=== PATIENT | male | born 1960 | race Caucasian/White ===

== ENCOUNTER 2019-12-25 06:56 | Outpatient (CLI) | payer MEDICARE, SELFPAY ==
[2019-12-25 07:28] LABS: Hemoglobin A1C 7.2 % (<5.7)
[2019-12-25 09:24] LABS: CRP < 0.2 mg/dL (0.0-0.9); Cholesterol 218 mg/dL (0-200); Free T3 4.16 pg/mL (2.18-3.98); HDL Direct 26 mg/dL (40-60); LDL Cholesterol Calculated 135 mg/dL (<130); Magnesium 1.5 mg/dL (1.8-2.4); Thyroid Stimulating Hormone 3.59 uIU/mL (0.36-3.74); Triglycerides 286 mg/dL (0-150); Vitamin B12 679 pg/mL (193-986)
[2019-12-28 16:02] LABS: Testosterone Free 51.6 pg/mL (35.0-155.0); Testosterone Total 302 ng/dL (250-1100)
[2019-12-29 08:55] LABS: Vitamin D 25 Hydroxy 19 ng/mL (30-100)
== END 2019-12-25 06:57 | disposition home or self-care (01) ==
LOC: CHSLAB 07:06
PROVIDERS: PCP Internal Medicine
DX: M25.50 Pain in unspecified joint (principal); E03.9 Hypothyroidism, unspecified; E11.9 Type 2 diabetes mellitus without complications; E78.5 Hyperlipidemia, unspecified; E55.9 Vitamin D deficiency, unspecified
CPT/HCPCS: 36415; 80061; 82306; 82607; 83036; 83735; 84402; 84403; 84443; 84481; 86038; 86140

== ENCOUNTER 2020-12-02 09:48 | Outpatient (CLI) | payer MEDICARE, SELFPAY ==
[2020-12-02 10:04] LABS: Basophils Absolute Auto 0.03 K/mm3 (0.00-0.10); Basophils Percent Auto 0.4 % (0.0-1.0); Eosinophils Absolute Auto 0.07 K/mm3 (0.02-0.50); Eosinophils Percent Auto 0.9 % (1.0-6.0); Hematocrit 48.6 % (40.0-54.0); Hemoglobin 16.9 g/dL (14.0-18.0); Immature Granulocyte Absolute 0.06 K/mm3 (0.00-0.00); Immature Granulocyte Percent A 0.8 % (0.0-0.0); Lymphocytes Absolute Auto 2.15 K/mm3 (1.10-4.50); Lymphocytes Percent Auto 28.1 % (18.0-42.0); Mean Corpuscular HGB Conc 34.8 g/dL (32.0-36.0); Mean Corpuscular Hemoglobin 31.9 pg (27.0-31.0); Mean Corpuscular Volume 91.9 fL (78.0-102.0); Mean Platelet Volume 9.3 fl (8.7-11.0); Monocytes Percent Auto 7.9 % (2.0-11.0); Neutrophils Absolute Auto 4.7 K/mm3 (1.7-7.2); Neutrophils Percent Auto 61.9 % (50.0-70.0); Platelet Count Result 239 K/mm3 (150-420); Red Blood Count 5.29 M/mm3 (4.70-6.10); Red Cell Distribution Width 11.3 % (11.6-14.4); White Blood Count 7.6 K/mm3 (4.8-10.8)
[2020-12-02 10:18] LABS: Hemoglobin A1C 7.5 % (<5.7)
[2020-12-02 11:38] LABS: Free T3 2.97 pg/mL (2.18-3.98); Prostate Specific Antigen 0.7 ng/mL (< OR = 4.0)
[2020-12-07 11:56] LABS: Testosterone Free 51.3 pg/mL (35.0-155.0); Testosterone Total 410 ng/dL (250-1100)
== END 2020-12-02 09:49 | disposition home or self-care (01) ==
DX: E34.50 Androgen insensitivity syndrome, unspecified (principal); R53.83 Other fatigue; R35.8 Other polyuria; N13.9 Obstructive and reflux uropathy, unspecified; E11.9 Type 2 diabetes mellitus without complications
CPT/HCPCS: 36415; 83036; 84153; 84402; 84403; 84481; 85025

== ENCOUNTER 2021-11-03 07:24 | Outpatient (CLI) | payer MEDICARE, SELFPAY ==
[2021-11-03 07:49] LABS: Hematocrit 58.1 % (40.0-54.0); Hemoglobin 19.6 g/dL (14.0-18.0); Mean Corpuscular HGB Conc 33.7 g/dL (32.0-36.0); Mean Corpuscular Volume 94.8 fL (78.0-102.0); Mean Platelet Volume 9.5 fl (8.7-11.0); Platelet Count Result 254 K/mm3 (150-420); Red Blood Count 6.13 M/mm3 (4.70-6.10); Red Cell Distribution Width 11.9 % (11.6-14.4); White Blood Count 8.2 K/mm3 (4.8-10.8)
[2021-11-03 08:51] LABS: Creatinine Urine 160.63 mg/dL (40-278); MALB Creatinine Ratio 14.6 mg/g (0-30); Microalbumin Urine Random 23.6 mg/L
[2021-11-03 08:53] LABS: Hemoglobin A1C 8.2 % (<5.7)
[2021-11-03 09:43] LABS: Alanine Aminotransferase 35 U/L (16-63); Albumin Level 4.3 g/dL (3.4-5.0); Alkaline Phosphatase 69 U/L (46-116); Anion Gap 8 mmol/L (8-16); Aspartate Amino Transferase 10 U/L (15-37); Bilirubin,Total 1.2 mg/dL (0.00-1.00); Blood Urea Nitrogen 14 mg/dL (7-18); Calcium 8.6 mg/dL (8.5-10.1); Carbon Dioxide 30 mmol/L (21-32); Chloride 101 mmol/L (98-108); Cholesterol 216 mg/dL (0-200); Estimated Glomerular Filt Rate > 60; Glucose 148 mg/dL (70-99); HDL Direct 25 mg/dL (40-60); LDL Cholesterol Calculated 138 mg/dL (<130); Osmolality Calculated 291 mOsm/kg (285-295); Potassium 4.4 mmol/L (3.5-5.1); Prostate Specific Antigen 0.9 ng/mL (< OR = 4.0); Sodium 139 mmol/L (136-145); Total Protein 7.3 g/dL (6.4-8.2); Triglycerides 267 mg/dL (0-150); Vitamin B12 880 pg/mL (193-986)
[2021-11-06 13:40] LABS: Testosterone Free 237.5 pg/mL (35.0-155.0); Testosterone Total 1237 ng/dL (250-1100)
== END 2021-11-03 07:25 | disposition home or self-care (01) ==
PROVIDERS: PCP Internal Medicine
DX: R53.83 Other fatigue (principal); Z12.5 Encounter for screening for malignant neoplasm of prostate; E78.00 Pure hypercholesterolemia, unspecified; E11.9 Type 2 diabetes mellitus without complications
CPT/HCPCS: 36415; 80053; 80061; 82043; 82607; 83036; 84153; 84402; 84403; 85027; G0103

== ENCOUNTER 2022-08-25 08:34 | Outpatient (CLI) | payer MEDICARE, SELFPAY ==
[2022-08-25 09:36] LABS: Hemoglobin A1C 7.4 % (<5.7)
[2022-08-25 10:31] LABS: Alanine Aminotransferase 35 U/L (16-63); Albumin Level 3.8 g/dL (3.4-5.0); Alkaline Phosphatase 63 U/L (46-116); Anion Gap 7 mmol/L (8-16); Aspartate Amino Transferase 16 U/L (15-37); Bilirubin,Total 0.8 mg/dL (0.00-1.00); Blood Urea Nitrogen 16 mg/dL (7-18); Calcium 8.9 mg/dL (8.5-10.1); Carbon Dioxide 34 mmol/L (21-32); Chloride 105 mmol/L (98-108); Cholesterol 180 mg/dL (0-200); Estimated Glomerular Filt Rate > 60; Glucose 165 mg/dL (70-99); HDL Direct 27 mg/dL (40-60); LDL Cholesterol Calculated 120 mg/dL (<130); Osmolality Calculated 307 mOsm/kg (285-295); Potassium 4.6 mmol/L (3.5-5.1); Sodium 146 mmol/L (136-145); Total Protein 6.6 g/dL (6.4-8.2); Triglycerides 165 mg/dL (0-150); Vitamin B12 859 pg/mL (193-986)
== END 2022-08-25 08:35 | disposition home or self-care (01) ==
LOC: CHSLAB 08:39
PROVIDERS: PCP Internal Medicine; Visit Provider Internal Medicine
DX: E78.00 Pure hypercholesterolemia, unspecified (principal); E11.9 Type 2 diabetes mellitus without complications
CPT/HCPCS: 36415; 80053; 80061; 82607; 83036

== ENCOUNTER 2022-11-12 10:25 | Outpatient (CLI) | payer MEDICARE, SELFPAY ==
[2022-11-12 10:44] LABS: Basophils Absolute Auto 0.04 K/mm3 (0.00-0.10); Basophils Percent Auto 0.4 % (0.0-1.0); Eosinophils Absolute Auto 0.05 K/mm3 (0.02-0.50); Eosinophils Percent Auto 0.6 % (1.0-6.0); Hemoglobin 18.5 g/dL (14.0-18.0); Immature Granulocyte Absolute 0.07 K/mm3 (0.00-0.00); Immature Granulocyte Percent A 0.8 % (0.0-0.0); Lymphocytes Percent Auto 15.6 % (18.0-42.0); Mean Corpuscular HGB Conc 34.3 g/dL (32.0-36.0); Mean Corpuscular Hemoglobin 32.8 pg (27.0-31.0); Mean Corpuscular Volume 95.7 fL (78.0-102.0); Mean Platelet Volume 9.6 fl (8.7-11.0); Monocytes Absolute Auto 0.73 K/mm3 (0.10-0.90); Monocytes Percent Auto 8.1 % (2.0-11.0); Neutrophils Absolute Auto 6.7 K/mm3 (1.7-7.2); Neutrophils Percent Auto 74.5 % (50.0-70.0); Platelet Count Result 237 K/mm3 (150-420); Red Blood Count 5.64 M/mm3 (4.70-6.10); Red Cell Distribution Width 12.5 % (11.6-14.4)
[2022-11-12 11:26] LABS: Prostate Specific Antigen 1.5 ng/mL (< OR = 4.0)
[2022-11-20 09:33] LABS: Testosterone Free 277.1 pg/mL (35.0-155.0); Testosterone Total 1372 ng/dL (250-1100)
== END 2022-11-12 10:26 | disposition home or self-care (01) ==
LOC: CHSLAB 10:30
DX: Z51.81 Encounter for therapeutic drug level monitoring (principal); R53.83 Other fatigue; Z12.5 Encounter for screening for malignant neoplasm of prostate
CPT/HCPCS: 36415; 84153; 84402; 84403; 85025; G0103

== ENCOUNTER 2024-09-11 11:22 | Outpatient (CLI) | payer MEDICARE, SELFPAY ==
[2024-09-11 12:35] LABS: Alanine Aminotransferase 35 U/L (16-63); Alkaline Phosphatase 68 U/L (46-116); Anion Gap 11 mmol/L (4-12); Aspartate Amino Transferase 13 U/L (15-37); Bilirubin,Total 1.4 mg/dL (0.00-1.00); Blood Urea Nitrogen 15 mg/dL (7-18); Calcium 9.5 mg/dL (8.5-10.1); Carbon Dioxide 25 mmol/L (21-32); Chloride 101 mmol/L (98-108); Cholesterol 123 mg/dL (0-200); Estimated Glomerular Filt Rate > 60; Glucose 192 mg/dL (70-99); HDL Direct 33 mg/dL (40-60); LDL Cholesterol Calculated 78 mg/dL (<130); Osmolality Calculated 289 mOsm/kg (285-295); Potassium 4.5 mmol/L (3.5-5.1); Prostate Specific Antigen 0.9 ng/mL (< OR = 4.0); Sodium 137 mmol/L (136-145); Total Protein 6.6 g/dL (6.4-8.2); Triglycerides 61 mg/dL (0-150)
== END 2024-09-11 11:23 | disposition home or self-care (01) ==
LOC: CHSLAB 11:29
PROVIDERS: PCP Internal Medicine
DX: E11.9 Type 2 diabetes mellitus without complications (principal); E78.00 Pure hypercholesterolemia, unspecified; K21.9 Gastro-esophageal reflux disease without esophagitis; I10 Essential (primary) hypertension; Z12.5 Encounter for screening for malignant neoplasm of prostate
CPT/HCPCS: 36415; 80053; 80061; 84153; 84402; 84403; G0103

== ENCOUNTER 2024-10-16 13:26 | Emergency (ER) | payer MEDICARE, SELFPAY ==
[2024-10-16] VITALS (12 sets, daily range): BP systolic 147–167; BP diastolic 75–91; PULSE 100–116; RESP 12–24; TEMP 36.7–36.8; O2SAT 94–98
--- NOTE | ~2024-10-16 | XR_ITS ---
Portable chest x-ray Comparison: None Clinical History: Chest pain Findings: Lungs are clear, without focal consolidation or pleural effusion. Cardiomediastinal silho uette is normal. Bones and soft tissues are unremarkable. Impression: Clear lungs. Reviewed, dictated and finalized at location M. HAZARD INSPECTOR Impression: Clear lungs.
[2024-10-16] MEDS: MAG HYDROX/ALUMINUM HYD/SIMETH 30 ML, PHENobarb/HYOSCY/ATROPINE/SCOP 32.4 MG, LIDOCAINE... PO (13:43)
[2024-10-16 13:46] LABS: Basophils Absolute Auto 0.05 K/mm3 (0.00-0.10); Basophils Percent Auto 0.6 % (0.0-1.0); Eosinophils Absolute Auto 0.09 K/mm3 (0.02-0.50); Hematocrit 52.6 % (40.0-54.0); Hemoglobin 18.2 g/dL (14.0-18.0); Immature Granulocyte Absolute 0.05 K/mm3 (0.00-0.00); Immature Granulocyte Percent A 0.6 % (0.0-0.0); Lymphocytes Absolute Auto 1.84 K/mm3 (1.10-4.50); Lymphocytes Percent Auto 21.2 % (18.0-42.0); Mean Corpuscular HGB Conc 34.6 g/dL (32-36); Mean Corpuscular Hemoglobin 31.6 pg (27.0-31.0); Mean Corpuscular Volume 91.3 fL (78.0-102.0); Mean Platelet Volume 9.1 fl (8.7-11.0); Monocytes Absolute Auto 0.67 K/mm3 (0.10-0.90); Monocytes Percent Auto 7.7 % (2.0-11.0); Neutrophils Absolute Auto 5.98 K/mm3 (1.70-7.20); Neutrophils Percent Auto 68.9 % (50.0-70.0); Platelet Count Result 233 K/mm3 (150-420); Red Blood Count 5.76 M/mm3 (4.70-6.10); Red Cell Distribution Width 12.2 % (11.6-14.4); White Blood Count 8.7 K/mm3 (4.8-10.8)
[2024-10-16 14:08] LABS: Alanine Aminotransferase 35 U/L (16-63); Alkaline Phosphatase 75 U/L (46-116); Anion Gap 8 mmol/L (4-12); Aspartate Amino Transferase 12 U/L (15-37); Bilirubin,Total 1.3 mg/dL (0.00-1.00); Blood Urea Nitrogen 18 mg/dL (7-18); Calcium 9.1 mg/dL (8.5-10.1); Carbon Dioxide 31 mmol/L (21-32); Chloride 101 mmol/L (98-108); Estimated CRCL calculation 62 ml/min; Estimated Glomerular Filt Rate > 60; Glucose 136 mg/dL (70-99); NT Pro B Type Natriuretic Pept 24 pg/mL (0-125); Osmolality Calculated 293 mOsm/kg (285-295); Potassium 3.9 mmol/L (3.5-5.1); Sodium 140 mmol/L (136-145); Total Protein 6.9 g/dL (6.4-8.2); Troponin I 4.6 ng/L (0.00-60.4)
[2024-10-16 14:11] LABS: Partial Thromboplastin Time 28.2 Sec (23.9-30.70); Prothrombin Time 11.5 Seconds (9.50-12.1)
--- NOTE | 2024-10-16 14:29 | ED_ITS ---
HPI - Abdominal Pain General Chief Complaint: Abdominal Pain Stated Complaint: heartburn Time Seen by Provider: 10/16/24 13:31 History of Present Illness HPI narrative: pt presents with intermittent abdominal pain and heartburn for the last few days. Pt denies CP or SOB. Pt says has had some pain around his umbilicus since umbilical hernia repair a couple of weeks ago. last few days has had some intermittent burning in his epigastric area and into chest. Pt informed PCP and wanted him evaluated for cardiac. Related Data Home Medications ?Medication ?Instructions ?Recorded ?Confirmed ?Last Taken ?Type insulin glargine 100 unit/mL (3 26 unit subcut QPM 10/16/24 10/16/24 Unknown History mL) subcutaneous pen (Lantus Solostar U-100 Insulin) insulin lispro 100 unit/mL 1 sliding scale dose subcut 10/16/24 10/16/24 Unknown History subcutaneous pen (Humalog KwikPen USEASDIRECTD (U-100) Insulin) losartan 100 1 tablet PO ONCE 10/16/24 10/16/24 Unknown History mg-hydrochlorothiazide 25 mg tablet (Hyzaar) metformin 1,000 mg tablet 1,000 mg PO BID 10/16/24 10/16/24 Unknown History omeprazole 40 mg capsule,delayed 40 mg PO DAILY 10/16/24 10/16/24 Unknown History release simvastatin 20 mg tablet 20 mg PO HS 10/16/24 10/16/24 Unknown History tramadol 50 mg tablet 100 mg PO Q6H 10/16/24 10/16/24 Unknown History Allergies Allergy/AdvReac Type Severity Reaction Status Date / Time codeine Allergy Hives Verified 10/16/24 13:29 hydrocodone Allergy Hives Verified 10/16/24 13:29 Review of Systems 2 Review of Systems: All systems reviewed & are unremarkable except as noted in HPI and below Exam 2 Const: General: healthy appearing and no acute distress Nutritional Appearance: well nourished Orientation/consciousness: patient oriented x3 Limitations: no limitations Chest: Chest palpation & inspection: normal inspection of the chest Resp: Effort & Inspection: normal respiratory effort Auscultation: clear to auscultation bilaterally Cardio: Rate: regular rate Rhythm: regular rhythm GI: GI Palp: Yes Soft to palpation and No Tenderness to palpation present (GI) Auscultation: normal bowel sounds Skin: General skin exam: normal color Rashes: no rashes Neuro: General: patient oriented x3, moves all extremities and no focal motor deficits Cranial nerves: Yes Nystagmus not present Speech: normal speech Extrem: General: normal to inspection and no clubbing, cyanosis or edema Psych: Mental Status: mental status grossly normal Affect: normal affect Attitude: cooperative Course Vital Signs Vital signs: Vital Signs Temperature 98.3 F 10/16/24 13:26 Pulse Rate 108 H 10/16/24 13:26 Respiratory Rate 15 10/16/24 13:26 Blood Pressure 167/91 H 10/16/24 13:26 Pulse Oximetry 98 10/16/24 13:26 Temperature 98.3 F 10/16/24 13:26 Pulse Rate 108 H 10/16/24 13:26 Respiratory Rate 15 10/16/24 13:26 Blood Pressure 167/91 H 10/16/24 13:26 Pulse Oximetry 98 10/16/24 13:26 MDM - Abdominal Pain MDM Narrative Medical decision making narrative: Pt presents with gerd symptoms and here for cardiac rule out. will get ekg and labs including trop and cxr. Lab Data 10/16/24 13:40 10/16/24 13:40 Labs: Lab Results 10/16/24 Range/Units 13:40 WBC 8.7 (4.8-10.8) K/mm3 RBC 5.76 (4.70-6.10) M/mm3 Hgb 18.2 H (14.0-18.0) g/dL Hct 52.6 (40.0-54.0) % MCV 91.3 (78.0-102.0) fL MCH 31.6 H (27.0-31.0) pg MCHC 34.6 (32-36) g/dL RDW 12.2 (11.6-14.4) % Plt Count 233 (150-420) K/mm3 MPV 9.1 (8.7-11.0) fl Immature Gran % (Auto) 0.6 H (0.0-0.0) % Neut % (Auto) 68.9 (50.0-70.0) % Lymph % (Auto) 21.2 (18.0-42.0) % [place] % (Auto) 7.7 (2.0-11.0) % Eos % (Auto) 1.0 (1.0-6.0) % Baso % (Auto) 0.6 (0.0-1.0) % Lymph # (Auto) 1.84 (1.10-4.50) K/mm3 [place] # (Auto) 0.67 (0.10-0.90) K/mm3 Eos # (Auto) 0.09 (0.02-0.50) K/mm3 Baso # (Auto) 0.05 (0.00-0.10) K/mm3 Abs Immat Gran (auto) 0.05 H (0.00-0.00) K/mm3 Absolute Neuts (auto) 5.98 (1.70-7.20) K/mm3 Absolute Nucleated RBC 0.00 (0.00-0.00) K/mm3 Nucleated RBC % 0.0 (0-0.0) % PT 11.5 (9.50-12.1) Seconds INR 1.0 APTT 28.2 (23.9-30.70) Sec Sodium 140 (136-145) mmol/L Potassium 3.9 (3.5-5.1) mmol/L Chloride 101 (98-108) mmol/L Carbon Dioxide 31 (21-32) mmol/L Anion Gap 8 (4-12) mmol/L BUN 18 (7-18) mg/dL Creatinine 1.18 (0.70-1.30) mg/dL Estim Creat Clear Calc 62 ml/min Estimated GFR > 60 (59 - ) Glucose 136 H (70-99) mg/dL Calculated Osmolality 293 (285-295) mOsm/kg Calcium 9.1 (8.5-10.1) mg/dL Total Bilirubin 1.3 H (0.00-1.00) mg/dL AST 12 L (15-37) U/L ALT 35 (16-63) U/L Alkaline Phosphatase 75 (46-116) U/L Troponin I 4.6 (0.00-60.4) ng/L NT-Pro-B Natriuret Pep 24 (0-125) pg/mL Total Protein 6.9 (6.4-8.2) g/dL Albumin 4.0 (3.4-5.0) g/dL Imaging Data Radiologist's impression: ITS Impressions Chest X-Ray 10/16/24 13:42 Impression: Clear lungs. ECG Data EKG #1: Interpretation: st rate 101 nonspecific t wave changes Discharge Plan Discharge Patient Language: Australian Prescriptions: No Action metformin 1,000 mg tablet 1,000 mg PO BID tramadol 50 mg tablet 100 mg PO Q6H losartan-hydrochlorothiazide [Hyzaar] 100-25 mg tablet 1 tablet PO ONCE simvastatin 20 mg tablet 20 mg PO HS omeprazole 40 mg capsule,delayed release(DR/EC) 40 mg PO DAILY insulin glargine [Lantus Solostar U-100 Insulin] 100 unit/mL (3 mL) insulin pen 26 unit subcut QPM insulin lispro [Humalog KwikPen Insulin] 100 unit/mL insulin pen 1 sliding scale dose subcut USEASDIRECTD Follow-up/Referrals: Nicolle,Saul Mueller MD [Primary Care Provider] - Quality HEART score for chest pain patients History: slightly suspicious ECG: non specific repolarization disturbance/LBTB/PM Age: > 45 and < 65 years Risk factors: 1 or 2 risk factors Troponin: < or = to 1x normal limit Heart score: 3
--- NOTE | 2024-10-16 14:34 | ECG_ITS ---
Test Date: 2024-10-16 14:42:02 Measurements Intervals [place] Rate: 101 P: 60 ME: 163 QRS: 70 QRSD: 92 T: 52 QT: 316 QTc: 410 Interpretive Statements SINUS TACHYCARDIA NONSPECIFIC T-WAVE ABNORMALITY ABNORMAL RHYTHM ECG No previous ECG available for comparison Electronically Signed On 10-16-2024 21:47:43 HOT WIRE GLASS TUBE CUTTER by Genna Saenz M.D.
== END 2024-10-16 14:59 | disposition home or self-care (01) ==
PROVIDERS: Emergency Provider Emergency Medicine; PCP Internal Medicine
DX: K21.9 Gastro-esophageal reflux disease without esophagitis (principal); Z79.4 Long term (current) use of insulin
CPT/HCPCS: 36415; 71045; 80053; 83880; 84484; 85025; 85610; 85730; 93005; 99284; A9270

== ENCOUNTER 2024-11-08 09:18 | Outpatient (CLI) | payer MEDICARE, SELFPAY ==
--- OUTSIDE RECORDS SUMMARY | 2024-11-08 09:56 | XMS_ITS | Encounter Summary ---
Author Organization [facility] Address [address] [place] [address] Phone Care Team Providers Care Ship'S Captain Name Role Phone Saul Valverde MD Primary Care Provider [phone] Ramon Paredes MD Unavailable Reason for Visit * Reason Comments Medication Refill Encounter Details Date Type Department Care Team (Late st Contact Info) Description 06/30/2021 Refill [facility] - Family Medicine [facility] [address]2 [place] [address] Saul Valverde MD [address] [address] Medication Refill Social History Tobacco Use Types Packs/Day Years Used Date Smoking Tobacco: Every Day Cigarettes 0.5 44.2 Started: 08/12/1980 Smokeless Tobacco: Never Comments:GOING TO TRY VAPOR Alcohol Use Standard Drinks/Week Comments No 0 (1 standard drink = 0.6 oz pur e alcohol) PHQ-2 Answer Date Recorded Total Score - Questions 1-9 0 02/01 Sexually Active Control Partners Comments Yes Female Sex and Gender Information Value Date Recorded Sex Assigned at Not on file Legal Sex Male 9:05 PM CDT Gender Identity Not on file Sexual Orientation Not on file documented as of this encounter Miscellaneous Notes * Telephone Encounter - Saul Valverde MD - 06/30/2021 4:02 PM CDT Prescription pending signature * Telephone Encounter - Inge Good RN - 06/30/2021 3:52 PM CDT Per [place] PDMP last fill date 04/30/21. Medication failed the protocol, provider to review and approve the medication order if appropriate. Requested Prescriptions Pending Prescriptions Disp Refills ALPRAZolam (XANAX) 0.5 MG Tablet [Pharmacy Med Name: ALPRAZOLAM 0.5 MG TABLET] 60 Tablet 0 Sig: TAKE 1 TABLET BY MOUTH TWICE DAILY. There is no refill protocol information for this order documented in this encounter Plan of Treatment Upcoming Encounters Date Type Department Care Team (Late st Contact Info) Description 03/15/2025 11:00 AM CDT Office Visit [facility] - Family [facility] #2 [place] [address] Saul Valverde MD #[address] [address] documented as of this encounter Visit Diagnoses Diagnosis Anxiety- Primary Anxiety state, unspecified documented in this encounter Additional Health Concerns Assessment Noted Time PHQ-9 Depression Total Score: 0 02/13/20 21 12:00 PM CDT documented as of this encounter Care Teams Ship'S Captain Relationship Specialty Start Date End Date Saul Valverde MD #[address] [address] PCP - General Family Medicine 11/17/17 Ramon Paredes MD #[address] [address] Consulting Physician Colon and Rectal Surgery 10/11/23 documented as of this encounter
--- OUTSIDE RECORDS SUMMARY | 2024-11-08 09:57 | XMS_ITS | Encounter Summary ---
Author Organization [facility] Address [address] [place] [address] Phone Care Team Providers Care Lumber Straightened Name Role Phone Saul Valverde MD Primary Care Provider [phone] Ramon Paredes MD Unavailable Reason for Visit * Reason Comments Medication Refill Encounter Details Date Type Department Care Team (Late st Contact Info) Description 08/21/2020 Refill [facility] - Family Medicine [facility] [address] [place] [address] Emmett Mo MD [address] [place] [address] Medication Refill Social History Tobacco Use Types Packs/Day Years Used Date Smoking Tobacco: Every Day Cigarettes 0.5 44.2 Started: 08/12/1980 Smokeless Tobacco: Never Comments:GOING TO TRY VAPOR Alcohol Use Standard Drinks/Week Comments No 0 (1 standard drink = 0.6 oz pur e alcohol) PHQ-2 Answer Date Recorded Total Score - Questions 1-9 0 11/04 Sexually Active Control Partners Comments Yes Female Sex and Gender Information Value Date Recorded Sex Assigned at Not on file Legal Sex Male 9:05 PM CDT Gender Identity Not on file Sexual Orientation Not on file documented as of this encounter Miscellaneous Notes * Telephone Encounter - Saul Valverde MD - 08/21/2020 11:21 AM CST Prescription pending signature PRODUCER * Telephone Encounter - Neida Santana RN - 08/21/2020 11:05 AM CST Last OV 05/20/20 - no follow up - last RX 05/20/20 Medication failed the protocol, provider to review and approve the medication order if appropriate. Requested Prescriptions Pending Prescriptions Disp Refills ALPRAZolam (XANAX) 0.5 MG Tablet [Pharmacy Med Name: ALPRAZOLAM 0.5 MG TABLET] 60 Tab 4 Sig: TAKE 1 TABLET BY MOUTH TWICE DAILY. Not Delegated - Psychiatry: Anxiolytics/Hypnotics Failed - 08/21/2020 9:30 AM Failed - This refill cannot be delegated Passed - Valid encounter within last 6 months Past Office Visits Recent Outpatient Visits 3 months ago Type 2 diabetes mellitus without complication, unspecified whether long-term insulin use (HCC) [facility] - Saul Wong MD 9 months ago Chronic midline low back pain without sciatica [facility] Saul Munoz MD 1 year ago Chronic midline low back pain without sciatica [facility] Saul Munoz MD 1 year ago Pure hypercholesterolemia [facility] Saul Munoz MD 2 years ago Type 2 diabetes mellitus without complication, without long-term current use of insulin(HCC) [facility] Saul Munoz MD Upcoming Appointments LAB RN - Recent and Past Visits Recent Visits Date Type Provider Dept 05/20/20 Telemedicine [facility] 11/20/19 [facility] Visit [facility] Showing recent visits within past 460 days with a meds authorizing provider and meeting all other requirements Future Appointments No visits were found meeting these conditions. Showing future appointments within next 90 days with a meds authorizing provider and meeting all other requirements PRODUCER documented in this encounter Plan of Treatment Upcoming Encounters Date Type Department Care Team (Late st Contact Info) Description 03/15/2025 11:00 AM CDT Office Visit [facility] [address] [place] [address] Saul Valverde MD #2 [facility] [address] [place] [address] documented as of this encounter Visit Diagnoses Not on filedocumented in this encounter Additional Health Concerns Assessment Noted Time PHQ-9 Depression Total Score: 0 11/20/19 20 12:18 PM OIL PRODUCER documented as of this encounter Care Teams Lumber Straightened Relationship Specialty Start Date End Date Saul Valverde MD [address] [address] PCP - General Family Medicine 11/17/17 Ramon Paredes MD [address]2 [facility] [address] [place] [address] Consulting Physician Colon and Rectal Surgery 10/11/23 documented as of this encounter
--- OUTSIDE RECORDS SUMMARY | 2024-11-08 09:57 | XMS_ITS | Clinical Summary ---
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 Gender Identity Not on file Sexual Orientation Not on file Last Filed Vital Signs Vital Sign Reading Time Taken Comments Blood Pressure 143/91 06/30/2016 10:57 AM CDT Pulse 82 06/30/2016 10:57 AM CDT Temperature - - Respiratory Rate - - Oxygen Saturation - - Inhaled Oxygen Concentration - - Weight 108.9 kg (240 lb) 06/30/2016 10:57 AM CDT Height 185.4 cm (6' 1 ) 06/30/2016 10:57 AM CDT Body Mass Index 31.66 06/30/2016 10:57 AM CDT Plan of Treatment Health Maintenance Due Date Last Done Comments Colorectal Cancer Screening Colonoscopy (10 Years) 1960 Annual Physical 02/25/1963 Hepatitis C 02/25/1978 DTaP, Tdap and Td Vaccines ( 1 - Tdap) 02/25/1979 Zoster Vaccines (1 of 2) 02/25/2010 COVID-19 Vaccine ( - 2023-2 5 season) 2024 Influenza Adult (#1) 2024 RSV Immunization or 60+ Years (1 - 1-dose 75+ series) 02/25/2035 Meningococcal B Vaccine Aged Out No l onger eligible based on patient's age to complete this topic Meningococcal Vaccine Aged Out No mary elizabeth eligible based on patient's age to complete this topic Pneumococcal Vaccine: Pediat rics (0 to 5 Years) and At-Risk Patients (6 to 64 Years) Aged Out No longer eligible b ased on patient's age to complete this topic RSV Immunizations Under 20 Months Aged Out No longer eligible based on patient's age to complete this topic
--- OUTSIDE RECORDS SUMMARY | 2024-11-08 09:57 | XMS_ITS | Encounter Summary ---
Author Organization [facility] Address [address] [place] [address] Phone Care Team Providers Care Mixed Crop And Livestock Farmer Name Role Phone Saul Valverde MD Primary Care Provider [phone] Ramon Paredes MD Unavailable Reason for Visit * Reason Comments Medication Refill Encounter Details Date Type Department Care Team (Late st Contact Info) Description 03/24/2021 Refill [facility] - Family Medicine [facility] #2 [place] [address] Emmett Mo MD #[address] [place] [address] Medication Refill Social History Tobacco Use Types [...] Telephone Encounter - Saul Valverde MD - 03/25/2021 3:31 PM CDT Prescription pending signature * Telephone Encounter - Yany Fernandes RN - 03/25/2021 3:14 PM CDT Medication failed the protocol, provider to review and approve the medication order if appropriate.See PDMP (Loazepam received 01/22) and see last UDS Requested Prescriptions Pending Prescriptions Disp Refills ALPRAZolam (XANAX) 0.5 MG Tablet [Pharmacy Med Name: ALPRAZOLAM 0.5 MG TABLET] 60 Tablet 0 Sig: TAKE 1 TABLET BY MOUTH TWICE DAILY. There is no refill protocol information for this order documented in this encounter Plan of Treatment Upcoming Encounters Date Type Department Care Team (Late st Contact Info) Description 03/15/2025 11:00 AM CDT [facility] #2 [place] [address] Saul Valverde MD #[address] [address] documented as of this encounter Visit Diagnoses Not on filedocumented in this encounter Additional Health Concerns Assessment Noted Time PHQ-9 Depression Total Score: 0 02/13/20 21 12:00 PM CDT documented as of this encounter Care Teams Mixed Crop And Livestock Farmer Relationship Specialty Start Date End Date Saul Valverde MD #[address] [address] PCP - General Family Medicine 11/17/17 Ramon Paredes MD #[address] [address] Consulting Physician Colon and Rectal Surgery 10/11/23 documented as of this encounter
--- OUTSIDE RECORDS SUMMARY | 2024-11-08 09:57 | XMS_ITS | Encounter Summary ---
Author Organization [facility] Address [address] [place] [address] Phone Care Team Providers Care Ict Support And Test Engineers Name Role Phone aSul Valverde MD Primary Care Provider [phone] Ramon Paredes MD Unavailable Reason for Visit * Reason Comments Medication Refill Encounter Details Date Type Department Care Team (Late st Contact Info) Description 01/13/2024 Refill [facility] - Family Medicine [facility] #2 [place] [address] Saul Valverde MD #[address] [address] Medication Refill Social History Tobacco Use Types Packs/Day Years Used Date Smoking Tobacco: Every Day Cigarettes 0.5 50.1 Started: 1974 Smokeless Tobacco: Never Alcohol Use Standard Drinks/Week Comments No 0 (1 standard drink = 0.6 oz pur e alcohol) PHQ-2 Answer Date Recorded Total Score - Questions 1-9 0 04/2022 Education Answer Date Recorded What is the highest level of school you have completed or the highest degree you have received? 12th grade 03/01/2023 Sexually Active Control Partners Comments Yes Female Sex and Gender Information Value Date Recorded Sex Assigned at Not on file Legal Sex Male 9:05 PM CDT Gender Identity Not on file Sexual Orientation Not on file documented as of this encounter Miscellaneous Notes * Telephone Encounter - Neida Santana RN - 01/14/2024 12:24 PM CDT Medication(s) [facility] and [facility] Medication Refill Standing Order for Pediatricand Adult Patients. Requested Prescriptions Pending Prescriptions Disp Refills omeprazole (PriLOSEC) 40 MG CAPSULE DELAYED RELEASE [Pharmacy Med Name: Omeprazole 40 MG Oral Capsule Delayed Release] 100 Capsule 1 Sig: TAKE 1 CAPSULE BY MOUTH DAILY Proton Pump Inhibitors Protocol Passed - 01/13/2024 10:02 PM Passed - Visit with relevant provider in past 12 months or upcoming 90 days Recent Visits Date Type Provider Dept 09/06/23 Office Visit Saul Valverde MD [facility] 03/02/23 Office Visit [facility] Showing recent visits within past 365 days and meeting all other requirements Future Appointments Date Type Provider Dept 03/07/24 Appointment Saul Valverde MD [facility] Showing future appointments within next 90 days and meeting all other requirements documented in this encounter Plan of Treatment Upcoming Encounters Date Type Department Care Team (Late st Contact Info) Description 03/15/2025 11:00 AM CDT [facility] Visit [facility] [address] [place] [address] Saul Valverde MD #[address] [address] documented as of this encounter Visit Diagnoses Not on filedocumented in this encounter Additional Health Concerns Assessment Noted Time PHQ-9 Depression Total Score: 0 02/13/20 21 12:00 PM CDT documented as of this encounter Care Teams Ict Support And Test Engineers Relationship Specialty Start Date End Date Saul Valverde MD #[address] [address] PCP - General Family Medicine 11/17/17 Ramon Paredes MD #2 [facility] [address] [place] [address] Consulting Physician Colon and Rectal Surgery 10/11/23 documented as of this encounter
--- OUTSIDE RECORDS SUMMARY | 2024-11-08 09:57 | XMS_ITS | Encounter Summary ---
Author Organization [facility] Address [address] [place] [address] Phone Care Team Providers Care Database Software Technician Name Role Phone Saul Valverde MD Primary Care Provider [phone] Ramon Paredes MD Unavailable Reason for Visit * Reason Comments Medication Refill Encounter Details Date Type Department Care Team (Late st Contact Info) Description [facility] [address] [place] [address] Saul Valverde MD #[address] [address] Medication Refill Social History Tobacco Use Types [...] Encounter - Saul Valverde MD - 08/21/2020 9:59 AM CST Prescription pending signature BILITATION TECHNICIAN * Telephone Encounter - Emi Mcarthur RN - 08/21/2020 9:58 AM CST Medication failed the protocol, provider to review and approve the medication order if appropriate. Last office visit 05/20/20, no appointment scheduled, last refill 05/20/20 Requested Prescriptions Pending Prescriptions Disp Refills traMADol (ULTRAM) 50 MG Tablet [Pharmacy Med Name: TRAMADOL HCL 50 MG TABLET] 540 Tab 4 Sig: TAKE 2 TABLETS BY MOUTH 3 TIMES DAILY Not Delegated - Analgesics: Opioid Agonists Failed - 08/21/2020 9:30 AM Failed - This refill cannot be delegated Passed - Valid encounter within last 6 months Past Office Visits Recent Outpatient Visits 3 months ago Type 2 diabetes mellitus without complication, unspecified whether bed bug exterminator insulin use (HCC) [facility] Saul Munoz MD 9 months ago Chronic midline low back pain without sciatica [facility] Saul Munoz MD 1 year ago Chronic midline low back pain without sciatica [facility] Saul Munoz MD 1 year ago Pure hypercholesterolemia [facility] Saul Munoz MD 2 years ago Type 2 diabetes mellitus without complication, without long-term current use of insulin(HCC) [facility] Saul Munoz MD Upcoming Appointments SKIP MINER BLASTING - Recent and Past Visits Recent Visits Date Type Provider Dept 05/20/20 Telemedicine Saul Valverde MD [facility] 11/20/19 Office [facility] Showing recent visits within past 460 days with a meds authorizing provider and meeting all other requirements Future Appointments No visits were found meeting these conditions. Showing future appointments within next 90 days with a meds authorizing provider and meeting all other requirements BILITATION TECHNICIAN documented in this encounter Plan of Treatment Upcoming Encounters Date Type Department Care Team (Late st Contact Info) Description 03/15/2025 11:00 AM CDT Office Visit [facility] #2 [place] [address] Saul Valverde MD #[address] [facility] [address] [place] [address] documented as of this encounter Visit Diagnoses Diagnosis Pain Generalized pain documented in this encounter Additional Health Concerns Assessment Noted Time PHQ-9 Depression Total Score: 0 11/20/19 20 12:18 PM REHABILITATION TECHNICIAN documented as of this encounter Care Teams Database Software Technician Relationship Specialty Start Date End Date Saul Valverde MD #[address] [facility] [address] [place] [address] PCP - General Family Medicine 11/17/17 Ramon Paredes MD #[address] [address] Consulting Physician Colon and Rectal Surgery 10/11/23 documented as of this encounter
--- OUTSIDE RECORDS SUMMARY | 2024-11-08 09:57 | XMS_ITS | Encounter Summary ---
Author Organization [facility] Address [address] [place] [address] Phone Care Team Providers Care Medical Clerk Name Role Phone Saul Valverde MD Primary Care Provider [phone] Ramon Paredes MD Unavailable Reason for Visit * Reason Comments Medication Refill Encounter Details Date Type Department Care Team (Late st Contact Info) Description 05/05/2023 Refill [facility] - Family Medicine [facility] #2 [place] [address] Saul Valverde MD #[address] [address] Medication Refill Social History Tobacco Use Types [...] Telephone Encounter - Neida Santana RN - 05/06/2023 10:18 AM CDT PDMP 03/02/23 Medication failed the protocol, provider to review and approve the medication order if appropriate. Requested Prescriptions Pending Prescriptions Disp Refills ALPRAZolam (XANAX) 0.5 MG Tablet [Pharmacy Med Name: ALPRAZOLAM 0.5 MG TABLET] 60 Tablet 0 Sig: TAKE 1 TABLET BY MOUTH 2 TIMES DAILY. Not Delegated - Benzodiazepines Protocol Failed - 05/05/2023 10:32 AM Failed - This refill cannot be delegated Passed - Visit with relevant provider in past 12 months or upcoming 90 days Recent Visits Date Type Provider Dept 03/02/23 Office Visit Saul Valverde MD [facility] 08/31/22 Office Visit Saul Valverde MD [facility] Showing recent visits within past 365 days and meeting all other requirements Future Appointments No visits were found meeting these conditions. Showing future appointments within next 90 days and meeting all other requirements documented in this encounter Plan of Treatment Upcoming Encounters Date Type Department Care Team (Late st Contact Info) Description 03/15/2025 11:00 AM CDT Office Visit [facility] #2 [place] [address] Saul Valverde MD #[address] [address] documented as of this encounter Visit Diagnoses Diagnosis Anxiety Anxiety state, unspecified documented in this encounter Additional Health Concerns Assessment Noted Time PHQ-9 Depression Total Score: 0 02/13/20 21 12:00 PM CDT documented as of this encounter Care Teams Medical Clerk Relationship Specialty Start Date End Date Saul Valverde MD #[address] [address] PCP - General Family Medicine 11/17/17 Rmaon Paredes MD #[address] [address] Consulting Physician Colon and Rectal Surgery 10/11/23 documented as of this encounter
--- OUTSIDE RECORDS SUMMARY | 2024-11-08 09:57 | XMS_ITS | Encounter Summary ---
Author Organization [facility] Address [address] [place] [address] Phone Care Team Providers Care Signal Tower Operator Name Role Phone Saul Valverde MD Primary Care Provider Ramon Paredes MD Unavailable Reason for Visit * Reason Comments Medication Refill Encounter Details Date Type Department Care Team (Late st Contact Info) Description 12/13/2022 Refill [facility] - Family Medicine [facility] #2 [place] [address] Saul Valverde MD #[address] [address] Medication Refill Social History Tobacco Use Types Packs/Day Years Used Date Smoking Tobacco: Every Day Cigarettes 0.5 44.2 Started: 08/12/1980 Smokeless Tobacco: Never Comments:GOING TO [employer] Alcohol Use Standard Drinks/Week Comments No 0 (1 standard drink = 0.6 oz pur e alcohol) PHQ-2 Answer Date Recorded Total Score - Questions 1-9 0 /0 04/2022 Education Answer Date Recorded What is the highest level of school you have completed or the highest degree you have received? Some college, no degree 08/30/2022 Sexually Active Control Partners Comments Yes Female Sex and Gender Information Value Date Recorded Sex Assigned at Not on file Legal Sex Male 9:05 PM CDT Gender Identity Not on file Sexual Orientation Not on file documented as of this encounter Miscellaneous Notes * Telephone Encounter - Neida Santana RN - 12/14/2022 3:18 PM CDT Medication failed the protocol, provider to review and approve the medication order if appropriate. Requested Prescriptions Pending Prescriptions Disp Refills metFORMIN (GLUCOPHAGE) 1000 MG Tablet [Pharmacy Med Name: metFORMIN HCl 1000 MG Oral Tablet] 200 Tablet 2 Sig: TAKE 1 TABLET BY MOUTH TWICE DAILY Biguanides Protocol Failed - 12/13/2022 9:41 PM Failed - GFR on record in past 6 months No results found for: GFRNA Passed - Visit with relevant provider in past 6 months or upcoming 90 days Recent Visits Date Type Provider Dept 08/31/22 Office Visit Saul Valverde MD [facility] Showing recent visits within past 182 days and meeting all other requirements Future Appointments Date Type Provider Dept 03/02/23 Appointment Saul Valvrede MD [facility] Showing future appointments within next 90 days and meeting all other requirements Passed - HgA1C on record in past 6 months HGB-A1C Date Value Ref Range Status 03/10/2022 7.8 (A) 4 - 6 Final HGB-A1C Date Value Ref Range Status 08/25/2022 7.4 % Final documented in this encounter Plan of Treatment Upcoming Encounters Date Type Department Care Team (Late st Contact Info) Description 03/15/2025 11:00 AM CDT Office Visit [facility] - Family Medicine [facility] #2 [place] [address] Saul Valverde MD #[address] [address] documented as of this encounter Visit Diagnoses Not on filedocumented in this encounter Additional Health Concerns Assessment Noted Time PHQ-9 Depression Total Score: 0 02/13/20 21 12:00 PM CDT documented as of this encounter Care Teams Signal Tower Operator Relationship Specialty Start Date End Date Saul Valverde MD #[address] [address] PCP - General Family Medicine 11/17/17 Ramon Paredes MD #2 [place] [address] Consulting Physician Colon and Rectal Surgery 10/11/23 documented as of this encounter
--- OUTSIDE RECORDS SUMMARY | 2024-11-08 09:57 | XMS_ITS | Clinical Summary ---
Author Organization [facility] Address [address] [facility] [address] [place] [address] Phone Care Team Providers Care Claims Assistant Name Role Phone Saul Valverde MD Primary Care Provider [phone] Ramon Paredes MD Unavailable Allergies Active Allergy Reactions Criticality Noted Date Comments Codeine Rash 08/12/2015 Empagliflozin Nausea Low 11/02/2023 Tirzepatide Other (see Comments) Low 01/11/2024 Sore nipples Medications Aspirin 81 MG Tablet Take 81 mg by mouth daily. Active TRUEplus Insulin Syringe 31G X 5/16 1 ML Misc 023 Active sildenafil (REVATIO) 20 MG TabletIndicat ions:Type 2 diabetes mellitus without complication, without long-term current use of insulin (HCC) Take 1 Tablet by mouth daily as needed for Other. 50 Tablet 2 023 Active metFORMIN (GLUCOPHAGE) 1000 MG Tablet Take 1 Tablet by mouth 2 times daily. 200 Tablet 2 023 Active insulin glargine (Lantus) 100 UNIT/ML Solution 22 Units by Subcutaneous route every evening. Active simvastatin (ZOCOR) 20 MG Tablet 024 Active Insulin Lispro, 1 Unit Dial, 100 UNIT/ML Solution Pen-injector 7 Units by Subcutaneous route 3 times daily (before meals). 024 Active testosterone cypionate (DEPO-TESTOST ERONE) 200 MG/ML Solution INJECT 1ML INTRAMUSCULARLY EVERY WEEK. PLEASE DISCARD 28 DAYS AFTER FIRST PUNCTURE. CAUTION HAZARDOUS DRUG-DISPOSE OF PROPERLY- OBSERVE SPECIAL HANDLING AND ADMINISTRATION REQUIREMENTS. 024 Active naproxen (NAPROSYN) 500 MG Tablet TAKE 1 TABLET BY MOUTH NEEDED FOR MODERATE OR MORE SEVERE PAIN. 60 Tablet 6 024 Active traMADol (ULTRAM) 50 MG TabletIndicat ions:Pain Take 1-2 Tablets by mouth every 6 hours as needed for Mild or more severe pain. 540 Tablet 024 Active ALPRAZolam (XANAX) 0.5 MG TabletIndicat ions:Anxiety Take 1 Tablet by mouth 2 times daily. 60 Tablet 024 Active albuterol 108 (90 Base) MCG/ACT Aerosol Solution take 2 Puffs by inhalation every 4 hours as needed for Wheezing. 6.7 g 3 024 Active losartan potassium-hyd rochlorothiaz courtney (HYZAAR) 100-25 MG Tablet Take 1 Tablet by mouth daily. 90 Tablet 3 024 Active acetaminophen (TYLENOL) 325 MG Tablet Take 1 Tablet by mouth every 6 hours as needed for Fever (for temperature greater than 100.4 F.). Do not exceed 4000 mg of acetaminophen in 24 hour from all sources. 024 Active omeprazole (PriLOSEC) 40 MG CAPSULE DELAYED RELEASE TAKE 1 CAPSULE BY MOUTH DAILY 100 Capsule 2 025 Active omeprazole (PriLOSEC) 40 MG CAPSULE DELAYED RELEASE TAKE 1 CAPSULE BY MOUTH DAILY 100 Capsule 1 024 2024 Discontinued ibuprofen (MOTRIN) 800 MG Tablet Take 1 Tablet by mouth every 8 hours for 10 days. 30 Tablet 024 2024 Active Problems Problem Noted Date Diagnosed Date Umbilical hernia without obstruction and without gangrene 10/02/2024 Screening for colon cancer 11/18/2018 Pure hypercholesterolemia 11/17/2017 Vasculogenic erectile dysfunction 11/17/2017 Chronic midline low back pain without sciatica 0 11/17/2017 Gastroesophageal reflux disease without esophagi tis 11/17/2017 Type 2 diabetes mellitus without complication Encounters Date Type Department Care Team Description 11/02/2024 Refill [facility]2 [place] [address] Saul Valverde MD Medication Refill 10/24/2024 1:15 PM SENIOR REGULATORY AFFAIRS SPECIALIST Office Visit [facility] General Surgery [facility] #[address] [address] Ramon Paredes MD S/P hernia surgery (Primary Dx) Discharge Disposition: Discharged to home or Selfcare 10/23/2024 Travel 10/16/2024 [facility] [address] [place] [phone] Saul Valverde MD Chest Pain 10/02/2024 1:10 PM SENIOR REGULATORY AFFAIRS SPECIALIST Anesthesia Event [facility] Periop [address] [place] [address] Job Velez, CONE EXAMINER, SCREEN PRINTING INSPECTOR 10/02/2024 12:40 PM SENIOR REGULATORY AFFAIRS SPECIALIST - 10/02/2024 2:10 PM SENIOR REGULATORY AFFAIRS SPECIALIST Surgery [facility] [address] [place] [address] Ramon Paredes MD UMBILICAL HERNIA REPAIR WITH MESH 10/02/2024 10:01 AM SENIOR REGULATORY AFFAIRS SPECIALIST - 10/02/2024 3:35 PM SENIOR REGULATORY AFFAIRS SPECIALIST Hospital Encounter [facility] Preop/Pacu II [address] [place] [address] Ramon Paredes MD Umbilical hernia without obstruction and without gangrene Discharge Disposition: Discharged to home or Selfcare 10/02/2024 Travel 09/20/2024 Telephone [facility] [place] [place] #2 [place] [address] Saul Valverde MD 09/18/2024 Travel 09/13/2024 10:30 AM SENIOR REGULATORY AFFAIRS SPECIALIST Office Visit [facility] [place] [place] #2 [place] [address] Saul Valverde MD Type 2 diabetes mellitus without complication, without long-term current use of insulin (HCC) (Primary Dx); Pain; Anxiety; Pure hypercholesterolemi a; Encounter for long-term (current) use of medications Discharge Disposition: Discharged to home or Selfcare 09/13/2024 Travel 09/11/2024 Travel 09/11/2024 [facility] [place] [address] Saul Valverde MD Medication Refill 09/06/2024 11:00 AM SENIOR REGULATORY AFFAIRS SPECIALIST Office Visit [facility] General Surgery [facility] #[address] [address] Ramon Paredes MD Umbilical hernia with obstruction, without gangrene (Primary Dx) Discharge Disposition: Discharged to home or Selfcare 09/05/2024 Travel 09/02/2024 [facility] [place] [address] Saul Valverde MD Medication Refill 08/26/2024 [facility] [place] [address] Saul Valverde MD Medication Refill from Last 3 Months Immunizations Immunization Administration Dates Next Due Covid-19, Mrna, Lnp-s, PF, 1 00 mcg/0.5 mL Dose (Moderna) 01/03/2021,12/06/2020 Influenza Vaccine greater than 3 yrs 07/04/2014 Influenza Vaccine, MDCK,quad rivalent, pres free 08/02/2018 Influenza Vaccine, Quadrivalent, PF 12/0 01/2023,09/09/2021,08/20/2020,2015 Influenza, Injectable, Mdck, Preservative Free 06/19/2015 Influenza, Injectable, Mdck,quadrivalent,with Preservative 07/10/2019 Influenza, Recombinant, Quadrivalent,injectable, Pf 08/14/2022 Influenza, Seasonal, Injecta ble, Undefined 07/04/2014,07/28/2013 Influenza,Split Virus,Trivalent,Injectable,PF 09/13/2024 Pneumococcal Vaccine - 13 Valent 06/19/2015 Pneumococcal Vaccine Adult - 23 Valent 09/03/2009 Zoster Vaccine Recombinant 06/21/2020,05/29/2020 Family History Medical History Relation Name Comments Cancer Brother Hodgkins No Known Problems Father Diabetes Maternal Grandfather No Known Problems Maternal Grandmother Congestive Heart Failure Mother Diabetes Mother No Known Problems Paternal Grandfather No Known Problems Paternal Grandmother No Known Problems Son 1 No Known Problems Son 2 Relation Name Status Comments Brother Father Maternal Grandfather Maternal Grandmother Mother Paternal Grandfather Paternal Grandmother Son 1 Alive Son 2 Alive Social History Tobacco Use Types Packs/Day Years Used Date Smoking Tobacco: Every Day Cigarettes 0.5 50.1 Started: 1974 Smokeless Tobacco: Never Alcohol Use Standard Drinks/Week Comments No 0 (1 standard drink = 0.6 oz pur e alcohol) PHQ-2 Answer Date Recorded Total Score - Questions 1-9 0 01/2024 Education Answer Date Recorded What is the [...] Sign Reading Time Taken Comments Blood Pressure 162/84 10/24/2024 1:06 PM SENIOR REGULATORY AFFAIRS SPECIALIST Pulse 103 10/24/2024 1:06 PM SENIOR REGULATORY AFFAIRS SPECIALIST Temperature 37 ??C (98.6 ??F) 10/24/2024 1:06 PM SENIOR REGULATORY AFFAIRS SPECIALIST Respiratory Rate 18 10/02/2024 3:02 PM SENIOR REGULATORY AFFAIRS SPECIALIST Oxygen Saturation 98% 10/24/2024 1:06 PM SENIOR REGULATORY AFFAIRS SPECIALIST Inhaled Oxygen Concentration - - Weight 67.6 kg (149 lb) 10/24/2024 1:06 PM SENIOR REGULATORY AFFAIRS SPECIALIST Height 182.9 cm (6') 10/24/2024 1:06 PM SENIOR REGULATORY AFFAIRS SPECIALIST Body Mass Index 20.21 10/24/2024 1:06 PM SENIOR REGULATORY AFFAIRS SPECIALIST Plan of Treatment Upcoming Encounters Date Type Department Care Team (Late st Contact Info) Description 03/15/2025 11:00 AM CDT Office Visit [facility] - Family Medicine [facility] [address] [place] [address] Saul Valverde MD [address] [facility] [address] [address] Health Maintenance Due Date Last Done Comments Diabetes: Foot Exam 1960 Hepatitis C Virus (HCV) Screening 1960 TdaP Immunization 1960 Colonoscopy 02/25/2005 Colorectal Cancer Screening 02/25/2005 Cologuard 02/25/2010 Immunochemical Fecal Occult Blood 02/25/2010 Lung Cancer Screening 02/25/2010 Respiratory Syncytial Virus (RSV) Immunization (Adult) (1 - Risk 60-74 years 1-dose series) 2020 Pneumococcal Immunization (50+ years) (3 of 3 - PCV20 or PCV21) 06/19/2020 06/19/2015, 09/03/2009 Zoster Immunization (2 of 2) 08/16/2020 06/21/2020, 05/29/2020 SARS-COV-2 Immunization (4 - season) 2024 10/24/2021, 01/03/2021, 12/06/2020 Diabetes: Eye Exam 11/25/2024 11/25/2023 Diabetes: Hemoglobin A1c 04/19/2025 025, 06/20/2024, 03/01/2024, Additional history exists Diabetes: Nephropathy Screening 09/11/2025 09/11/2024, 08/25/2022, 11/03/2021, Additional history exists Pneumococcal Immunization Combined Discontinued 06/19/2015, 09/03/2009 PSA Discussion Completed 09/11/2024, 11/03/2021 Influenza Immunization Completed , 09/06/2023, 08/14/2022, Additional history exists Hepatitis B Immunization Aged Out No longer eligible based on patient's age to complete this topic Meningococcal Immunization (ACWY) Aged Out No longer eligible based on patient's age to complete this topic Rotavirus Immunization Aged Out No lo nger eligible based on patient's age to complete this topic Medical Devices Implanted Type Area Superintendent House Device Identifier Shelf Expiration Date Model / Serial / Lot Impl Msh Harini Ventralex St Strap Cir Sm 1.7x1.7in - [id number] Implanted:Qty : 1 on 10/02/2024 by Ramon Paredes MD at [facility] IMPLANT N/A: Abdomen [employer] 02/28/2025 [id number] / [id number] / [id number] Procedures Procedure Name Priority Date/Time Associated Diagnosis Comments XR - CHEST 10/16/2024 12:00 AM SENIOR REGULATORY AFFAIRS SPECIALIST POCT GLUCOSE Routine 10/02/2024 2:09 PM SENIOR REGULATORY AFFAIRS SPECIALIST LMA Routine 10/02/2024 1:19 PM SENIOR REGULATORY AFFAIRS SPECIALIST UMBILICAL HERNIA REPAIR WITH / WITHOUT MESH 10/02/2024 12:49 PM SENIOR REGULATORY AFFAIRS SPECIALIST UMBILICAL HERNIA Special Needs 6'0: 201LBS IDDM, HTN, ANXIETY, GERD POCT GLUCOSE Routine 10/02/2024 10:28 AM SENIOR REGULATORY AFFAIRS SPECIALIST URINE DRUG SCREEN Routine 09/13/2024 Encounter for long-term (current) use of medications PSA SCREEN 09/11/2024 12:00 AM SENIOR REGULATORY AFFAIRS SPECIALIST LIPID PANEL 09/11/2024 12:00 AM SENIOR REGULATORY AFFAIRS SPECIALIST CMP (COMPREHENSIVE METABOLIC PANEL) 09/11/2024 12:00 AM SENIOR REGULATORY AFFAIRS SPECIALIST HM DILATED EYE EXAM 11/25/2023 12:00 AM SENIOR REGULATORY AFFAIRS SPECIALIST HEMOGLOBIN, A1C 08/25/2022 12:00 AM SENIOR REGULATORY AFFAIRS SPECIALIST from Last 3 Months or Most Recently Relevant to Health Maintenance Results * XR - CHEST (10/16/2024 12:00 AM SENIOR REGULATORY AFFAIRS SPECIALIST) 10/16/2024 us Provider Scan IMG DIAGNOSTIC ORDERABLES Final Result SCAN * POCT Glucose (10/02/2024 2:09 PM SENIOR REGULATORY AFFAIRS SPECIALIST) Only the most recent of2 resultswithin the time period is included. GLUCOSE,BEDSIDE POCT 98 70 - 99 mg/dL 10/02/2024 2:15 PM SENIOR REGULATORY AFFAIRS SPECIALIST [facility] Blood 10/02/2024 2:09 PM SENIOR REGULATORY AFFAIRS SPECIALIST 10/02/2024 2:15 PM SENIOR REGULATORY AFFAIRS SPECIALIST us None Provider POINT OF CARE TESTING Final Resu lt [facility] [address] [place] [address] * LMA (10/02/2024 1:19 PM SENIOR REGULATORY AFFAIRS SPECIALIST) Narrative Job Velez APRN, CRNA - 10/02/2024 1:19 PM SENIOR REGULATORY AFFAIRS SPECIALIST Job Velez APRN, CRNA ? 10/02/2024 ??1:19 PM LMA Staffing Performed: resident/SCREEN PRINTING INSPECTOR Resident/SCREEN PRINTING INSPECTOR: Job Velez APRN, CRNA Performed by: Job Velez APRN, CRNA Authorized by: Job Velez APRN, CRNA ?? Airway Details Overall Difficulty: ??Easy Preoxygenated: ??Yes Ease of Mask Ventilation: ??Easy LMA Type: ??Disposable LMA Size: ??4 Adequate seal established: ??Yes LMA placement confirmed by: ??bilateral breath sounds, ??CO2 detection Atraumatic LMA Placement Job Velez APRN, CRNA ANESTHESIA ORDERAB LES Final Result * URINE DRUG SCREEN (09/13/2024) Urine 09/13/2024 Result [facility] Saul Valverde MD URINE ORDERABLES Final Result * PSA SCREEN (09/11/2024 12:00 AM SENIOR REGULATORY AFFAIRS SPECIALIST) PSA SCREEN, TOTAL 0.9 SCAN 09/11/2024 Provider Scan CHEMISTRY ORDERABLES Final Resul t SCAN * LIPID PANEL (09/11/2024 12:00 AM SENIOR REGULATORY AFFAIRS SPECIALIST) CHOLESTEROL 123 SCAN HDL CHOLESTEROL 33 SCAN LDL 78 SCAN 09/11/2024 Provider Scan CHEMISTRY ORDERABLES Final Resul t SCAN * CMP (COMPREHENSIVE METABOLIC PANEL) (09/11/2024 12:00 AM SENIOR REGULATORY AFFAIRS SPECIALIST) 09/11/2024 us Provider Scan CHEMISTRY ORDERABLES Final Resul t SCAN * HM DILATED EYE EXAM (11/25/2023 12:00 AM SENIOR REGULATORY AFFAIRS SPECIALIST) 11/25/2023 us Saul Valverde MD PROCEDURE/MINOR SURGICAL ORDE RABLES Final Result SCAN * HEMOGLOBIN, A1C (08/25/2022 12:00 AM SENIOR REGULATORY AFFAIRS SPECIALIST) HGB-A1C 7.4 % SCAN 08/25/2022 us Not On File Provider CHEMISTRY ORDERABLES Final Result SCAN from Last 3 Months or Most Recently Relevant to Health Maintenance Insurance MEDICARE COMMERCIAL GENERIC Member Subscriber Plan / Payer (Ef fective 2019-Present) Name:Jesika Teixeira Relation to Subscriber:Self Name:Jesika Teixeira Payer ID:[id number] Group ID:[id number] Type:Not on file Address: [facility] [address] [place] [address] Care Teams Claims Assistant Relationship Specialty Start Date End Date Saul Valverde MD #2 [facility] [address] [place] [address] PCP - General Family Medicine 11/17/17 Ramon Paredes MD #2 [facility] [address] [place] [address] Consulting Physician Colon and Rectal Surgery 10/11/23
--- OUTSIDE RECORDS SUMMARY | 2024-11-08 09:57 | XMS_ITS | Encounter Summary ---
Author Organization [facility] Address [address] [place] [address] Phone Care Team Providers Care Chargemaster Analyst Name Role Phone Saul Valverde MD Primary Care Provider [phone] Ramon Paredes MD Unavailable Reason for Visit * Reason Comments Medication Refill Encounter Details Date Type Department Care Team (Late st Contact Info) Description 11/29/2023 Refill [facility] - Family Medicine [facility] #2 [place] [address] Saul Valverde MD #[address] [address] Medication Refill Social History Tobacco Use Types [...] Telephone Encounter - Neida Santana RN - 11/30/2023 8:24 AM CST Images from the original note were not included. Losartan Potassium Dispensed Days Supply Quantity Provider Pharmacy LOSARTAN POTASSIUM 100 MG TABS 11/29/2023 90 90 Tablet Saul Valverde MD [facility] mike Leavitt... LOSARTAN POTASSIUM 100 MG TABS 08/16/2023 90 90 Tablet Saul Valverde MD [facility]... EMENT COORDINATOR documented in this encounter Plan of Treatment Upcoming Encounters Date Type Department Care Team (Late st Contact Info) Description 03/15/2025 11:00 AM CDT Office Visit [facility] [place] #2 [place] [address] Saul Valverde MD #[address] [address] documented as of this encounter Visit Diagnoses Not on filedocumented in this encounter Additional Health Concerns Assessment Noted Time PHQ-9 Depression Total Score: 0 02/13/20 21 12:00 PM CDT documented as of this encounter Care Teams Chargemaster Analyst Relationship Specialty Start Date End Date Saul Valverde MD #[address] [address] PCP - General Family Medicine 11/17/17 Ramon Paredes MD #[address] [address] Consulting Physician Colon and Rectal Surgery 10/11/23 documented as of this encounter
--- OUTSIDE RECORDS SUMMARY | 2024-11-08 09:57 | XMS_ITS | Encounter Summary ---
Author Organization [facility] Healthcare Address [address] [place] [address] Care Team Providers Care Bridge Inspector Name Role Phone Saul Valverde MD Primary Care Provider [phone] Encounter Details Date Type Department Care Team (Late st Contact Info) Description 11/07/2024 Orders Only [facility] Medical Group Diabetes Endocrine Care at [address] [place] [address] Holly Henson, UTILITY PERSON [address] [facility] [address] [place] [address] Type 2 diabetes mellitus with hyperglycemia, with long-term current use of insulin (HCC) (Primary Dx) Social History Tobacco Use Types Packs/Day Years Used Date Smoking Tobacco: Every Day Cigarettes 0.8 35 Sex and Gender Information Value Date Recorded Sex Assigned at Not on file Legal Sex Male 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 Patient ID: Jesika Teixeira is a 64 y.o. male. This patient has verbally consented to recording this visit in order to utilize AI technology in generating this note. History of Present Illness Physical Exam Alert, orientated. Skin warm and dry. Respirations regular, even and non labored. Labs: Results Lab Results Component Value Date HGBA1C 7.6 10/20/2024 HGBA1C 7.8 06/20/2024 HGBA1C 8.3 03/01/2024 HGBA1C 8.4 11/29/2023 HGBA1C 9.9 07/29/2023 HGBA1C 9.8 04/27/2023 Chemistry Lab Results Component Value Date SODIUM 138 03/01/2024 POTASSIUM 4.4 03/01/2024 CHLORIDE 102 03/01/2024 CO2 25 03/01/2024 ANIONGAP 11 03/01/2024 BUNSER 15 03/01/2024 CREATININE 0.70 (L) 03/01/2024 GLUCOSE 211 (H) 03/01/2024 CALCIUM 9.6 03/01/2024 BILITOT 1.3 (H) 03/01/2024 ALBUMIN 4.4 03/01/2024 GFRNAA >90 03/01/2024 ALKPHOS 57 03/01/2024 AST 27 03/01/2024 ALT 25 03/01/2024 Lab Results Component Value Date ALBUMINUR 20.9 03/01/2024 CREATININEUR 84.2 03/01/2024 ALBCREATRATU 25 03/01/2024 Lab Results Component Value Date CHOL 118 03/01/2024 HDL 32 (L) 03/01/2024 TRIG 125 03/01/2024 LDLCALC 61 03/01/2024 Lab Results Component Value Date TSH 1.87 07/29/2023 There are no diagnoses linked to this encounter. Assessment & Plan Holly Henson NP OR REACTOR OPERATOR documented in this encounter Plan of Treatment Scheduled Orders Name Type Priority Associated Diagnoses Orde r Schedule Diabetes Mellitus Type 1 Evaluation Lab Routine Type 2 diabetes mellitus with hyperglycemia, with long-term current use of insulin ([facility]) Expected: 11/08/2024, Expires: 11/07/2025 C-peptide Lab Routine Type 2 diabetes mellitus with hyperglycemia, with long-term current use of insulin ([facility]) Expected: 11/08/2024, Expires: 11/07/2025 Glucose, fasting Lab Routine Type 2 diabetes mellitus with hyperglycemia, with long-term current use of insulin ([facility]) Expected: 11/08/2024, Expires: 11/07/2025 documented as of this encounter Visit Diagnoses Diagnosis Type 2 diabetes mellitus with hyperglycemia, with long-term current use of insulin (HCC)- Primary documented in this encounter Care Teams Bridge Inspector Relationship Specialty Start Date End Date Saul Valverde MD [address] [place] [id number] PCP - General 01/16/21 documented as of this encounter
--- OUTSIDE RECORDS SUMMARY | 2024-11-08 09:57 | XMS_ITS | Encounter Summary ---
Author Organization [facility] Address [address] [place] [address] Phone Care Team Providers Care Adjunct Professor Of Voice Name Role Phone Saul Valverde MD Primary Care Provider [phone] Ramon Paredes MD Unavailable Reason for Visit * Reason Comments Medication Refill Encounter Details Date Type Department Care Team (Late st Contact Info) Description 11/04/2023 Refill [facility] Medical Group - Family Medicine [facility] [address] [place] [address] Saul Valverde MD [address] [address] Medication Refill Social History Tobacco Use Types [...] Telephone Encounter - Neida Santana RN - 11/05/2023 12:03 PM CST PDMP 09/07/23 Medication failed the protocol, provider to review and approve the medication order if appropriate. Requested Prescriptions Pending Prescriptions Disp Refills ALPRAZolam (XANAX) 0.5 MG Tablet [Pharmacy Med Name: ALPRAZOLAM 0.5 MG TABLET] 60 Tablet 0 Sig: TAKE ONE TABLET BY MOUTH TWICE A DAY Not Delegated - Benzodiazepines Protocol Failed - 11/04/2023 10:37 AM Failed - This refill cannot be delegated Passed - Visit with relevant provider in past 12 months or upcoming 90 days Recent Visits Date Type Provider Dept 09/06/23 Office Visit Saul Valverde MD [facility] 03/02/23 Office Visit Saul Valverde MD [facility] Showing recent visits within past 365 days and meeting all other requirements Future Appointments No visits were found meeting these conditions. Showing future appointments within next 90 days and meeting all other requirements ERVATION POLICY ANALYST documented in this encounter Plan of Treatment Upcoming Encounters Date Type Department Care Team (Late st Contact Info) Description 03/15/2025 11:00 AM CDT [facility] Visit [facility] [address] [place] [address] Saul Valverde MD #[address] [address] documented as of this encounter Visit Diagnoses Diagnosis Anxiety Anxiety state, unspecified documented in this encounter Additional Health Concerns Assessment Noted Time PHQ-9 Depression Total Score: 0 02/13/20 21 12:00 PM CDT documented as of this encounter Care Teams Adjunct Professor Of Voice Relationship Specialty Start Date End Date Saul Valverde MD #[address] [address] PCP - General Family Medicine 11/17/17 Ramon Paredes MD #[address] [address] Consulting Physician Colon and Rectal Surgery 10/11/23 documented as of this encounter
--- OUTSIDE RECORDS SUMMARY | 2024-11-08 09:57 | XMS_ITS | Encounter Summary ---
Author Organization [facility] Healthcare Address [address] [place] [address] Care Team Providers Care Installment Loan Collector Name Role Phone Saul Valverde MD Primary Care Provider [phone] Encounter Details Date Type Department Care Team (Late st Contact Info) Description 11/07/2024 Telephone [facility] Medical Group Diabetes Endocrine Care at [address] [address] Cheryl Rosario MA Social History Tobacco Use Types Packs/Day Years Used Date Smoking Tobacco: Every Day Cigarettes 0.8 35 Sex and Gender Information Value Date Recorded Sex Assigned at Not on file 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 REPAIR TECHNICIAN * Telephone Encounter - Cheryl Rosario MA - 11/07/2024 10:29 AM RV REPAIR TECHNICIAN ----- Message from Holly Henson NP sent at 11/07/2024 10:10 AM RV REPAIR TECHNICIAN ----- Regarding: labs Hi Wants labs done at [facility]. Labs are for insulin pump qualification. Can we fax them to [facility]. Cpeptide, fasting glucose, type 1 evaluation panel. Thanks holly REPAIR TECHNICIAN documented in this encounter Plan of Treatment Not on file documented as of this encounter Visit Diagnoses Not on filedocumented in this encounter Care Teams Installment Loan Collector Relationship Specialty Start Date End Date Saul Valverde MD [address] [place] [address] PCP - General 01/16/21 documented as of this encounter
--- OUTSIDE RECORDS SUMMARY | 2024-11-08 09:57 | XMS_ITS | Encounter Summary ---
Author Organization [facility] Address [address] [place] [address] Phone Care Team Providers Care Medical Safety Director Name Role Phone Saul Valverde MD Primary Care Provider [phone] Ramon Paredes MD Unavailable Reason for Visit * Reason Comments Medication Refill Encounter Details Date Type Department Care Team (Late st Contact Info) Description 12/14/2023 Refill [facility] Medical Group - Family Medicine [facility] [address] [place] [address] Saul Valverde MD #[address] [address] Medication Refill Social History Tobacco Use Types [...] Telephone Encounter - Neida Santana RN - 12/14/2023 4:08 PM CDT PDMP Alprazolam 11/08/23 - Tramadol 09/23/23 90 days Medication failed the protocol, provider to review and approve the medication order if appropriate. Requested Prescriptions Pending Prescriptions Disp Refills traMADol (ULTRAM) 50 MG Tablet [Pharmacy Med Name: TRAMADOL HCL 50 MG TABLET] 540 Tablet 0 Sig: Take 1-2 Tablets by mouth every 6 hours as needed for Moderate or more severe pain. Not Delegated - Opioid Agonists Protocol Failed - 12/14/2023 3:26 PM Failed - This refill cannot be delegated Passed - Visit with relevant provider in past 12 months or upcoming 90 days Recent Visits Date Type Provider Dept 09/06/23 Office Visit Saul Valverde MD [facility] 03/02/23 Office Visit Saul Valverde MD [facility] Showing recent visits within past 365 days and meeting all other requirements Future Appointments Date Type Provider Dept 03/07/24 Appointment Saul Valverde MD [facility] Showing future appointments within next 90 days and meeting all other requirements ALPRAZolam (XANAX) 0.5 MG Tablet [Pharmacy Med Name: ALPRAZOLAM 0.5 MG TABLET] 60 Tablet 0 Sig: TAKE ONE TABLET BY MOUTH TWICE A DAY Not Delegated - Benzodiazepines Protocol Failed - 12/14/2023 3:26 PM Failed - This refill cannot be delegated Passed - Visit with relevant provider in past 12 months or upcoming 90 days Recent Visits Date Type Provider Dept 09/06/23 Office Visit Saul Valverde MD [facility] 03/02/23 Office Visit Saul Valverde MD [facility] Showing recent visits within past 365 days and meeting all other requirements Future Appointments Date Type Provider Dept 03/07/24 Appointment Saul Valverde MD [facility] Showing future appointments within next 90 days and meeting all other requirements documented in this encounter Plan of Treatment Upcoming Encounters Date Type Department Care Team (Late st Contact Info) Description 03/15/2025 11:00 AM CDT Office Visit [facility] Medical Group - Family Medicine - [facility] [address] [place] [address] Saul Valverde MD #2 [facility] [address] [place] [address] documented as of this encounter Visit Diagnoses Diagnosis Pain Generalized pain Anxiety Anxiety state, unspecified documented in this encounter Additional Health Concerns Assessment Noted Time PHQ-9 Depression Total Score: 0 02/13/20 21 12:00 PM CDT documented as of this encounter Care Teams Medical Safety Director Relationship Specialty Start Date End Date Saul Valverde MD #2 [facility] [address] [place] [address] PCP - General Family Medicine 11/17/17 Ramon Paredes MD #2 [facility] [address] [place] [address] Consulting Physician Colon and Rectal Surgery 10/11/23 documented as of this encounter
--- OUTSIDE RECORDS SUMMARY | 2024-11-08 09:57 | XMS_ITS | Encounter Summary ---
Author Organization [facility] Address [address] [place] [address] Phone Care Team Providers Care Rheumatologist Name Role Phone Saul Valverde MD Primary Care Provider [phone] Ramon Paredes MD Unavailable Reason for Visit * Reason Comments Medication Refill Encounter Details Date Type Department Care Team (Late st Contact Info) Description 09/02/2024 Refill [facility] #2 [place] [address] Saul Valverde MD #[address] [address] Medication Refill Social History Tobacco Use Types Packs/Day Years Used Date Smoking Tobacco: Every Day Cigarettes 0.5 50.1 Started: 1974 Smokeless Tobacco: Never Alcohol Use Standard Drinks/Week Comments No 0 (1 standard drink = 0.6 oz pur e alcohol) PHQ-2 Answer Date Recorded Total Score - Questions 1-9 0 06/0 01/2024 Education Answer Date Recorded What is [...] encounter Miscellaneous Notes * Telephone Encounter - Dorita Acosta RN - 09/04/2024 9:27 AM CST PDMP #540 dispensed 06/08/24 90 day supply Medication failed the protocol, provider to review and approve the medication order if appropriate. Requested Prescriptions Pending Prescriptions Disp Refills traMADol (ULTRAM) 50 MG Tablet [Pharmacy Med Name: TRAMADOL 50MG] 540 Tablet 0 Sig: TAKE 1 OR 2 TABLETS BY MOUTH EVERY 6 HOURS NEEDED FOR MODERATE OR MORE SEVERE PAIN. Not Delegated - Opioid Agonists Protocol Failed - 09/02/2024 10:46 AM Failed - This refill cannot be delegated Passed - Visit with relevant provider in past 12 months or upcoming 90 days Recent Visits Date Type Provider Dept 03/07/24 Office Visit Saul Valverde MD [facility] 09/06/23 Office Visit Saul Valverde MD [facility] Showing recent visits within past 365 days and meeting all other requirements Future Appointments Date Type Provider Dept 09/13/24 Appointment Saul Valverde MD [facility] Showing future appointments within next 90 days and meeting all other requirements ET MANAGER documented in this encounter Plan of Treatment Upcoming Encounters Date Type Department Care Team (Late st Contact Info) Description 03/15/2025 11:00 AM CDT Office Visit [facility] Medical Group - Family Medicine - [place] [address] [place] [address] Saul Valverde MD #[address] [address] documented as of this encounter Visit Diagnoses Diagnosis Pain Generalized pain documented in this encounter Additional Health Concerns Assessment Noted Time PHQ-9 Depression Total Score: 0 03/07/20 10:10 AM CDT documented as of this encounter Care Teams Rheumatologist Relationship Specialty Start Date End Date Saul Valverde MD #[address] [address] PCP - General Family Medicine 11/17/17 Ramon Paredes MD [address] [place] [address] [place] [address] Consulting Physician Colon and Rectal Surgery 10/11/23 documented as of this encounter
--- OUTSIDE RECORDS SUMMARY | 2024-11-08 09:57 | XMS_ITS | Encounter Summary ---
Author Organization [facility] Address [address] [facility] [place] [address] Phone Care Team Providers Care Information Assurance Manager Name Role Phone Saul Valverde MD Primary Care Provider [phone] Ramon Paredes MD Unavailable Reason for Visit * Reason Comments Medication Refill Encounter Details Date Type Department Care Team (Late st Contact Info) Description 04/12/2021 Refill [facility] Medical Group - Family Medicine [facility] #2 [place] [address] Saul Valverde MD #[address] [address] Medication Refill Social History Tobacco Use Types [...] Telephone Encounter - Saul Valverde MD - 04/14/2021 10:58 AM CDT Prescription approved. Please call in * Telephone Encounter - Neida Santana RN - 04/14/2021 10:56 AM CDT Medication failed the protocol, provider to review and approve the medication order if appropriate. Requested Prescriptions Pending Prescriptions Disp Refills metFORMIN (GLUCOPHAGE) 1000 MG Tablet [Pharmacy Med Name: MetFORMIN 1000MG TABLET] 180 Tablet 3 Sig: TAKE 1 TABLET BY MOUTH TWICE DAILY Biguanides Protocol Failed - 04/12/2021 8:01 PM Failed - HgA1C on record in past 6 months HGB-A1C Date Value Ref Range Status 12/25/2019 7.2 % Final Failed - GFR on record in past 6 months No results found for: GFRNA Passed - Visit with relevant provider in past 6 months or upcoming 90 days Recent Visits Date Type Provider Dept 02/12/21 Office Visit Saul Valverde MD [facility] Showing recent visits within past 182 days and meeting all other requirements Future Appointments No visits were found meeting these conditions. Showing future appointments within next 90 days and meeting all other requirements documented in this encounter Plan of Treatment Upcoming Encounters Date Type Department Care Team (Late st Contact Info) Description 03/15/2025 11:00 AM CDT Office Visit [facility] Medical Group - Family Medicine [facility] #2 [place] [address] Saul Valverde MD #[address] [address] documented as of this encounter Visit Diagnoses Not on filedocumented in this encounter Additional Health Concerns Assessment Noted Time PHQ-9 Depression Total Score: 0 02/13/20 12:00 PM CDT documented as of this encounter Care Teams Information Assurance Manager Relationship Specialty Start Date End Date Saul Valverde MD #[address] [address] PCP - General Family Medicine 11/17/17 Ramon Paredes MD #[address] [place] [address] Consulting Physician Colon and Rectal Surgery 10/11/23 documented as of this encounter
--- OUTSIDE RECORDS SUMMARY | 2024-11-08 09:57 | XMS_ITS | Encounter Summary ---
Author Organization [facility] Address [address] [place] [address] Phone Care Team Providers Care Distribution Superintendent Name Role Phone Saul Valverde MD Primary Care Provider [phone] Ramon Paredes MD Unavailable Reason for Visit * Reason Comments Medication Refill Encounter Details Date Type Department Care Team (Late st Contact Info) Description 12/14/2022 Refill [facility] Medical Group - Family Medicine [facility] #2 [place] [address] Saul Valverde MD #[address] [address] Medication Refill Social History Tobacco Use Types [...] Telephone Encounter - Neida Santana RN - 12/15/2022 10:49 AM CDT PDMP Alprazolam 10/27/22 - Tramadol 09/15/22 68 days supply Medication failed the protocol, provider to review and approve the medication order if appropriate. Requested Prescriptions Pending Prescriptions Disp Refills traMADol (ULTRAM) 50 MG Tablet [Pharmacy Med Name: TRAMADOL HCL 50 MG TABLET] 540 Tablet 0 Sig: TAKE 1 OR 2 TABLETS BY MOUTH EVERY 6 HOURS NEEDED FOR MODERATE OR MORE SEVERE PAIN. Not Delegated - Opioid Agonists Protocol Failed - 12/14/2022 3:10 PM Failed - This refill cannot be delegated Passed - Visit with relevant provider in past 12 months or upcoming 90 days Recent Visits Date Type Provider Dept 08/31/22 Office Visit Saul Valverde MD [facility] 03/10/22 Office Visit Saul Valverde MD [facility] Showing recent visits within past 365 days and meeting all other requirements Future Appointments Date Type Provider Dept 03/02/23 Appointment Saul Valverde MD [facility] Showing future appointments within next 90 days and meeting all other requirements ALPRAZolam (XANAX) 0.5 MG Tablet [Pharmacy Med Name: ALPRAZOLAM 0.5 MG TABLET] 60 Tablet 0 Sig: TAKE 1 TABLET BY MOUTH 2 TIMES DAILY. Not Delegated - Benzodiazepines Protocol Failed - 12/14/2022 3:10 PM Failed - This refill cannot be delegated Passed - Visit with relevant provider in past 12 months or upcoming 90 days Recent Visits Date Type Provider Dept 08/31/22 Office Visit Saul Valverde MD [facility] 03/10/22 Office Visit Saul Valverde MD [facility] Showing recent visits within past 365 days and meeting all other requirements Future Appointments Date Type Provider Dept 03/02/23 Appointment Saul Valverde MD [facility] Showing future appointments within next 90 days and meeting all other requirements documented in this encounter Plan of Treatment Upcoming Encounters Date Type Department Care Team (Late st Contact Info) Description 03/15/2025 11:00 AM CDT Office Visit [facility] Medical Group - Family Medicine - [place] [address] [place] [address] Saul Valverde MD #2 [facility] [address] [place] [address] documented as of this encounter Visit Diagnoses Diagnosis Pain Generalized pain Anxiety Anxiety state, unspecified documented in this encounter Additional Health Concerns Assessment Noted Time PHQ-9 Depression Total Score: 0 02/13/20 21 12:00 PM CDT documented as of this encounter Care Teams Distribution Superintendent Relationship Specialty Start Date End Date Saul Valverde MD #[address] [address] PCP - General Family Medicine 11/17/17 Ramon Paredes MD #2 [facility] [address] [place] [address] Consulting Physician Colon and Rectal Surgery 10/11/23 documented as of this encounter
--- OUTSIDE RECORDS SUMMARY | 2024-11-08 09:57 | XMS_ITS | Encounter Summary ---
Author Organization [facility] Address [address] [place] [address] Phone Care Team Providers Care Air Defense Specialist Name Role Phone Saul Valverde MD Primary Care Provider [phone] Ramon Paredes MD Unavailable Reason for Visit * Reason Comments Medication Refill Encounter Details Date Type Department Care Team (Late st Contact Info) Description 06/22/2023 Refill [facility] Medical Group - Family Medicine [facility] [place] [address] Saul Valverde MD #[address] [address] Medication Refill Social History Tobacco Use Types [...] Telephone Encounter - Neida Santana RN - 06/22/2023 12:56 PM CDT PDMP Tramadol 03/22/23 - Alprazolam 05/06/23 Medication failed the protocol, provider to review and approve the medication order if appropriate. Requested Prescriptions Pending Prescriptions Disp Refills traMADol (ULTRAM) 50 MG Tablet [Pharmacy Med Name: TRAMADOL HCL 50 MG TABLET] 540 Tablet 0 Sig: TAKE 1 OR 2 TABLETS BY MOUTH EVERY 6 HOURS NEEDED FOR MODERATE OR MORE SEVERE PAIN. Not Delegated - Opioid Agonists Protocol Failed - 06/22/2023 9:54 AM Failed - This refill cannot be delegated Passed - Visit with relevant provider in past 12 months or upcoming 90 days Recent Visits Date Type Provider Dept 03/02/23 Office Visit Saul Valverde MD [facility] 08/31/22 Office Visit Saul Valverde MD [facility] Showing recent visits within past 365 days and meeting all other requirements Future Appointments Date Type Provider Dept 08/24/23 Appointment Saul Valverde MD [facility] Showing future appointments within next 90 days and meeting all other requirements ALPRAZolam (XANAX) 0.5 MG Tablet [Pharmacy Med Name: ALPRAZOLAM 0.5 MG TABLET] 60 Tablet 0 Sig: TAKE 1 TABLET BY MOUTH 2 TIMES DAILY. Not Delegated - Benzodiazepines Protocol Failed - 06/22/2023 9:54 AM Failed - This refill cannot be delegated Passed - Visit with relevant provider in past 12 months or upcoming 90 days Recent Visits Date Type Provider Dept 03/02/23 Office Visit Saul Valverde MD [facility] 08/31/22 Office Visit Saul Valverde MD [facility] Showing recent visits within past 365 days and meeting all other requirements Future Appointments Date Type Provider Dept 08/24/23 Appointment Saul Valverde MD [facility] Showing future appointments within next 90 days and meeting all other requirements documented in this encounter Plan of Treatment Upcoming Encounters Date Type Department Care Team (Late st Contact Info) Description 03/15/2025 11:00 AM CDT Office Visit [facility] Medical Group - Family Medicine - [place] [address] [place] [address] Saul Valverde MD #[address] [address] documented as of this encounter Visit Diagnoses Diagnosis Pain Generalized pain Anxiety Anxiety state, unspecified documented in this encounter Additional Health Concerns Assessment Noted Time PHQ-9 Depression Total Score: 0 02/13/20 21 12:00 PM CDT documented as of this encounter Care Teams Air Defense Specialist Relationship Specialty Start Date End Date Saul Valverde MD [address] [address] PCP - General Family Medicine 11/17/17 Ramon Paredes MD [address] [address] Consulting Physician Colon and Rectal Surgery 10/11/23 documented as of this encounter
--- OUTSIDE RECORDS SUMMARY | 2024-11-08 09:57 | XMS_ITS | Encounter Summary ---
Author Organization [facility] Address [address] [place] [address] Phone Care Team Providers Care Carrier Loader Name Role Phone Saul Valverde MD Primary Care Provider [phone] Ramon Paredes MD Unavailable Reason for Visit * Reason Comments Medication Refill Encounter Details Date Type Department Care Team (Late st Contact Info) Description 10/27/2022 Refill [facility] - Family Medicine [facility] [address] [place] [address] Saul Valverde MD #[address] [address] Medication Refill Social History Tobacco Use Types Packs/Day Years Used Date Smoking Tobacco: Every Day Cigarettes 0.5 44.2 Started: 08/12/1980 Smokeless Tobacco: Never Comments:GOING TO [employer] Alcohol Use Standard Drinks/Week Comments No 0 (1 standard drink = 0.6 oz pur e alcohol) PHQ-2 Answer Date Recorded Total Score - Questions 1-9 0 0 04/2022 Education Answer Date Recorded What [...] Telephone Encounter - Neida Santana RN - 10/27/2022 1:40 PM CST PDMP 08/31/22 Medication failed the protocol, provider to review and approve the medication order if appropriate. Requested Prescriptions Pending Prescriptions Disp Refills ALPRAZolam (XANAX) 0.5 MG Tablet [Pharmacy Med Name: ALPRAZOLAM 0.5 MG TABLET] 60 Tablet 0 Sig: TAKE 1 TABLET BY MOUTH 2 TIMES DAILY. Not Delegated - Benzodiazepines Protocol Failed - 10/27/2022 9:56 AM Failed - This refill cannot be delegated Passed - Visit with relevant provider in past 12 months or upcoming 90 days Recent Visits Date Type Provider Dept 08/31/22 Office Visit Saul Valverde MD [facility] 03/10/22 Office Visit Saul Valverde MD [facility] Showing recent visits within past 365 days and meeting all other requirements Future Appointments No visits were found meeting these conditions. Showing future appointments within next 90 days and meeting all other requirements PMENT STERILIZER documented in this encounter Plan of Treatment Upcoming Encounters Date Type Department Care Team (Late st Contact Info) Description 03/15/2025 11:00 AM CDT [facility] [address] [place] [address] Saul Valverde MD #[address] [address] documented as of this encounter Visit Diagnoses Diagnosis Anxiety Anxiety state, unspecified documented in this encounter Additional Health Concerns Assessment Noted Time PHQ-9 Depression Total Score: 0 02/13/20 21 12:00 PM CDT documented as of this encounter Care Teams Carrier Loader Relationship Specialty Start Date End Date Saul Valverde MD #[address] [address] PCP - General Family Medicine 11/17/17 Ramon Paredes MD #[address] [address] Consulting Physician Colon and Rectal Surgery 10/11/23 documented as of this encounter
--- OUTSIDE RECORDS SUMMARY | 2024-11-08 09:57 | XMS_ITS | Encounter Summary ---
Author Organization [facility] Address [address] [place] [address] Phone Care Team Providers Care Pharmacist Hospital Name Role Phone Saul Valverde MD Primary Care Provider [phone] Ramon Paredes MD Unavailable Reason for Visit * Reason Comments Medication Refill Encounter Details Date Type Department Care Team (Late Contact Info) Description 06/09/2022 Refill [facility] [place] [address] Saul Valverde MD #[address] [address] Medication Refill Social History Tobacco Use Types Packs/Day Years Used Date Smoking Tobacco: Every Day Cigarettes 0.5 44.2 Started: 08/12/1980 Smokeless Tobacco: Never Comments:GOING TO [employer] Alcohol Use Standard Drinks/Week Comments No 0 (1 standard drink = 0.6 oz pur e alcohol) PHQ-2 Answer Date Recorded Total Score - Questions 1-9 0 04/2022 Sexually Active Control Partners Comments Yes Female Sex and Gender Information Value Date Recorded Sex Assigned at Not on file Legal Sex Male 9:05 PM CDT Gender Identity Not on file Sexual Orientation Not on file documented as of this encounter Plan of Treatment Upcoming Encounters Date Type Department Care Team (Late Contact Info) Description 03/15/2025 11:00 AM CDT Office Visit [facility] [place] [address] Saul Valverde MD #2 [facility] [address] [place] [address] documented as of this encounter Visit Diagnoses Diagnosis Pain Generalized pain documented in this encounter Additional Health Concerns Assessment Noted Time PHQ-9 Depression Total Score: 0 02/13/20 21 12:00 PM CDT documented as of this encounter Care Teams Pharmacist Hospital Relationship Specialty Start Date End Date Saul Valverde MD [address] [address] PCP - General Family Medicine 11/17/17 Ramon Paredes MD #2 [facility] [address] [place] [address] Consulting Physician Colon and Rectal Surgery 10/11/23 documented as of this encounter
--- OUTSIDE RECORDS SUMMARY | 2024-11-08 09:57 | XMS_ITS | Encounter Summary ---
Author Organization [facility] Address [address] [place] [address] Phone Care Team Providers Care Outreach Nurse Name Role Phone Saul Valverde MD Primary Care Provider [phone] Ramon Paredes MD Unavailable Reason for Visit * Reason Comments Medication Refill Encounter Details Date Type Department Care Team (Late st Contact Info) Description 01/06/2022 Refill [facility] - Family Medicine [facility] [address] [place] [address] Saul Valverde MD #[address] [address] Medication Refill Social History Tobacco Use Types [...] encounter Miscellaneous Notes * Telephone Encounter - Mihaela Fay Linh - 01/08/2022 12:33 PM CDT Scheduled for March per patient request. * Telephone Encounter - Erika Whitt RN - 01/06/2022 1:55 PM CDT PDMP - 11/05/21 Medication failed the protocol, provider to review and approve the medication order if appropriate. Requested Prescriptions Pending Prescriptions Disp Refills ALPRAZolam (XANAX) 0.5 MG Tablet [Pharmacy Med Name: ALPRAZOLAM 0.5 MG TABLET] 60 Tablet 0 Sig: TAKE 1 TABLET BY MOUTH TWICE ADAY Not Delegated - Benzodiazepines Protocol Failed - 01/06/2022 12:06 PM Failed - This refill cannot be delegated Passed - Visit with relevant provider in past 12 months or upcoming 90 days Recent Visits Date Type Provider Dept 09/09/21 Office Visit Saul Valverde MD [facility] 02/12/21 Office Visit Saul Valverde MD [facility] Showing recent visits within past 365 days and meeting all other requirements Future Appointments No visits were found meeting these conditions. Showing future appointments within next 90 days and meeting all other requirements documented in this encounter Plan of Treatment Upcoming Encounters Date Type Department Care Team (Late st Contact Info) Description 03/15/2025 11:00 AM CDT Office Visit [facility] - Family Medicine [facility] [address] [place] [address] Saul Valverde MD #[address] [address] documented as of this encounter Visit Diagnoses Diagnosis Anxiety Anxiety state, unspecified documented in this encounter Additional Health Concerns Assessment Noted Time PHQ-9 Depression Total Score: 0 02/13/20 21 12:00 PM CDT documented as of this encounter Care Teams Outreach Nurse Relationship Specialty Start Date End Date Saul Valverde MD #[address] [address] PCP - General Family Medicine 11/17/17 Ramon Paredes MD #2 [place] [address] Consulting Physician Colon and Rectal Surgery 10/11/23 documented as of this encounter
--- OUTSIDE RECORDS SUMMARY | 2024-11-08 09:57 | XMS_ITS | Encounter Summary ---
Author Organization [facility] Address [address] [place] [address] Phone Care Team Providers Care Chain Builder Name Role Phone Saul Valverde MD Primary Care Provider [phone] Ramon Paredes MD Unavailable Reason for Visit * Reason Comments Medication Refill Encounter Details Date Type Department Care Team (Late st Contact Info) Description [facility] [address] [place] [address] Saul Valverde MD #[address] [address] Medication Refill Social History Tobacco [...] Telephone Encounter - Saul Valverde MD - 07/23/2020 6:55 AM CDT Prescription approved. Please call in * Telephone Encounter - Rhonda Avina S - 07/22/2020 4:44 PM CDT Medication failed the protocol provider to review and approve the medication order. Requested Prescriptions Pending Prescriptions Disp Refills omeprazole (PriLOSEC) 40 MG CAPSULE DELAYED RELEASE [Pharmacy Med Name: OMEPRAZOLE 40MG CAP] 90 Cap2 Sig: TAKE 1 CAPSULE BY MOUTH DAILY Gastroenterology: Antiulcer - Proton Pump Inhibitors Passed - 07/22/2020 10:27 AM Passed - Valid encounter within last 12 months Past Office Visits Recent Outpatient Visits 2 months ago Type 2 diabetes mellitus without complication, unspecified whether assisted insulin use (HCC) [facility] Saul Munoz MD 8 months ago Chronic midline low back pain without sciatica [facility] Saul Munoz MD 1 year ago Chronic midline low back pain without sciatica [facility] Saul Munoz MD 1 year ago Pure hypercholesterolemia [facility] Saul Munoz MD 2 years ago Type 2 diabetes mellitus without complication, without long-term current use of insulin(HCC) [facility] Saul Munoz MD 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 Showing future appointments within next 90 days with a meds authorizing provider and meeting all other requirements Routing to PCP for review r/t lab values. documented in this encounter Plan of Treatment Upcoming Encounters Date Type Department Care Team (Late st Contact Info) Description 03/15/2025 11:00 AM CDT Office Visit [facility] #[address] [place] [address] Saul Valverde MD #2 [facility] [address] [place] [address] documented as of this encounter Visit Diagnoses Not on filedocumented in this encounter Additional Health Concerns Assessment Noted Time PHQ-9 Depression Total Score: 0 11/20/19 20 12:18 PM OFFICE COORDINATOR RECEPTIONIST documented as of this encounter Care Teams Chain Builder Relationship Specialty Start Date End Date Saul Valverde MD #[address] [address] PCP - General Family Medicine 11/17/17 Ramon Paredes MD #2 [facility] [address] [place] [address] Consulting Physician Colon and Rectal Surgery 10/11/23 documented as of this encounter
--- OUTSIDE RECORDS SUMMARY | 2024-11-08 09:57 | XMS_ITS | Encounter Summary ---
Author Organization [facility] Address [address] [place] [address] Phone Care Team Providers Care Supervisor Force Adjustment Name Role Phone Saul Valverde MD Primary Care Provider [phone] Ramon Paredes MD Unavailable Reason for Visit * Reason Comments Medication Refill Encounter Details Date Type Department Care Team (Late st Contact Info) Description 03/22/2023 Refill [facility] - Family Medicine [facility] #2 [place] [address] Saul Valverde MD #[address] [address] Medication Refill Social History Tobacco Use Types [...] on file Sexual Orientation Not on file COVID-19 Exposure Response Date Recorded In the last 10 days, have yo u been in contact with someone who was confirmed or suspected to have Coronavirus/COVID-19? No / Unsure 03/01/2023 1:18 PM CDT documented as of this encounter Miscellaneous Notes * Telephone Encounter - Norma Marcano RN - 03/22/2023 2:18 PM CDT No PDMP for last 4 months. Medication failed the protocol, provider to review and approve the medication order if appropriate. Requested Prescriptions Pending Prescriptions Disp Refills traMADol (ULTRAM) 50 MG Tablet [Pharmacy Med Name: TRAMADOL HCL 50 MG TABLET] 540 Tablet Sig: TAKE 1 OR 2 TABLETS BY MOUTH EVERY 6 HOURS NEEDED FOR MODERATE OR MORE SEVERE PAIN. Not Delegated - Opioid Agonists Protocol Failed - 03/22/2023 8:42 AM Failed - This refill cannot be delegated Passed - Visit with relevant provider in past 12 months or upcoming 90 days Recent Visits Date Type Provider Dept 03/02/23 Office Visit Saul Valverde MD [facility] 08/31/22 Office Visit Saul Valverde MD [facility] Showing recent visits within past 365 days and meeting all other requirements Future Appointments No visits were found meeting these conditions. Showing future appointments within next 90 days and meeting all other requirements documented in this encounter Plan of Treatment Upcoming Encounters Date Type Department Care Team (Late st Contact Info) Description 03/15/2025 11:00 AM CDT Office Visit [facility] - Family Medicine - [facility] [place] [address] Saul Valverde MD #[address] [address] documented as of this encounter Visit Diagnoses Diagnosis Pain Generalized pain documented in this encounter Additional Health Concerns Assessment Noted Time PHQ-9 Depression Total Score: 0 02/13/20 21 12:00 PM CDT documented as of this encounter Care Teams Supervisor Force Adjustment Relationship Specialty Start Date End Date Saul Valverde MD #[address] [address] PCP - General Family Medicine 11/17/17 Ramon Paredes MD #[address] [address] Consulting Physician Colon and Rectal Surgery 10/11/23 documented as of this encounter
--- OUTSIDE RECORDS SUMMARY | 2024-11-08 09:57 | XMS_ITS | Encounter Summary ---
Author Organization [facility] Address [address] [place] [address] Care Team Providers Care Post Office Clerk Name Role Phone Saul Valverde MD Primary Care Provider [phone] Encounter Details Date Type Department Care Team (Late st Contact Info) Description 11/03/2024 Telephone [facility] Diabetes Endocrine Care at [address] [place] [address] Holly Henson RUSSIAN LANGUAGE PROFESSOR [address] [facility] [address] [place] [address] Social History Tobacco Use Types Packs/Day Years Used Date Smoking Tobacco: Every Day Cigarettes 0.8 35 Sex and Gender Information Value Date Recorded Sex Assigned at Not on file Legal Sex Male 11:03 AM 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
--- OUTSIDE RECORDS SUMMARY | 2024-11-08 09:57 | XMS_ITS | Encounter Summary ---
Author Organization [facility] Address [address] [place] [address] Phone Care Team Providers Care Motion Designer Name Role Phone Saul Valverde MD Primary Care Provider Ramon Paredes MD Unavailable Reason for Visit * Reason Comments Medication Refill Encounter Details Date Type Department Care Team (Late st Contact Info) Description 12/11/2019 Refill [facility] - Family Medicine [facility] #2 [place] [address] Saul Valverde MD #[address] [address] Medication Refill Social History Tobacco Use Types [...] Telephone Encounter - Saul Valverde MD - 12/11/2019 2:05 PM CDT Prescription pending signature * Telephone Encounter - Jesika Ruby RN - 12/11/2019 1:42 PM CDT Requested Prescriptions Pending Prescriptions Disp Refills ALPRAZolam (XANAX) 0.5 MG Tablet [Pharmacy Med Name: ALPRAZOLAM *0.5 MG TABLET] 60 Tab 0 Sig: TAKE ONE TABLET BY MOUTH 2 TIMES A DAY. Not Delegated - Psychiatry: Anxiolytics/Hypnotics Failed - 12/11/2019 1:42 PM Failed - This refill cannot be delegated Passed - Valid encounter within last 6 months Past Office Visits Recent Outpatient Visits 3 weeks ago Chronic midline low back pain without sciatica [facility] Saul Valverde MD 6 months ago Chronic midline low back pain without sciatica [facility] Saul Valverde MD 1 year ago Pure hypercholesterolemia [facility] Saul Valverde MD 2 years ago Type 2 diabetes mellitus without complication, without long-term current use of insulin(HCC) [facility] Saul Valverde MD 3 years ago Pain [facility] Charly Robert, DO Upcoming Appointments Future Appointments In 5 months Saul Valverde MD [facility] Powered by [employer] - 12/11/2019 1:42 PM Information pending documented in this encounter Plan of Treatment Upcoming Encounters Date Type Department Care Team (Late st Contact Info) Description 03/15/2025 11:00 AM CDT [facility] #2 [place] [address] Saul Valverde MD #[address] [address] documented as of this encounter Visit Diagnoses Not on filedocumented in this encounter Additional Health Concerns Assessment Noted Time PHQ-9 Depression Total Score: 0 11/20/19 20 12:18 PM FOUNDRY MOLDER documented as of this encounter Care Teams Motion Designer Relationship Specialty Start Date End Date Saul Valverde MD #2 [facility] [address] [place] [address] PCP - General Family Medicine 11/17/17 Ramon Paredes MD #2 [facility] [address] [place] [address] Consulting Physician Colon and Rectal Surgery 10/11/23 documented as of this encounter
--- OUTSIDE RECORDS SUMMARY | 2024-11-08 09:57 | XMS_ITS | Clinical Summary ---
Author Organization [facility] Address [address] [place] [address] Care Team Providers Care Produce Team Lead Name Role Phone Saul Valverde MD Primary Care Provider [phone] Allergies Active Allergy Reactions Criticality Noted Date Comments Codeine Rash Medium 08/12/2015 Empagliflozin Nausea only Low 11/02/2023 Metformin Stomach upset Low 11/06/2024 Tirzepatide Other (See comments) Low 01/11/2024 Sore nipples Medications traMADoL (ULTRAM) 50 mg tablet TAKE 2 TABLETS BY MOUTH 3 TIMES DAILY 08/21/20 20 Active sildenafiL, pulm.hypertens ion, (REVATIO) 20 mg tablet 11/15/19 21 Active omeprazole (PriLOSEC) 40 mg capsule TAKE 1 CAPSULE BY MOUTH DAILY 07/23/20 20 Active ALPRAZolam (XANAX) 0.5 mg tablet TAKE 1 TABLET BY MOUTH TWICE DAILY. 08/21/20 20 Active aspirin 81 mg chewable tablet Take 1 tablet (81 mg total) by mouth daily Active simvastatin (ZOCOR) 20 mg tablet TAKE 1 TABLET BY MOUTH EVERY NIGHT 90 tablet 3 03/02/20 24 Active insulin glargine (LANTUS) 100 unit/mL (3 mL) pen for injection Inject 22 Units under the skin nightly E11.65 30 mL 4 03/01/20 24 Active insulin lispro (HumaLOG, ADMELOG) 100 unit/mL pen for injectionIndic ations:type 2 diabetes mellitus Inject 7 Units under the skin 3 (three) times a day before meals E11.65 30 mL 4 03/01/20 24 Active pen needle, diabetic 32 gauge x 5/32 needle Use to inject insulin 4x daily. E11.65. 300 each 4 03/01/20 24 Active acetaminophen (TYLENOL) 325 mg tablet Take 1 tablet (325 mg total) by mouth every 6 (six) hours as needed 10/02/20 24 Active albuterol HFA (PROVENTIL HFA,VENTOLIN HFA,PROAIR HFA) 90 mcg/actuation inhaler Inhale 2 puffs every 4 (four) hours as needed 09/13/20 24 Active famotidine (PEPCID) 20 mg tablet Take 1 tablet (20 mg total) by mouth daily 10/16/19 25 Active losartan-hydro chlorothiazide (HYZAAR) 100-25 mg per tablet Take 1 tablet by mouth daily 09/13/20 24 Active testosterone cypionate (DEPO-TESTOTER ONE) 200 mg/mL injection INJECT 1ML INTRAMUSCULARLY EVERY WEEK. PLEASE DISCARD 28 DAYS AFTER FIRST PUNCTURE. CAUTION HAZARDOUS DRUG-DISPOSE OF PROPERLY- OBSERVE SPECIAL HANDLING AND ADMINISTRATION REQUIREMENTS. 03/01/20 24 Active insulin weapons electrical engineering officer cart,aut,G6/7, cntr (Omnipod 5 G6-G7 Intro Kt,Gen5,) cartridge Inject 1 Device under the skin continuously E11.65 45 each 4 11/07/19 25 Active Omnipod 5 G6-G7 Intro Kt,Gen5, cartridge Inject 1 Device under the skin continuously E11.65 1 each 1 11/07/19 25 Active losartan (COZAAR) 100 mg tablet Take 1 tablet (100 mg total) by mouth daily 03/02/20 23 025 Discontin ued(Alter wes therapy) metFORMIN (GLUCOPHAGE) 1,000 mg tablet TAKE 1 TABLET BY MOUTH TWICE DAILY 180 tablet 4 07/12/20 24 025 Discontin ued(Thera py completed ) Active Problems Problem Noted Date Diagnosed Date Mixed diabetic hyperlipidemi a associated with type 2 diabetes mellitus 03/03/2024 Assessment & Plan (10/20/2024 1:13 PM [employer] SUPERVISOR): This is a chronic condition which isAt goal . Goal is LDL less than 70 Continue simvastatin Encouraged to eat healthy, include fresh fruits and vegetables daily and avoid eating fried foods more than once per week. Assessment & Plan (06/20/2024 2:19 PM CDT): This is a chronic condition which is at goal . Goal is LDL less than 70 Continue simvastatin Encouraged to eat healthy, include fresh fruits and vegetables daily and avoid eating fried foods more than once per week. Assessment & Plan (03/03/2024 11:02 AM CDT): This is a chronic condition which is at goal . Goal is LDL less than 70 Continue simvastatin, not on statin therapy Encouraged to eat healthy, include fresh fruits and vegetables daily and avoid eating fried foods more than once per week. Encouraged to take medications as prescribed. [employer] Richie continuous glucose monitoring de vice 11/29/2023 Assessment & Plan (10/20/2024 1:14 PM [employer] SUPERVISOR): Continuous glucose monitor (cgm) applied from 10/07/2024 to 10/20/2024 This device was placed for monitor and treatment of blood sugar. Interpretation of data- average glucose 148, glucose . target range - 83 %. 1% hypoglycemia, 16 % hyperglycemia Assessment & Plan (06/20/2024 2:20 PM CDT): Continuous glucose monitor (cgm) applied from 06/07 2024 to 06/20/2024 This device was placed for monitor and treatment of blood sugar. Interpretation of data- average glucose 171, glucose . target range - 60 %. O hypoglycemia, 40 % hyperglycemia Assessment & Plan (03/03/2024 11:05 AM CDT): Continuous glucose monitor (cgm) applied from 02/17/2024 to 03/01/2024 This device was placed for monitor and treatment of blood sugar. Interpretation of data- average glucose 195, glucose . target range - 36 %. O hypoglycemia, 64% hyperglycemia Assessment & Plan (11/29/2023 2:58 PM [employer] SUPERVISOR): Continuous glucose monitor (cgm) applied from 11/16/2023 to 11/29/2023 This device was placed for monitor and treatment of blood sugar. Interpretation of data- average glucose 160, glucose management indicator 7.1%. In target range 65. Hypoglycemia between 54 and 69 1%. 0 hypoglycemia less than 54. 34% hyperglycemia Hypertension associated with type 2 diabetes linda litus 11/29/2023 Assessment & Plan (10/20/2024 1:13 PM [employer] SUPERVISOR): This is a chronic condition which is at goal. Goal is less than 140/90 Continue losartan/hydrochlorothiazide Encouraged to monitor weight and B/P at home. Assessment & Plan (06/20/2024 2:20 PM CDT): This is a chronic condition which is at goal. Goal is less than 140/90 Continue losartan Encouraged to monitor weight and B/P at home. Encouraged to void caffeine and excessive alcohol consumption as this will elevate B/P Assessment & Plan (03/03/2024 11:03 AM CDT): This is a chronic condition which is at goal after rest. Goal is less than 140/90 Personally reviewed labs. Continue losartan Encouraged to monitor weight and B/P at home. Explained correct way to take blood pressure. - After 5 minutes of sitting calmly with arm supported. Encouraged to void caffeine and excessive alcohol consumption as this will elevate B/P Encouraged to take medications as prescribed. Assessment & Plan (11/29/2023 2:58 PM [employer] SUPERVISOR): This is a chronic condition which is at goal of less than 140/90 Personally reviewed labs. Continue losartan Encouraged to monitor weight and B/P at home Encouraged to take medications as prescribed. Gastroesophageal reflux disease without esophagi tis 11/17/2017 Chronic midline low back pain without sciatica 0 11/17/2017 Type 2 diabetes mellitus wit h hyperglycemia, with long-term current use of insulin 08/12/2015 Assessment & Plan (10/20/2024 1:12 PM [employer] SUPERVISOR): This is a chronic condition which is not at goal . Goal is less than 7%. Personally reviewed most recent A1c - Lab Results Component Value Date HGBA1C 7.6 10/20/2024 Personally reviewed POC blood sugar- at of 80-180 Lab Results Component Value Date POCGLU 154 10/20/2024 Medication- continue Lantus 22 units daily, inject Humalog 6-8 units 3 times a day prior to meals. Continue metformin 1000 mg twice daily. He wants to get off of metformin he is considering 0 P5 if he can do a 30 day trial to see if he likes it 1st. I explained he would have to switch to Dexcom 7. He is in agreement. Monitor blood sugar continuously with [employer] Richie cgm. Encouraged annual eye exam. Monofilament foot exam completed. Protective senses -intact eGFR- greater than 90 Kidney function-normal Urine microalbumin/creatinine ratio - at goal. Goal is <30 Continue losartan/hydrochlorothiazide Assessment & Plan (06/20/2024 2:19 PM CDT): This is a chronic condition which is at goal . Goal is less than 7-8%. Personally reviewed most recent A1c - Lab Results Component Value Date HGBA1C 7.8 06/20/2024 Personally reviewed POC blood sugar- not at goal of 80-180 Lab Results Component Value Date POCGLU 182 06/20/2024 Medication- continue Metformin 1000mg twice daily. continue Lantus 22 units in am. Humalog 6-8 units 3 times daily. He reports trying several oral medication. He did not tolerate jardiance due to abd. Pain. Discussed insulin pump therapy- he is not interested at this time. Monitor blood sugar continuously with cgm. Encouraged annual eye exam. Monofilament foot exam completed. Protective senses -intact eGFR- >90 Kidney function-normal Urine microalbumin/creatinine ratio - at goal. Goal is <30 Continue losartan. Assessment & Plan (03/03/2024 11:02 AM CDT): This is a chronic condition which is not at goal, but improving . Goal is less than 7%. Personally reviewed most recent A1c - Lab Results Component Value Date HGBA1C 8.3 03/01/2024 Personally reviewed POC blood sugar- close to goal of 80-180 Lab Results Component Value Date POCGLU 185 03/01/2024 Medication- continue Metformin 1000mg twice daily. continue Lantus 22 units in am. Humalog 6-8 units 3 times daily. He reports trying several oral medication. He did not tolerate jardiance due to abd. Pain. Monitor blood sugar continuously with cgm. Encouraged annual eye exam. Monofilament foot exam completed. Protective senses intact Personally reviewed CMP eGFR- >90 Kidney function-normal Urine microalbumin/creatinine ratio - at goal. Goal is <30 Continue losartan Assessment & Plan (07/29/2023 12:52 PM CDT): This is a chronic condition which is inadequately controlled , worsening not at goal of less than 7%. Personally reviewed most recent A1c - Lab Results Component Value Date HGBA1C 9.9 07/29/2023 Personally reviewed POC blood sugar- not at goal 80-180 Lab Results Component Value Date POCGLU 277 07/29/2023 Medication- continue Metformin 1000mg twice daily. increase Lantus 15 units in am. Stop glimeperide. Monitor blood sugar 2 times a day. Encouraged annual eye exam. Monofilament foot exam completed. protective senses intact Personally reviewed CMP eGFR- 107 Kidney function- normal Urine microalbumin/creatinine ratio - not at goal <30 treated with losartan B/P today- at goal of <140/90. continue losartan Personally reviewed lipid panel. at Goal of less than 70. Continue simvastatin Assessment & Plan (04/27/2023 11:14 AM CDT): This is a chronic condition which is out of control, worsening not at goal of less than 7%. Personally reviewed most recent A1c - 9.8% Personally reviewed POC blood sugar- 189. not at goal 80-180 Medication- continue Metformin 1000mg twice daily. Continue Glimeperide 1mg po daily, Has insulin- Lantus but has not started it. Monitor blood sugar 3 times a day. Encouraged annual eye exam. last dilated eye exam was done in [place]. Monofilament foot exam completed. protective senses intact Personally reviewed CMP eGFR- 110 Kidney function- normal Urine microalbumin/creatinine ratio - goal <30 treated with losartan B/P today- at goal of <140/90. continue losartan Personally reviewed lipid panel. Not at Goal of less than 70. Continue atovastatin Resolved Problems Problem Noted Date Diagnosed Date Resolved Date Mixed hyperlipidemia 11/17/2017 05/2 024 Assessment & Plan (11/29/2023 2:56 PM [employer] SUPERVISOR): This is a chronic condition which is not at goal of LDL less than 70 Continue simvastatin Encouraged to eat healthy, include fresh fruits and vegetables daily and avoid eating fried foods more than once per week. Encouraged to take medications as prescribed. Assessment & Plan (07/29/2023 12:53 PM CDT): This is a chronic condition which is not at goal of LDL less than 70 Continue simvastatin Encouraged to eat healthy, include fresh fruits and vegetables daily and avoid eating fried foods more than once per week. Encouraged to take medications as prescribed. Assessment & Plan (04/27/2023 11:15 AM CDT): This is a chronic condition which is not at goal of LDL less than 70 Continue atorvastatin. Encouraged to eat healthy, include fresh fruits and vegetables daily and avoid eating fried foods more than once per week. Encouraged to take medications as prescribed. Encounters Date Type Department Care Team Description 11/07/2024 Telephone [facility] at [address] [id number] Cheryl Rosario MA 11/07/2024 Orders Only [facility] at [address] [address] Holly Henson, YUYL Type 2 diabetes mellitus with hyperglycemia, with long-term current use of insulin (HCC) (Primary Dx) 11/03/2024 Telephone [facility] at [address] [address] Holly Henson NP 11/02/2024 Telephone [facility] at [address] [address] Cheryl Rosario MA 10/30/2024 Telephone [facility] at [address] [address] Holly Henson NP 10/20/2024 10:30 AM [employer] SUPERVISOR Office Visit [facility] at [address] [place] [address] Holly Henson, YULY Type 2 diabetes mellitus with hyperglycemia, with long-term current use of insulin (HCC) (Primary Dx); Mixed diabetic hyperlipidemia associated with type 2 diabetes mellitus (HCC); Hypertension associated with type 2 diabetes mellitus (HCC); [employer] Rich[employer] continuous glucose monitoring device from Last 3 Months Social History Tobacco Use Types Packs/Day Years Used Date Smoking Tobacco: Every Day Cigarettes 0.8 35 Tobacco Cessation:Ready to Q uit: Not Asked; Counseling Given: Not Answered Sex and Gender Information Value Date Recorded Sex Assigned at Not on file Legal Sex Male 11:03 AM [employer]PER[employer] Gender Identity Not on file Sexual Orientation Not on file Obstetrics History Last Filed Vital Signs Vital Sign Reading Time Taken Comments Blood Pressure 130/68 10/20/2024 10:38 AM [employer] Pulse 107 01/16/2021 7:35 PM CDT Temperature 37 ??C (98.6 ??F) 01/16/2021 2:59 PM CDT Respiratory Rate 18 01/16/2021 7:35 PM CDT Oxygen Saturation 96% 01/16/2021 7:35 PM CDT Inhaled Oxygen Concentration - - Weight 88.4 kg (194 lb 12.8 oz) 025 10:38 AM [employer] Height 182.9 cm (6') 10/20/2024 10:38 AM [employer] SUPER[employer]OR Body Mass Index 26.42 10/20/2024 10:38 AM [employer] SU[employer] Plan of Treatment Health Maintenance Due Date Last Done Comments Colon Cancer Screening-Colonoscopy 1960 Depression Screening 1960 Hepatitis C Screening 1960 Prostate Cancer Screening-PSA 1960 DTaP/Tdap/Td Vaccine (1 - Tdap) 02/25/1971 Hepatitis B Screening 02/25/1978 Regular Well Visit/Exam 18-64 02/25/1978 Lung Cancer Screening 02/25/2010 Covid-19 Vaccine (3 - 2023-2 5 season) 2024 01/03/2021, 12/06/2020 Dilated Eye Exam 11/25/2024 11/25/2023, 09/30/2023 Pneumococcal vaccine <65 (3 of 3 - PPSV23 or PCV20) 02/25/2025 06/19/2015, 09/03/2009 Albumin Creatinine Ratio, Urine 03/01/2025 , 04/27/2023 Lipid Panel 03/01/2025 03/01/2024, 04/27/2023 eGFR 03/01/2025 03/01/2024, 0702/2023, 01/16/2021 Hemoglobin A1C 04/19/2025 10/20/2024, 06/04, 03/01/2024, Additional history exists Foot Exam 10/20/2025 10/20/2024, 06/04, 03/01/2024, Additional history exists Zoster Vaccine Completed 06/21/2020, 05/29/2020 Influenza Vaccine Completed 09/13/2024, , 08/14/2022, Additional history exists Procedures Procedure Name Priority Date/Time Associated Diagnosis Comments POCT GLUCOSE Routine 10/20/2024 10:42 AM [employer] Type 2 diabetes mellitus with hyperglycemia, with long-term current use of insulin (HCC) POCT HEMOGLOBIN A1C Routine 10/20/2024 1 0:41 AM [employer] SU[employer]OR Type 2 diabetes mellitus with hyperglycemia, with long-term current use of insulin (HCC) EGFR Routine 03/01/2024 2:07 PM CDT Type 2 diabetes mellitus with hyperglycemia, with long-term current use of insulin (HCC) LIPID PANEL Routine 03/01/2024 2:07 PM CDT Type 2 diabetes mellitus with hyperglycemia, with long-term current use of insulin (HCC) ALBUMIN CREATININE RATIO, URINE Routine 03/01/2024 2:07 PM CDT Type 2 diabetes mellitus with hyperglycemia, with long-term current use of insulin (HCC) DIABETIC EYE EXAM Routine 11/25/2023 from Last 3 Months or Most Recently Relevant to Health Maintenance Results * POCT glucose (10/20/2024 10:42 AM [employer] SUPERVISOR) Pathologist [facility] Glucose Blood, POC 154 mg/dL Blood 10/20/2024 10:4 2 AM [employer] SUPER[employer] Holly Henson NP POINT OF CARE TEST ORDERABLES F inal Result * POCT hemoglobin A1c (10/20/2024 10:41 AM [employer] SUPER[employer]OR) Hemoglobin A1C, POC 7.6 4.0 - 5.6 % Blood 10/20/2024 10:4 1 AM [employer] SU[employer] Holly Henson NP POINT OF CARE TEST ORDERABLES F inal Result * eGFR (03/01/2024 2:07 PM CDT) eGFR >90 >=60 mL/min/1. 73 m2 Comment: Interpretive Data Reference Interval Normal ?>/= 90 mL/min/1.73m2 Mildly decreased* ? 60 - 89 mL/min/1.73m2 Mildly to moderately decreased ?45 - 59 mL/min/1.73m2 Moderately to severely decreased ??30 - 44 mL/min/1.73m2 Severely decreased ?15 - 29 mL/min/1.73m2 Kidney Failure ?< 15 ??mL/min/1.73m2 *Relative to young adult level Estimated glomerular filtration rate is determined by the 2020 CKD-EPI equation recommended by the National Kidney Foundation (A Unifying Approach to GFR Estimation: Recommendations of the NKF-ASK Task Force on Reassessing the Inclusion of Race in Diagnosing Kidney Disease, JASN 2020). The CKD-EPI equation should not be used for patients with unstable renal function and has not been validated in children and those over 70. Current interpretive data was last reviewed 2021. Blood 03/01/2024 2:07 PM CDT 03/01/2024 5:20 PM CDT Holly Henson CHEMICAL COMPOUNDER LAB BLOOD ORDERABLES Final Resu lt Performing Organization Address [facility] de Phone Number NICKY RIOS [address] [facility] [place] [address] * Albumin Creatinine Ratio, Urine (03/01/2024 2:07 PM CDT) Albumin Ur 20.9 mg/L Comment: Interpretive Data No reference range established. Current interpretive data was last revised 2019. Creatinine Ur 84.2 mg/dL [facility] Comment: Interpretive Data No reference range established. Current interpretive data was last revised 2019. Albumin Creatinine Ratio, Ur 25 1 - 29 mg/g [facility] Urine 03/01/2024 2:07 PM CDT 03/01/2024 5:18 PM CDT Holly Henson CHEMICAL COMPOUNDER LAB URINE ORDERABLES Final Resu lt Performing Organization Address [facility] de Phone Number NICKY [address] [address] * (ABNORMAL) Lipid panel (03/01/2024 2:07 PM CDT) Cholesterol 118 30 - 199 mg/dL Comment: Interpretive Data Ages < or = 19 years ??Acceptable: ? <170 mg/dL ??Borderline high: ??170-199 mg/dL ??High: ? >or= 200 mg/dL Ages > or = 20 years ??Desirable: ?<200 mg/dL ??Borderline high: ??200-239 mg/dL ??High: ? >or= 240 mg/dL Literature References: 1. Expert Panel on Integrated Guidelines for Cardiovascular Health and Risk Reduction in Children and Adolescents. Pediatrics 2011;128:S213 2. NCEP Expert Panel. Circulation 2004;110:227 Current Interpretive Data was last revised on 2018. Triglycerides 125 <=149 mg/dL NICKY RIOS Comment: Interpretive Data Ages < or = 9 years ??Acceptable: ? <75 mg/dL ??Borderline high: ??75-99 mg/dL ??High: ? >or= 100 mg/dL Ages 10 to 20 years ??Acceptable: ? <90 mg/dL ??Borderline high: ??90-129 mg/dL ??High: ? >or= 130 mg/dL Ages > or = 20 years ??Desirable: ?<150 mg/dL ??Borderline high: ??150-199 mg/dL ??High: ? 200-499 mg/dL ?Very high: ?? >or= 499 mg/dL Literature References: 1. Expert Panel on Integrated Guidelines for Cardiovascular Health and Risk Reduction in Children and Adolescents. Pediatrics 2011;128:S213 2. NCEP Expert Panel. Circulation 2004;110:227 Current Interpretive Data was last revised on 2018. HDL 32(L) >=40 mg/dL NICKY Comment: Interpretive Data Ages < or = 19 years ??Acceptable: ? >45 mg/dL ??Borderline low: ?? 40-45 mg/dL ??Low: ? <40 mg/dL Ages > or = 20 years ??Desirable: ?>or= 60 mg/dL ??Low: ? <40 mg/dL Literature References: 1. Expert Panel on Integrated Guidelines for Cardiovascular Health and Risk Reduction in Children and Adolescents. Pediatrics 2011;128:S213 2. NCEP Expert Panel. Circulation 2004;110:227 Current Interpretive Data was last revised on 2018. LDL, calculated 61 <=129 mg/dL NICKY Comment: Interpretive Data Ages < or = 19 years ??Acceptable: ? <110 mg/dL ??Borderline high: ??110-129 mg/dL ??High: ?>or= 130 mg/dL Ages > or = 20 years ??Optimal: ? <100 mg/dL ??Near optimal: ?100-129 mg/dL ??Borderline high: ?? 130-159 mg/dL ??High: ?>160 mg/dL Literature References: 1. Expert Panel on Integrated Guidelines for Cardiovascular Health and Risk Reduction in Children and Adolescents. Pediatrics 2011;128:S213 2. NCEP Expert Panel. Circulation 2004;110:227 Current Interpretive Data was last revised on 2018. Non-HDL Cholesterol 86 mg/dL NICKY Comment: Interpretive Data Ages < or = 19 years ??Acceptable: ?<120 mg/dL ??Borderline high: ??120-144 mg/dL ??High: ?>145 mg/dL Ages > or = 20 years ??When triglycerides are >200 mg/dL, Non-HDL cholesterol is a secondary target of ? therapy with treatment goals that are 30 mg/dL greater than the LDL cholesterol target. ? Literature References: 1. Expert Panel on Integrated Guidelines for Cardiovascular Health and Risk Reduction in Children and Adolescents. Pediatrics 2011;128:S213 2. NCEP Expert Panel. Circulation 2004;110:227 Current Interpretive Data was last revised on 2018. Chol/HDL ratio [address] [facility] Blood 03/01/2024 2:07 PM CDT 03/01/2024 5:18 PM CDT Narrative [facility] - 03/01/2024 5:37 PM CDT These lab test should be done fasting. This means do not eat or drink for at least 12 hours prior to getting your blood drawn. Has the patient been fasting for 8 hours or more?->Yes us Holly Henson NP LAB BLOOD ORDERABLES Final Resu lt [facility] [id number] [place] [address] * Diabetic Eye Exam (11/25/2023) us Historical Provider HEALTH MAINTENANCE Final Result from Last 3 Months or Most Recently Relevant to Health Maintenance Insurance MEDICARE MEDICARE [employer] ADMIN[employer]AT[employer] IN Care Teams Produce Team Lead Relationship Specialty Start Date End Date Saul Valverde MD [address] [facility] [address] [id number] [facility] - General 01/16/21
--- OUTSIDE RECORDS SUMMARY | 2024-11-08 09:57 | XMS_ITS | Encounter Summary ---
Author Organization [facility] Address [address] [place] [address] Phone Care Team Providers Care Senior Compliance Analyst Name Role Phone Saul Valverde MD Primary Care Provider [phone] Ramon Paredes MD Unavailable Reason for Visit * Reason Comments Medication Refill Encounter Details Date Type Department Care Team (Late st Contact Info) Description 02/25/2024 Refill [facility] - Family Medicine [facility] [address] [place] [address] Saul Valverde MD #[address] [address] Medication Refill Social History Tobacco Use Types [...] Telephone Encounter - Neida Santana RN - 02/25/2024 1:36 PM CDT PDMP Alprazolam 12/14/23 Medication failed the protocol, provider to review and approve the medication order if appropriate. Requested Prescriptions Pending Prescriptions Disp Refills losartan (COZAAR) 100 MG Tablet [Pharmacy Med Name: LOSARTAN POT. 100 MG TAB] 90 Tablet 3 Sig: TAKE 1 TABLET BY MOUTH DAILY. ARB Protocol Failed - 02/25/2024 10:27 AM Failed - Serum potassium on record in past 12 months No results found for: POTASSIUM , POCTK Failed - GFR on record in past 12 months No results found for: GFRNA Passed - BP on record in the past year Clinician-entered: BP Readings from Last 3 Encounters: 10/19/23 130/86 09/06/23 132/62 03/02/23 152/64 Patient-entered: No data recorded Passed - Visit with relevant provider in past year or upcoming 90 days Recent Visits Date [...] Not Delegated - Benzodiazepines Protocol Failed - 02/25/2024 10:27 AM Failed - This refill cannot be [...] Upcoming Encounters Date Type Department Care Team (Saúl lynne Contact Info) Description 03/15/2025 11:00 AM CDT Office Visit [facility] - Family Medicine [facility] [address] [place] [address] Saul Valverde MD #2 [facility] [address] [place] [address] documented as of this encounter Visit Diagnoses Diagnosis Anxiety Anxiety state, unspecified documented in this encounter Additional Health Concerns Assessment Noted Time PHQ-9 Depression Total Score: 0 02/13/20 21 12:00 PM CDT documented as of this encounter Care Teams Senior Compliance Analyst Relationship Specialty Start Date End Date Saul Valverde MD #[address] [address] PCP - General Family Medicine 11/17/17 Ramon Paredes MD #[address] [address] Consulting Physician Colon and Rectal Surgery 10/11/23 documented as of this encounter
--- OUTSIDE RECORDS SUMMARY | 2024-11-08 09:57 | XMS_ITS | Referral Summary ---
Author Organization [facility] Address [address] [place] [address] Care Team Providers Care Habilitation Assistant Name Role Phone Saul Valverde MD Primary Care Provider [phone] Encounters Date Type Department Care Team Description 11/07/2024 Telephone [facility] Diabetes Endocrine Care at [address] [phone] hCeryl Rosario MA 11/07/2024 Orders Only [facility] Medical [facility] Diabetes Endocrine Care at [address] [phone] Holly Henson, YULY Type 2 diabetes mellitus with hyperglycemia, with long-term current use of insulin (HCC) (Primary Dx) 11/03/2024 Telephone [facility] Diabetes Endocrine Care at [address] [phone] Holly Henson NP 11/02/2024 Telephone [facility] Diabetes Endocrine Care at [address] [phone] Cheryl Rosario MA 10/30/2024 Telephone [facility] Diabetes Endocrine Care at [address] [phone] Holly Henson NP 10/20/2024 10:30 AM RN GERIATRIC Office Visit [facility] Diabetes Endocrine Care at [address] [address] Holly Henson, YULY Type 2 diabetes mellitus with hyperglycemia, with long-term current use of insulin (HCC) (Primary Dx); Mixed diabetic hyperlipidemia associated with type 2 diabetes mellitus (HCC); Hypertension associated with type 2 diabetes mellitus (HCC); Freestyle Richie continuous glucose monitoring device from Last 3 Months Allergies Active Allergy Reactions Criticality Noted Date Comments Codeine Rash Medium 08/12/2015 Empagliflozin Nausea only Low 11/02/2023 Metformin Stomach upset Low 11/06/2024 Tirzepatide Other (See comments) Low 01/11/2024 Sore nipples Medications traMADoL (ULTRAM) 50 mg tablet TAKE 2 TABLETS BY MOUTH 3 TIMES DAILY 08/21/20 Active sildenafiL, pulm.hypertens ion, (REVATIO) 20 mg tablet 11/15/19 Active omeprazole (PriLOSEC) 40 mg capsule TAKE [...] inject insulin 4x daily. E11.65. 300 each 03/01/20 24 Active acetaminophen (TYLENOL) 325 mg tablet Take 1 tablet (325 mg total) by mouth every 6 (six) hours as needed 10/02/20 Active albuterol HFA (PROVENTIL HFA,VENTOLIN HFA,PROAIR HFA) [...] AND ADMINISTRATION REQUIREMENTS. 03/01/20 24 Active insulin fur buyer cart,aut,G6/7, cntr (Omnipod 5 G6-G7 Intro Kt,Gen5,) [...] 03/03/2024 Assessment & Plan (10/20/2024 1:13 PM RN GERIATRIC): This is a chronic condition which isAt [...] week. Encouraged to take medications as prescribed. Freestyle Richie continuous glucose monitoring de 11/29/2023 Assessment & Plan (10/20/2024 1:14 PM RN GERIATRIC): Continuous glucose monitor (cgm) applied from 10/07/2024 [...] hyperglycemia Assessment & Plan (11/29/2023 2:58 PM RN GERIATRIC): Continuous glucose monitor (cgm) applied from 11/16/2023 to 11/29/2023 This device was placed for monitor and treatment of blood sugar. Interpretation of data- average glucose 160, glucose management indicator 7.1%. In target range 65. Hypoglycemia between 54 and 69 1%. 0 hypoglycemia less than 54. 34% hyperglycemia Hypertension associated with type 2 diabetes linda litus 11/29/2023 Assessment & Plan (10/20/2024 1:13 PM RN GERIATRIC): This is a chronic condition which is [...] prescribed. Assessment & Plan (11/29/2023 2:58 PM RN GERIATRIC): This is a chronic condition which is [...] 08/12/2015 Assessment & Plan (10/20/2024 1:12 PM RN GERIATRIC): This is a chronic condition which is [...] in agreement. Monitor blood sugar continuously with Freta.lá Richie cgm. Encouraged annual eye exam. Monofilament [...] last dilated eye exam was done in [place]. Monofilament foot exam completed. protective senses intact Personally reviewed CMP eGFR- 110 Kidney function- normal Urine microalbumin/creatinine ratio - goal <30 treated with losartan B/P today- at goal of <140/90. continue losartan Personally reviewed lipid panel. Not at Goal of less than 70. Continue atovastatin Resolved Problems Problem Noted Date Diagnosed Date Resolved Date Mixed hyperlipidemia 11/17/2017 024 Assessment & Plan (11/29/2023 2:56 PM RN GERIATRIC): This is a chronic condition which is [...] week. Encouraged to take medications as prescribed. Social History Tobacco Use Types Packs/Day Years Used Date Smoking Tobacco: Every Day Cigarettes 0.8 35 Tobacco Cessation:Ready to Q uit: Not Asked; Counseling Given: Not Answered Sex and Gender Information Value Date Recorded Sex Assigned at Not on file Legal Sex Male 11:03 AM RN GERIATRIC Gender Identity Not on file Sexual Orientation Not on file Last Filed Vital Signs Vital Sign Reading Time Taken Comments Blood Pressure 130/68 10/20/2024 10:38 AM RN GERIATRIC Pulse 107 01/16/2021 7:35 PM CDT Temperature 37 ??C (98.6 ??F) 01/16/2021 2:59 PM CDT Respiratory Rate 18 01/16/2021 7:35 PM CDT Oxygen Saturation 96% 01/16/2021 7:35 PM CDT Inhaled Oxygen Concentration - - Weight 88.4 kg (194 lb 12.8 oz) 025 10:38 AM RN GERIATRIC Height 182.9 cm (6') 10/20/2024 10:38 AM RN GERIATRIC Body Mass Index 26.42 10/20/2024 10:38 AM RN GERIATRIC Plan of Treatment Not on file Procedures Procedure Name Priority Date/Time Associated Diagnosis Comments POCT GLUCOSE Routine 10/20/2024 10:42 AM RN GERIATRIC Type 2 diabetes mellitus with hyperglycemia, with long-term current use of insulin (HCC) POCT HEMOGLOBIN A1C Routine 10/20/2024 1 0:41 AM RN GERIATRIC Type 2 diabetes mellitus with hyperglycemia, with long-term current use of insulin (HCC) EGFR Routine 03/01/2024 2:07 PM CDT Type 2 diabetes mellitus with hyperglycemia, with long-term current use of insulin ([facility]) LIPID PANEL Routine 03/01/2024 2:07 PM CDT [...] Results * POCT glucose (10/20/2024 10:42 AM RN GERIATRIC) Glucose Blood, POC 154 mg/dL Blood 10/20/2024 10:4 2 AM RN GERIATRIC us Holly Henson NP POINT OF CARE TEST ORDERABLES F inal Result * POCT hemoglobin A1c (10/20/2024 10:41 AM RN GERIATRIC) Hemoglobin A1C, POC 7.6 4.0 - 5.6 % Blood 10/20/2024 10:4 1 AM RN GERIATRIC us Holly Henson NP POINT OF CARE TEST [...] CDT 03/01/2024 5:20 PM CDT Holly Henson NP LAB BLOOD ORDERABLES Final Resu lt Performing Organization Address [facility] de Phone Number GARCIAMEHREEN RIOS [address] [address] * Albumin Creatinine Ratio, Urine (03/01/2024 2:07 PM CDT) Albumin Ur 20.9 mg/L Comment: Interpretive Data No reference range established. Current interpretive data was last revised 2019. Creatinine Ur 84.2 mg/dL [facility] Comment: Interpretive Data No reference range established. Current interpretive data was last revised 2019. Albumin Creatinine Ratio, Ur 25 1 - 29 mg/g NICKY Urine 03/01/2024 2:07 PM CDT 03/01/2024 5:18 PM CDT Holly Henson NP LAB URINE ORDERABLES Final Resu lt Performing Organization Address [facility] Co de Phone Number GARCIAMEHREEN [address] [address] [facility] [place] [address] * (ABNORMAL) Lipid panel (03/01/2024 2:07 PM [...] on 2018. HDL 32(L) >=40 mg/dL NICKY RIOS Comment: Interpretive Data Ages [...] on 2018. LDL, calculated 61 <=129 mg/dL [facility] CH Comment: Interpretive Data Ages < or = [...] revised on 2018. Non-HDL Cholesterol 86 mg/dL CERNER Comment: Interpretive Data Ages < or = [...] last revised on 2018. Chol/HDL ratio 4 [facility] Blood 03/01/2024 2:07 PM CDT 03/01/2024 5:18 PM CDT Narrative NICKY RIOS - 03/01/2024 5:37 PM CDT These lab test should be done fasting. This means do not eat or drink for at least 12 hours prior to getting your blood drawn. Has the patient been fasting for 8 hours or more?->Yes us Holly Henson NP LAB BLOOD ORDERABLES Final Resu lt NICKY [address] Department [place] [address] * Diabetic Eye Exam (11/25/2023) us Historical Provider MD HEALTH MAINTENANCE Final Result from Last 3 Months or Most Recently Relevant to Health Maintenance Insurance MEDICARE MEDICARE [employer] [place] Care Teams Habilitation Assistant Relationship Specialty Start Date End Date Saul Valverde MD [address] [address] PCP - General 01/16/21
[2024-11-08 10:40] LABS: Glucose 214 mg/dL (70-99)
[2024-11-10 04:03] LABS: C-Peptide 1.26 ng/mL (0.80-3.85)
[2024-11-10 16:39] LABS: H pylori, Urea Breath NOT DETECTED (NOT DETECTED)
== END 2024-11-08 09:19 | disposition home or self-care (01) ==
PROVIDERS: Family Medicine; PCP Nurse Practitioner; Visit Provider Nurse Practitioner
DX: K21.9 Gastro-esophageal reflux disease without esophagitis (principal); E11.65 Type 2 diabetes mellitus with hyperglycemia; Z79.4 Long term (current) use of insulin
CPT/HCPCS: 36415; 82947; 83013; 83036; 84681

== ENCOUNTER 2025-01-02 13:36 | Outpatient (CLI) | payer MEDICARE, SELFPAY ==
--- OUTSIDE RECORDS SUMMARY | 2025-01-02 14:53 | XMS_ITS | Encounter Summary ---
Author Organization [facility] Address [address] [place] [address] Phone Care Team Providers Care Sports Medicine Specialist Name Role Phone Saul Valverde MD Primary Care Provider [phone] Muriel Reece MD Unavailable Adeel Ryan MD Unavailable [phone] Tasneem Henderson MD Unavailable [phone] Reason for Visit * Reason Onset Date Comments Follow-up 01/02/2025 Encounter Details Date Type Department Care Team (Late st Contact Info) Description 01/02/2025 Telephone [facility] Gastroenterology [address] [place] [address] Medical Office Building [address], [address] [place] [address] Alma López RN Follow-up Social History Tobacco Use Types Packs/Day Years Used Date Smoking Tobacco: Every Day Cigarettes 0.8 35 [facility] Utilities Answer Date Recorded In the past 12 months has [employer], gas, oil, or water [employer] threatened to shut off services in your home? No 12/19/2024 Social Connection and Isolat ion Panel [NHANES] Answer Date Recorded In a typical week, how many times do you talk on the phone with family, friends, or neighbors? More than three times a week 12/19/2024 How often do you get togethe r with friends or relatives? More than three times a week 12/19/2024 How often do you attend [facility] or baptist services? 1 to 4 times per year 12/19/2024 Do you belong to any clubs o r organizations such as shinto groups, unions, fraternal or athletic groups, or school groups? Yes 12/19/2024 How often do you attend meet ings of the clubs or organizations you belong to? 1 to 4 times per year 12/19/2024 Are you , , di vorced, , never , or living with a partner? 12/19/2024 AUDIT-C Answer Date Recorded Q1: How often do you have a drink containing alcohol? Never 12/20/2024 Q2: How many drinks containi ng alcohol do you have on a typical day when you are drinking? Patient does not drink Q3: How often do you have si x or more drinks on one occasion? Never 12/20/2024 Overall Financial Resource Strain (CARDIA) Answe r Date Recorded How hard is it for you to pa y for the very basics like food, housing, medical care, and heating? Not hard at all 12/19/2024 Hunger Vital Sign Answer Date Recorded Within the past 12 months, y ou worried that your food would run out before you got the money to buy more. Never true 12/20/19 25 Within the past 12 months, t he food you bought just didn't last and you didn't have money to get more. Never true 12/19/2024 PRAPARE - Transportation Answer Date Re corded In the past 12 months, has l ack of transportation kept you from medical appointments or from getting medications? No 12/02 In the past 12 months, has l ack of transportation kept you from meetings, work, or from getting things needed for daily living? No 12/19/2024 Housing Stability Vital Sign Answer Cl e Recorded In the last 12 months, was t here a time when you were not able to pay the mortgage or rent on time? No 12/19/2024 In the past 12 months, how m any times have you moved where you were living? 1 12/19/2024 At any time in the past 12 m [facility], were you homeless or living in a half-way (including now)? No 12/19/2024 Personal Safety Answer Date Recorded Have you ever been in or are you currently in a harmful physical or emotional relationship or is someone making you feel afraid or unsafe? Denies 12/20/2024 Sex and Gender Information Value Date Recorded Sex Assigned at Not on file Legal Sex Male 11:03 AM [employer] Gender Identity Not on file Sexual Orientation Not on file documented as of this encounter Miscellaneous Notes * Telephone Encounter - Alma López RN - 01/02/2025 9:30 AM CDT S/w pt, he plans to get CMP drawn today at [facility]. Lab order entered and sent to fax [phone]. ----- Message from Adeel Ryan MD sent at 01/02/2025 9:19 AM CDT ----- Can we please arrange for repeat CMP ANA ----- Message ----- From: Azul Jaime RN Sent: 01/01/2025 4:29 PM CDT To: Adeel Ryan MD Pt called and stated he is having heartburn, gurgling, stomach rolling . Pt is currently taking Mylanta, Pepcid, omeprazole, dicyclomine, tylenol and tramadol. Per pt he feels like this is gas bubbling. Denied bloating, fever, chills, nausea, vomiting or diarrhea. Passing gas and having normal BMs. Reports dark urine. Per pt, this is his usual and the color fluctuates between darker in am then campaign specialist at night. Pt reports juandice, he sees yellowing on his forehead and legs. Per pt, eyes are still yellow as well, but not any worse than when he came in for procedure. Pt drinks 6 qts of water daily and also drinking pedialyte. He is eating 5 small meals throughout the day. Pt aware of when to call vs ER for Eval. Of note; Pt is scheduled for imaging with [facility] on 01/07 and appt 01/10. Then Med ONC on 01/11. Any recs? documented in this encounter Plan of Treatment Scheduled Orders Name Type Priority Associated Diagnoses Orde r Schedule Comprehensive metabolic panel Lab Routine Jaundice Expected: 01/02/2025, Expires: 01/02/2026 documented as of this encounter Visit Diagnoses Diagnosis Jaundice- Primary Jaundice, unspecified, not of documented in this encounter Care Teams Sports Medicine Specialist Relationship Specialty Start Date End Date Saul Valverde MD [address] [address] PCP - General 01/16/21 Muriel Reece MD [address] [facility] [phone] [place] [address] General Surgery 12/25/24 Adeel Ryan MD [address] [place] [address] Consulting Physician Internal Medicine 12/25/24 Tasneem Henderson MD [address] [facility] [address] [place], [place] [id number] Medical Oncologist/Guest Attendant Medical Oncology 12/25/24 documented as of this encounter
--- OUTSIDE RECORDS SUMMARY | 2025-01-02 14:53 | XMS_ITS | Clinical Summary ---
Author Organization [facility] Address [address] [place] [address] Care Team Providers Care Leverman Name Role Phone Saul Valverde MD Primary Care Provider + [phone] Muriel Reece MD Unavailable Adeel Ryan MD Unavailable [phone] Tasneem Henderson MD Unavailable [phone] Allergies Active Allergy Reactions Criticality Noted Date Comments Codeine Rash Medium 08/12/2015 Empagliflozin Nausea only Low 11/02/2023 Metformin Stomach upset Low 11/06/2024 Tirzepatide Other (See comments) Low 01/11/2024 Sore nipples Pantoprazole Other (See comments) Low 12/19/2024 Made GERD worse per patient - tolerates omeprazole Medications traMADoL (ULTRAM) 50 mg tablet Take 2 tablets (100 mg total) by mouth 3 (three) times a day as needed for pain 08/21/20 20 Active sildenafiL, pulm.hypertens ion, (REVATIO) 20 mg tablet Take 1 tablet (20 mg total) by mouth daily as needed (erectile dysfunction) 11/15/19 21 Active omeprazole (PriLOSEC) 40 mg capsule Take 1 capsule (40 mg total) by mouth daily 07/23/20 20 Active ALPRAZolam (XANAX) 0.5 mg tablet Take 1 tablet (0.5 mg total) by mouth 2 (two) times a day as needed for anxiety 08/21/20 20 Active aspirin 81 mg chewable tablet Take 1 tablet (81 mg total) by mouth daily Active insulin lispro (HumaLOG, ADMELOG) 100 unit/mL pen for injectionIndic ations:type 2 diabetes mellitus Inject 7 Units under the skin 3 (three) times a day before meals E11.65 30 mL 4 03/01/20 24 Active pen needle, diabetic 32 gauge x needle Use to inject insulin 4x daily. [...] testosterone cypionate (DEPO-TESTOTER ONE) 200 mg/mL injection Inject 1 mL (200 mg total) into the muscle as instructed every 7 days 03/01/20 24 Active insulin functional manager cart,aut,G6/7, cntr (Omnipod 5 G6-G7 Intro Kt,Gen5,) cartridge Inject 1 Device under the skin continuously E11.65 45 each 4 11/07/19 25 Active Omnipod 5 G6-G7 Intro Kt,Gen5, cartridge Inject 1 Device under the skin continuously E11.65 1 each 1 11/07/19 25 Active simvastatin (ZOCOR) 20 mg tablet Take 1 tablet (20 mg total) by mouth nightly Active cyanocobalamin (Vitamin B-12) 1,000 mcg tabletIndicati ons:Prevention of Vitamin B12 Deficiency Take 1 tablet (1,000 mcg total) by mouth daily Active cholecalcifero l 25 mcg (1,000 unit) tablet Take 1 tablet (1,000 Units total) by mouth daily Active omega-3 fatty acids-fish oil 300-1,000 mg capsule Take 2 capsules (2 g total) by mouth daily Active dicyclomine (BENTYL) 10 mg capsule Take 1 capsule (10 mg total) by mouth 4 (four) times a day as needed (abdominal pain) 12/07/19 25 Active naproxen (NAPROSYN) 500 mg tablet Take 1 tablet (500 mg total) by mouth 2 (two) times a day as needed for pain 11/23/19 25 Active simvastatin (ZOCOR) 20 mg tablet TAKE 1 TABLET BY MOUTH EVERY NIGHT 90 tablet 3 03/02/20 24 025 Discontinued insulin glargine (LANTUS) 100 unit/mL (3 mL) pen for injection Inject 22 Units under the skin nightly E11.65 30 mL 4 03/01/20 24 025 Discontinued Active Problems Problem Noted Date Diagnosed Date Moderate malnutrition 12/20/2024 Jaundice 12/20/2024 Obstructive jaundice 12/19/2024 Pancreatic mass 12/19/2024 Tobacco use disorder 12/19/2024 Mixed diabetic hyperlipidemi a associated with type 2 diabetes mellitus 03/03/2024 Assessment & Plan (10/20/2024 1:13 PM BOX PULLER): This is a chronic condition which isAt [...] as prescribed. Freestyle Richie continuous glucose monitoring adames 11/29/2023 Assessment & Plan (10/20/2024 1:14 PM BOX PULLER): Continuous glucose monitor (cgm) applied from 10/07/2024 [...] hyperglycemia Assessment & Plan (11/29/2023 2:58 PM BOX PULLER): Continuous glucose monitor (cgm) applied from 11/16/2023 to 11/29/2023 This device was placed for monitor and treatment of blood sugar. Interpretation of data- average glucose 160, glucose management indicator 7.1%. In target range 65. Hypoglycemia between 54 and 69 1%. 0 hypoglycemia less than 54. 34% hyperglycemia Hypertension associated with type 2 diabetes linda litus 11/29/2023 Assessment & Plan (10/20/2024 1:13 PM BOX PULLER): This is a chronic condition which is [...] prescribed. Assessment & Plan (11/29/2023 2:58 PM BOX PULLER): This is a chronic condition which is at goal of less than 140/90 Personally reviewed labs. Continue losartan Encouraged to monitor weight and B/P at home Encouraged to take medications as prescribed. Gastroesophageal reflux disease without esophagi tis 11/17/2017 Chronic midline low back pain without sciatica 0 11/17/2017 Type 2 diabetes mellitus wit hout complication, with long-term current use of insulin 08/12/2015 Assessment & Plan (10/20/2024 1:12 PM BOX PULLER): This is a chronic condition which is [...] in agreement. Monitor blood sugar continuously with [employer] Richie cgm. Encouraged annual eye exam. Monofilament [...] last dilated eye exam was done in [place]. Monofilament foot exam completed. protective senses intact [...] 024 Assessment & Plan (11/29/2023 2:56 PM BOX PULLER): This is a chronic condition which is [...] Encounters Date Type Department Care Team Description 01/03/20 25 Telephone [facility] Gastroenterology [address], [address] [place] [address] Alma López RN Follow-up 01/02/20 25 Orders Only [facility] On[facility] [address] [place] [address] Tasneem Henderson MD Pancreatic mass (Primary Dx) 12/28/19 25 Telephone [facility] Surgery [address] [place] [phone] Muriel Reece MD Scheduling Appointments 12/26/19 Results Follow-Up [facility] Gastroenterology [address] 2nd Floor [address] [place] [address] Adeel Ryan MD Pancreatic mass (Primary Dx); Pancreatic adenocarcinoma (HCC) 12/26/19 Results Follow-Up [facility] Gastroenterology [address] 2nd Floor [address] [place] [address] Adeel Ryan MD 12/24/19 25 Documentation [facility] Gastroenterology [address] [place] [address] Perez Yu MD 12/22/19 25 Orders Only [facility] Department of Hepatobiliary, Pancreatic, & Gastrointestinal Surgery [address] 12th Floor, [place] [address] Magda Sexton PA Pancreatic mass (Primary Dx) 12/21/19 25 2:39 PM CDT Anesthesia Event [facility] [place] [address] Criselda Abbott MD Zubiri, Elvit Tiu, CRNA 12/21/19 25 1:45 PM CDT - 12/21/19 25 2:30 PM CDT Surgery [facility] [place] [address] Adeel Ryan MD ESOPHAGOGASTRODUODENOSCOPY ULTRASOUND GUIDE LIMITED 12/21/19 25 Orders Only [address] [address] Adeel Ryan MD 12/21/19 25 Orders Only [address] [address] Adeel Ryan MD 12/20/19 25 6:30 AM CDT - 12/22/19 25 1:16 PM CDT Hospital Encounter [address] [phone] Timmy Braxton MD Dehaan, MD Eli Arita Alex, MD Pancreatic mass (Primary Dx); Jaundice; Nausea; Obstructive jaundice (HCC) [K83.1]; Tobacco use disorder [F17.200] Discharge Disposition: Discharge to home or self care 11/08/[address] [facility] Diabetes Endocrine Care at [place] [phone] Holly Henson, YULY 11/07/[address] [facility] Diabetes Endocrine Care at [address] [address] Cheryl Rivers MA 11/07/[address] [facility] Diabetes Endocrine Care at [address] [address] Holly Henson, YULY Type 2 diabetes mellitus with hyperglycemia, with long-term current use of insulin (HCC) (Primary Dx) 11/03/19 25 Telephone [facility] Diabetes Endocrine Care at [address] [address] Holly Henson NP 11/02/19 25 Telephone [facility] Diabetes Endocrine Care at [address] [address] Cheryl Rivers MA 10/30/19 Telephone [facility] Diabetes Endocrine Care at [address] [place], [place] [phone] Holly Henson NP 10/20/19 10:30 AM BOX PULLER Office Visit [facility] Diabetes Endocrine Care at [address] [place], [place] [phone] Holly Henson NP Type 2 diabetes mellitus with hyperglycemia, with long-term current use of insulin (HCC) (Primary Dx); Mixed diabetic hyperlipidemia associated with type 2 diabetes mellitus (HCC); Hypertension associated with type 2 diabetes mellitus (HCC); Zappos[employer] Richie continuous glucose monitoring device from Last 3 Months Immunizations Immunization Administration Dates Next Due Influenza, Unspecified 07/24/2024 Medical History Medical History Date Comments Type 2 diabetes mellitus (HCC) Hypertension Social History Tobacco Use Types Packs/Day Years Used Date Smoking Tobacco: Every Day Cigarettes 0.8 35 Tobacco Cessation:Ready to Q uit: Not Asked; Counseling Given: Not Answered [facility] [employer] Answer Date Recorded In the past 12 months has [employer], gas, oil, or water [employer] threatened to shut off services in your [...] week 12/19/2024 How often do you attend [facility] or sikhism services? 1 to 4 times per year 12/19/2024 Do you belong to any clubs o r organizations such as sikh groups, unions, fraternal or athletic groups, or [...] any time in the past 12 m [facility], were you homeless or living in a assisted (including now)? No 12/19/2024 Personal Safety Answer Date Recorded Have you ever been in or are you currently in a harmful physical or emotional relationship or is someone making you feel afraid or unsafe? Denies 12/20/2024 Sex and Gender Information Value Date Recorded Sex Assigned at Not on file Legal Sex Male 11:03 AM BOX PULLER Gender Identity Not on file Sexual Orientation Not on file Obstetrics History Last Filed Vital Signs Vital Sign Reading Time Taken Comments Blood Pressure 135/86 12/21/2024 8:32 AM CDT Pulse 92 12/21/2024 8:32 AM CDT Temperature 36.5 C (97.7 F) 12/21/2024 4:38 AM CDT Respiratory Rate 16 12/21/2024 4:38 AM CDT Oxygen Saturation 100% 12/21/2024 4:38 AM CDT Inhaled Oxygen Concentration - - Weight 81.6 kg (180 lb) 12/19/2024 12:50 PM CDT Height 182.9 cm (6') 12/19/2024 12:50 PM CDT Body Mass Index 24.41 12/19/2024 12:50 PM CDT Plan of Treatment Health Maintenance Due Date Last Done Comments Colon Cancer Screening-Colonoscopy 1960 Depression Screening 1960 Hepatitis C Screening 1960 Prostate Cancer Screening-PSA 1960 DTaP/Tdap/Td Vaccine (1 - Tdap) 02/25/1971 Hepatitis B Screening 02/25/1978 Regular Well Visit/Exam 18-64 02/25/1978 Lung Cancer Screening 02/25/2010 Pneumococcal vaccine <65 (3 of 3 - PCV20 or PCV21) 06/19/2020 06/19/2015, 09/03/2009 Covid-19 Vaccine (3 - 2023-2 5 season) 2024 01/03/2021, 12/06/2020 Dilated Eye Exam 11/25/2024 11/25/2023, 09/30/2023 Albumin Creatinine Ratio, Urine 03/01/2025 , 04/27/2023 Lipid Panel 03/01/2025 03/01/2024, 04/27/2023 Hemoglobin A1C 05/08/2025 11/08/2024, 10/04, 06/20/2024, Additional history exists Foot Exam 10/20/2025 10/20/2024, 06/04, 03/01/2024, Additional history exists eGFR 12/21/2025 12/21/2024, 12/02, 03/01/2024, Additional history exists Zoster Vaccine Completed 06/21/2020, 05/29/2020 Influenza Vaccine Completed 09/13/2024, , 09/06/2023, Additional history exists Medical Devices Implanted Type Area Plate Inspector Device Identifier Shelf Expiration Date Model / Serial / Lot [employer] Medical Bia 10fr 9cm Biliary Stent [id number] - [id number] Implanted:Qty: 1 on 12/20/2024 by Adeel Ryan MD at [facility] Stent N/A: Bile Duct [employer] Bia 08/30/2025 [id number] / / [id number] Procedures Procedure Name Priority Date/Time Associated Diagnosis Comments POCT GLUCOSE DEVICE Routine 12/21/2024 11:35 AM CDT POCT GLUCOSE DEVICE Routine 12/21/2024 5:55 AM CDT EGFR Routine 12/21/2024 1:41 AM CDT COMPREHENSIVE METABOLIC PANEL Routine 1:41 AM CDT POCT GLUCOSE DEVICE Routine 12/20/2024 8:50 PM CDT POCT GLUCOSE DEVICE Routine 12/20/2024 6:16 PM CDT ERCP IP Routine 12/20/2024 3:39 PM CDT Pancreatic mass ERCP IP Routine 12/20/2024 3:39 PM CDT Pancreatic mass CYTOLOGY Routine 12/20/2024 3:34 PM CDT FL ERCP BILIARY DUCT IP Routine 12/20/2024 3:29 PM CDT SURGICAL PATHOLOGY Routine 12/20/2024 3:06 PM CDT ESOPHAGOGASTRODUODENOSCOPY ULTRASOUND GUIDE LIMITED 12/20/2024 2:51 PM CDT Pancreatic mass UPPER EUS 12/20/2024 2:38 PM CDT ERCP 12/20/2024 2:36 PM CDT POCT GLUCOSE DEVICE Routine 12/20/2024 12:30 PM CDT POCT GLUCOSE DEVICE Routine 12/20/2024 6:16 AM CDT CEA Routine 12/20/2024 1:03 AM CDT CANCER ANTIGEN 19-9 Routine 12/20/2024 1:03 AM CDT CBC WITHOUT DIFFERENTIAL Routine 025 1:03 AM CDT POCT GLUCOSE DEVICE Routine 12/19/2024 8:51 PM CDT POCT GLUCOSE DEVICE Routine 12/19/2024 4:23 PM CDT TROPONIN T HIGH-SENSITIVITY 4-HR STAT 12/19/2024 11:50 AM CDT POCT GLUCOSE DEVICE Routine 12/19/2024 10:40 AM CDT ADD ON LAB TEST Add-On 12/19/2024 9:[address] ABDOMEN PELVIS W CONTRAST ED Urgent/I P Urgent 12/19/2024 8:39 AM CDT LIPASE STAT 12/19/2024 6:53 AM CDT COMPREHENSIVE METABOLIC PANEL STAT 6:53 AM CDT EGFR STAT 12/19/2024 6:53 AM CDT DIFFERENTIAL AUTO STAT 12/19/2024 6:53 AM CDT TROPONIN T HIGH-SENSITIVITY SERIES (BASELINE, 2HR, 4HR, 6HR) STAT 12/19/2024 6:53 AM CDT CBC WITH AUTO DIFFERENTIAL STAT 12/19 6:53 AM CDT HEMOGLOBIN A1C Routine 11/08/2024 C-PEPTIDE Routine 11/08/2024 Type 2 diabetes mellitus with hyperglycemia, with long-term current use of insulin (HCC) POCT GLUCOSE Routine 10/20/2024 10:42 AM BOX PULLER Type 2 diabetes mellitus with hyperglycemia, with long-term current use of insulin (HCC) POCT HEMOGLOBIN A1C Routine 10/20/2024 10:41 AM BOX PULLER Type 2 diabetes mellitus with hyperglycemia, with [...] to Health Maintenance Results * POCT glucose (12/21/2024 11:35 AM CDT) Glucose, POC 137 70 - 199 mg/dL Comment: For Glucose values <35 mg/dl when Hematocrit is >60 mg/dl,the test may not accurately detect significant hypoglycemia,and testing in the Laboratory should be considered if clinically indicated. POC Performer [id number] [facility] Blood 12/21/2024 11:3 5 AM CDT 12/21/2024 11:35 AM CDT us Jose G Benitez MD LAB POCT ORDERABLES - DEVICE Fin al Result [facility] [address] Department [place] [address] * POCT glucose (12/21/2024 5:55 AM CDT) Glucose, POC 100 70 - 199 mg/dL Comment: For Glucose values <35 mg/dl when Hematocrit is >60 mg/dl,the test may not accurately detect significant hypoglycemia,and testing in the Laboratory should be considered if clinically indicated. POC Performer [id number] [facility] Blood 12/21/2024 5:55 AM CDT 12/21/2024 5:55 AM CDT us Jose G Benitez MD LAB POCT ORDERABLES - DEVICE Fin al Result Performing Organization Address [facility] Co de Phone Number [facility] [address] [employer] [place] [address] * eGFR (12/21/2024 1:41 AM CDT) eGFR >90 >=60 mL/min/1. 73 m2 Comment: Interpretive Data Reference Interval Normal >/= 90 mL/min/1.73m2 Mildly decreased* 60 - 89 mL/min/1.73m2 Mildly to moderately decreased 45 - 59 mL/min/1.73m2 Moderately to severely decreased 30 - 44 mL/min/1.73m2 Severely decreased 15 - 29 mL/min/1.73m2 Kidney Failure < 15 mL/min/1.73m2 *Relative to young adult level Estimated glomerular [...] interpretive data was last reviewed 2021. Blood 12/21/2024 1:41 AM CDT 12/21/2024 2:05 AM CDT us Jose G Benitez MD LAB BLOOD ORDERABLES Final Resul t Performing Organization Address [facility]/ZIP Co de Phone Number [facility] [address] [place] [address] * (ABNORMAL) Comprehensive metabolic panel (12/21/2024 1:41 AM CDT) Sodium 138 135 - 145 mmol/L Potassium, pl 3.6 3.3 - 4.9 mmol/L [facility] Chloride 102 97 - 110 mmol/L [facility] CO2 22 22 - 32 mmol/L [facility] Anion gap 14 2 - 15 mmol/L [facility] BUN 22 6 - 25 mg/dL [facility] Creatinine 0.75(L) 0.80 - 1.30 mg/dL [facility] Glucose 131 70 - 199 mg/dL [facility] Comment: Interpretive Data Fasting glucose >/= 126 mg/dl is diagnostic for diabetes. Fasting is defined as no caloric intake for at least 8 hours. Fasting glucose between 100 mg/dl to 125 mg/dl is diagnostic of prediabetes. In a patient with classic symptoms of hyperglycemia or hyperglycemic crisis, a random glucose >/= 200 mg/dl is diagnostic for diabetes. In the absence of unequivocal hyperglycemia, results should be confirmed by repeat testing. The classification and Diagnosis of Diabetes Diabetes Care 202; 46: S19-S40. Current interpretive data was last revised 2022. Calcium 8.4(L) 8.5 - 10.3 mg/dL [facility] Bilirubin, total 6.4(H) 0.1 - 1.2 mg/dL [facility] Protein, pl 5.8(L) 6.5 - 8.5 g/dL [facility] Albumin 3.5 3.5 - 5.0 g/dL [facility] Alk phos 756(H) 40 - 130 Units/L [facility] ALT 338(H) 7 - 55 Units/L [facility] AST 205(H) 10 - 50 Units/L [facility] Blood 12/21/2024 1:41 AM CDT 12/21/2024 2:05 AM CDT us Adeel Ryan MD LAB BLOOD ORDERABLES Final Result [facility] [address] [place] [address] * POCT glucose (12/20/2024 8:50 PM CDT) [facility] Glucose, POC 137 70 - 199 mg/dL Comment: For Glucose values <35 mg/dl when Hematocrit is >60 mg/dl,the test may not accurately detect significant hypoglycemia,and testing in the Laboratory should be considered if clinically indicated. POC Performer [id number] [facility] Blood 12/20/2024 8:50 PM CDT 12/20/2024 8:50 PM CDT us Jose G Benitez MD LAB POCT ORDERABLES - DEVICE Fin al Result Performing Organization Address [facility] Co de Phone Number [facility] [address] Department [employer] [place], [place] [id number] * POCT glucose (12/20/2024 6:16 PM CDT) Glucose, POC 124 70 - 199 mg/dL Comment: For Glucose values <35 mg/dl when Hematocrit is >60 mg/dl,the test may not accurately detect significant hypoglycemia,and testing in the Laboratory should be considered if clinically indicated. POC Performer [id number] [facility] Blood 12/20/2024 6:16 PM CDT 12/20/2024 6:16 PM CDT us Jose G Benitez MD LAB POCT ORDERABLES - DEVICE Fin al Result Performing Organization Address [facility] Co de Phone Number [facility] [address] Department of Laboratories [place], [place] [id number] * Cytology (12/20/2024 3:34 PM CDT) Fluid, NOS 12/20/2024 3:34 PM CDT 12/21/2024 8:07 AM CDT Narrative 12/22/2024 11:10 AM CDT [place] [id number] [facility], [place], [place] [address] Tele: Mariam Abel MD - Instructor Of Education Note to Patients: This report may contain a detailed description of human tissue sent by a health care provider to the laboratory for pathologic evaluation. The content of this report is essential for diagnosis and may provide important critical findings. This information may be unfamiliar to patients to review without a medical professional present. It is advised that the patient review this report in the presence of a health care provider who can answer questions and explain the details. CYTOLOGY REPORT Patient Name: JESIKA TEIXEIRA. [address]: [address] [place] [address] [place] [address] Gender: M : 1960 (Age: 64) Service: Medical Location: [place] [address] Hospital #: [id number] Patient Type [facility] Taken: 12/20/2024 Reported: 12/22/2024 Physician(s): Jayshree Geiger Dr., M.D. FINAL DIAGNOSIS: Bile duct, brushing (two cytospins and one cell block slide): - Rare atypical cells smo/12/22/2024 11:10 Report Reviewed and Electronically Signed By Sam Crisostomo M.D. SPECIMEN TYPE: A: COMMON BILE DUCT STRICTURE CLINICAL DIAGNOSIS AND HISTORY: Irregular mass in pancreatic head, bile duct stricture GROSS DESCRIPTION: Received in a container of CytoRich Red labeled Jesika Teixeira/common bile duct stricture is one wire brush. The fluid is submitted for two Pap-stained cytospins and cell block. MICROSCOPIC DESCRIPTION: Microscopic examination shows predominantly benign ductular epithelium. There is a single cluster of atypical epithelial cells with somewhat enlarged, crowded nuclei on the cytospin. While this may represent reactive change, malignancy can not be completely excluded. Clinical correlation is needed. Clerical Data Follows A; [address]153, [address]53` REPORT IMAGES AND/OR SCANNED DOCUMENTS ONLY VIEWABLE IN PDF FORMAT The immunohistochemical test(s) cited in this report, if any, was developed and its performance characteristics determined by [facility] Pathology Department. It has not been cleared or approved by the U.S. Food and Drug Administration. The FDA has determined that such clearance or approval is not necessary. This test is used for clinical purposes. It should not be regarded as investigational or for research. [facility] Laboratory is certified under the Clinical Laboratory Improvement Amendments of 1988 (CLIA) as qualified to perform high complexity testing. Immunostains were performed on formalin-fixed paraffin embedded tissue using a polymer diaminobenzidine chromogen detection system. Antibodies used may include clone [id number] (mouse monoclonal, estrogen receptor), clone [id number] (mouse monoclonal progesterone receptor), MIB-1 (mouse monoclonal, Ki- 67), and [id number] (rabbit polyclonal, c-kit). In the event that immunohistochemistry or special stains have been performed, attending physician has confirmed appropriateness of controls. Frozen section, operating room consultation, gross examination and dissection, and case sign out may have been performed in part or completely in the following laboratories: [facility], [address] [place] [id number] [place] [address], [address] [place] [id number]. us Adeel Ryan MD LAB CYTOLOGY ORDERABLES Fin al Result * [place] ERCP Biliary Duct (12/20/2024 3:29 PM CDT) Narrative [facility] - 12/20/2024 3:45 PM CDT The images from this study are not interpreted by Radiology. Please refer to the physician's procedure / OR operative note. us Charly Mooney MD IMG FLUOROSCOPY PROCEDUR ES Final Result [facility] * Surgical pathology (12/20/2024 3:06 PM CDT) Pancreas, Biopsy 12/20/2024 3:06 PM CDT 12/21/2024 7:12 AM CDT Narrative 12/25/2024 3:10 PM CDT [address] [address] Tele: Mariam Abel MD - Instructor Of Education Note to Patients: This report may contain a detailed description of human tissue sent by a health care provider to the laboratory for pathologic evaluation. The content of this report is essential for diagnosis and may provide important critical findings. This information may be unfamiliar to patients to review without a medical professional present. It is advised that the patient review this report in the presence of a health care provider who can answer questions and explain the details. SURGICAL PATHOLOGY REPORT Patient Name: JESIKA TEIXEIRA [address]: [address] [place] [id number] Gender: M : 1960 (Age: 64) Service: Medical Location: [place] [address], Hospital #: [id number] Patient Type: [facility] [place] Taken: 12/20/2024 Received 12/21/2024 Reported: 12/25/2024 Physician(s): Jayshree Geiger Dr., M.D. DIAGNOSIS: Pancreas, head mass, fine needle biopsy: - [place] [facility]12/25/2024 15:10 Examining Pathologist: Sam Crisostomo M.D. Report Reviewed and Electronically Signed By Sam Crisostomo M.D. SPECIMEN TYPE: A: PANCREATIC HEAD MASS CLINICAL IMPRESSION AND HISTORY: Pancreatic mass GROSS DESCRIPTION: Received in formalin labeled JESIKA TEIXEIRA and pancreatic head mass are multiple red-brown tissue fragments, 1 x 0.3 x 0.2 cm in aggregate. The specimen is filtered and entirely submitted in A1. jxi/12/21/2024 08:13 DMS,JXI MICROSCOPIC DESCRIPTION: Microscopic examination shows irregular glandular structures with enlarged nuclei and prominent nucleoli. An immunostain p53 is completely negative (null phenotype) in these glands. The findings are consistent with invasive adenocarcinoma. Three deeper levels were examined. Clerical Data Follows A; [id number], [id number] REPORT IMAGES AND/OR SCANNED DOCUMENTS ONLY VIEWABLE IN PDF FORMAT The immunohistochemical test(s) cited in this report, if any, was developed and its performance characteristics determined by [facility] Pathology Department. It has not been cleared or approved by the U.S. Food and Drug Administration. The FDA has determined that such clearance or approval is not necessary. This test is used for clinical purposes. It should not be regarded as investigational or for research. [facility] Laboratory is certified under the Clinical Laboratory Improvement Amendments of 1988 (CLIA) as qualified to perform high complexity testing. Immunostains were performed on formalin-fixed paraffin embedded tissue using a polymer diaminobenzidine chromogen detection system. Antibodies used may include clone SP1 (rabbit monoclonal, estrogen receptor), clone 1E2 (rabbit monoclonal progesterone receptor), Ki-67 (rabbit monoclonal, 30-9), CD117 (rabbit polyclonal, c-kit), and anti-Her-2/jami (4B5) (rabbit monoclonal primary antibody). In the event that immunohistochemistry or special stains have been performed, attending physician has confirmed appropriateness of controls. Frozen section, operating room consultation, gross examination and dissection, and case sign out may have been performed in part or completely in the following laboratories: [facility], [facility] [place], [address], [address] [place] [id number]. us Adeel Ryan MD LAB PATHOLOGY ORDERABLES Fi nal Result * Upper EUS (12/20/2024 2:38 PM CDT) Anatomical Region Laterality Modality Other Narrative Procedure Note Adeel Ryan MD - 12/20/2024 2:38 PM CDT ENDOSCOPY LAB Patient Name: Jesika Teixeira Procedure Date: 12/20/2024 2:38 PM Admit Type: Inpatient Room: [facility] Date of : 1960 Instrument Name: [id number] Gender: Male Note Status: Finalized Procedure: Upper EUS Indications: Suspected mass in pancreas on CT scan Comorbidities See the other procedure note for documentation of comorbidities Providers: Adeel Ryan M.D. Referring MD: Saul Valverde M.D. Medicines: Monitored Anesthesia Care Complications: No immediate complications. Estimated Blood Loss: Estimated blood loss: none. Procedure: Pre-Anesthesia Assessment: - Prior to the procedure, a History and Physicalwas performed, and patient medications, allergies and sensitivities were reviewed. The patient'stolerance of previous anesthesia was reviewed. - Immediately prior to administration ofmedications, the patient was re-assessed for adequacy to receive sedatives. The risks, benefits and alternatives were discussed and informed consent was obtained.The Endosonoscope was introduced through the mouth, and advanced tothe second part of duodenum The upper EUS wasaccomplished without difficulty. The patient tolerated the procedure well. Findings: ENDOSONOGRAPHIC FINDING: : The esophagus, stomach and duodenum were visualizedendosonographically. An irregular mass was identified in the pancreatic head. The mass was anechoic. The mass measured 28 mm in maximal cross-sectionaldiameter. The endosonographic borders were poorly-defined. The remainder of the pancreas was examined. The endosonographic appearance of parenchymaand the upstream pancreatic duct indicated duct dilation, a maximum duct diameter of 5 mm and parenchymal atrophy. Fine needle biopsy was performed. Color Doppler imaging was utilized prior to needlepuncture to confirm a lack of significant vascular structures within theneedle path. Three passes were made with the 22 gauge Acquire biopsy needle using a transduodenal approach. A visible core of tissue wasobtained. Final cytology results are pending. There was dilation in the common bile duct which measured up to 7 mm with cut off at the level of the pancreatic head lesion. The region of the celiac plexus and celiac ganglia was visualized and showed no sign of significant endosonographic abnormality. Thevascular anatomy of the region was normal. Impression: - An irregular mass like consolidation measuring~28 mm was identified in the pancreatic head. Fineneedle biopsy performed. - There was dilation in the common bile duct which measured up to 7 mm with cut off at the level ofthe pancreatic lesion. Recommendation: - Await pathology results. - Perform ERCP today. Attending Participation: I personally performed the entire procedure. Electronically signed by Adeel Ryan MD Adeel Ryan M.D. 12/20/2024 3:49:45 PM This document was signed electronically. Number of Addenda: 0 Note Initiated On: 12/20/2024 2:38 PM Scope In: Scope Out: us Adeel Ryan MD ENDOSCOPY PROCEDURES Final Result * ERCP (12/20/2024 2:36 PM CDT) Anatomical Region Laterality Modality Other Narrative Procedure Note Adeel Ryan MD - 12/20/2024 2:36 PM CDT ENDOSCOPY LAB Patient Name: Jesika Teixeira Procedure Date: 12/20/2024 2:36 PM Admit Type: Inpatient Room: [facility] Date of : 1960 Instrument Name: [id number] Gender: Male Note Status: Finalized Procedure: ERCP Indications: Concern for malignant stricture of the common bileduct Comorbidities See the other procedure note for documentation of comorbidities Providers: Adeel Ryan M.D. Referring MD: Saul Valverde M.D. Medicines: Monitored Anesthesia Care Complications: No immediate complications. Estimated Blood Loss: Estimated blood loss: none. Procedure: Pre-Anesthesia Assessment: - Prior to the procedure, a History and Physicalwas performed, and patient medications, allergies and sensitivities were reviewed. The patient'stolerance of previous anesthesia was reviewed. - Immediately prior to administration ofmedications, the patient was re-assessed for adequacy to receive sedatives. The benefits, risks, and alternatives to theprocedure and sedation were discussed and informed consentwas obtained. The TJF-Q371 was introduced through the mouth, and used to inject contrast into and used to inject contrast into the bile duct. The ERCP was accomplished without difficulty. The patienttolerated the procedure well. Findings: The plant nursery worker film was normal. The esophagus was successfully intubated under direct vision. The scope was advanced to a normal major papillain the descending duodenum without detailed examination of the pharynx, larynx and associated structures, and upper GI tract. The upper GItract was grossly normal. The major papilla was under numerous redundant folds. Cannulation was performed in a semi-unstable position as long positioning of the scope was unsuccessful and resulted in looping mercy capacious stomach. A 0.025 inch x 450 cm angled Visiglide wire was passed into the biliary tree. The CleverCut [id number] was passed over the guidewire and the bile duct was then deeply cannulated. Contrast was injected. I personally interpreted the bile duct images. Ductal flow of contrast was adequate. Image quality was adequate. Contrast extended to the hepatic ducts. The middle third of the main bile duct contained a single severe stenosis 15 mm inlength. There was upstream dilatation of the main bile duct, with rarefactionof the right intrahepatics and dilated left intrahepatics. A 5 mmbiliary sphincterotomy was made with a monofilament traction (standard) sphincterotome using ERBE electrocautery. There was no post-sphincterotomy bleeding. Cells for cytology were obtained by brushing in the middle third of the main bile duct. One 10 Fr by 9 cm plastic stent with a single external flap and a single internal flapwas placed into the common bile duct. Bile flowed through the stent. The stent was in good position. The endoscope was withdrawn from thepatient. Impression: - The major papilla appeared to be underneathmultiple redundant folds requiring cannulation in a semi-unstable position. 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 The stricturewas malignant appearing. - A biliary sphincterotomy was performed. - Cells for cytology obtained in the middle thirdof the main bile duct. - One plastic stent was placed into the common bile duct. Recommendation: - Return patient to floor for ongoing care. - Observe patient's clinical course followingtoday's procedure with therapeutic intervention. - Avoid aspirin and nonsteroidal anti-inflammatory medicines for 2 weeks. - Watch for pancreatitis, bleeding, perforation,and cholangitis. - Continue trending liver enzymes. - Repeat ERCP in 8 weeks. - NPO x 2 hours, then clear liquid diet. Advance as tolerates subsequently. - During your procedure a plastic stent was placed. The stent allows to keep the area open and allowfor fluid drainage. The stent that was placed is meantto be used temporarily and requires close follow up to replace or remove. If follow up does not occur in a timely manner, it may result in complications suchas: severe abdominal pain, yellowing of the skin (jaundice), infection, pancreatitis, or otherserious complications. - In the unusual situation that you developabdominal, bleeding or other significant problems in the days following this procedure please call [phone] ask for my nurse, Azul Jaime. After hours and evenings please call [phone] and speak to theGI fellow arch cushion skiving machine operator. Please tell the fellow that Dr. Ryan did your procedure and that you were instructed to have the fellow call me or thephysician covering for me to discuss the management of your condition. If you have an urgent problem, please goto the nearest emergency room and have the ER doctorcall my office during the day or [facility] transfer ([phone]) center after hours and weekends to arrange admission or transfer to our facility. Attending Participation: I personally performed the entire procedure. Electronically signed by Adeel Ryan MD Adeel Ryan M.D. 12/20/2024 3:45:03 PM This document was signed electronically. Number of Addenda: 0 Note Initiated On: 12/20/2024 2:36 PM Scope In: Scope Out: Adeel Ryan MD ENDOSCOPY PROCEDURES Final Result * POCT glucose (12/20/2024 12:30 PM CDT) Glucose, POC 192 70 - 199 mg/dL Comment: For Glucose values <35 mg/dl when Hematocrit is >60 mg/dl,the test may not accurately detect significant hypoglycemia,and testing in the Laboratory should be considered if clinically indicated. POC Performer [id number] [facility] Blood 12/20/2024 12:3 0 PM CDT 12/20/2024 12:30 PM CDT Jose G Benitez MD LAB POCT ORDERABLES - DEVICE Fin al Result Performing Organization Address [facility]/ZIP Co de Phone Number [facility] [address] [place] [address] * POCT glucose (12/20/2024 6:16 AM CDT) Glucose, POC 159 70 - 199 mg/dL Comment: For Glucose values <35 mg/dl when Hematocrit is >60 mg/dl,the test may not accurately detect significant hypoglycemia,and testing in the Laboratory should be considered if clinically indicated. POC Performer [id number] [facility] Blood 12/20/2024 6:16 AM CDT 12/20/2024 6:16 AM CDT us Charly Mooney MD LAB POCT ORDERABLES - DE VICE Final Result Performing Organization Address [facility]/ZIP Co de Phone Number [facility] [address] [employer] [place] [address] * (ABNORMAL) Cancer antigen 19-9 (12/20/2024 1:03 AM CDT) Pathologist [facility] CA 19-9 ag 5,079.0(H ) 0.0 - 35.0 units/mL Comment: Interpretive Data The [employer] CA 19-9 assay procedure was used. Results from different manufacturers or methods may not be comparable. Serial testing should be performed using the same method. Blood 12/20/2024 1:03 AM CDT 12/20/2024 1:16 AM CDT Charly Mooney MD LAB BLOOD ORDERABLES Fin al Result [facility] [address] Department [place] [address] * (ABNORMAL) CBC without differential (12/20/2024 1:03 AM CDT) [facility] WBC 8.3 3.8 - 9.9 K/cumm Hgb 16.9 13.0 - 17.5 g/dL [facility] Hct 46.9 38.9 - 50.3 % [facility] Plt 187 150 - 400 K/cumm [facility] MPV 10.4 9.1 - 12.3 fL [facility] RBC 5.39 4.30 - 5.80 M/cumm [facility] MCV 87.0 81.3 - 96.4 fL [facility] MCH 31.4 27.1 - 33.3 pg [facility] MCHC 36.0(H) 32.3 - 35.7 g/dL [facility] RDW CV 14.8 11.1 - 14.9 % [facility] RDW SD 46.4 35.7 - 48.1 fL [facility] NRBC abs 0.00 0.00 - 0.01 K/cumm [facility] Blood 12/20/2024 1:03 AM CDT 12/20/2024 1:16 AM CDT Timmy Braxton MD LAB BLOOD ORDERABLES Final Result Performing Organization Address City/State/[facility] Co de Phone Number [facility] [address] [employer] [place] [address] * (ABNORMAL) CEA (12/20/2024 1:03 AM CDT) CEA 8.4(H) <=5.0 ng/mL Comment: Interpretive Data Reference Range: Non-Smokers: < or = 3.0 ng/mL Some Smokers may have elevated levels, usually < 5.0 ng/mL The [employer] CEA assay procedure was used. Results from different manufacturers or methods may not be comparable. Serial testing should be performed using the same method. Blood 12/20/2024 1:03 AM CDT 12/20/2024 1:16 AM CDT Charly Mooney MD LAB BLOOD ORDERABLES Fin al Result Performing Organization Address [facility] Co de Phone Number [facility] [address] [place] [address] * POCT glucose (12/19/2024 8:51 PM CDT) [facility] Glucose, POC 105 70 - 199 mg/dL Comment: For Glucose values <35 mg/dl when Hematocrit is >60 mg/dl,the test may not accurately detect significant hypoglycemia,and testing in the Laboratory should be considered if clinically indicated. POC Performer [id number] [facility] Blood 12/19/2024 8:51 PM CDT 12/19/2024 8:51 PM CDT Charly Mooney MD LAB POCT ORDERABLES - DE VICE Final Result Performing Organization Address [facility] Co de Phone Number [facility] [address] [facility] [place] [address] * POCT glucose (12/19/2024 4:23 PM CDT) [facility] Glucose, POC 173 70 - 199 mg/dL Comment: For Glucose values <35 mg/dl when Hematocrit is >60 mg/dl,the test may not accurately detect significant hypoglycemia,and testing in the Laboratory should be considered if clinically indicated. POC Performer [id number] [facility] Blood 12/19/2024 4:23 PM CDT 12/19/2024 4:23 PM CDT Charly Mooney MD LAB POCT ORDERABLES - DE VICE Final Result Performing Organization Address [facility] Co de Phone Number [facility] [address] Department [place] [address] * Troponin T high-sensitivity 4-hour (12/19/2024 11:50 AM CDT) Trop T hs 15 <=22 ng/L Comment: Interpretive Data For further hscTnT resources including the diagnostic algorithm and an aid in interpretation, copy and paste this link: https://nrl.testcatalog.org/show/hsTrop Current Interpretive Data last revised 2020. Trop T hs delta -3 ng/L [facility] Trop T hs interp Insignificant [facility] Blood 12/19/2024 11:5 0 AM CDT 12/19/2024 12:04 PM CDT us Timmy Braxton MD LAB BLOOD ORDERABLES Final Result Performing Organization Address [facility] Co de Phone Number [facility] [address] [employer] [place] [address] * POCT glucose (12/19/2024 10:40 AM CDT) Glucose, POC 112 70 - 199 mg/dL Comment: For Glucose values <35 mg/dl when Hematocrit is >60 mg/dl,the test may not accurately detect significant hypoglycemia,and testing in the Laboratory should be considered if clinically indicated. Blood 12/19/2024 10:4 0 AM CDT 12/19/2024 10:40 AM CDT Timmy Braxton MD LAB POCT ORDERABLES - DEVIC E Final Result [facility] [address] [employer] [place] [address] * Lipase - Add on lab test (12/19/2024 9:20 AM CDT) Acceptable Yes Blood 12/19/2024 9:20 AM CDT 12/19/2024 9:20 AM CDT Narrative [facility] - 12/19/2024 9:20 AM CDT Name of Test->Lipase Erika Razo [employer] LAB BLOOD ORDERABLES Fi nal Result Performing Organization Address [facility]/ZIP Co de Phone Number [facility] [address] [employer] [place] [address] * CT Abdomen Pelvis W Contrast (12/19/2024 8:39 AM CDT) Anatomical Region Laterality Modality Body N/A Computed Tomogra phy 12/19/2024 9:07 AM CDT Impressions 12/19/2024 9:07 AM CDT 1.Heterogeneous prominent pancreatic head and uncinate out of proportion to atrophic body and tail of pancreas with pancreatic ductal dilatation measuring up to 7 mm. There is also distended gallbladder with gallbladder wall thickening and infiltration adjacent fat. Findings suspicious for pancreatic head and uncinate mass not well-demonstrated. This may be further clarified with ultrasound and/or MRI pancreas with contrast. 2. Diffuse periportal lucency suggesting periportal edema. Heterogeneous low-density lesions within anterior left and right lobes of liver not well-demonstrated. Largest low-density lesion measuring up to 1.4 x 0.9 cm. Liver findings are nonspecific and may be further clarified with MRI with contrast.. 3. 2.6 cm indeterminate left adrenal nodule. Electronically signed by: Jazmin Parmar M.D. Narrative 12/19/2024 9:[address] ABDOMEN AND PELVIS WITH CONTRAST DATE: 12/19/2024 8:15 AM INDICATION: Painless jaundice TECHNIQUE: Helical images of the abdomen and pelvis were performed in the axial plane with IV contrast. 90 cc's of Optiray 350 was administered. Patient creatinine is 0.77 with GFR 100. COMPARISON: None FINDINGS: Visualized left and right lower lung clear. Calcified granuloma lateral right lower lobe. There is calcification region of mitral valve. CT Abdomen and Pelvis: Incompletely opacified venous structures within liver with mild diffuse periportal lucency may suggest periportal edema. There is heterogeneous vague low-density involving anterior left and right lobes of liver not well-demonstrated. Focal low-density anterior medial segment IVb left lobe liver indeterminate and may represent focal fatty infiltration. Several vague low-density lesions of varying sizes within anterior left and right lobes liver not fully evaluated. Largest lesion measures up to 1.4 x 0.9 cm within anterior lateral right lobe liver (series 2 image 25) not fully evaluated. Liver finding may be further characterized with MRI with contrast. Distended gallbladder with gallbladder wall thickening and infiltration adjacent fat. Prominent common duct can be followed toward the pancreatic head with the distal duct not well-demonstrated. There is heterogeneous nodular fullness of the pancreatic head and uncinate out of proportion to atrophic body and tail pancreas. There is diffuse dilatation of the pancreatic duct measuring up to 7 mm. Findings suspicious for mass within the pancreatic and uncinate not well-demonstrated. There is loss of the fat plane adjacent to descending and proximal 3rd duodenum. Recommend further evaluation with ultrasound and/or MRI liver and pancreas. Spleen with calcifications otherwise unremarkable. Right adrenal gland unremarkable. There is a 2.6 cm indeterminate left adrenal nodule. Stomach is incompletely distended with diffuse gastric wall thickening. No small bowel dilatation. Air and stool within colon with diverticulosis. Appendix not well-demonstrated. No pericecal inflammation. Retained stool within redundant descending colon and sigmoid without gross inflammation. Air and stool distends rectum. Calcification and mild plaque of the abdominal aorta and iliac arteries and calcification origin of mesenteric and renal vessels. Small retroperitoneal lymph nodes without bulky. Kidneys enhance without abnormal calcification or mass. There is no urinary obstruction. Bladder incompletely distended with wall thickening. Heterogeneous enlarged prostate compresses posterior inferior bladder. No free fluid. Small inguinal lymph nodes. Mild thickening of the periumbilical region. Multilevel degenerative endplate changes and spondylosis lower thoracic and lumbar spine. There is disc space narrowing at L4-L5 and and mild annular bulge L5-S1. There are multilevel bilateral lower lumbar degenerative facet arthropathy. Degenerative bilateral SI joint with ankylosing spurs anteriorly. Procedure Note Jazmin Parmar MD - 12/19/2024 CT ABDOMEN AND PELVIS WITH CONTRAST DATE: 12/19/2024 8:15 AM INDICATION: Painless jaundice TECHNIQUE: Helical images of the abdomen and pelvis were performed in the axial plane with IV contrast. 90 cc's of Optiray 350 was administered. Patient creatinine is 0.77 with GFR 100. COMPARISON: None FINDINGS: Visualized left and right lower lung clear. Calcified granuloma lateral right lower lobe. There is calcification region of mitral valve. CT Abdomen and Pelvis: Incompletely opacified venous structures within liver with mild diffuse periportal lucency may suggest periportal edema. There is heterogeneous vague low-density involving anterior left and right lobes of liver not well-demonstrated. Focal low-density anterior medial segment IVb left lobe liver indeterminate and may represent focal fatty infiltration. Several vague low-density lesions of varying sizes within anterior left and right lobes liver not fully evaluated. Largest lesion measures up to 1.4 x 0.9 cm within anterior lateral right lobe liver (series 2 image 25) not fully evaluated. Liver finding may be further characterized with MRI with contrast. Distended gallbladder with gallbladder wall thickening and infiltration adjacent fat. Prominent common duct can be followed toward the pancreatic head with the distal duct not well-demonstrated. There is heterogeneous nodular fullness of the pancreatic head and uncinate out of proportion to atrophic body and tail pancreas. There is diffuse dilatation of the pancreatic duct measuring up to 7 mm. Findings suspicious for mass within the pancreatic and uncinate not well-demonstrated. There is loss of the fat plane adjacent to descending and proximal 3rd duodenum. Recommend further evaluation with ultrasound and/or MRI liver and pancreas. Spleen with calcifications otherwise unremarkable. Right adrenal gland unremarkable. There is a 2.6 cm indeterminate left adrenal nodule. Stomach is incompletely distended with diffuse gastric wall thickening. No small bowel dilatation. Air and stool within colon with diverticulosis. Appendix not well-demonstrated. No pericecal inflammation. Retained stool within redundant descending colon and sigmoid without gross inflammation. Air and stool distends rectum. Calcification and mild plaque of the abdominal aorta and iliac arteries and calcification origin of mesenteric and renal vessels. Small retroperitoneal lymph nodes without bulky. Kidneys enhance without abnormal calcification or mass. There is no urinary obstruction. Bladder incompletely distended with wall thickening. Heterogeneous enlarged prostate compresses posterior inferior bladder. No free fluid. Small inguinal lymph nodes. Mild thickening of the periumbilical region. Multilevel degenerative endplate changes and spondylosis lower thoracic and lumbar spine. There is disc space narrowing at L4-L5 and and mild annular bulge L5-S1. There are multilevel bilateral lower lumbar degenerative facet arthropathy. Degenerative bilateral SI joint with ankylosing spurs anteriorly. IMPRESSION: 1.Heterogeneous prominent pancreatic head and uncinate out of proportion to atrophic body and tail of pancreas with pancreatic ductal dilatation measuring up to 7 mm. There is also distended gallbladder with gallbladder wall thickening and infiltration adjacent fat. Findings suspicious for pancreatic head and uncinate mass not well-demonstrated. This may be further clarified with ultrasound and/or MRI pancreas with contrast. 2. Diffuse periportal lucency suggesting periportal edema. Heterogeneous low-density lesions within anterior left and right lobes of liver not well-demonstrated. Largest low-density lesion measuring up to 1.4 x 0.9 cm. Liver findings are nonspecific and may be further clarified with MRI with contrast.. 3. 2.6 cm indeterminate left adrenal nodule. Electronically signed by: Jazmin Parmar M.D. us Erika Razo [employer] IMG CT PROCEDURES Final Result * Troponin T high-sensitivity series (baseline, 2hr, 4hr, 6hr) (12/19/2024 6:53 AM CDT) Trop T hs 18 <=22 ng/L Comment: Interpretive Data For further hscTnT resources including the diagnostic algorithm and an aid in interpretation, copy and paste this link: [email or web address].testcatalog.org/[email or web address] Current Interpretive Data last revised 2020. Blood 12/19/2024 6:53 AM CDT 12/19/2024 7:09 AM CDT us Timmy Braxton MD LAB BLOOD ORDERABLES Final Result [facility] [address] [employer] [place] [address] * eGFR (12/19/2024 6:53 AM CDT) Pathologist [facility] eGFR >90 >=60 mL/min/1. 73 m2 Comment: Interpretive Data Reference Interval Normal >/= 90 mL/min/1.73m2 Mildly decreased* 60 - 89 mL/min/1.73m2 Mildly to moderately decreased 45 - 59 mL/min/1.73m2 Moderately to severely decreased 30 - 44 mL/min/1.73m2 Severely decreased 15 - 29 mL/min/1.73m2 Kidney Failure < 15 mL/min/1.73m2 *Relative to young adult level Estimated glomerular [...] interpretive data was last reviewed 2021. Blood 12/19/2024 6:53 AM CDT 12/19/2024 7:09 AM CDT us Gerald Duke DO LAB BLOOD ORDERABLES Final Result [facility] [address] Department [place] [address] * Differential, auto (12/19/2024 6:53 AM CDT) [facility] Neutrophil abs 5.0 1.5 - 6.5 K/cumm Imm gran abs 0.0 0.0 - 0.1 K/cumm [facility] Lymphocyte abs 1.7 0.8 - 3.3 K/cumm [facility] Monocyte abs 0.8 0.2 - 0.8 K/cumm [facility] Eosinophil abs 0.2 0.0 - 0.5 K/cumm [facility] Basophil abs 0.1 0.0 - 0.1 K/cumm [facility] Neutrophil pct 64.7 % [facility] Comment: Interpretive Data Percent cell count reference ranges are not reported, since discordance with absolute values may lead to misinterpretation of CBC data. Current Interpretive Data was last revised on 2018. Imm gran pct 0.5 % [facility] Comment: Interpretive Data Percent cell count reference ranges are not reported, since discordance with absolute values may lead to misinterpretation of CBC data. Current Interpretive Data was last revised on 2018. Lymphocyte pct 21.5 % [facility] Comment: Interpretive Data Percent cell count reference ranges are not reported, since discordance with absolute values may lead to misinterpretation of CBC data. Current Interpretive Data was last revised on 2018. Monocyte pct 10.5 % [facility] Comment: Interpretive Data Percent cell count reference ranges are not reported, since discordance with absolute values may lead to misinterpretation of CBC data. Current Interpretive Data was last revised on 2018. Eosinophil pct 2.1 % [facility] Comment: Interpretive Data Percent cell count reference ranges are not reported, since discordance with absolute values may lead to misinterpretation of CBC data. Current Interpretive Data was last revised on 2018. Basophil pct 0.7 % [facility] Comment: Interpretive Data Percent cell count reference ranges are not reported, since discordance with absolute values may lead to misinterpretation of CBC data. Current Interpretive Data was last revised on 2018. Blood 12/19/2024 6:53 AM CDT 12/19/2024 7:09 AM CDT us Timmy Braxton MD LAB BLOOD ORDERABLES Final Result [facility] [address] [place] [address] * (ABNORMAL) CBC with auto differential (12/19/2024 6:53 AM CDT) WBC 7.7 3.8 - 9.9 K/cumm Hgb 18.3(H) 13.0 - 17.5 g/dL [facility] Hct 50.1 38.9 - 50.3 % [facility] Plt 200 150 - 400 K/cumm [facility] MPV 10.6 9.1 - 12.3 fL [facility] RBC 5.67 4.30 - 5.80 M/cumm [facility] MCV 88.4 81.3 - 96.4 fL [facility] MCH 32.3 27.1 - 33.3 pg [facility] MCHC 36.5(H) 32.3 - 35.7 g/dL [facility] RDW CV 15.3(H) 11.1 - 14.9 % [facility] RDW SD 48.2(H) 35.7 - 48.1 fL [facility] NRBC abs 0.00 0.00 - 0.01 K/cumm [facility] Blood 12/19/2024 6:53 AM CDT 12/19/2024 7:09 AM CDT Timmy Braxton MD LAB BLOOD ORDERABLES Final Result Performing Organization Address [facility]/ZIP Co de Phone Number [facility] [address] [place] [address] * Lipase (12/19/2024 6:53 AM CDT) Pathologist [facility] Lipase 16 10 - 99 Units/L Blood 12/19/2024 6:53 AM CDT 12/19/2024 7:09 AM CDT Timmy Braxton MD LAB BLOOD ORDERABLES Final Result Performing Organization Address City/[facility]/ZIP Co de Phone Number [facility] [address] [place] [address] * (ABNORMAL) Comprehensive metabolic panel (12/19/2024 6:53 AM CDT) Pathologist [facility] Sodium 138 135 - 145 mmol/L Potassium, pl 3.9 3.3 - 4.9 mmol/L [facility] Chloride 100 97 - 110 mmol/L [facility] CO2 24 22 - 32 mmol/L [facility] Anion gap 14 2 - 15 mmol/L [facility] BUN 19 6 - 25 mg/dL [facility] Creatinine 0.77(L) 0.80 - 1.30 mg/dL [facility] Glucose 160 70 - 199 mg/dL [facility] Comment: Interpretive Data Fasting glucose >/= 126 mg/dl is diagnostic for diabetes. Fasting is defined as no caloric intake for at least 8 hours. Fasting glucose between 100 mg/dl to 125 mg/dl is diagnostic of prediabetes. In a patient with classic symptoms of hyperglycemia or hyperglycemic crisis, a random glucose >/= 200 mg/dl is diagnostic for diabetes. In the absence of unequivocal hyperglycemia, results should be confirmed by repeat testing. The classification and Diagnosis of Diabetes Diabetes Care 2021; 46: S19-S40. Current interpretive data was last revised 2022. Calcium 9.2 8.5 - 10.3 mg/dL [facility] Bilirubin, total 10.2(H) 0.1 - 1.2 mg/dL [facility] Protein, pl 6.7 6.5 - 8.5 g/dL [facility] Albumin 3.6 3.5 - 5.0 g/dL [facility] Alk phos 887(H) 40 - 130 Units/L [facility] ALT 426(H) 7 - 55 Units/L [facility] AST 232(H) 10 - 50 Units/L [facility] Comment:Slightly Hemolyzed S pecimen Blood 12/19/2024 6:53 AM CDT 12/19/2024 6:53 AM CDT us Timmy Braxton MD LAB BLOOD ORDERABLES Final Result [facility] [address] Department [place] [address] * C-peptide (11/08/2024) SCRIBED C-Peptide 1.26 0.80 - 3.85 ng/mL EXTERNAL LAB Blood 11/08/2024 Holly Henson [employer] LAB BLOOD ORDERABLES Final Resu lt EXTERNAL LAB * (ABNORMAL) Hemoglobin A1c (11/08/2024) SCRIBED Hemoglobin A1c 7.0(A) 0 - 5.7 % EXTERNAL LAB Blood 11/08/2024 Historical Provider MD LAB BLOOD ORDERABLES Ashwini l Result EXTERNAL LAB * POCT glucose (10/20/2024 10:42 AM BOX P[employer]ER) Glucose Blood, POC 154 mg/dL Blood 10/20/2024 10:4 2 AM BOX P[employer]ER Holly Henson [employer] POINT OF CARE TEST ORDERABLES F inal Result * POCT hemoglobin A1c (10/20/2024 10:41 AM BOX PULLER) Hemoglobin A1C, POC 7.6 4.0 - 5.6 % Blood 10/20/2024 10:4 1 AM BOX P[employer]ER Holly Henson NP POINT OF CARE TEST ORDERABLES F inal Result * Albumin Creatinine Ratio, Urine (03/01/2024 2:07 PM CDT) Albumin Ur 20.9 mg/L Comment: Interpretive Data No reference range established. Current interpretive data was last revised 2019. Creatinine Ur 84.2 mg/dL [facility] Comment: Interpretive Data No reference range established. Current interpretive data was last revised 2019. Albumin Creatinine Ratio, Ur 25 1 - 29 mg/g [facility] Urine 03/01/2024 2:07 PM CDT 03/01/2024 5:18 PM CDT us Holly Henson NP LAB URINE ORDERABLES Final Resu lt [facility] [address] Department [place] [address] * (ABNORMAL) Lipid panel (03/01/2024 2:07 PM CDT) Cholesterol 118 30 - 199 mg/dL Comment: Interpretive Data Ages < or = 19 years Acceptable: <170 mg/dL Borderline high: 170-199 mg/dL High: >or= 200 mg/dL Ages > or = 20 years Desirable: <200 mg/dL Borderline high: 200-239 mg/dL High: >or= 240 mg/dL Literature References: 1. Expert Panel on Integrated Guidelines for Cardiovascular Health and Risk Reduction in Children and Adolescents. Pediatrics 2011;128:S213 2. NCEP Expert Panel. Circulation 2004;110:227 Current Interpretive Data was last revised on 2018. Triglycerides 125 <=149 mg/dL [facility] Comment: Interpretive Data Ages < or = 9 years Acceptable: <75 mg/dL Borderline high: 75-99 mg/dL High: >or= 100 mg/dL Ages 10 to 20 years Acceptable: <90 mg/dL Borderline high: 90-129 mg/dL High: >or= 130 mg/dL Ages > or = 20 years Desirable: <150 mg/dL Borderline high: 150-199 mg/dL High: 200-499 mg/dL Very high: >or= 499 mg/dL Literature References: 1. Expert Panel on Integrated Guidelines for Cardiovascular Health and Risk Reduction in Children and Adolescents. Pediatrics 2011;128:S213 2. NCEP Expert Panel. Circulation 2004;110:227 Current Interpretive Data was last revised on 2018. HDL 32(L) >=40 mg/dL [facility] Comment: Interpretive Data Ages < or = 19 years Acceptable: >45 mg/dL Borderline low: 40-45 mg/dL Low: <40 mg/dL Ages > or = 20 years Desirable: >or= 60 mg/dL Low: <40 mg/dL Literature References: 1. Expert Panel on Integrated Guidelines for Cardiovascular Health and Risk Reduction in Children and Adolescents. Pediatrics 2011;128:S213 2. NCEP Expert Panel. Circulation 2004;110:227 Current Interpretive Data was last revised on 2018. LDL, calculated 61 <=129 mg/dL [facility] Comment: Interpretive Data Ages < or = 19 years Acceptable: <110 mg/dL Borderline high: 110-129 mg/dL High: >or= 130 mg/dL Ages > or = 20 years Optimal: <100 mg/dL Near optimal: 100-129 mg/dL Borderline high: 130-159 mg/dL High: >160 mg/dL Literature References: 1. Expert Panel on Integrated Guidelines for Cardiovascular Health and Risk Reduction in Children and Adolescents. Pediatrics 2011;128:S213 2. NCEP Expert Panel. Circulation 2004;110:227 Current Interpretive Data was last revised on 2018. Non-HDL Cholesterol 86 mg/dL [facility] Comment: Interpretive Data Ages < or = 19 years Acceptable: <120 mg/dL Borderline high: 120-144 mg/dL High: >145 mg/dL Ages > or = 20 years When triglycerides are >200 mg/dL, Non-HDL cholesterol is a secondary target of therapy with treatment goals that are 30 mg/dL greater than the LDL cholesterol target. Literature References: 1. Expert Panel on Integrated Guidelines for Cardiovascular Health and Risk Reduction in Children and Adolescents. Pediatrics 2011;128:S213 2. NCEP Expert Panel. Circulation 2004;110:227 Current Interpretive Data was last revised on 2018. Chol/HDL ratio 4 [facility] Blood 03/01/2024 2:07 PM CDT 03/01/2024 5:18 PM CDT Narrative [facility] - 03/01/2024 5:37 PM CDT These lab test should be done fasting. This means do not eat or drink for at least 12 hours prior to getting your blood drawn. Has the patient been fasting for 8 hours or more?->Yes Holly Henson NP LAB BLOOD ORDERABLES Final Resu lt [facility] [address] Department [place] [address] * Diabetic Eye Exam (11/25/2023) us Historical Provider HEALTH MAINTENANCE Final Result from Last 3 Months or Most Recently Relevant to Health Maintenance Insurance MEDICARE MED[employer]ARE [employer] [place] Advance Directives For more information, please contact: [phone] * Full Code (Latest Code Status on File) Date Activated Date Inactivated Comments 12/19/2024 12:51 PM 12/21/2024 5:16 PM Care Teams [place] Relationship Specialty Start Date End Date Saul Valverde MD [address] [address] PCP - General 01/16/21 Muriel Reece MD [address] [facility] [phone] [place] [address] General Surgery 12/25/24 Adeel Ryan MD [address] [place] [address] Consulting Physician Internal Medicine 12/25/24 Tasneem Henderson MD [address] [facility] [address] [place] [address] Medical Oncologist/Demurrage Agent Medical Oncology 12/25/24
--- OUTSIDE RECORDS SUMMARY | 2025-01-02 14:53 | XMS_ITS | Referral Summary ---
Author Organization [facility] Address [address] [place] [address] Care Team Providers Care Heel Boom Operator Name Role Phone Saul Valverde MD Primary Care Provider + [phone] Muriel Reece MD Unavailable [phone] Adeel Ryan MD Unavailable [phone] Tasneem Henderson MD Unavailable + [phone] Encounters Date Type Department Care Team Description 01/03/20 25 Telephone [facility] Gastroenterology [address] [place] [address] Medical Office Building 4, [address] [place] [address] Alma López RN Follow-up 01/02/20 25 Orders Only [facility] Physicians [facility] Oncology [address] [place] [address] [address] [place] [address] Tasneem Henderson MD Pancreatic mass (Primary Dx) 12/28/19 25 Telephone [facility] Surgery [facility] Floor 8 [place] [address] Muriel Reece MD Scheduling Appointments 12/26/19 25 Results Follow-Up [facility] Gastroenterology [address] Floor Suite [facility] [place] [phone] Adeel Ryan MD Pancreatic mass (Primary Dx); Pancreatic adenocarcinoma (HCC) 12/26/19 25 Results Follow-Up [facility] Gastroenterology [address] Floor [address] [place] [address] Adeel Ryan MD 12/24/19 25 Documentation [facility] Gastroenterology [facility] [facility] Medical Office Building 4 [address] [place] [phone] Perez Yu MD 12/22/19 25 Orders Only [facility] Department of Hepatobiliary, Pancreatic, & Gastrointestinal Surgery [address] [facility] 12th Floor, [place] [phone] Magda Sexton PA Pancreatic mass (Primary Dx) 12/20/19 6:30 AM CDT - 12/22/19 1:16 PM CDT Hospital Encounter [address] [phone] Timmy Braxton MD Dehaan, Kevin Patrick, MD Li, Alex, MD Pancreatic mass (Primary Dx); Jaundice; Nausea; Obstructive jaundice (HCC) [K83.1]; Tobacco use disorder [F17.200] Discharge Disposition: Discharge to home or self care 12/21/19 Orders Only [address] [phone] Adeel Ryan MD 12/21/19 25 Orders Only [address] [phone] Adeel Ryan MD 12/21/19 2:39 PM CDT Anesthesia Event [facility] [address] [place] [phone] Criselda Abbott MD Zubiri, Elvit Tiu, CRNA 12/21/19 1:45 PM CDT - 12/21/19 2:30 PM CDT Surgery [facility] [address] [place] [phone] Adeel Ryan MD ESOPHAGOGASTRODUODENOSCOPY ULTRASOUND GUIDE LIMITED 11/08/19 Telephone [facility] at [place] [phone] Holly Henson, YULY 11/07/19 25 Telephone [facility] Diabetes Endocrine [facility] at [place] [phone] Cheryl Rivers MA 11/07/19 25 Orders Only [facility] at [place] [phone] Holly Henson NP Type 2 diabetes mellitus with hyperglycemia, with long-term current use of insulin (HCC) (Primary Dx) 11/03/19 25 Telephone [facility] Diabetes [facility] at [place] [phone] Holly Henson NP 11/02/19 25 Telephone [facility] Diabetes Endocrine Care at [address] [address] Cheryl Rivers MA 10/30/19 25 Telephone [facility] Diabetes Endocrine Care at [address] [phone] Holly Henson NP 10/20/19 25 10:30 AM AUTOMOTIVE PARTS CLERK Office Visit [facility] Diabetes Endocrine Care at [address] [phone] Holly Henson, YULY Type 2 diabetes mellitus [...] a day as needed for pain 08/21/20 Active sildenafiL, pulm.hypertens ion, (REVATIO) 20 mg tablet Take 1 tablet (20 mg total) by mouth daily as needed (erectile dysfunction) 11/15/19 21 Active omeprazole (PriLOSEC) 40 mg capsule Take 1 capsule (40 mg total) by mouth daily 07/23/20 Active ALPRAZolam (XANAX) 0.5 mg tablet Take 1 tablet (0.5 mg total) by mouth 2 (two) times a day as needed for anxiety 08/21/20 Active aspirin 81 mg chewable tablet Take [...] every 7 days 03/01/20 24 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 Encouraged to take medications as prescribed. [employer] Richie continuous glucose monitoring de 11/29/2023 Assessment & Plan (10/20/2024 1:14 PM AUTOMOTIVE PARTS CLERK): Continuous glucose monitor (cgm) applied from 10/07/2024 [...] hyperglycemia Assessment & Plan (11/29/2023 2:58 PM AUTOMOTIVE PARTS CLERK): Continuous glucose monitor (cgm) applied from 11/16/2023 to 11/29/2023 This device was placed for monitor and treatment of blood sugar. Interpretation of data- average glucose 160, glucose management indicator 7.1%. In target range 65. Hypoglycemia between 54 and 69 1%. 0 hypoglycemia less than 54. 34% hyperglycemia Hypertension associated with type 2 diabetes linda litus 11/29/2023 Assessment & Plan (10/20/2024 1:13 PM AUTOMOTIVE PARTS CLERK): This is a chronic condition which is [...] prescribed. Assessment & Plan (11/29/2023 2:58 PM AUTOMOTIVE PARTS CLERK): This is a chronic condition which is [...] 08/12/2015 Assessment & Plan (10/20/2024 1:12 PM AUTOMOTIVE PARTS CLERK): This is a chronic condition which is [...] in agreement. Monitor blood sugar continuously with [employer] Richie cgm. Encouraged annual eye exam. Monofilament [...] last dilated eye exam was done in [place]. Monofilament foot exam completed. protective senses intact [...] 024 Assessment & Plan (11/29/2023 2:56 PM AUTOMOTIVE PARTS CLERK): This is a chronic condition which is [...] week. Encouraged to take medications as prescribed. Immunizations Immunization Administration Dates Next Due Influenza, Unspecified 07/24/2024 Social History Tobacco Use Types Packs/Day Years Used Date Smoking Tobacco: Every Day Cigarettes 0.8 35 Tobacco Cessation:Ready to Q uit: Not Asked; Counseling Given: Not Answered [facility] Teachable Answer Date Recorded In the past 12 months has [employer], [employer], [employer], or water [employer] threatened to shut off services in your [...] week 12/19/2024 How often do you attend [facility] or baptist services? 1 to 4 times per year 12/19/2024 Do you belong to any clubs o r organizations such as lutheran groups, unions, fraternal or athletic groups, or [...] any time in the past 12 m [facility], were you homeless or living in a detention (including now)? No 12/19/2024 Personal Safety Answer Date Recorded Have you ever been in or are you currently in a harmful physical or emotional relationship or is someone making you feel afraid or unsafe? Denies 12/20/2024 Sex and Gender Information Value Date Recorded Sex Assigned at Not on file Legal Sex Male 11:03 AM AUTOMOTIVE PARTS CLERK Gender Identity Not on file Sexual Orientation [...] 12/19/2024 12:50 PM CDT Plan of Treatment Not on file Medical Devices Implanted Type Area Deputy Sheriff Device Identifier Shelf Expiration Date Model / Serial / Lot [employer] Bia 10fr 9cm Biliary Stent [id number] - [id number] Implanted:Qty: 1 on 12/20/2024 by Adeel Ryan MD at [facility] Stent N/A: Bile Duct [employer] Bia 08/30/2025 [id number] / / [id number] Procedures Procedure Name Priority Date/Time Associated Diagnosis [...] (HCC) POCT GLUCOSE Routine 10/20/2024 10:42 AM AUTOMOTIVE PARTS CLERK Type 2 diabetes mellitus with hyperglycemia, with long-term current use of insulin (HCC) POCT HEMOGLOBIN A1C Routine 10/20/2024 10:41 AM AUTOMOTIVE PARTS CLERK Type 2 diabetes mellitus with hyperglycemia, with [...] * POCT glucose (12/21/2024 11:35 AM CDT) [facility] Glucose, POC 137 70 - 199 mg/dL Comment: For Glucose values <35 mg/dl when Hematocrit is >60 mg/dl,the test may not accurately detect significant hypoglycemia,and testing in the Laboratory should be considered if clinically indicated. POC Performer [id number] [facility] Blood 12/21/2024 11:3 5 AM CDT 12/21/2024 11:35 AM CDT us Jose G Benitez MD LAB POCT ORDERABLES - DEVICE Fin al Result [facility] [address] Department [place] [address] * POCT glucose (12/21/2024 5:55 AM CDT) Glucose, POC 100 70 - 199 mg/dL Comment: For Glucose values <35 mg/dl when Hematocrit is >60 mg/dl,the test may not accurately detect significant hypoglycemia,and testing in the Laboratory should be considered if clinically indicated. POC Performer [id number] [facility] Blood 12/21/2024 5:55 AM CDT 12/21/2024 5:55 AM CDT us Jose G Benitez MD LAB POCT ORDERABLES - DEVICE Fin al Result [facility] [address] Department [place] [address] * eGFR (12/21/2024 1:41 AM CDT) [facility] eGFR >90 >=60 mL/min/1. 73 m2 [...] MD LAB BLOOD ORDERABLES Final Resul t [facility] [address] Department [place] [address] * (ABNORMAL) Comprehensive metabolic panel (12/21/2024 1:41 AM CDT) Sodium 138 135 - 145 mmol/L Potassium, pl 3.6 3.3 - 4.9 mmol/L [facility] Chloride 102 97 - 110 mmol/L [facility] CO2 22 22 - 32 mmol/L [facility] Anion gap 14 2 - 15 mmol/L [facility] BUN 22 6 - 25 mg/dL [facility] Creatinine 0.75(L) 0.80 - 1.30 mg/dL [facility] Glucose 131 70 - 199 mg/dL [facility] Comment: Interpretive Data Fasting glucose >/= 126 [...] 2022. Calcium 8.4(L) 8.5 - 10.3 mg/dL [facility] Bilirubin, total 6.4(H) 0.1 - 1.2 mg/dL [facility] Protein, pl 5.8(L) 6.5 - 8.5 g/dL [facility] Albumin 3.5 3.5 - 5.0 g/dL [facility] Alk phos 756(H) 40 - 130 Units/L [facility] ALT 338(H) 7 - 55 Units/L [facility] AST 205(H) 10 - 50 Units/L [facility] Blood 12/21/2024 1:41 AM CDT 12/21/2024 2:05 AM CDT Adeel Ryan MD LAB BLOOD ORDERABLES Final Result Performing Organization Address City/[facility]/ZIP Co de Phone Number [facility] [address] [facility] [place] [address] * POCT glucose (12/20/2024 8:50 PM CDT) Glucose, POC 137 70 - 199 mg/dL Comment: For Glucose values <35 mg/dl when Hematocrit is >60 mg/dl,the test may not accurately detect significant hypoglycemia,and testing in the Laboratory should be considered if clinically indicated. POC Performer [id number] [facility] Blood 12/20/2024 8:50 PM CDT 12/20/2024 8:50 PM CDT us Jose G Benitez MD LAB POCT ORDERABLES - DEVICE Fin al Result Performing Organization Address [facility] Co de Phone Number [facility] [address] [place] [address] * POCT glucose (12/20/2024 6:16 PM CDT) Glucose, POC 124 70 - 199 mg/dL Comment: For Glucose values <35 mg/dl when Hematocrit is >60 mg/dl,the test may not accurately detect significant hypoglycemia,and testing in the Laboratory should be considered if clinically indicated. POC Performer [id number] [facility] Blood 12/20/2024 6:16 PM CDT 12/20/2024 6:16 PM CDT Jose G Benitez MD LAB POCT ORDERABLES - DEVICE Fin al Result Performing Organization Address City/[facility] Co de Phone Number [facility] [address] [facility] [place] [address] * Cytology (12/20/2024 3:34 PM CDT) Fluid, NOS 12/20/2024 3:34 PM CDT 12/21/2024 8:07 AM CDT Narrative 12/22/2024 11:10 AM CDT [place] [id number] [facility], [place], [place] [address] Tele: Mariam Abel MD - Risk Management Director Note to Patients: This report may contain [...] CYTOLOGY REPORT Patient Name: JESIKA TEIXEIRA. Address: [address] [place] [address] Gender: M : 1960 (Age: 64) Service: Medical Location: [place] [address] Hospital #: [id number] Patient Type [facility] IN[facility]IENT Taken: 12/20/2024 Reported: 12/22/2024 Physician(s): Jayshree Geiger Dr., M.D. FINAL DIAGNOSIS: Bile duct, brushing (two cytospins and one cell block slide): - Rare atypical cells 12/22/2024 11:10 Report Reviewed and Electronically Signed By [...] correlation is needed. Clerical Data Follows A; 60328, 44719` REPORT IMAGES AND/OR SCANNED DOCUMENTS ONLY VIEWABLE IN PDF FORMAT The immunohistochemical test(s) cited in this report, if any, was developed and its performance characteristics determined by [facility]. It has not been cleared or approved by the U.S. Food and Drug Administration. The FDA has determined that such clearance or approval is not necessary. This test is used for clinical purposes. It should not be regarded as investigational or for research. [facility] is certified under the Clinical Laboratory Improvement Amendments of 1988 (CLIA) as qualified to perform high complexity testing. Immunostains were performed on formalin-fixed paraffin embedded tissue using a polymer diaminobenzidine chromogen detection system. Antibodies used may include clone [id number] (mouse monoclonal, estrogen receptor), clone [id number] (mouse monoclonal progesterone receptor), MIB-1 (mouse monoclonal, Ki- 67), and [id number] (rabbit polyclonal, c-kit). In the event that immunohistochemistry or special stains have been performed, attending physician has confirmed appropriateness of controls. Frozen section, operating room consultation, gross examination and dissection, and case sign out may have been performed in part or completely in the following laboratories: [facility], [address] [place] [address], [address] [place] [address]. us Adeel Ryan MD LAB CYTOLOGY ORDERABLES Fin al Result * [place] ERCP Biliary Duct (12/20/2024 3:29 PM CDT) Narrative [facility] - 12/20/2024 3:45 PM CDT The images from this study are not interpreted by Radiology. Please refer to the physician's procedure / OR operative note. us Charly Mooney MD IMG FLUOROSCOPY PROCEDUR ES Final Result RAD_PACS_MB * Surgical pathology (12/20/2024 3:06 PM CDT) Pancreas, Biopsy 12/20/2024 3:06 PM CDT 12/21/2024 7:12 AM CDT Narrative 12/25/2024 3:10 PM CDT [address] [address] Tele: Mariam Abel MD - Risk Management Director Note to Patients: This report may contain [...] PATHOLOGY REPORT Patient Name: JESIKA TEIXEIRA Address: [address] [place] [address] Gender: M : 1960 (Age: 64) Service: Medical Location: [place] [address], Hospital #: [id number] Patient Type: [facility] INPATIENT Taken: 12/20/2024 Received 12/21/2024 Reported: 12/25/2024 Physician(s): Jayshree Geiger Dr., M.D. DIAGNOSIS: Pancreas, head mass, fine needle biopsy: - Invasive adenocarcinoma [facility]/12/25/2024 15:10 Examining Pathologist: Sam Crisostomo M.D. [...] and entirely submitted in A1. jxi/12/21/2024 08:13 JORGE PILLAI MICROSCOPIC DESCRIPTION: Microscopic examination shows irregular glandular structures with enlarged nuclei and prominent nucleoli. An immunostain p53 is completely negative (null phenotype) in these glands. The findings are consistent with invasive adenocarcinoma. Three deeper levels were examined. Clerical Data Follows A; 27004, [address]64[address] REPORT IMAGES AND/OR SCANNED DOCUMENTS ONLY VIEWABLE IN PDF FORMAT The immunohistochemical test(s) cited in this report, if any, was developed and its performance characteristics determined by [facility]. It has not been cleared or approved by the U.S. Food and Drug Administration. The FDA has determined that such clearance or approval is not necessary. This test is used for clinical purposes. It should not be regarded as investigational or for research. [facility] is certified under the Clinical Laboratory [...] part or completely in the following laboratories: [facility], [facility] [place], [address] [place] [address]. Adeel Ryan MD LAB PATHOLOGY ORDERABLES Fi nal Result * Upper EUS (12/20/2024 2:38 PM CDT) Anatomical Region Laterality Modality Other Narrative Procedure Note Adeel Ryan MD - 12/20/2024 2:38 PM CDT ENDOSCOPY LAB Patient Name: Jesika Teixeira Procedure Date: 12/20/2024 2:38 PM Admit Type: Inpatient Room: [facility] 6 Date of : 1960 Instrument Name: [id number] [...] 12/20/2024 2:36 PM Admit Type: Inpatient Room: [facility] Date of : 1960 Instrument Name: [id number] [...] The patienttolerated the procedure well. Findings: The wire tester film was normal. The esophagus was successfully [...] passed into the biliary tree. The [employer] crgc-bzm-klinhhxchbfdphbfor was passed over the guidewire and the [...] the days following this procedure please call [phone] ask for my nurse, Azul Jaime. After hours and evenings please call [phone] and speak to theGI fellow fiction writer. Please tell the fellow that Dr. Ryan did your procedure and that you were instructed to have the fellow call me or thephysician covering for me to discuss the management of your condition. If you have an urgent problem, please goto the nearest emergency room and have the ER doctorcall my office during the day or [facility] transfer ([phone]) center after hours and weekends to arrange [...] be considered if clinically indicated. POC Performer [id number] [facility] Blood 12/20/2024 12:3 0 PM CDT 12/20/2024 12:30 PM CDT us Jose G Benitez MD LAB POCT ORDERABLES - DEVICE Fin al Result [facility] [address] Department [place] [address] * POCT glucose (12/20/2024 6:16 AM CDT) Glucose, POC 159 70 - 199 mg/dL Comment: For Glucose values <35 mg/dl when Hematocrit is >60 mg/dl,the test may not accurately detect significant hypoglycemia,and testing in the Laboratory should be considered if clinically indicated. POC Performer [id number] [facility] Blood 12/20/2024 6:16 AM CDT 12/20/2024 6:16 AM CDT Charly Mooney MD LAB POCT ORDERABLES - DE VICE Final Result Performing Organization Address [facility] Co de Phone Number [facility] [address] [facility] [place] [address] * (ABNORMAL) Cancer antigen 19-9 (12/20/2024 1:03 AM CDT) Pathologist [facility] [place] 19-9 ag 5,079.0(H ) 0.0 - 35.0 units/mL Comment: Interpretive Data [employer] [place] 19-9 assay procedure was used. Results from different manufacturers or methods may not be comparable. Serial testing should be performed using the same method. Blood 12/20/2024 1:03 AM CDT 12/20/2024 1:16 AM CDT Charly Mooney MD LAB BLOOD ORDERABLES Fin al Result Performing Organization Address [facility] Co de Phone Number [facility] [address] [facility] [place] [address] * (ABNORMAL) CBC without differential (12/20/2024 1:03 AM CDT) Pathologist [facility] WBC 8.3 3.8 - 9.9 K/cumm Hgb 16.9 13.0 - 17.5 g/dL [facility] Hct 46.9 38.9 - 50.3 % [facility] Plt 187 150 - 400 K/cumm [facility] MPV 10.4 9.1 - 12.3 fL [facility] RBC 5.39 4.30 - 5.80 M/cumm [facility] MCV 87.0 81.3 - 96.4 fL [facility] MCH 31.4 27.1 - 33.3 pg [facility] MCHC 36.0(H) 32.3 - 35.7 g/dL [facility] RDW CV 14.8 11.1 - 14.9 % [facility] RDW SD 46.4 35.7 - 48.1 fL [facility] NRBC abs 0.00 0.00 - 0.01 K/cumm [facility] Blood 12/20/2024 1:03 AM CDT 12/20/2024 1:16 AM CDT Timmy Braxton MD LAB BLOOD ORDERABLES Final Result Performing Organization Address [facility] Co de Phone Number [facility] [address] Department of [place], [place] [id number] * (ABNORMAL) CEA (12/20/2024 1:03 AM CDT) Pathologist [facility] CEA 8.4(H) <=5.0 ng/mL Comment: Interpretive Data [...] ORDERABLES Fin al Result Performing Organization Address [facility] Co de Phone Number [facility] [address] [place] [address] * POCT glucose (12/19/2024 8:51 PM CDT) Glucose, POC 105 70 - 199 mg/dL Comment: For Glucose values <35 mg/dl when Hematocrit is >60 mg/dl,the test may not accurately detect significant hypoglycemia,and testing in the Laboratory should be considered if clinically indicated. POC Performer [id number] [facility] Blood 12/19/2024 8:51 PM CDT 12/19/2024 8:51 PM CDT Charly Mooney MD LAB POCT ORDERABLES - DE VICE Final Result Performing Organization Address [facility]/ZIP Co de Phone Number [facility] [address] [place] [address] * POCT glucose (12/19/2024 4:23 PM CDT) Glucose, POC 173 70 - 199 mg/dL Comment: For Glucose values <35 mg/dl when Hematocrit is >60 mg/dl,the test may not accurately detect significant hypoglycemia,and testing in the Laboratory should be considered if clinically indicated. POC Performer [id number] [facility] Blood 12/19/2024 4:23 PM CDT 12/19/2024 4:23 PM CDT Charly Mooney MD LAB POCT ORDERABLES - DE VICE Final Result Performing Organization Address [facility] Co de Phone Number [facility] [address] Department [place], [place] [id number] * Troponin T high-sensitivity 4-hour (12/19/2024 11:50 AM CDT) [facility] Trop T hs 15 <=22 ng/L Comment: Interpretive Data For further hscTnT resources including the diagnostic algorithm and an aid in interpretation, copy and paste this link: https://nrl.testcatalog.org/show/hsTrop Current Interpretive Data last revised 2020. Trop T hs delta -3 ng/L [facility] Trop T hs interp Insignificant [facility] Blood 12/19/2024 11:5 0 AM CDT 12/19/2024 12:04 PM CDT Timmy Braxton MD LAB BLOOD ORDERABLES Final Result Performing Organization Address City/[facility]/ZIP Co de Phone Number [facility] [address] [place] [address] * POCT glucose (12/19/2024 10:40 AM CDT) Pathologist [facility] Glucose, POC 112 70 - 199 mg/dL Comment: For Glucose values <35 mg/dl when Hematocrit is >60 mg/dl,the test may not accurately detect significant hypoglycemia,and testing in the Laboratory should be considered if clinically indicated. Blood 12/19/2024 10:4 0 AM CDT 12/19/2024 10:40 AM CDT Timmy Braxton MD LAB POCT ORDERABLES - DEVIC E Final Result [facility] [address] [place] [address] * Lipase - Add on lab test (12/19/2024 9:20 AM CDT) Pathologist [facility] Acceptable Yes Blood 12/19/2024 9:20 AM CDT 12/19/2024 9:20 AM CDT Narrative [facility] - 12/19/2024 9:20 AM CDT Name of Test->Lipase Erika Sarah Razo NP LAB BLOOD ORDERABLES Fi nal Result Performing Organization Address City/[facility]/ZIP Co de Phone Number [facility] [address] Department [place] [address] * CT Abdomen Pelvis W Contrast (12/19/2024 [...] nodule. Electronically signed by: Jazmin Parmar M.D. Erika Razo NP IMG CT PROCEDURES Final Result * Troponin [...] BLOOD ORDERABLES Final Result Performing Organization Address City/[facility]/ZIP Co de Phone Number [facility] [address] [place] [address] * eGFR (12/19/2024 6:53 AM CDT) Pathologist [facility] [place] eGFR >90 >=60 mL/min/1. 73 m2 Comment: [...] of Race in Diagnosing Kidney Disease, JASN 202). The CKD-EPI equation should not be used for patients with unstable renal function and has not been validated in children and those over 70. Current interpretive data was last reviewed 2021. Blood 12/19/2024 6:53 AM CDT 12/19/2024 7:09 AM CDT us Gerald Duke DO LAB BLOOD ORDERABLES Final Result Performing Organization Address City/[facility]/ZIP Co de Phone Number [facility] [address] [place] [address] * Differential, auto (12/19/2024 6:53 AM CDT) Neutrophil abs 5.0 1.5 - 6.5 K/cumm Imm gran abs 0.0 0.0 - 0.1 K/cumm [facility] Lymphocyte abs 1.7 0.8 - 3.3 K/cumm [facility] Monocyte abs 0.8 0.2 - 0.8 K/cumm [facility] Eosinophil abs 0.2 0.0 - 0.5 K/cumm [facility] Basophil abs 0.1 0.0 - 0.1 K/cumm [facility] Neutrophil pct 64.7 % [facility] Comment: Interpretive Data Percent cell count reference ranges are not reported, since discordance with absolute values may lead to misinterpretation of CBC data. Current Interpretive Data was last revised on 2018. Imm gran pct 0.5 % [facility] Comment: Interpretive Data Percent cell count reference ranges are not reported, since discordance with absolute values may lead to misinterpretation of CBC data. Current Interpretive Data was last revised on 2018. Lymphocyte pct 21.5 % [facility] Comment: Interpretive Data Percent cell count reference ranges are not reported, since discordance with absolute values may lead to misinterpretation of CBC data. Current Interpretive Data was last revised on 2018. Monocyte pct 10.5 % [facility] Comment: Interpretive Data Percent cell count reference ranges are not reported, since discordance with absolute values may lead to misinterpretation of CBC data. Current Interpretive Data was last revised on 2018. Eosinophil pct 2.1 % [facility] Comment: Interpretive Data Percent cell count reference ranges are not reported, since discordance with absolute values may lead to misinterpretation of CBC data. Current Interpretive Data was last revised on 2018. Basophil pct 0.7 % [facility] Comment: Interpretive Data Percent cell count reference ranges are not reported, since discordance with absolute values may lead to misinterpretation of CBC data. Current Interpretive Data was last revised on 2018. Blood 12/19/2024 6:53 AM CDT 12/19/2024 7:09 AM CDT Timmy Braxton MD LAB BLOOD ORDERABLES Final Result Performing Organization Address [facility] Co de Phone Number [facility] [address] [place] [address] * (ABNORMAL) CBC with auto differential (12/19/2024 6:53 AM CDT) Pathologist [facility] [place] WBC 7.7 3.8 - 9.9 K/cumm Hgb 18.3(H) 13.0 - 17.5 g/dL [facility] Hct 50.1 38.9 - 50.3 % [facility] Plt 200 150 - 400 K/cumm [facility] MPV 10.6 9.1 - 12.3 fL [facility] RBC 5.67 4.30 - 5.80 M/cumm [facility] MCV 88.4 81.3 - 96.4 fL [facility] MCH 32.3 27.1 - 33.3 pg [facility] MCHC 36.5(H) 32.3 - 35.7 g/dL [facility] RDW CV 15.3(H) 11.1 - 14.9 % [facility] RDW SD 48.2(H) 35.7 - 48.1 fL [facility] NRBC abs 0.00 0.00 - 0.01 K/cumm [facility] Blood 12/19/2024 6:53 AM CDT 12/19/2024 7:09 AM CDT Timmy Braxton MD LAB BLOOD ORDERABLES Final Result Performing Organization Address [facility]/ZIP Co de Phone Number [facility] [address] [place] [address] * Lipase (12/19/2024 6:53 AM CDT) Pathologist [facility] Lipase 16 10 - 99 Units/L Blood 12/19/2024 6:53 AM CDT 12/19/2024 7:09 AM CDT Timmy Braxton MD LAB BLOOD ORDERABLES Final Result [facility] [address] Department [place] [address] * (ABNORMAL) Comprehensive metabolic panel (12/19/2024 6:53 AM CDT) Sodium 138 135 - 145 mmol/L Potassium, pl 3.9 3.3 - 4.9 mmol/L [facility] Chloride 100 97 - 110 mmol/L [facility] CO2 24 22 - 32 mmol/L [facility] Anion gap 14 2 - 15 mmol/L [facility] BUN 19 6 - 25 mg/dL [facility] Creatinine 0.77(L) 0.80 - 1.30 mg/dL [facility] Glucose 160 70 - 199 mg/dL [facility] Comment: Interpretive Data Fasting glucose >/= 126 [...] 2022. Calcium 9.2 8.5 - 10.3 mg/dL [facility] Bilirubin, total 10.2(H) 0.1 - 1.2 mg/dL [facility] Protein, pl 6.7 6.5 - 8.5 g/dL [facility] Albumin 3.6 3.5 - 5.0 g/dL [facility] Alk phos 887(H) 40 - 130 Units/L [facility] ALT 426(H) 7 - 55 Units/L [facility] AST 232(H) 10 - 50 Units/L [facility] Comment:Slightly Hemolyzed S pecimen Blood 12/19/2024 6:53 AM CDT 12/19/2024 6:53 AM CDT Timmy Braxton MD LAB BLOOD ORDERABLES Final Result [facility] [address] [place] [address] * C-peptide (11/08/2024) SCRIBED C-Peptide 1.26 0.80 - 3.85 ng/mL EXTERNAL LAB Blood 11/08/2024 Holly Henson NP LAB BLOOD ORDERABLES Final Resu lt EXTERNAL LAB * (ABNORMAL) Hemoglobin A1c (11/08/2024) SCRIBED Hemoglobin A1c 7.0(A) 0 - 5.7 % EXTERNAL LAB Blood 11/08/2024 Sharonda Carmona MD LAB BLOOD ORDERABLES Ashwini l Result EXTERNAL LAB * POCT glucose (10/20/2024 10:42 AM AUTOMOTIVE PARTS CLERK) Pathologist [facility] [place] Glucose Blood, POC 154 mg/dL Blood 10/20/2024 10:4 2 AM AUTOMOTIVE PARTS CLERK Holly Henson NP POINT OF CARE TEST ORDERABLES F inal Result * POCT hemoglobin A1c (10/20/2024 10:41 AM AUTOMOTIVE PARTS CLERK) Hemoglobin A1C, POC 7.6 4.0 - 5.6 % Blood 10/20/2024 10:4 1 AM AUTOMOTIVE PARTS CLERK Holly Henson NP POINT OF CARE TEST ORDERABLES F inal Result * Albumin Creatinine Ratio, Urine (03/01/2024 2:07 PM CDT) Albumin Ur 20.9 mg/L Comment: Interpretive Data No reference range established. Current interpretive data was last revised 2019. Creatinine Ur 84.2 mg/dL [facility] Comment: Interpretive Data No reference range established. Current interpretive data was last revised 2019. Albumin Creatinine Ratio, Ur 25 1 - 29 mg/g [facility] Urine 03/01/2024 2:07 PM CDT 03/01/2024 5:18 PM CDT us Holly Henson NP LAB URINE ORDERABLES Final Resu lt [facility] [address] [place] [address] * (ABNORMAL) Lipid panel (03/01/2024 [...] on 2018. Triglycerides 125 <=149 mg/dL [facility] Comment: Interpretive Data Ages < [...] revised on 2018. Chol/HDL ratio 4 [facility] Blood 03/01/2024 2:07 PM CDT 03/01/2024 5:18 PM CDT Narrative [facility] - 03/01/2024 5:37 PM CDT These lab test should be done fasting. This means do not eat or drink for at least 12 hours prior to getting your blood drawn. Has the patient been fasting for 8 hours or more?->Yes Holly Henson NP LAB [place] [address] [address] [place] [address] * Diabetic Eye Exam (11/25/2023) Historical Provider HEALTH MAINTENANCE Final Result from Last 3 Months or Most Recently Relevant to Health Maintenance Insurance MEDICARE MEDICARE GROUP ADMIN[employer]AT[employer] [place] MEDICARE Advance Directives For more information, please contact: [phone] * Full Code (Latest Code Status on File) Date Activated Date Inactivated Comments 12/19/2024 12:51 PM 12/21/2024 5:16 PM Care Teams Heel Boom Operator Relationship Specialty Start Date End Date Saul Valverde MD [address] [address] PCP - General 01/16/21 Muriel Reece MD [address] [facility] [phone] [place] [address] General Surgery 12/25/24 Adeel Ryan MD [address] [place] [address] Consulting Physician Internal Medicine 12/25/24 [place] [address] [place] [address] [address] [place] [address] Medical Oncologist/Plane Tender Medical Oncology 12/25/24
--- OUTSIDE RECORDS SUMMARY | 2025-01-02 14:53 | XMS_ITS | Clinical Summary ---
Author Organization [facility] Address [address] [facility] [address] [place] [address] Phone Care Team Providers Care Supervisor Fusing Room Name Role Phone Saul Valverde MD Primary Care Provider [phone] Ramon Paredes MD Unavailable Allergies Active Allergy [...] complication, without long-term current use of insulin Take 1 Tablet by mouth daily as [...] PROPERLY- OBSERVE SPECIAL HANDLING AND ADMINISTRATION REQUIREMENTS. Active naproxen (NAPROSYN) 500 MG Tablet TAKE 1 TABLET BY MOUTH NEEDED FOR MODERATE OR MORE SEVERE PAIN. 60 Tablet 6 Active albuterol 108 (90 Base) MCG/ACT Aerosol Solution take 2 Puffs by inhalation every 4 hours as needed for Wheezing. 6.7 g 3 Active losartan potassium-hyd rochlorothiaz courtney (HYZAAR) 100-25 MG Tablet Take 1 Tablet by mouth daily. 90 Tablet 3 024 Active acetaminophen (TYLENOL) 325 MG Tablet Take 1 Tablet by mouth every 6 hours as needed for Fever (for temperature greater than 100.4 F.). Do not exceed 4000 mg of acetaminophen in 24 hour from all sources. Active omeprazole (PriLOSEC) 40 MG CAPSULE DELAYED RELEASE TAKE 1 CAPSULE BY MOUTH DAILY 100 Capsule 2 Active traMADol (ULTRAM) 50 MG TabletIndicat ions:Pain TAKE 1 OR 2 TABLETS BY MOUTH EVERY 6 HOURS NEEDED FOR MODERATE OR MORE SEVERE PAIN. 540 Tablet 025 Active ALPRAZolam (XANAX) 0.5 MG TabletIndicat ions:Anxiety TAKE 1 TABLET BY MOUTH 2 TIMES DAILY. 60 Tablet 025 Active traMADol (ULTRAM) 50 MG TabletIndicat ions:Pain Take 1-2 Tablets by mouth every 6 hours as needed for Mild or more severe pain. 540 Tablet 024 2024 Discontinued ALPRAZolam (XANAX) 0.5 MG TabletIndicat ions:Anxiety Take 1 Tablet by mouth 2 times daily. 60 Tablet 024 2024 Discontinued Active Problems Problem Noted Date Diagnosed Date Umbilical hernia without obstruction and without gangrene 10/02/2024 Screening for colon cancer 11/18/2018 Pure hypercholesterolemia 11/17/2017 Vasculogenic erectile dysfunction 11/17/2017 Chronic midline low back pain without sciatica 0 11/17/2017 Gastroesophageal reflux disease without esophagi tis 11/17/2017 Type 2 diabetes mellitus without complication Encounters Date Type Department Care Team Description 12/26/2024 Telephone [facility] [place] [id number] Saul Valverde MD 12/12/2024 Telephone [facility] [place] [phone] Saul Valverde MD Medication Management 12/07/2024 Refill [facility] [place] [phone] Saul Valverde MD Medication Refill 11/02/2024 Refill [facility] [place] [phone] Saul Valverde MD Medication Refill 10/24/2024 1:15 PM BAG SHOP WORKER Office Visit [facility] General [facility] [address] [phone] Ramon Paredes MD S/P hernia surgery (Primary Dx) Discharge Disposition: Discharged to home or Selfcare 10/23/2024 Travel 10/16/2024 [facility] [address] [place] [address] Saul Valverde MD Chest Pain from Last 3 Months Immunizations Immunization Administration [...] Date Smoking Tobacco: Every Day Cigarettes 0.5 50.2 Started: 1974 Smokeless Tobacco: Never Alcohol Use [...] Comments Blood Pressure 162/84 10/24/2024 1:06 PM BAG SHOP WORKER Pulse 103 10/24/2024 1:06 PM BAG SHOP WORKER Temperature 37 C (98.6 F) 10/24/2024 1:06 PM BAG SHOP WORKER Respiratory Rate 18 10/02/2024 3:02 PM BAG SHOP WORKER Oxygen Saturation 98% 10/24/2024 1:06 PM BAG SHOP WORKER Inhaled Oxygen Concentration - - Weight 67.6 kg (149 lb) 10/24/2024 1:06 PM BAG SHOP WORKER Height 182.9 cm (6') 10/24/2024 1:06 PM BAG SHOP WORKER Body Mass Index 20.21 10/24/2024 1:06 PM BAG SHOP WORKER Plan of Treatment Upcoming Encounters Date Type Department Care Team (Late st Contact Info) Description 03/15/2025 11:00 AM CDT [facility] [place] [address] Saul Valverde MD [address] [address] Health Maintenance Due Date Last Done Comments [...] of 2) 08/16/2020 06/21/2020, 05/29/2020 SARS-COV-2 Immunization ( - season) 2024 10/24/2021, 01/03/2021, 12/06/2020 Diabetes: Eye Exam 11/25/2024 11/25/2023 Diabetes: Hemoglobin A1c 05/08/2025 025, 11/08/2024, 10/20/2024, Additional history exists Diabetes: Nephropathy Screening 09/11/2025 09/11/2024, 08/25/2022, 11/03/2021, Additional history exists Pneumococcal Immunization Combined Discontinued 06/19/2015, 09/03/2009 PSA Discussion Completed 09/11/2024, 11/03/2021 Influenza Immunization Completed , 07/24/2024, 09/06/2023, Additional history exists Hepatitis B Immunization Aged Out No longer eligible based on patient's age to complete this topic Meningococcal Immunization (ACWY) Aged Out No longer eligible based on patient's age to complete this topic Rotavirus Immunization Aged Out No lo nger eligible based on patient's age to complete this topic Medical Devices Implanted Type Area Senior Director Of [employer] Device Identifier Shelf Expiration Date Model / Serial / Lot Impl Msh Harini Ventralex St Strap Cir Sm 1.7x1.7in - [id number] Implanted:Qty : 1 on 10/02/2024 by Ramon Paredes MD at [facility] IMPLANT N/A: Abdomen [employer] 02/28/2025 [id number] / [id number] / [id number] Procedures Procedure Name Priority Date/Time Associated Diagnosis Comments EGD 12/20/2024 12:00 AM CDT PATHOLOGY SURGICAL 12/20/2024 12:00 AM CDT GASTRO PROCEDURE 12/20/2024 12:00 AM CDT EXTERNAL GASTROENTEROLOGY REFERRAL Less Than 4 weeks 12/06/2024 12:00 AM BAG SHOP WORKER Gastroesophageal reflux disease without esophagitis HEMOGLOBIN A1C W/ ESTIMATED GLUCOSE Routine 11/08/2024 XR - CHEST 10/16/2024 12:00 AM BAG SHOP WORKER CMP (COMPREHENSIVE METABOLIC PANEL) 09/11/2024 12:00 AM BAG SHOP WORKER PSA SCREEN 09/11/2024 12:00 AM BAG SHOP WORKER HM DILATED EYE EXAM 11/25/2023 12:00 AM BAG SHOP WORKER from Last 3 Months or Most Recently Relevant to Health Maintenance Results * GASTRO PROCEDURE (12/20/2024 12:00 AM CDT) 12/20/2024 Result Sai Valverde MD GEN ORDERS Final Result Performing Organization Address [facility] Co de Phone Number SCAN * PATHOLOGY SURGICAL (12/20/2024 12:00 AM CDT) 12/20/2024 us Saul Valverde MD PATHOLOGY/CYTOLOGY ORDERABLES Final Result Performing Organization Address City/[facility]/ZIP Co de Phone Number SCAN * EGD (12/20/2024 12:00 AM CDT) Anatomical Region Laterality Modality Endoscopy 12/20/2024 us Saul Valverde MD GI PROCEDURE ORDERABLES Final Result * EXTERNAL GASTROENTEROLOGY REFERRAL (12/06/2024 12:00 AM BAG SHOP WORKER) 12/06/2024 Result [facility] Saul Valverde MD OUTPT REFERRALS EXT/INT Final Result Performing Organization Address [facility] de Phone Number SCAN * HEMOGLOBIN A1C W/ ESTIMATED GLUCOSE (11/08/2024) HEMOGLOBIN A1C 7 % Blood 11/08/2024 Result [facility] Historical Provider CHEMISTRY ORDERABLES Ashwini l Result * XR - CHEST (10/16/2024 12:00 AM BAG SHOP WORKER) 10/16/2024 Provider Scan IMG DIAGNOSTIC ORDERABLES Final Result Performing Organization Address [facility] de Phone Number SCAN * PSA SCREEN (09/11/2024 12:00 AM BAG SHOP WORKER) PSA SCREEN, TOTAL 0.9 SCAN 09/11/2024 Provider Scan CHEMISTRY ORDERABLES Final Resul t Performing Organization Address [facility] de Phone Number SCAN * CMP (COMPREHENSIVE METABOLIC PANEL) (09/11/2024 12:00 AM BAG SHOP WORKER) 09/11/2024 Provider Scan CHEMISTRY ORDERABLES Final Resul t Performing Organization Address [facility] de Phone Number SCAN * HM DILATED EYE EXAM (11/25/2023 12:00 AM BAG SHOP WORKER) 11/25/2023 Saul Valverde MD PROCEDURE/MINOR SURGICAL ORDE RABLES Final Result Performing Organization Address [facility] de Phone Number SCAN from Last 3 Months or Most Recently Relevant to Health Maintenance Insurance MEDICARE COMMERCIAL GENERIC Member Subscriber Plan / Payer (Ef fective 2019-Present) Name:Jesika Teixeira Relation to Subscriber:Self Name:Jesika Teixeira Payer ID:[id number] Group ID:[id number] Type:Not on file Address: [facility] [address] [place] [address] Care Teams Supervisor Fusing Room Relationship Specialty Start Date End Date Saul Valverde MD [address] [facility] [address] [place] [address] PCP - General Family Medicine 11/17/17 Ramon Paredes MD [address] [facility] [address] [place] [address] Consulting Physician Colon and Rectal Surgery 10/11/23
--- OUTSIDE RECORDS SUMMARY | 2025-01-02 14:53 | XMS_ITS | Encounter Summary ---
Author Organization [facility] Address [address] [place] [address] Phone Care Team Providers Care Sat Tutor Name Role Phone Saul Valverde MD Primary Care Provider [phone] Ramon Paredes MD Unavailable Reason for Visit * Reason Comments Medication Refill Encounter Details Date Type Department Care Team (Late st Contact Info) Description 06/30/2021 Refill [facility] Medical Group - Family Medicine [facility] [address] [place] [address] Saul Valverde MD [address] [address] Medication Refill Social History Tobacco Use Types Packs/Day Years Used Date Smoking Tobacco: Every Day Cigarettes 0.5 44.4 Started: 08/12/1980 Smokeless Tobacco: Never Comments:GOING TO [...] Description 03/15/2025 11:00 AM CDT Office Visit [facility] Medical Group - Family [facility] [address] [place] [address] Saul Vlaverde MD #[address] [address] documented as of this encounter Visit Diagnoses Diagnosis Anxiety- Primary Anxiety state, unspecified documented in this encounter Additional Health Concerns Assessment Noted Time PHQ-9 Depression Total Score: 0 02/13/20 21 12:00 PM CDT documented as of this encounter Care Teams Sat Tutor Relationship Specialty Start Date End Date Saul Valverde MD #[address] [address] PCP - General Family Medicine 11/17/17 Ramon Paredes MD #[address] [address] Consulting Physician Colon and Rectal Surgery 10/11/23 documented as of this encounter
--- OUTSIDE RECORDS SUMMARY | 2025-01-02 14:53 | XMS_ITS | Encounter Summary ---
Author Organization [facility] Address [address] [facility] [place] [address] Phone Care Team Providers Care Bottling Equipment Sales Representative Name Role Phone Saul Valverde MD Primary Care Provider [phone] Ramon Paredes MD Unavailable Reason for Visit * Reason Comments Medication Refill Encounter Details Date Type Department Care Team (Late st Contact Info) Description 04/12/2021 Refill [facility] Medical Group - Family Medicine [facility] [address] [place] [address] Saul Valverde MD #[address] [address] Medication Refill Social History Tobacco Use Types [...] Dept 02/12/21 Office Visit Saul Valverde MD [facility] Showing recent visits within past 182 days and meeting all other requirements Future Appointments No visits were found meeting these conditions. Showing future appointments within next 90 days and meeting all other requirements documented in this encounter Plan of Treatment Upcoming Encounters Date Type Department Care Team (Late st Contact Info) Description 03/15/2025 11:00 AM CDT Office Visit [facility] Medical Group - Family Medicine [facility] [address] [place] [address] Saul Valverde MD #[address] [address] documented as of this encounter Visit Diagnoses Not on filedocumented in this encounter Additional Health Concerns Assessment Noted Time PHQ-9 Depression Total Score: 0 02/13/20 12:00 PM CDT documented as of this encounter Care Teams Bottling Equipment Sales Representative Relationship Specialty Start Date End Date Saul Valverde MD #[address] [address] PCP - General Family Medicine 11/17/17 Ramon Paredes MD [address] [place] [address] Consulting Physician Colon and Rectal Surgery 10/11/23 documented as of this encounter
--- OUTSIDE RECORDS SUMMARY | 2025-01-02 14:53 | XMS_ITS | Encounter Summary ---
Author Organization [facility] Address [address] [place] [address] Phone Care Team Providers Care Electrician Ship Name Role Phone Saul Valverde MD Primary Care Provider [phone] Ramon Paredes MD Unavailable Reason for Visit * Reason Comments Medication Refill Encounter Details Date Type Department Care Team (Late st Contact Info) Description 08/21/2020 Refill [facility] Medical [facility] - Family Medicine [facility] #2 [place] [address] Emmett Mo MD #1 [place] [address] Medication Refill Social History Tobacco Use Types [...] 08/21/2020 11:21 AM CST Prescription pending signature R TENDER * Telephone Encounter - Neida Santana RN [...] 2 diabetes mellitus without complication, unspecified whether equipment operator intermodal yard insulin use (HCC) [facility] - Saul Wong MD 9 months ago Chronic midline low back pain without sciatica [facility] Saul Munoz MD 1 year ago Chronic midline low back pain without sciatica [facility] Saul Munoz MD 1 year ago Pure hypercholesterolemia [facility] Saul Munoz MD 2 years ago Type 2 diabetes mellitus without complication, without long-term current use of insulin(HCC) [facility] Saul Munoz MD Upcoming Appointments SET AND EXHIBIT DESIGNER - Recent and Past Visits Recent Visits Date Type Provider Dept 05/20/20 Telemedicine Saul Valverde MD [facility] 11/20/19 Office Visit [facility] Showing recent visits within past 460 days with a meds authorizing provider and meeting all other requirements Future Appointments No visits were found meeting these conditions. Showing future appointments within next 90 days with a meds authorizing provider and meeting all other requirements R TENDER documented in this encounter Plan of Treatment Upcoming Encounters Date Type Department Care Team (Late st Contact Info) Description 03/15/2025 11:00 AM CDT Office Visit [facility] #2 [place] [address] Saul Valverde MD #2 [facility] [address] [place] [address] documented as of this encounter Visit Diagnoses Not on filedocumented in this encounter Additional Health Concerns Assessment Noted Time PHQ-9 Depression Total Score: 0 11/20/19 20 12:18 PM WATER TENDER documented as of this encounter Care Teams Electrician Ship Relationship Specialty Start Date End Date Saul Valverde MD [address] [address] PCP - General Family Medicine 11/17/17 Ramon Paredes MD #2 [facility] [address] [place] [address] Consulting Physician Colon and Rectal Surgery 10/11/23 documented as of this encounter
--- OUTSIDE RECORDS SUMMARY | 2025-01-02 14:53 | XMS_ITS | Encounter Summary ---
Author Organization [facility] Address [address] [place] [address] Phone Care Team Providers Care Curriculum Counselor Name Role Phone Saul Valverde MD Primary Care Provider [phone] Ramon Paredes MD Unavailable Reason for Visit * Reason Comments Medication Refill Encounter Details Date Type Department Care Team (Late st Contact Info) Description 08/21/2020 [facility] [address] [place] [address] Saul Valverde MD #[address] [address] Medication Refill Social History Tobacco [...] 08/21/2020 9:59 AM CST Prescription pending signature ICAL SCIENCE PROFESSOR * Telephone Encounter - Emi Mcarthur RN [...] 2 diabetes mellitus without complication, unspecified whether termite control technician insulin use (HCC) [facility] Saul Munoz MD 9 months ago Chronic midline low back pain without sciatica [facility] Saul Munoz MD 1 year ago Chronic midline low back pain without sciatica [facility] Saul Munoz MD 1 year ago Pure hypercholesterolemia [facility] Saul Munoz MD 2 years ago Type 2 diabetes mellitus without complication, without long-term current use of insulin(HCC) [facility] Saul Munoz MD Upcoming Appointments BALLET PROFESSOR - Recent and Past Visits Recent Visits Date Type Provider Dept 05/20/20 Telemedicine Saul Valverde MD [facility] 11/20/19 Office Visit Saul Valverde MD [facility] Showing recent visits within past 460 days with a meds authorizing provider and meeting all other requirements Future Appointments No visits were found meeting these conditions. Showing future appointments within next 90 days with a meds authorizing provider and meeting all other requirements ICAL SCIENCE PROFESSOR documented in this encounter Plan of Treatment Upcoming Encounters Date Type Department Care Team (Late st Contact Info) Description 03/15/2025 11:00 AM CDT Office Visit [facility] #2 [place] [address] Saul Valverde MD #2 [facility] [address] [place] [address] documented as of this encounter Visit Diagnoses Diagnosis Pain Generalized pain documented in this encounter Additional Health Concerns Assessment Noted Time PHQ-9 Depression Total Score: 0 11/20/19 20 12:18 PM PHYSICAL SCIENCE PROFESSOR documented as of this encounter Care Teams Curriculum Counselor Relationship Specialty Start Date End Date Saul Valverde MD #2 [facility] [address] [place] [address] PCP - General Family Medicine 11/17/17 Ramon Paredes MD #[address] [address] Consulting Physician Colon and Rectal Surgery 10/11/23 documented as of this encounter
--- OUTSIDE RECORDS SUMMARY | 2025-01-02 14:53 | XMS_ITS | Encounter Summary ---
Author Organization [facility] Address [address] [place] [address] Phone Care Team Providers Care Provider Enrollment Specialist Name Role Phone Saul Valverde MD Primary Care Provider [phone] Ramon Paredes MD Unavailable Reason for Visit * Reason Comments Medication Refill Encounter Details Date Type Department Care Team (Late st Contact Info) Description [facility] [address] [place] [address] Saul Valverde MD #[address] [address] Medication Refill Social History Tobacco [...] 2 diabetes mellitus without complication, unspecified whether fpc insulin use (HCC) [facility] Saul Munoz MD 8 months ago Chronic midline low back pain without sciatica [facility] Saul Munoz MD 1 year ago Chronic midline low back pain without sciatica [facility] Saul Munoz MD 1 year ago Pure hypercholesterolemia [facility] Saul Munoz MD 2 years ago Type 2 diabetes mellitus without complication, without long-term current use of insulin(HCC) [facility] Saul Munoz MD Upcoming Appointments SENIOR MATERIALS SCIENTIST - Recent and Past Visits Recent Visits Date Type Provider Dept 05/20/20 Telemedicine Saul Valverde MD [facility] 11/20/19 Office Visit Saul Valverde MD [facility] 05/18/19 Office Visit Saul Valverde MD [facility] Showing recent visits within past 460 days [...] Description 03/15/2025 11:00 AM CDT Office Visit [facility] #2 [place] [address] Saul Valverde MD #2 [facility] [address] [place] [address] documented as of this encounter Visit Diagnoses Not on filedocumented in this encounter Additional Health Concerns Assessment Noted Time PHQ-9 Depression Total Score: 0 11/20/19 20 12:18 PM GREY ROLL MAN documented as of this encounter Care Teams Provider Enrollment Specialist Relationship Specialty Start Date End Date Saul Valverde MD #[address] [address] PCP - General Family Medicine 11/17/17 Ramon Paredes MD #2 [facility] [address] [place] [address] Consulting Physician Colon and Rectal Surgery 10/11/23 documented as of this encounter
--- OUTSIDE RECORDS SUMMARY | 2025-01-02 14:53 | XMS_ITS | Encounter Summary ---
Author Organization [facility] Address [address] [place] [address] Phone Care Team Providers Care Flatwork Supervisor Name Role Phone Saul Valverde MD Primary Care Provider Ramon Paredes MD Unavailable Reason for Visit * Reason Comments Medication Refill Encounter Details Date Type Department Care Team (Late st Contact Info) Description 03/24/2021 Refill [facility] Medical Group - Family Medicine [facility] #2 [place] [address] Emmett Mo MD #1 [place] [address] Medication Refill Social History Tobacco Use Types [...] Visit [facility] #2 [place] [address] Saul Valverde MD #[address] [address] documented as of this encounter Visit Diagnoses Not on filedocumented in this encounter Additional Health Concerns Assessment Noted Time PHQ-9 Depression Total Score: 0 02/13/20 21 12:00 PM CDT documented as of this encounter Care Teams Flatwork Supervisor Relationship Specialty Start Date End Date Saul Valverde MD #[address] [address] PCP - General Family Medicine 11/17/17 Ramon Paredes MD #[address] [address] Consulting Physician Colon and Rectal Surgery 10/11/23 documented as of this encounter
--- OUTSIDE RECORDS SUMMARY | 2025-01-02 14:54 | XMS_ITS | Encounter Summary ---
Author Organization [facility] Address [address] [place] [address] Phone Care Team Providers Care Shot Examiner Name Role Phone Saul Valverde MD Primary Care Provider [phone] Ramon Paredes MD Unavailable Reason for Visit * Reason Comments Medication Refill Encounter Details Date Type Department Care Team (Late Contact Info) Description 06/09/2022 Refill [facility] #2 [place] [address] Saul Valverde MD #[address] [address] Medication Refill Social History Tobacco Use Types [...] Description 03/15/2025 11:00 AM CDT Office Visit [facility] #2 [place] [address] Saul Valverde MD #2 [facility] [address] [place] [address] documented as of this encounter Visit Diagnoses Diagnosis Pain Generalized pain documented in this encounter Additional Health Concerns Assessment Noted Time PHQ-9 Depression Total Score: 0 02/13/20 21 12:00 PM CDT documented as of this encounter Care Teams Shot Examiner Relationship Specialty Start Date End Date Saul Valverde MD [address] [address] PCP - General Family Medicine 11/17/17 Ramon Paredes MD #2 [facility] [address] [place] [address] Consulting Physician Colon and Rectal Surgery 10/11/23 documented as of this encounter
--- OUTSIDE RECORDS SUMMARY | 2025-01-02 14:54 | XMS_ITS | Encounter Summary ---
Author Organization [facility] Address [address] [place] [address] Phone Care Team Providers Care Night Shift Supervisor Name Role Phone Saul Valverde MD Primary Care Provider [phone] Ramon Paredes MD Unavailable Reason for Visit * Reason Comments Medication Refill Encounter Details Date Type Department Care Team (Late st Contact Info) Description 10/27/2022 Refill [facility] Medical Group - Family Medicine [facility] #2 [place] [address] Saul Valverde MD #[address] [address] Medication Refill Social History Tobacco Use Types [...] encounter Miscellaneous Notes * Telephone Encounter - Nedia Santana RN - 10/27/2022 1:40 PM CST [...] Dept 08/31/22 Office Visit Saul Valverde MD [facility] 03/10/22 Office Visit Saul Valverde MD [facility] Showing recent visits within past 365 days and meeting all other requirements Future Appointments No visits were found meeting these conditions. Showing future appointments within next 90 days and meeting all other requirements FITTER documented in this encounter Plan of Treatment Upcoming Encounters Date Type Department Care Team (Late st Contact Info) Description 03/15/2025 11:00 AM CDT [facility] Visit [facility] #2 [place] [address] Saul Valverde MD #[address] [address] documented as of this encounter Visit Diagnoses Diagnosis Anxiety Anxiety state, unspecified documented in this encounter Additional Health Concerns Assessment Noted Time PHQ-9 Depression Total Score: 0 02/13/20 21 12:00 PM CDT documented as of this encounter Care Teams Night Shift Supervisor Relationship Specialty Start Date End Date Saul Valverde MD #[address] [address] PCP - General Family Medicine 11/17/17 Ramon Paredes MD #[address] [address] Consulting Physician Colon and Rectal Surgery 10/11/23 documented as of this encounter
--- OUTSIDE RECORDS SUMMARY | 2025-01-02 14:54 | XMS_ITS | Encounter Summary ---
Author Organization [facility] Address [address] [place] [address] Phone Care Team Providers Care [employer] Scout Name Role Phone Saul Valverde MD Primary Care Provider [phone] Ramon Paredes MD Unavailable Reason for Visit * Reason Comments Medication Refill Encounter Details Date Type Department Care Team (Late st Contact Info) Description 02/25/2024 Refill [facility] Medical Group - Family Medicine [facility] #2 [place] [address] Saul Valverde MD #[address] [address] Medication Refill Social History Tobacco Use Types [...] Visit [facility] #2 [place] [address] Saul Valverde MD #2 [facility] [address] [place] [address] documented as of this encounter Visit Diagnoses Diagnosis Anxiety Anxiety state, unspecified documented in this encounter Additional Health Concerns Assessment Noted Time PHQ-9 Depression Total Score: 0 02/13/20 21 12:00 PM CDT documented as of this encounter Care Teams [employer] Scout Relationship Specialty Start Date End Date Saul Valverde MD #[address] [address] PCP - General Family Medicine 11/17/17 Ramon Paredes MD #[address] [address] Consulting Physician Colon and Rectal Surgery 10/11/23 documented as of this encounter
--- OUTSIDE RECORDS SUMMARY | 2025-01-02 14:54 | XMS_ITS | Encounter Summary ---
Author Organization [facility] Address [address] [place] [address] Phone Care Team Providers Care Mri Special Procedures Technologist Name Role Phone Saul Valverde MD Primary Care Provider [phone] Ramon Paredes MD Unavailable Reason for Visit * Reason Comments Medication Refill Encounter Details Date Type Department Care Team (Late st Contact Info) Description 05/05/2023 Refill [facility] Medical Group - Family Medicine [facility] #2 [place] [address] Saul Valverde MD #[address] [address] Medication Refill Social History Tobacco Use Types [...] [place] 08/31/22 Office Visit Saul Valverde MD [facility] Showing recent visits within past 365 [...] Office Visit [facility] #2 [place] [address] Saul Valverde MD #[address] [address] documented as of this encounter Visit Diagnoses Diagnosis Anxiety Anxiety state, unspecified documented in this encounter Additional Health Concerns Assessment Noted Time PHQ-9 Depression Total Score: 0 02/13/20 21 12:00 PM CDT documented as of this encounter Care Teams Mri Special Procedures Technologist Relationship Specialty Start Date End Date Saul Valverde MD #[address] [address] PCP - General Family Medicine 11/17/17 Ramon Paredes MD #[address] [address] Consulting Physician Colon and Rectal Surgery 10/11/23 documented as of this encounter
--- OUTSIDE RECORDS SUMMARY | 2025-01-02 14:54 | XMS_ITS | Encounter Summary ---
Author Organization [facility] Address [address] [place] [address] Phone Care Team Providers Care Fish Fryer Name Role Phone Saul Valverde MD Primary Care Provider [phone] Ramon Paredes MD Unavailable Reason for Visit * Reason Comments Medication Refill Encounter Details Date Type Department Care Team (Late st Contact Info) Description 12/13/2022 Refill [facility] Medical Group - Family Medicine [facility] #2 [place] [address] Saul Valverde MD #[address] [address] Medication Refill Social History Tobacco Use Types [...] Dept 08/31/22 Office Visit Saul [facility]de MD [facility] Showing recent visits within past 182 [...] Description 03/15/2025 11:00 AM CDT Office Visit [facility] Medical Group - Family Medicine [facility] #2 [place] [address] Saul Valverde MD #[address] [address] documented as of this encounter Visit Diagnoses Not on filedocumented in this encounter Additional Health Concerns Assessment Noted Time PHQ-9 Depression Total Score: 0 02/13/20 21 12:00 PM CDT documented as of this encounter Care Teams Fish Fryer Relationship Specialty Start Date End Date Saul Valverde MD #[address] [address] PCP - General Family Medicine 11/17/17 Ramon Paredes MD #2 [place] [address] Consulting Physician Colon and Rectal Surgery 10/11/23 documented as of this encounter
--- OUTSIDE RECORDS SUMMARY | 2025-01-02 14:54 | XMS_ITS | Encounter Summary ---
Author Organization [facility] Address [address] [place] [address] Phone Care Team Providers Care Switch Repairer Name Role Phone Saul Valverde MD Primary Care Provider [phone] Ramon Paredes MD Unavailable Reason for Visit * Reason Comments Medication Refill Encounter Details Date Type Department Care Team (Late st Contact Info) Description 01/06/2022 Refill [facility] Medical Group - Family Medicine [facility] #2 [place] [address] Saul Valverde MD #[address] [address] Medication Refill Social History Tobacco Use Types [...] [place] 02/12/21 Office Visit Saul Valverde MD [facility] Showing recent visits within past 365 days and meeting all other requirements Future Appointments No visits were found meeting these conditions. Showing future appointments within next 90 days and meeting all other requirements documented in this encounter Plan of Treatment Upcoming Encounters Date Type Department Care Team (Late st Contact Info) Description 03/15/2025 11:00 AM CDT Office Visit [facility] Medical Group - Family Medicine [facility] #2 [place] [address] Saul Valverde MD #[address] [address] documented as of this encounter Visit Diagnoses Diagnosis Anxiety Anxiety state, unspecified documented in this encounter Additional Health Concerns Assessment Noted Time PHQ-9 Depression Total Score: 0 02/13/20 21 12:00 PM CDT documented as of this encounter Care Teams Switch Repairer Relationship Specialty Start Date End Date Saul Valverde MD #[address] [address] PCP - General Family Medicine 11/17/17 Ramon Paredes MD #2 [place] [address] Consulting Physician Colon and Rectal Surgery 10/11/23 documented as of this encounter
--- OUTSIDE RECORDS SUMMARY | 2025-01-02 14:54 | XMS_ITS | Encounter Summary ---
Author Organization [facility] Address [address] [place] [address] Phone Care Team Providers Care Iap Displays Analyst Name Role Phone Saul Valverde MD Primary Care Provider [phone] Ramon Paredes MD Unavailable Reason for Visit * Reason Comments Medication Refill Encounter Details Date Type Department Care Team (Late st Contact Info) Description 06/22/[address] [facility] Medical Group - Family Medicine [facility] #2 [place] [address] Saul Valverde MD #[address] [address] Medication Refill Social History Tobacco Use Types [...] Description 03/15/2025 11:00 AM CDT Office Visit [facility] Medical Group - Family Medicine - [facility] #2 [place] [address] Saul Valverde MD #[address] [address] documented as of this encounter Visit Diagnoses Diagnosis Pain Generalized pain Anxiety Anxiety state, unspecified documented in this encounter Additional Health Concerns Assessment Noted Time PHQ-9 Depression Total Score: 0 02/13/20 21 12:00 PM CDT documented as of this encounter Care Teams Iap Displays Analyst Relationship Specialty Start Date End Date Saul Valverde MD #[address] [address] PCP - General Family Medicine 11/17/17 Ramon Paredes MD #[address] [address] Consulting Physician Colon and Rectal Surgery 10/11/23 documented as of this encounter
--- OUTSIDE RECORDS SUMMARY | 2025-01-02 14:54 | XMS_ITS | Encounter Summary ---
Author Organization [facility] Address [address] [place] [address] Phone Care Team Providers Care Dust Operator Name Role Phone Saul Valverde MD Primary Care Provider [phone] Ramon Paredes MD Unavailable Reason for Visit * Reason Comments Medication Refill Encounter Details Date Type Department Care Team (Late st Contact Info) Description 12/14/2023 Refill [facility] Medical Group - Family Medicine [facility] #2 [place] [address] Saul Valverde MD #[address] [address] Medication Refill Social History Tobacco Use Types [...] Date Type Provider Dept 03/07/24 Appointment Saul Vavlerde MD [facility] Showing future appointments within next 90 days and meeting all other requirements documented in this encounter Plan of Treatment Upcoming Encounters Date Type Department Care Team (Late st Contact Info) Description 03/15/2025 11:00 AM CDT Office Visit [facility] Medical Group - Family Medicine - [facility] #2 [place] [address] Saul Valverde MD #2 [facility] [address] [place] [address] documented as of this encounter Visit Diagnoses Diagnosis Pain Generalized pain Anxiety Anxiety state, unspecified documented in this encounter Additional Health Concerns Assessment Noted Time PHQ-9 Depression Total Score: 0 02/13/20 21 12:00 PM CDT documented as of this encounter Care Teams Dust Operator Relationship Specialty Start Date End Date Saul Valverde MD #2 [facility] [address] [place] [address] PCP - General Family Medicine 11/17/17 Ramon Paredes MD #2 [facility] [address] [place] [address] Consulting Physician Colon and Rectal Surgery 10/11/23 documented as of this encounter
--- OUTSIDE RECORDS SUMMARY | 2025-01-02 14:54 | XMS_ITS | Encounter Summary ---
Author Organization [facility] Address [address] [place] [address] Phone Care Team Providers Care Public Health Analyst Name Role Phone Saul Valverde MD Primary Care Provider + [phone] Muriel Reece MD Unavailable [phone] Adeel Ryan MD Unavailable [phone] Tasneem Henderson MD Unavailable [phone]- [phone] Reason for Visit * Reason Onset Date Comments Test Results 12/25/2024 Encounter Details Date Type Department Care Team (Late st Contact Info) Description 12/25/2024 Results Follow-Up [facility] [address] [facility] 2nd Floor [address] [place] [address] Adeel Ryan MD [address] [place] [address] Social History Tobacco Use Types Packs/Day Years Used Date Smoking Tobacco: Every Day Cigarettes 0.8 35 [facility] Utilities Answer Date Recorded In the past 12 months has [employer], gas, oil, or water company threatened to shut off services in your [...] week 12/19/2024 How often do you attend chur ch or evangelical services? 1 to 4 times per year 12/19/2024 Do you belong to any clubs o r organizations such as faith groups, unions, fraternal or athletic groups, or [...] any time in the past 12 m [facility], were you homeless or living in a chcf (including now)? No 12/19/2024 Personal Safety Answer Date Recorded Have you ever been in or are you currently in a harmful physical or emotional relationship or is someone making you feel afraid or unsafe? Denies 12/20/2024 Sex and Gender Information Value Date Recorded Sex Assigned at Not on file Legal Sex Male 11:03 AM HARBOR TUG CAPTAIN Gender Identity Not on file Sexual Orientation Not on file documented as of this encounter Plan of Treatment Not on file documented as of this encounter Visit Diagnoses Not on filedocumented in this encounter Care Teams Public Health Analyst Relationship Specialty Start Date End Date Saul Valverde MD [address] [place] [id number] PCP - General 01/16/21 Muriel Reece MD [address] [facility] [phone] [place] [address] General Surgery 12/25/24 Adeel Ryan MD [address] [place] [address] Consulting Physician Internal Medicine 12/25/24 Tasneem Henderson MD [address] [facility] 8056 [place], [place] [id number] Medical Oncologist/Coil Strapper Medical Oncology 12/25/24 documented as of this encounter
--- OUTSIDE RECORDS SUMMARY | 2025-01-02 14:54 | XMS_ITS | Encounter Summary ---
Author Organization [facility] Address [address] [place] [address] Phone Care Team Providers Care Knowledge Architect Name Role Phone Saul Valverde MD Primary Care Provider [phone] Ramon Paredes MD Unavailable Reason for Visit * Reason Comments Medication Refill Encounter Details Date Type Department Care Team (Late st Contact Info) Description 11/04/2023 Refill [facility] - Family Medicine [facility] #2 [place] [address] Saul Valverde MD #[address] [address] Medication Refill Social History Tobacco Use Types [...] Witt 03/02/23 Office Visit Saul Valverde MD [facility] Showing recent visits within past 365 days and meeting all other requirements Future Appointments No visits were found meeting these conditions. Showing future appointments within next 90 days and meeting all other requirements GER HOTEL documented in this encounter Plan of Treatment Upcoming Encounters Date Type Department Care Team (Late st Contact Info) Description 03/15/2025 11:00 AM CDT [facility] Visit [facility] Family [facility] #2 [place] [address] Saul Valverde MD #[address] [address] documented as of this encounter Visit Diagnoses Diagnosis Anxiety Anxiety state, unspecified documented in this encounter Additional Health Concerns Assessment Noted Time PHQ-9 Depression Total Score: 0 02/13/20 21 12:00 PM CDT documented as of this encounter Care Teams Knowledge Architect Relationship Specialty Start Date End Date Saul Valverde MD #[address] [address] PCP - General Family Medicine 11/17/17 Ramon Paredes MD #[address] [address] Consulting Physician Colon and Rectal Surgery 10/11/23 documented as of this encounter
--- OUTSIDE RECORDS SUMMARY | 2025-01-02 14:54 | XMS_ITS | Encounter Summary ---
Author Organization [facility] Address [address] [place] [address] Phone Care Team Providers Care Bus Or Truck Garage Mechanic Name Role Phone Saul Valverde MD Primary Care Provider [phone] Ramon Paredes MD Unavailable Reason for Visit * Reason Comments Medication Refill Encounter Details Date Type Department Care Team (Late st Contact Info) Description 03/22/2023 Refill [facility] - Family Medicine [facility] #2 [place] [address] Saul Valverde MD #[address] [address] Medication Refill Social History Tobacco Use Types [...] Witt 08/31/22 Office Visit Saul Valverde MD [facility] Showing recent visits within past 365 days and meeting all other requirements Future Appointments No visits were found meeting these conditions. Showing future appointments within next 90 days and meeting all other requirements documented in this encounter Plan of Treatment Upcoming Encounters Date Type Department Care Team (Late st Contact Info) Description 03/15/2025 11:00 AM CDT Office Visit [facility] Group - Family Medicine - [facility] [address] [place] [address] Saul Valverde MD #[address] [address] documented as of this encounter Visit Diagnoses Diagnosis Pain Generalized pain documented in this encounter Additional Health Concerns Assessment Noted Time PHQ-9 Depression Total Score: 0 02/13/20 21 12:00 PM CDT documented as of this encounter Care Teams Bus Or Truck Garage Mechanic Relationship Specialty Start Date End Date Saul Valverde MD #[address] [address] PCP - General Family Medicine 11/17/17 Ramon Paredes MD #[address] [address] Consulting Physician Colon and Rectal Surgery 10/11/23 documented as of this encounter
--- OUTSIDE RECORDS SUMMARY | 2025-01-02 14:54 | XMS_ITS | Encounter Summary ---
Author Organization [facility] Address [address] [place] [address] Phone Care Team Providers Care Manager Applied Name Role Phone Saul Valverde MD Primary Care Provider + [phone] Muriel Reece MD Unavailable [phone] Adeel Ryan MD Unavailable [phone] Tasneem Henderson MD Unavailable [phone] Reason for Referral * Consultation (Routine) - Authorized Specialty Diagnoses / Procedures Referred By Roxi mckeon Referred To Contact Oncology Diagnoses Pancreatic mass Pancreatic adenocarcinoma (HCC) Adeel Ryan MD [address] [place] [address] Phone: tel: fax: [facility] 5 [place] [address] Phone: tel: fax: Referral ID Status Reason Start Date Expiration Date Visits Requested Visits Authorized [id number] Authorized Specialty Services Required 12/25/2024 01/24/2026 1 1 Question Answer Please select the performing region: [facility] (All Locations) [[id number]] Please select the performing department: [facility] ONC ACB5 [[id number]] Is this referral for Breast Health Multi-Disciplinary Clinic? No Does the patient have a diagnosis of a Head and Neck cancer? No # of visits: 1 Reason for Visit * Reason Onset Date Comments Test Results 12/25/2024 Encounter Details Date Type Department Care Team (Latest Contact Info) Description 12/25/2024 Results Follow-Up [facility] [address] [place] [address] Adeel Ryan MD [address] [place] [address] Pancreatic mass (Primary Dx); Pancreatic adenocarcinoma (HCC) Social History Tobacco Use Types Packs/Day Years Used Date Smoking Tobacco: Every Day Cigarettes 0.8 35 [facility] Utilities Answer Date Recorded In the past 12 months has th e electric, gas, oil, or water company threatened to [...] often do you attend chur ch or restoration services? 1 to 4 times per year 12/19/2024 Do you belong to any clubs o r organizations such as yarsanism groups, unions, fraternal or athletic groups, or [...] any time in the past [address] [facility], were you homeless or living in a half-way (including now)? No 12/19/2024 Personal Safety Answer Date Recorded Have you ever been in or are you currently in a harmful physical or emotional relationship or is someone making you feel afraid or unsafe? Denies 12/20/2024 Sex and Gender Information Value Date Recorded Sex Assigned at Not on file Legal Sex Male 11:03 AM BLOCK CUBER Gender Identity Not on file Sexual Orientation Not on file documented as of this encounter Plan of Treatment Scheduled Referrals Name Type Priority Associated Diagnoses Orde r Schedule Ambulatory referral to Oncology Outpatient Referral Routine Pancreatic mass Pancreatic adenocarcinoma (HCC) 1 Occurrences starting 12/25/2024 until 12/25/2025 documented as of this encounter Visit Diagnoses Diagnosis Pancreatic mass- Primary Unspecified disease of pancreas Pancreatic adenocarcinoma (HCC) Malignant neoplasm of pancreas, part unspecified documented in this encounter Care Teams Manager Applied Relationship Specialty Start Date End Date Saul Valverde MD 2 [place] [address] PCP - General 01/16/21 Muriel Reece MD [address] [facility] [phone] [place] [address] General Surgery 12/25/24 Adeel Ryan MD [address] [place] [address] Consulting Physician Internal Medicine 12/25/24 Tasneem Henderson MD [address] [facility] 8[address] [place] [address] Medical Oncologist/Pasteurizer Helper Medical Oncology 12/25/24 documented as of this encounter
--- OUTSIDE RECORDS SUMMARY | 2025-01-02 14:54 | XMS_ITS | Encounter Summary ---
Author Organization [facility] Address [address] [place] [address] Phone Care Team Providers Care Grain Manager Name Role Phone Saul Valverde MD Primary Care Provider [phone] Ramon Paredes MD Unavailable Reason for Visit * Reason Comments Medication Refill Encounter Details Date Type Department Care Team (Late st Contact Info) Description 12/14/2022 Refill [facility] - Family Medicine [facility] #2 [place] [address] Saul Valverde MD #[address] [address] Medication Refill Social History Tobacco Use Types [...] Description 03/15/2025 11:00 AM CDT Office Visit [facility] Medical Group - Family Medicine - [facility] [address]2 [place] [address] Saul Valverde MD #2 [facility] [address] [place] [address] documented as of this encounter Visit Diagnoses Diagnosis Pain Generalized pain Anxiety Anxiety state, unspecified documented in this encounter Additional Health Concerns Assessment Noted Time PHQ-9 Depression Total Score: 0 02/13/20 21 12:00 PM CDT documented as of this encounter Care Teams Grain Manager Relationship Specialty Start Date End Date Saul Valverde MD #[address] [address] PCP - General Family Medicine 11/17/17 Ramon Paredes MD #2 [facility] [address] [place] [address] Consulting Physician Colon and Rectal Surgery 10/11/23 documented as of this encounter
--- OUTSIDE RECORDS SUMMARY | 2025-01-02 14:54 | XMS_ITS | Encounter Summary ---
Author Organization [facility] Address [address] [place] [address] Phone Care Team Providers Care Process Automation Engineer Name Role Phone Saul Valverde MD Primary Care Provider + [phone] Muriel Reece MD Unavailable Adeel Ryan MD Unavailable [phone] Tasneem Henderson MD Unavailable [phone] Reason for Visit * Reason Onset Date Comments Scheduling Appointments 12/27/2024 Encounter Details Date Type Department Care Team (Late st Contact Info) Description 12/27/2024 Telephone [facility] Surgery [address] [facility] Floor 8 [place] [address] Muriel Reece MD [address] [facility] [phone] [place] [address] Scheduling Appointments Social History Tobacco Use Types Packs/Day Years Used Date Smoking Tobacco: Every Day Cigarettes 0.8 35 [facility] Utilities Answer Date Recorded In the past 12 months has [employer], gas, oil, or water company threatened to [...] often do you attend chur ch or hindu services? 1 to 4 times per year 12/19/2024 Do you belong to any clubs o r organizations such as anabaptism groups, unions, fraternal or athletic groups, or [...] any time in the past 12 m [facility], were you homeless or living in a retirement (including now)? No 12/19/2024 Personal Safety Answer Date Recorded Have you ever been in or are you currently in a harmful physical or emotional relationship or is someone making you feel afraid or unsafe? 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 No Reason for call?: Patient has a return appointment with Dr Reece on the 01/10 as a return patient and there is also a referral for a Cancer new patient in the WQ with one would the patient be under, return or new please advise. Who is the caller: Patient-Jesika What is the best number for them to contact for a call back: [phone] Last office visit: Visit date not found Date of Surgery: 12/20/2024 documented in this encounter Plan of Treatment Not on file documented as of this encounter Visit Diagnoses Not on filedocumented in this encounter Care Teams Process Automation Engineer Relationship Specialty Start Date End Date Saul Valverde MD [address] [address] PCP - General 01/16/21 Muriel Reece MD [address] [facility] [phone] [place] [address] General Surgery 12/25/24 Adeel Ryan MD [address] [place] [address] Consulting Physician Internal Medicine 12/25/24 Tasneem Henderson MD [address] [facility] 8[address] [place] [address] Medical Oncologist/Yoke Presser Medical Oncology 12/25/24 documented as of this encounter
--- OUTSIDE RECORDS SUMMARY | 2025-01-02 14:54 | XMS_ITS | Encounter Summary ---
Author Organization [facility] Address [address] [place] [address] Phone Care Team Providers Care Transcribing Machine Mechanic Name Role Phone Saul Valverde MD Primary Care Provider [phone] Ramon Paredes MD Unavailable Reason for Visit * Reason Comments Medication Refill Encounter Details Date Type Department Care Team (Late st Contact Info) Description 01/13/2024 Refill [facility] - Family Medicine [facility] #2 [place] [address] Saul Valverde MD #[address] [address] Medication Refill Social History Tobacco Use Types [...] PM CDT Medication(s) refilled and signed per [facility] Chronic Medication Refill Standing Order for Pediatricand [...] Witt 03/02/23 Office Visit Saul Valverde MD [facility] Showing recent visits within past 365 days and meeting all other requirements Future Appointments Date Type Provider Dept 03/07/24 Appointment Saul Valverde MD [facility] Showing future appointments within next 90 days and meeting all other requirements documented in this encounter Plan of Treatment Upcoming Encounters Date Type Department Care Team (Late st Contact Info) Description 03/15/2025 11:00 AM CDT [facility] Visit [facility] #2 [place] [address] Saul Valverde MD #[address] [address] documented as of this encounter Visit Diagnoses Not on filedocumented in this encounter Additional Health Concerns Assessment Noted Time PHQ-9 Depression Total Score: 0 02/13/20 21 12:00 PM CDT documented as of this encounter Care Teams Transcribing Machine Mechanic Relationship Specialty Start Date End Date Saul Valverde MD #[address] [address] PCP - General Family Medicine 11/17/17 Ramon Paredes MD #2 [facility] [address] [place] [address] Consulting Physician Colon and Rectal Surgery 10/11/23 documented as of this encounter
--- OUTSIDE RECORDS SUMMARY | 2025-01-02 14:54 | XMS_ITS | Clinical Summary ---
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
--- OUTSIDE RECORDS SUMMARY | 2025-01-02 14:54 | XMS_ITS | Encounter Summary ---
Author Organization [facility] Address [address] 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 documented in this encounter Plan of Treatment Upcoming Encounters Date Type Department Care Team (Late st Contact Info) Description 03/15/2025 11:00 AM CDT Office Visit [facility] Group - Family Medicine - [place] #2 [place] [address] Saul Valverde MD #[address] [address] documented as of this encounter Visit Diagnoses Diagnosis Pain Generalized pain documented in this encounter Additional Health Concerns Assessment Noted Time PHQ-9 Depression Total Score: 0 03/07/20 10:10 AM CDT documented as of this encounter Care Teams Quality And Reliability Engineer Relationship Specialty Start Date End Date Saul Valverde MD #[address] [address] PCP - General Family Medicine 11/17/17 Ramon Paredes MD [address] [place] [address] [place] [address] Consulting Physician Colon and Rectal Surgery 10/11/23 documented as of this encounter
--- OUTSIDE RECORDS SUMMARY | 2025-01-02 14:54 | XMS_ITS | Encounter Summary ---
Author Organization [facility] Address [address] [place] [address] Phone Care Team Providers Care Insurance Inspector Name Role Phone Saul Valverde MD Primary Care Provider + [phone] Muriel Reece MD Unavailable [phone] Adeel Ryan MD Unavailable [phone] Tasneem Henderson MD Unavailable [phone] Encounter Details Date Type Department Care Team (Late st Contact Info) Description 01/01/2025 Orders Only [facility] Physicians [facility] Oncology [address] [place] [address] [address] [place] [address] Tasneem Henderson MD [address] [facility] [address] [place] [address] Pancreatic mass (Primary Dx) Social History Tobacco Use Types Packs/Day Years Used Date Smoking Tobacco: Every Day Cigarettes 0.8 35 [facility] Utilities Answer Date Recorded In the past 12 months has [employer], gas, oil, or water company threatened to [...] often do you attend chur ch or yazdanism services? 1 to 4 times per year 12/19/2024 Do you belong to any clubs o r organizations such as congregational groups, unions, fraternal or athletic groups, or [...] any time in the past 12 m [facility], were you homeless or living in a fdc (including now)? No 12/19/2024 Personal Safety Answer Date Recorded Have you ever been in or are you currently in a harmful physical or emotional relationship or is someone making you feel afraid or unsafe? 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 Gender Identity Not on file Sexual Orientation Not on file documented as of this encounter Plan of Treatment Scheduled Orders Name Type Priority Associated Diagnoses Orde r Schedule Surgical pathology Pathology and Cytology Routine Pancreatic mass Expected: 01/01/2025, Expires: 01/01/2026 documented as of this encounter Visit Diagnoses Diagnosis Pancreatic mass- Primary Unspecified disease of pancreas documented in this encounter Care Teams Insurance Inspector Relationship Specialty Start Date End Date Saul Valverde MD [address] [address] PCP - General 01/16/21 Muriel Reece MD [address] [facility] [phone] [place] [address] General Surgery 12/25/24 Adeel Ryan MD [address] [place] [address] Consulting Physician Internal Medicine 12/25/24 Tasneem Henderson MD 49[address] [facility] [address]056 [place] [address] Medical Oncologist/Gantry Rigger Medical Oncology 12/25/24 documented as of this encounter
--- OUTSIDE RECORDS SUMMARY | 2025-01-02 14:54 | XMS_ITS | Encounter Summary ---
Author Organization [facility] Address [address] [place] [address] Phone Care Team Providers Care Supervisor Microfilm Duplicating Unit Name Role Phone Saul Valverde MD Primary Care Provider [phone] Ramon Paredes MD Unavailable Reason for Visit * Reason Comments Medication Refill Encounter Details Date Type Department Care Team (Late st Contact Info) Description 11/29/2023 Refill [facility] Medical Group - Family Medicine [facility] #2 [place] [address] Saul Valverde MD #[address] [address] Medication Refill Social History Tobacco Use Types [...] Saul Valverde MD [facility]... BASE MARKETING ANALYST documented in this encounter Plan of Treatment Upcoming Encounters Date Type Department Care Team (Late st Contact Info) Description 03/15/2025 11:00 AM CDT Office Visit [facility] - Family [facility] #2 [place] [address] Saul Valverde MD #[address] [address] documented as of this encounter Visit Diagnoses Not on filedocumented in this encounter Additional Health Concerns Assessment Noted Time PHQ-9 Depression Total Score: 0 02/13/20 21 12:00 PM CDT documented as of this encounter Care Teams Supervisor Microfilm Duplicating Unit Relationship Specialty Start Date End Date Saul Valverde MD #[address] [address] PCP - General Family Medicine 11/17/17 Ramon Paredes MD #[address] [address] Consulting Physician Colon and Rectal Surgery 10/11/23 documented as of this encounter
[2025-01-02 15:01] LABS: Alanine Aminotransferase 529 U/L (16-63); Albumin Level 2.4 g/dL (3.4-5.0); Anion Gap 6 mmol/L (4-12); Aspartate Amino Transferase 297 U/L (15-37); Bilirubin,Total 21.5 mg/dL (0.00-1.00); Blood Urea Nitrogen 17 mg/dL (7-18); Calcium 9.4 mg/dL (8.5-10.1); Carbon Dioxide 31 mmol/L (21-32); Chloride 97 mmol/L (98-108); Estimated Glomerular Filt Rate > 60; Glucose 80 mg/dL (70-99); Osmolality Calculated 278 mOsm/kg (285-295); Potassium 4.1 mmol/L (3.5-5.1); Sodium 134 mmol/L (136-145); Total Protein 5.7 g/dL (6.4-8.2)
[2025-01-02 15:11] LABS: Alkaline Phosphatase > 1000 U/L (46-116)
== END 2025-01-02 13:37 | disposition home or self-care (01) ==
LOC: CHSLAB 13:40
PROVIDERS: PCP Internal Medicine
DX: R17 Unspecified jaundice (principal)
CPT/HCPCS: 36415; 80053

== ENCOUNTER 2025-01-16 15:25 | Outpatient (CLI) | payer MEDICARE, SELFPAY ==
--- OUTSIDE RECORDS SUMMARY | 2025-01-16 16:29 | XMS_ITS | Encounter Summary ---
Author Organization [facility] Address [address] [place] [address] Phone Care Team Providers Care Real Estate Loan Officer Name Role Phone Saul Valverde MD Primary Care Provider Ramon Paredes MD Unavailable Reason for Visit * Reason Comments Medication Refill Encounter Details Date Type Department Care Team (Late st Contact Info) Description 06/30/2021 Refill [facility] - Family Medicine [facility] [address] [place] [address] Saul Valverde MD [address] [id number] Medication Refill Social History Tobacco Use Types [...] RN - 06/30/2021 3:52 PM CDT Per [place] PDMP last fill date 04/30/21. Medication failed [...] Description 03/15/2025 11:00 AM CDT Office Visit [facility] - Family [facility] [address] [place] [address] Saul Valverde MD #[address] [id number] documented as of this encounter Visit Diagnoses Diagnosis Anxiety- Primary Anxiety state, unspecified documented in this encounter Additional Health Concerns Assessment Noted Time PHQ-9 Depression Total Score: 0 02/13/20 21 12:00 PM CDT documented as of this encounter Care Teams Real Estate Loan Officer Relationship Specialty Start Date End Date Saul Valverde MD #[address] [address] PCP - General Family Medicine 11/17/17 Ramon Paredes MD #[address] [address] Consulting Physician Colon and Rectal Surgery 10/11/23 documented as of this encounter
--- OUTSIDE RECORDS SUMMARY | 2025-01-16 16:29 | XMS_ITS | Clinical Summary ---
Author Organization [facility] Address [address] [place] [address] Care Team Providers Care Gm Name Role Phone Saul Valverde MD Primary Care Provider + [phone] Muriel Reece MD Unavailable [phone] Adeel Ryan MD Unavailable [phone] Tasneem Henderson MD Unavailable [phone] Allergies Active Allergy Reactions Criticality Noted Date Comments Codeine Rash Medium 08/12/2015 Has previously tolerated morphine, hydromorphone, and fentanyl per patient Empagliflozin Nausea only Low 11/02/2023 Metformin Stomach upset Low 11/06/2024 Tirzepatide Other (See comments) Low 01/11/2024 Sore nipples Pantoprazole Other (See comments) Low 12/19/2024 Made GERD worse per patient - tolerates omeprazole Medications sildenafiL, pulm.hypertensi on, (REVATIO) 20 mg tablet Take 1 tablet (20 mg total) by mouth daily as needed (erectile dysfunction) Active omeprazole (PriLOSEC) 40 mg capsule Take 1 capsule (40 mg total) by mouth daily Active ALPRAZolam (XANAX) 0.5 mg tablet Take 1 tablet (0.5 mg total) by mouth 2 (two) times a day as needed for anxiety Takes one after dinner and another at bedtime as needed 11/18/2 020 Active pen needle, diabetic 32 gauge x /32 needle Use to inject insulin 4x daily. E11.65. 300 each 4 Active albuterol HFA (PROVENTIL HFA,VENTOLIN HFA,PROAIR HFA) 90 mcg/actuation inhaler Inhale 2 puffs every 4 (four) hours as needed for wheezing or shortness of breath Active famotidine (PEPCID) 20 mg tablet Take 1 tablet (20 mg total) by mouth daily Active losartan-hydroc hlorothiazide (HYZAAR) 100-25 mg per tablet Take 1 tablet by mouth daily with lunch Active testosterone cypionate (DEPO-TESTOTERO NE) 200 mg/mL injection Inject 1 mL (200 mg total) into the muscle as instructed every 7 days Active insulin pharmacist technician cart,aut,G6/7,c ntr (Omnipod 5 G6-G7 Intro Kt,Gen5,) cartridge Inject 1 Device under the skin continuously E11.65 45 each 4 Active Omnipod 5 G6-G7 Intro Kt,Gen5, cartridge Inject 1 Device under the skin continuously E11.65 1 each 1 Active dicyclomine (BENTYL) 10 mg capsule Take 1 capsule (10 mg total) by mouth 4 (four) times a day as needed (abdominal pain) Active acetaminophen (TYLENOL) 325 mg tablet Take 2 tablets (650 mg total) by mouth every 4 (four) hours Active INSULIN SUBCUTANEOUS PUMP insulin lispro (HumaLOG) 100 UNIT/ML patient supplied pump Inject 1 Units under the skin as needed for high blood sugar (For insulin pump) Active diphenhydrAMINE -acetaminophen (TYLENOL PM) 25-500 mg tablet Take 1.5 tablets by mouth nightly as needed for sleep Active cholestyramine (QUESTRAN) 4 gram powder Take 1 packet (4 g total) by mouth 2 (two) times a day with meals for 14 days 28 packet 025 2024 Active morphine ER (MS CONTIN) 30 mg 12 hr tablet Take 1 tablet (30 mg total) by mouth 2 (two) times a day for 14 days 28 tablet 025 2024 Active HYDROmorphone (DILAUDID) 4 mg tabletIndicatio ns:Pain Take 1 tablet (4 mg total) by mouth every 3 (three) hours as needed for pain 40 tablet 025 Active hydrOXYzine (ATARAX) 25 mg tablet Take 1 tablet (25 mg total) by mouth every 4 (four) hours as needed for itching, allergies or anxiety 30 tablet 025 Active traMADoL (ULTRAM) 50 mg tablet Take 2 tablets (100 mg total) by mouth 3 (three) times a day as needed for pain 020 2024 Discontinued(S top Taking at Discharge) aspirin 81 mg chewable tablet Take 1 tablet (81 mg total) by mouth daily 2024 Discontinued(S top Taking at Discharge) simvastatin (ZOCOR) 20 mg tablet TAKE 1 TABLET BY MOUTH EVERY NIGHT 90 tablet 3 024 2024 Discontinued insulin glargine (LANTUS) 100 unit/mL (3 mL) pen for injection Inject 22 Units under the skin nightly E11.65 30 mL 4 024 2024 Discontinued insulin lispro (HumaLOG, ADMELOG) 100 unit/mL pen for injectionIndica tions:type 2 diabetes mellitus Inject 7 Units under the skin 3 (three) times a day before meals E11.65 30 mL 4 024 2024 Discontinued acetaminophen (TYLENOL) 325 mg tablet Take 1 tablet (325 mg total) by mouth every 6 (six) hours as needed 2024 Discontinued simvastatin (ZOCOR) 20 mg tablet Take 1 tablet (20 mg total) by mouth nightly 2024 Discontinued cyanocobalamin (Vitamin B-12) 1,000 mcg tabletIndicatio ns:Prevention of Vitamin B12 Deficiency Take 1 tablet (1,000 mcg total) by mouth daily 2024 Discontinued cholecalciferol 25 mcg (1,000 unit) tablet Take 1 tablet (1,000 Units total) by mouth daily 2024 Discontinued omega-3 fatty acids-fish oil 300-1,000 mg capsule Take 2 capsules (2 g total) by mouth daily 2024 Discontinued naproxen (NAPROSYN) 500 mg tablet Take 1 tablet (500 mg total) by mouth 2 (two) times a day as needed for pain 025 2024 Discontinued simvastatin (ZOCOR) 20 mg tablet TAKE 1 TABLET BY MOUTH EVERY NIGHT 90 tablet 3 025 2024 Discontinued(S top Taking at Discharge) morphine ER (MS CONTIN) 30 mg 12 hr tablet Take 1 tablet (30 mg total) by mouth 2 (two) times a day for 7 days 14 tablet 025 2024 Discontinued HYDROmorphone (DILAUDID) 4 mg tabletIndicatio ns:Pain Take 1 tablet (4 mg total) by mouth every 3 (three) hours as needed for pain 20 tablet 025 2024 Discontinued hydrOXYzine (ATARAX) 25 mg tablet Take 1 tablet (25 mg total) by mouth every 4 (four) hours as needed for itching, allergies or anxiety 30 tablet 025 2024 Discontinued(R eorder) HYDROmorphone (DILAUDID) 4 mg tabletIndicatio ns:Pain Take 1 tablet (4 mg total) by mouth every 3 (three) hours as needed for pain 40 tablet 025 2024 Discontinued(R eorder) Active Problems Problem Noted Date Diagnosed Date Malignant neoplasm of head of pancreas Pancreatic adenocarcinoma 01/04/2025 Jaundice 01/04/2025 Severe protein-calorie malnutrition 01/04/2025 Acute cholangitis 01/03/2025 Moderate malnutrition 12/20/2024 Biliary sepsis 12/20/2024 Obstructive jaundice 12/19/2024 Pancreatic mass 12/19/2024 Tobacco use disorder, moderate, in early remissi on 12/19/2024 Mixed diabetic hyperlipidemi a associated with type 2 diabetes mellitus 03/03/2024 Assessment & Plan (10/20/2024 1:13 PM SPREADER): This is a chronic condition which isAt [...] week. Encouraged to take medications as prescribed. [employer] Richie continuous glucose monitoring de vice 11/29/2023 Assessment & Plan (10/20/2024 1:14 PM SPREADER): Continuous glucose monitor (cgm) applied from 10/07/2024 [...] hyperglycemia Assessment & Plan (11/29/2023 2:58 PM SPREADER): Continuous glucose monitor (cgm) applied from 11/16/2023 to 11/29/2023 This device was placed for monitor and treatment of blood sugar. Interpretation of data- average glucose 160, glucose management indicator 7.1%. In target range 65. Hypoglycemia between 54 and 69 1%. 0 hypoglycemia less than 54. 34% hyperglycemia Hypertension associated with type 2 diabetes linda litus 11/29/2023 Assessment & Plan (10/20/2024 1:13 PM SPREADER): This is a chronic condition which is [...] prescribed. Assessment & Plan (11/29/2023 2:58 PM SPREADER): This is a chronic condition which is [...] 08/12/2015 Assessment & Plan (10/20/2024 1:12 PM SPREADER): This is a chronic condition which is [...] in agreement. Monitor blood sugar continuously with [employer] Richie cgm. Encouraged annual eye exam. Monofilament [...] last dilated eye exam was done in [facility]. Monofilament foot exam completed. protective senses intact [...] 024 Assessment & Plan (11/29/2023 2:56 PM SPREADER): This is a chronic condition which is [...] Encounters Date Type Department Care Team Description 01/12/20 12:00 PM CDT Office Visit [facility] [address] [place] [phone] Tasneem Henderson MD Malignant neoplasm of head of pancreas (HCC) (Primary Dx); Pancreatic mass 01/11/20 25 Telephone [facility] [address] [place] [phone] Trina Escoto, [facility] 01/11/20 25 Orders Only [facility] [address] [place] [address] Tasneem Henderson MD Pancreatic mass 01/10/20 25 Orders Only [facility] - Interventional Radiology [address] [place] [phone] Julianna Vizcaino RN 01/04/20 2:13 PM CDT Anesthesia Event [facility] [address] [place] [phone] Bessy Sanchez DO Winfrey, Tonya M., MELVA 01/04/20 2:00 PM CDT - 01/04/20 2:45 PM CDT Surgery [facility] [place] [phone] Mushtaq Moeller MD ENDO ENDOSCOPIC RETROGRADE CHOLANGIOPANCREATOGRAPHY REMOVE/CHANGE STENT [GI513] 01/04/20 10:24 AM CDT - 01/12/20 10:20 AM CDT Hospital Encounter [place] [address] [place] [phone] Darwin Sanchez MD Baig, Sophia, MD Dehaan, MD Matthew Arita Thishara, MD Smelser, Sweetie Correia MD Pancreatic adenocarcinoma (HCC) [C25.9] (Primary Dx); Jaundice; Obstructive jaundice (HCC); Abdominal pain; Pancreatic mass; Biliary sepsis (HCC) [K83.09]; Biliary sepsis (HCC); Pancreatic adenocarcinoma (HCC); Malignant neoplasm of head of pancreas (HCC); Severe protein-calorie malnutrition; Acute cholangitis (HCC) Discharge Disposition: Discharge to home or self care 01/04/20 25 Telephone [facility] Gastroenterology [address] [place] [address] Medical Office Building [address], [address] [place] [address] Azul Jaime RN MD recommendations 01/03/20 25 Orders Only [facility] Scanning, Provider 01/03/20 25 Telephone [facility] Gastroenterology [address] [place] [address] Office [address], [address] [place] [address] Alma López, MATEUS Follow-up 01/02/20 25 Orders Only [facility] [address] [facility] [address] [place] [address] Tasneem Henderson MD Pancreatic mass (Primary Dx) 12/28/19 25 Telephone [facility] Surgery [address] [facility] Floor [address] [place] [address] Muriel Reece MD Scheduling Appointments 12/26/19 25 Results Follow-Up [facility] Gastroenterology [address] [facility] 2nd Floor [address] [place] [address] Adeel Ryan MD Pancreatic mass (Primary Dx); Pancreatic adenocarcinoma (HCC) 12/26/19 25 Results Follow-Up [facility] Gastroenterology [address] 2[address] [place] [address] Adeel Ryan MD 12/24/19 25 Documentation [facility] Gastroenterology [address] [facility] Medical Office Building [address] [place] [phone] Perez Yu MD 12/22/19 25 Orders Only [facility] Department of Hepatobiliary, Pancreatic, & Gastrointestinal Surgery [address] [facility] 12th Floor, [place] [address] Magda Sexton PA Pancreatic mass (Primary Dx) 12/21/19 25 2:39 PM CDT Anesthesia Event [facility] [address] [place] [phone] Criselda Abbott MD Zubiri, Elvit Tiu, CRNA 12/21/19 25 1:45 PM CDT - 12/21/19 25 2:30 PM CDT Surgery [facility] [address] [place] [phone] Adeel Ryan MD ESOPHAGOGASTRODUODENOSCOPY ULTRASOUND GUIDE LIMITED 12/21/19 25 Orders Only [address] [phone] Adeel Ryan MD 12/21/19 25 Orders Only [address] [phone] Adeel Ryan MD 12/20/19 25 6:30 AM CDT - 12/22/19 25 1:16 PM CDT Hospital Encounter [address] [phone] Timmy Braxton MD Dehaan, MD Eli Arita Alex, MD Pancreatic mass (Primary Dx); Jaundice; Nausea; Obstructive jaundice (HCC) [K83.1]; Tobacco use disorder [F17.200] Discharge Disposition: Discharge to home or self care 11/08/19 25 Telephone [facility] Endocrine Care at [place] [phone] Holly Henson, YULY 11/07/19 25 Telephone [facility] Diabetes [facility]ocrine Care at [place] [phone] Cheryl Rosario MA 11/07/19 25 Orders Only [facility] Diabetes Endocrine Care at [address] [phone] Holly Henson NP Type 2 diabetes mellitus with hyperglycemia, with long-term current use of insulin (HCC) (Primary Dx) 11/03/19 25 Telephone [facility] Diabetes Endocrine Care at [place] [phone] Holly Henson NP 11/02/19 25 Telephone [facility] Diabetes Endocrine Care at [address] [phone] Cheryl Rosario MA 10/30/19 25 Telephone [facility] Diabetes Endocrine Care at [address] [phone] Holly Henson NP 10/20/19 25 10:30 AM SPREADER Office Visit [facility] Diabetes Endocrine Care at [address] [phone] Holly Henson NP Type 2 diabetes mellitus with hyperglycemia, with long-term current use of insulin (HCC) (Primary Dx); Mixed diabetic hyperlipidemia associated with type 2 diabetes mellitus (HCC); Hypertension associated with type 2 diabetes mellitus (HCC); [employer] Richie continuous glucose monitoring device from Last 3 Months Immunizations Immunization Administration Dates Next Due Influenza, Unspecified 07/24/2024 Surgical History Surgery Date Site/Laterality Comments BIOPSY LIVER 01/09/2025 N/A CARDIAC STENT PLACEMENT 12/19/2024 BILE DUCT STENT PLACEMENT 01/02/2025 Medical History Medical History Date Comments Type 2 diabetes mellitus (HCC) Hypertension Social History Tobacco Use Types Packs/Day Years Used Date Smoking Tobacco: Some Days Cigarettes 0.8 35 Tobacco Cessation:Ready to Q uit: Not Asked; Counseling Given: Not Answered [facility] Utilities Answer Date Recorded In the past 12 months has th e Sitemasher, [employer], oil, or water mGenerator threatened to shut off services in your home? No 01/04/2025 Social Connection and Isolat ion Panel [NHANES] Answer Date Recorded In a typical week, how many times do you talk on the phone with family, friends, or neighbors? More than three times a week 01/04/2025 How often do you get togethe r with friends or relatives? More than three times a week 01/04/2025 How often do you attend chur ch or protestant services? 1 to 4 times per year 01/04/2025 Do you belong to any clubs o r organizations such as sikhism groups, unions, fraternal or athletic groups, or school groups? Yes 01/04/2025 How often do you attend meet ings of the clubs or organizations you belong to? 1 to 4 times per year 01/04/2025 Are you , , di vorced, , never , or living with a partner? 01/04/2025 AUDIT-C Answer Date Recorded Q1: How often do you have a drink containing alcohol? Never 01/03/2025 Q2: How many drinks containi ng alcohol do you have on a typical day when you are drinking? Patient does not drink Q3: How often do you have si x or more drinks on one occasion? Never 01/03/2025 Overall Financial Resource Strain (CARDIA) Answe r Date Recorded How hard is it for you to pa y for the very basics like food, housing, medical care, and heating? Not hard at all 01/04/2025 Hunger Vital Sign Answer Date Recorded Within the past 12 months, y ou worried that your food would run out before you got the money to buy more. Never true 01/05/20 25 Within the past 12 months, t he food you bought just didn't last and you didn't have money to get more. Never true 01/04/2025 PRAPARE - Transportation Answer Date Re corded In the past 12 months, has l ack of transportation kept you from medical appointments or from getting medications? No 12/2024 In the past 12 months, has l ack of transportation kept you from meetings, work, or from getting things needed for daily living? No 01/04/2025 Housing Stability Vital Sign Answer Cl e Recorded In the last 12 months, was t here a time when you were not able to pay the mortgage or rent on time? No 01/04/2025 In the past 12 months, how m any times have you moved where you were living? 0 01/04/2025 At any time in the past 12 m [place], were you homeless or living in a group home (including now)? No 01/04/2025 Personal Safety Answer Date Recorded Have you ever been in or are you currently in a harmful physical or emotional relationship or is someone making you feel afraid or unsafe? Denies 01/03/2025 Sex and Gender Information Value Date Recorded Sex Assigned at Not on file Legal Sex Male 11:03 AM SPREADER Gender Identity Not on file Sexual Orientation Not on file Obstetrics History Last Filed Vital Signs Vital Sign Reading Time Taken Comments Blood Pressure 122/77 01/11/2025 12:35 PM CDT Pulse 90 01/11/2025 12:35 PM CDT Temperature 36.5 C (97.7 F) 01/11/2025 12:35 PM CDT Respiratory Rate 18 01/11/2025 12:35 PM CDT Oxygen Saturation 99% 01/11/2025 12:35 PM CDT Inhaled Oxygen Concentration - - Weight 79.4 kg (175 lb) 01/11/2025 12:35 PM CDT Height 182.9 cm (6') 01/11/2025 12:35 PM CDT Body Mass Index 23.73 01/11/2025 12:35 PM CDT Plan of Treatment Upcoming Encounters Date Type Department Care Team (Late st Contact Info) Description 01/24/2025 12:30 PM CDT Office Visit [facility] Diabetes Endocrine Care at [address] [phone] Holly Henson, BOTTOM LINER [address] [place] [address] Health Maintenance Due Date Last Done Comments [...] - 2023-2 5 season) 2024 01/03/2021, 12/06/2020 Albumin Creatinine Ratio, Urine 03/01/2025 , 04/27/2023 Lipid Panel 03/01/2025 03/01/2024, 04/27/2023 Hemoglobin A1C 05/08/2025 11/08/2024, 10/04, 06/20/2024, Additional history exists Foot Exam 10/20/2025 10/20/2024, 06/04, 03/01/2024, Additional history exists Dilated Eye Exam 11/25/2025 11/25/2023, 09/30/2023 eGFR 01/11/2026 01/11/2025, 04/0 06/2025, 01/09/2025, Additional history exists Zoster Vaccine Completed 06/21/2020, 05/29/2020 Influenza Vaccine Completed 09/13/2024, , 09/06/2023, Additional history exists Medical Devices Implanted Type Area Certified Travel Counselor Device Identifier Shelf Expiration Date Model / Serial / Lot [employer] Bia Wallflex 8mm 8fr 60mm Rapid Exchange Delivery System Stent [id number] - [id number] Implanted:Qty: 1 on 01/03/2025 by Mushtaq Moeller MD at [facility] N/A: Bile Duct [employer] Bia 10/26/2026 [id number] / / [id number] Explanted Type Area Certified Travel Counselor Device Identifier Shelf Expiration Date Model / Serial / Lot [employer] Bia 10fr 9cm Biliary Stent [id number] - [id number] Implanted:Qty: 1 on 12/20/2024 by Adeel Ryan MD at [facility] Explanted:Qty: 1 on 01/03/2025 by Mushtaq Moeller MD at [facility] Stent N/A: Bile Duct [employer] Bia 08/30/2025 [id number] / / [id number] Procedures Procedure Name Priority Date/Time Associated Diagnosis Comments POCT GLUCOSE DEVICE Routine 01/11/2025 6:19 AM CDT EGFR Routine 01/11/2025 4:20 AM CDT COMPREHENSIVE METABOLIC PANEL Routine 4:20 AM CDT POCT GLUCOSE DEVICE Routine 01/10/2025 7:53 PM CDT POCT GLUCOSE DEVICE Routine 01/10/2025 4:58 PM CDT POCT GLUCOSE DEVICE Routine 01/10/2025 11:56 AM CDT POCT GLUCOSE DEVICE Routine 01/10/2025 7:58 AM CDT POCT GLUCOSE DEVICE Routine 01/10/2025 6:09 AM CDT EGFR Routine 01/10/2025 5:08 AM CDT COMPREHENSIVE METABOLIC PANEL Routine 5:08 AM CDT BLOOD CULTURE Routine 01/10/2025 5:08 AM CDT BLOOD CULTURE Routine 01/10/2025 5:08 AM CDT POCT GLUCOSE DEVICE Routine 01/09/2025 7:58 PM CDT POCT GLUCOSE DEVICE Routine 01/09/2025 4:47 PM CDT MYCOLOGY (FUNGAL) CULTURE Routine 2024 1:40 PM CDT TISSUE AEROBIC AND ANAEROBIC CULTURE AND GRAM STAIN Routine 01/09/2025 1:40 PM CDT MYCOBACTERIOLOGY AFB CULTURE AND ACID-FAST STAIN Routine 01/09/2025 1:40 PM CDT BIOPSY LIVER IP Routine 01/09/2025 1:37 PM CDT SURGICAL PATHOLOGY Routine 01/09/2025 1:29 PM CDT FLOW LEUKEMIA/LYMPHOMA Routine 1:29 PM CDT SURGICAL PATHOLOGY Routine 01/09/2025 1:26 PM CDT Jaundice Obstructive jaundice (HCC) Abdominal pain Pancreatic mass Biliary sepsis (HCC) Pancreatic adenocarcinoma (HCC) POCT GLUCOSE DEVICE Routine 01/09/2025 11:41 AM CDT POCT GLUCOSE DEVICE Routine 01/09/2025 6:18 AM CDT EGFR Routine 01/09/2025 5:44 AM CDT DIFFERENTIAL AUTO Routine 01/09/2025 5:44 AM CDT APTT Routine 01/09/2025 5:44 AM CDT TB TEST, QUANTIFERON GOLD Routine 2024 5:44 AM CDT PROTIME-INR Routine 01/09/2025 5:44 AM CDT COMPREHENSIVE METABOLIC PANEL Routine 5:44 AM CDT CBC WITH AUTO DIFFERENTIAL Routine 01/09 5:44 AM CDT BLOOD CULTURE Routine 01/09/2025 5:44 AM CDT BLOOD CULTURE Routine 01/09/2025 5:44 AM CDT POCT GLUCOSE DEVICE Routine 01/08/2025 9:23 PM CDT POCT GLUCOSE DEVICE Routine 01/08/2025 4:43 PM CDT ADD ON LAB TEST Add-On 01/08/2025 1:34 PM CDT POCT GLUCOSE DEVICE Routine 01/08/2025 11:[address] ABDOMEN PELVIS W CONTRAST IP Routine 04/2025 9:20 AM CDT POCT GLUCOSE DEVICE Routine 01/08/2025 6:58 AM CDT BILIRUBIN, DIRECT Routine 01/08/2025 5:17 AM CDT EGFR Routine 01/08/2025 5:17 AM CDT DIFFERENTIAL AUTO Routine 01/08/2025 5:17 AM CDT CBC WITH AUTO DIFFERENTIAL Routine 01/08 5:17 AM CDT COMPREHENSIVE METABOLIC PANEL Routine 5:17 AM CDT POCT GLUCOSE DEVICE Routine 01/07/2025 9:26 PM CDT POCT GLUCOSE DEVICE Routine 01/07/2025 4:41 PM CDT POCT GLUCOSE DEVICE Routine 01/07/2025 11:56 AM CDT POCT GLUCOSE DEVICE Routine 01/07/2025 7:45 AM CDT EGFR Routine 01/07/2025 6:44 AM CDT DIFFERENTIAL AUTO Routine 01/07/2025 6:44 AM CDT CBC WITH AUTO DIFFERENTIAL Routine 01/07 6:44 AM CDT COMPREHENSIVE METABOLIC PANEL Routine 6:44 AM CDT POCT GLUCOSE DEVICE Routine 01/06/2025 8:26 PM CDT POCT GLUCOSE DEVICE Routine 01/06/2025 4:46 PM CDT POCT GLUCOSE DEVICE Routine 01/06/2025 11:49 AM CDT POCT GLUCOSE DEVICE Routine 01/06/2025 7:53 AM CDT EGFR Routine 01/06/2025 5:55 AM CDT DIFFERENTIAL AUTO Routine 01/06/2025 5:55 AM CDT CBC WITH AUTO DIFFERENTIAL Routine 01/06 5:55 AM CDT COMPREHENSIVE METABOLIC PANEL Routine 5:55 AM CDT POCT GLUCOSE DEVICE Routine 01/05/2025 7:57 PM CDT POCT GLUCOSE DEVICE Routine 01/05/2025 4:44 PM CDT POCT GLUCOSE DEVICE Routine 01/05/2025 2:41 PM CDT POCT GLUCOSE DEVICE Routine 01/05/2025 1:33 PM CDT POCT GLUCOSE DEVICE Routine 01/05/2025 1:07 PM CDT POCT GLUCOSE DEVICE Routine 01/05/2025 12:47 PM CDT POCT GLUCOSE DEVICE Routine 01/05/2025 12:23 PM CDT POCT GLUCOSE DEVICE Routine 01/05/2025 11:56 AM CDT POCT GLUCOSE DEVICE Routine 01/05/2025 11:39 AM CDT POCT GLUCOSE DEVICE Routine 01/05/2025 7:50 AM CDT EGFR Routine 01/05/2025 5:06 AM CDT DIFFERENTIAL AUTO Routine 01/05/2025 5:06 AM CDT CBC WITH AUTO DIFFERENTIAL Routine 01/05 5:06 AM CDT COMPREHENSIVE METABOLIC PANEL Routine 5:06 AM CDT POCT GLUCOSE DEVICE Routine 01/04/2025 9:11 PM CDT POCT GLUCOSE DEVICE Routine 01/04/2025 5:02 PM CDT POCT GLUCOSE DEVICE Routine 01/04/2025 12:[address] CHEST W AND ABDOMEN PELVI S W WO CONTRAST (C) IP Routine 01/04/2025 11:23 AM CDT POCT GLUCOSE DEVICE Routine 01/04/2025 6:10 AM CDT EGFR Routine 01/04/2025 6:06 AM CDT DIFFERENTIAL AUTO Routine 01/04/2025 6:06 AM CDT PHOSPHORUS Routine 01/04/2025 6:06 AM CDT MAGNESIUM Routine 01/04/2025 6:06 AM CDT COMPREHENSIVE METABOLIC PANEL Routine 6:06 AM CDT CBC WITH AUTO DIFFERENTIAL Routine 01/04 6:06 AM CDT MRI ABDOMEN MRCP W WO CONTRAST IP Routine 0 01/04/2025 1:54 AM CDT POCT GLUCOSE DEVICE Routine 01/03/2025 9:27 PM CDT BLOOD CULTURE Routine 01/03/2025 4:52 PM CDT BLOOD CULTURE Routine 01/03/2025 4:52 PM CDT POCT GLUCOSE DEVICE Routine 01/03/2025 2:52 PM CDT ERCP IP Routine 01/03/2025 2:35 PM CDT Jaundice ERCP IP Routine 01/03/2025 2:35 PM CDT Jaundice FL ERCP BILIARY DUCT IP Routine 01/03/2025 2:29 PM CDT ERCP 01/03/2025 1:56 PM CDT ADD ON LAB TEST Add-On 01/03/2025 11:08 AM CDT BILIRUBIN, DIRECT STAT 01/03/2025 10:39 AM CDT EGFR STAT 01/03/2025 10:39 AM CDT URINALYSIS, MICROSCOPIC ONLY STAT 11/2024 10:39 AM CDT DIFFERENTIAL AUTO STAT 01/03/2025 10:39 AM CDT LIPASE STAT 01/03/2025 10:39 AM CDT COMPREHENSIVE METABOLIC PANEL STAT 10:39 AM CDT CBC WITH AUTO DIFFERENTIAL STAT 01/03 10:39 AM CDT URINALYSIS AND REFLEX TO MICROSCOPIC AND CULTURE STAT 01/03/2025 10:39 AM CDT SCAN - LABS 01/02/2025 POCT GLUCOSE DEVICE Routine 12/21/2024 11:35 AM [...] (HCC) POCT GLUCOSE Routine 10/20/2024 10:42 AM SPREADER Type 2 diabetes mellitus with hyperglycemia, with long-term current use of insulin (HCC) POCT HEMOGLOBIN A1C Routine 10/20/2024 10:41 AM SPREADER Type 2 diabetes mellitus with hyperglycemia, with [...] to Health Maintenance Results * POCT glucose (01/11/2025 6:19 AM CDT) Glucose, POC 138 70 - 199 mg/dL Comment: For Glucose values <35 mg/dl when Hematocrit is >60 mg/dl,the test may not accurately detect significant hypoglycemia,and testing in the Laboratory should be considered if clinically indicated. POC Performer [phone] [facility] Blood 01/11/2025 6:19 AM CDT 01/11/2025 6:19 AM CDT Sweetie Pryor MD LAB POCT ORDERABLES - GORAN CE Final Result [facility] [address] Department [place] [address] * eGFR (01/11/2025 4:20 AM CDT) eGFR >90 >=60 mL/min/1. 73 [...] interpretive data was last reviewed 2021. Blood 01/11/2025 4:20 AM CDT 01/11/2025 5:30 AM CDT us Mildred GARCIA LAB BLOOD ORDERABLES Final Re sult [facility] [address] Department [place] [address] * (ABNORMAL) Comprehensive metabolic panel (01/11/2025 4:20 AM CDT) Sodium 139 135 - 145 mmol/L Potassium, pl 4.0 3.3 - 4.9 mmol/L [facility] Chloride 102 97 - 110 mmol/L [facility] CO2 24 22 - 32 mmol/L [facility] Anion gap 13 2 - 15 mmol/L [facility] BUN 14 6 - 25 mg/dL [facility] Creatinine 0.60(L) 0.80 - 1.30 mg/dL [facility] Glucose 160 70 - 199 mg/dL [facility] Comment: Interpretive Data Fasting glucose [...] interpretive data was last revised 2022. Calcium 8.2(L) 8.5 - 10.3 mg/dL [facility] Bilirubin, total 18.7(H) 0.1 - 1.2 mg/dL [facility] Protein, pl 5.5(L) 6.5 - 8.5 g/dL [facility] Albumin 2.6(L) 3.5 - 5.0 g/dL [facility] Alk phos 1,235(H) 40 - 130 Units/L [facility] ALT 185(H) 7 - 55 Units/L [facility] AST 118(H) 10 - 50 Units/L [facility] Blood 01/11/2025 4:20 AM CDT 01/11/2025 5:30 AM CDT us Mildred GARCIA LAB BLOOD ORDERABLES Final Re sult Performing Organization Address [facility]/ZIP Co de Phone Number [facility] [address] [place] [address] * POCT glucose (01/10/2025 7:53 PM CDT) Glucose, POC 171 70 - 199 mg/dL Comment: For Glucose values <35 mg/dl when Hematocrit is >60 mg/dl,the test may not accurately detect significant hypoglycemia,and testing in the Laboratory should be considered if clinically indicated. POC Performer [phone] [facility] Blood 01/10/2025 7:53 PM CDT 01/10/2025 7:53 PM CDT Sweetie Pryor MD LAB POCT ORDERABLES - GORAN CE Final Result Performing Organization Address [facility]/ZIP Co de Phone Number [facility] [address] [facility] [employer] [place], [place] [id number] * POCT glucose (01/10/2025 4:58 PM CDT) Glucose, POC 161 70 - 199 mg/dL Comment: For Glucose values <35 mg/dl when Hematocrit is >60 mg/dl,the test may not accurately detect significant hypoglycemia,and testing in the Laboratory should be considered if clinically indicated. POC Performer [phone] [facility] Blood 01/10/2025 4:58 PM CDT 01/10/2025 4:58 PM CDT Sweetie Pryor MD LAB POCT ORDERABLES - GORAN CE Final Result Performing Organization Address [facility] de Phone Number [facility] [address] [facility] [place] [address] * (ABNORMAL) POCT glucose (01/10/2025 11:56 AM CDT) Glucose, POC 211(H) 70 - 199 mg/dL Comment: For Glucose values <35 mg/dl when Hematocrit is >60 mg/dl,the test may not accurately detect significant hypoglycemia,and testing in the Laboratory should be considered if clinically indicated. POC Performer [phone] [facility] Blood 01/10/2025 11:5 6 AM CDT 01/10/2025 11:56 AM CDT Sweetie Pryor MD LAB POCT ORDERABLES - GORAN CE Final Result Performing Organization Address [facility] de Phone Number [facility] [address] [facility] [place] [address] * POCT glucose (01/10/2025 7:58 AM CDT) Glucose, POC 143 70 - 199 mg/dL Comment: For Glucose values <35 mg/dl when Hematocrit is >60 mg/dl,the test may not accurately detect significant hypoglycemia,and testing in the Laboratory should be considered if clinically indicated. POC Performer [phone] [facility] Blood 01/10/2025 7:58 AM CDT 01/10/2025 7:58 AM CDT Sweetie Pryor MD LAB POCT ORDERABLES - GORAN CE Final Result Performing Organization Address [facility]/ZIP Co de Phone Number [facility] [address] [place] [address] * POCT glucose (01/10/2025 6:09 AM CDT) Glucose, POC 193 70 - 199 mg/dL Comment: For Glucose values <35 mg/dl when Hematocrit is >60 mg/dl,the test may not accurately detect significant hypoglycemia,and testing in the Laboratory should be considered if clinically indicated. POC Performer [phone] [facility] Blood 01/10/2025 6:09 AM CDT 01/10/2025 6:09 AM CDT us Sweetie Pryor MD LAB POCT ORDERABLES - GORAN CE Final Result Performing Organization Address [facility] Co de Phone Number [facility] [address] [place] [address] * eGFR (01/10/2025 5:08 AM CDT) eGFR >90 >=60 mL/min/1. 73 [...] interpretive data was last reviewed 2021. Blood 01/10/2025 5:08 AM CDT 01/10/2025 6:10 AM CDT Mildred GARCIA LAB BLOOD ORDERABLES Final Re sult Performing Organization Address [facility] Co de Phone Number [facility] [address] [place] [address] * Blood culture Blood (01/10/2025 5:08 AM CDT) Report Final Report: No growth Blood 01/10/2025 5:08 AM CDT 01/10/2025 6:27 AM CDT Narrative [facility] - 01/15/2025 7:00 AM CDT From a different site than #1. Interpretive Data 1. Blood cultures are incubated and monitored continuously for 5 days (120 hours). The first negative report is issued within 24 hours of receipt in the laboratory. 2. All positive cultures are resulted and called to physicians/care providers as soon as they are detected. 3. A rapid molecular test for organism identification may be performed using the [employer] Blood Culture Identification panel. This assay detects microbial DNA in a blood culture broth. This assay has been cleared by the [place] Food and Drug Administration and its performance characteristics have been verified by the [facility]. Interpretive data was last revised on November 05, 2022. Virgil Wynne MD LAB MICROBIOLOGY - GENERAL OR DERABLES Final Result Performing Organization Address [facility] de Phone Number [facility] [address] [place] [address] * Blood culture Blood (01/10/2025 5:08 AM CDT) Report Final Report: No growth Blood 01/10/2025 5:08 AM CDT 01/10/2025 6:27 AM CDT Narrative [facility] - 01/15/2025 7:00 AM CDT Interpretive Data 1. Blood cultures are incubated and monitored continuously for 5 days (120 hours). The first negative report is issued within 24 hours of receipt in the laboratory. 2. All positive cultures are resulted and called to physicians/care providers as soon as they are detected. 3. A rapid molecular test for organism identification may be performed using the [employer] Blood Culture Identification panel. This assay detects microbial DNA in a blood culture broth. This assay has been cleared by the [place] Food and Drug Administration and its performance characteristics have been verified by the [facility]. Interpretive data was last revised on November 05, 2022. Virgil Wynne MD LAB MICROBIOLOGY - GENERAL OR DERABLES Final Result [facility] [address] Department [place] [address] * (ABNORMAL) Comprehensive metabolic panel (01/10/2025 5:08 AM CDT) Sodium 141 135 - 145 mmol/L Potassium, pl 4.1 3.3 - 4.9 mmol/L [facility] Chloride 107 97 - 110 mmol/L [facility] CO2 22 22 - 32 mmol/L [facility] Anion gap 12 2 - 15 mmol/L [facility] BUN 12 6 - 25 mg/dL [facility] Creatinine 0.55(L) 0.80 - 1.30 mg/dL [facility] Glucose 215(H) 70 - 199 mg/dL [facility] Comment: Interpretive Data Fasting glucose [...] interpretive data was last revised 2022. Calcium 7.9(L) 8.5 - 10.3 mg/dL [facility] Bilirubin, total 17.4(H) 0.1 - 1.2 mg/dL [facility] Protein, pl 5.0(L) 6.5 - 8.5 g/dL [facility] Albumin 2.4(L) 3.5 - 5.0 g/dL [facility] Alk phos 1,151(H) 40 - 130 Units/L [facility] ALT 184(H) 7 - 55 Units/L [facility] AST 115(H) 10 - 50 Units/L [facility] Blood 01/10/2025 5:08 AM CDT 01/10/2025 6:10 AM CDT us Mildred GARCIA LAB BLOOD ORDERABLES Final Re sult Performing Organization Address [facility] Co de Phone Number [facility] [address] Department [employer] [place], [place] [phone] * POCT glucose (01/09/2025 7:58 PM CDT) Glucose, POC 170 70 - 199 mg/dL Comment: For Glucose values <35 mg/dl when Hematocrit is >60 mg/dl,the test may not accurately detect significant hypoglycemia,and testing in the Laboratory should be considered if clinically indicated. POC Performer [phone] [facility] Blood 01/09/2025 7:58 PM CDT 01/09/2025 7:58 PM CDT Sweetie Pryor MD LAB POCT ORDERABLES - GORAN CE Final Result Performing Organization Address [facility]/ZIP Co de Phone Number [facility] [address] Department of [place], [place] [id number] * POCT glucose (01/09/2025 4:47 PM CDT) Glucose, POC 79 70 - 199 mg/dL Comment: For Glucose values <35 mg/dl when Hematocrit is >60 mg/dl,the test may not accurately detect significant hypoglycemia,and testing in the Laboratory should be considered if clinically indicated. POC Performer [phone] [facility] Blood 01/09/2025 4:47 PM CDT 01/09/2025 4:47 PM CDT Sweetie Pryor MD LAB POCT ORDERABLES - GORAN CE Final Result Performing Organization Address [facility] de Phone Number [facility] [address] [facility] [place] [address] * Tissue aerobic and anaerobic culture and gram stain Biopsy Liver (01/09/2025 1:40 PM CDT) Direct Specimen Exam Stain: No polymorphonuclear leukocytes seen. No organisms seen. Report Final Report: No growth [facility] Biopsy (Liver) 01/09/2025 1: 40 PM CDT 01/09/2025 2:42 PM CDT Result [facility] Virgil Wynne MD LAB MICROBIOLOGY - GENERAL OR DERABLES Final Result Performing Organization Address [facility] de Phone Number [facility] [address] [facility] [place] [address] * IR Biopsy Liver (01/09/2025 1:37 PM CDT) Anatomical Region Laterality Modality Body N/A X-Ray Angiograph y 01/09/2025 1:49 PM CDT Impressions 01/09/2025 1:49 PM CDT Successful and uncomplicated percutaneous ultrasound-guided right liver biopsy. Electronically signed by: Watson Santoro M.D. Narrative 01/09/2025 1:49 PM CDT EXAMINATION: IR BIOPSY LIVER, 01/09/2025 1:00 PM CLINICAL HISTORY: 64-year-old male with suspected hepatic microabscesses CTs versus granulomas versus fungal infection. Request for biopsy and culture COMPARISON: CT abdomen pelvis 01/08/2025, MRI/MRCP 01/04/2025 PROCEDURE: Ultrasound-guided right liver biopsy. SEDATION: Moderate conscious sedation was administered under the attending physician's direction and continuous monitoring by a trained nurse specialist who was independent from those actually performing the procedure. The total monitored conscious time was 6minutes. TECHNIQUE/FINDINGS: Written informed consent was obtained from the patient after thorough discussion of the risks, benefits, and alternatives to the procedure. All questions were answered appropriately and thoroughly. The patient was then brought back to the angiosuite and positioned supine. A timeout was performed prior to the procedure to verify patient's name, birthdate, and site and type of procedure to be performed. The right upper quadrant was studied using ultrasound and an appropriate site for biopsy was identified. The skin of the upper quadrant was then prepped and draped in usual sterile fashion. Maximum sterile barrier technique was observed throughout the procedure. The skin was anesthetized with 1% buffered lidocaine. Using ultrasound guidance, a 17-gauge guide needle was advanced into the right hepatic lobe and vague areas of hypoattenuation with subtle hypoechoic areas. The 18-G was introduced and 6 passes were made through the area of concern in the right hepatic lobe. Ship Fitter ultrasound images were obtained for documentation. Gelfoam pledgets were administered to the biopsy tract and at the capsule. Hemostasis was achieved through manual compression and a bandage applied at the skin puncture site. There were no immediate complications and the patient tolerated the procedure well. The attending physician, Watson Santoro M.D., was available or present throughout the entire procedure. FINDINGS: 1. Preprocedure ultrasound images demonstrates subtle vague areas of hypoattenuation throughout the right lobe without overt phlegmon or abscess. 2. Intraprocedural ultrasound images demonstrate satisfactory position of the needle and biopsy device within the target. Samples were sent for culture, cytology and pathology. 3. Post procedure ultrasound images demonstrate no acute complication. Procedure Note Watson Santoro MD - 01/09/2025 EXAMINATION: IR BIOPSY LIVER, 01/09/2025 1:00 PM CLINICAL HISTORY: 64-year-old male with suspected hepatic microabscesses CTs versus granulomas versus fungal infection. Request for biopsy and culture COMPARISON: CT abdomen pelvis 01/08/2025, MRI/MRCP 01/04/2025 PROCEDURE: Ultrasound-guided right liver biopsy. SEDATION: Moderate conscious sedation was administered under the attending physician's direction and continuous monitoring by a trained nurse specialist who was independent from those actually performing the procedure. The total monitored conscious time was 6minutes. TECHNIQUE/FINDINGS: Written informed consent was obtained from the patient after thorough discussion of the risks, benefits, and alternatives to the procedure. All questions were answered appropriately and thoroughly. The patient was then brought back to the angiosuite and positioned supine. A timeout was performed prior to the procedure to verify patient's name, birthdate, and site and type of procedure to be performed. The right upper quadrant was studied using ultrasound and an appropriate site for biopsy was identified. The skin of the upper quadrant was then prepped and draped in usual sterile fashion. Maximum sterile barrier technique was observed throughout the procedure. The skin was anesthetized with 1% buffered lidocaine. Using ultrasound guidance, a 17-gauge guide needle was advanced into the right hepatic lobe and vague areas of hypoattenuation with subtle hypoechoic areas. The 18-G was introduced and 6 passes were made through the area of concern in the right hepatic lobe. Ship Fitter ultrasound images were obtained for documentation. Gelfoam pledgets were administered to the biopsy tract and at the capsule. Hemostasis was achieved through manual compression and a bandage applied at the skin puncture site. There were no immediate complications and the patient tolerated the procedure well. The attending physician, Watson Santoro M.D., was available or present throughout the entire procedure. FINDINGS: 1. Preprocedure ultrasound images demonstrates subtle vague areas of hypoattenuation throughout the right lobe without overt phlegmon or abscess. 2. Intraprocedural ultrasound images demonstrate satisfactory position of the needle and biopsy device within the target. Samples were sent for culture, cytology and pathology. 3. Post procedure ultrasound images demonstrate no acute complication. IMPRESSION: Successful and uncomplicated percutaneous ultrasound-guided right liver biopsy. Electronically signed by: Watson Santoro M.D. us Virgil Wynne MD IMG IR PROCEDURES Final Resul t * Flow Leukemia/Lymphoma Tissue (01/09/2025 1:29 PM CDT) Leukemia/Lymp melissa Result See separate Surgical Pathology report. Comment:Testing performed by : [facility], [address], [place]., [address] Tissue 01/09/2025 1:29 PM CDT 01/09/2025 7:27 PM CDT us Sweetie Pryor MD LAB PATHOLOGY ORDERABLES F inal Result [facility] [address] Department [place] [address] * Surgical pathology (01/09/2025 1:29 PM CDT) Soft Tissue (flow cytometry) 01/09/2025 1:29 PM CDT 01/09/2025 1:50 PM CDT Narrative 01/11/2025 12:18 PM CDT [place] [address] [place], [place] [address] Tele: Mariam Abel MD - Snack Stewardess FLOW CYTOMETRY REPORT Note to Patients: This report may contain [...] can answer questions and explain the details. Patient Name: DONG TEIXEIRA Address: [address] [place] [address] Gender: M : 1960 (Age: 64) Service: Medical Location: [place] [address] Hospital #: [id number] [facility]: [facility] Taken: 01/09/2025 Received: 01/09/2025 Reported: 01/11/2025 Physician(s): Watson Love M.D. Virgil Wynne M.D. Dr. Salu Valverde M.D. DIAGNOSIS: Liver, mass, flow cytometric immunophenotypic analysis: - Technically inadequate specimen for interpretation due to nonspecific antibody binding and low overall lymphoid cellularity, see comment dms/01/11/2025 12:18 Examining Pathologist: Ian Soto MD, PhD Report Reviewed and Electronically Signed By Ian Soto MD, PhD DIAGNOSIS COMMENT: Flow cytometric analysis of the liver masses technically inadequate for interpretation due to nonspecific antibody binding and low overall lymphoid cellularity. Recommend correlation with concurrent anatomic pathology specimen. SPECIMEN TYPE: A: RPMI - LIVER CLINICAL IMPRESSION AND HISTORY: 64-year-old man with liver mass please evaluate for malignancy including lymphoma GROSS DESCRIPTION: 30 cc of RPMI media labeled with patient name oDng Teixeira date of 1960. , MICROSCOPIC DESCRIPTION: Flow cytometric analysis of the liver mass is technically inadequate for interpretation due to nonspecific antibody binding and low overall lymphoid cellularity. REPORT IMAGES AND/OR SCANNED DOCUMENTS ONLY VIEWABLE IN PDF FORMAT The flow cytometry study included in this report is developed and its performance characteristics determined by [facility] Pathology Department and/or [facility]. It has not been cleared or approved by the U.S Food and Drug Administration (FDA) and FDA has determined that such clearance or approval is not necessary. This test is used for clinical purpose and it should not be regarded as investigational or for research. [facility] and/or [facility] is certified under the Clinical Laboratory Amendment of 1988 (CLIA) as qualified to perform high complex testing Watson Santoro MD LAB PATHOLOGY ORDERABLES Final Result * Surgical pathology (01/09/2025 1:26 PM CDT) Tissue (Liver, Biopsy, Needle Medical) 01/09/2025 1:26 PM CDT Tissue specimen (specimen) (Liver, Biopsy, Needle Medical) 01/09/2025 1:29 PM CDT Narrative [facility] - 01/10/2025 3:[address] [address] Tele: Mariam Abel MD - Snack Stewardess Note to Patients: This report may contain [...] the details. SURGICAL PATHOLOGY REPORT Patient Name: DONG TEIXEIRA Address: [address] [place], [place] [id number] Gender: M : 1960 (Age: 64) Service: Medical Location: [place] [address], Hospital #: [id number] Patient Type: [facility]IENT Taken: 01/09/2025 Received 01/09/2025 Reported: 01/10/2025 Physician(s): Jayshree Bella M.D. Dr. Michael S. Klein, M.D. DIAGNOSIS: Liver, needle biopsy: - Metastatic adenocarcinoma consistent with pancreatic primary - Acute cholestasis lkb/01/10/2025 15:16 Examining Pathologist: Zeinab Brown M.D. Report Reviewed and Electronically Signed By Zeinab Brown M.D. SPECIMEN TYPE: A: LIVER CLINICAL IMPRESSION AND HISTORY: Jaundice. According to the electronic medical record, the patient was recently diagnosed with pancreatic adenocarcinoma. Imaging shows extensive, small, hypoattenuating hepatic lesions concerning for microabscesses, less likely metastases, serosal implant, and pathologic upper abdominal lymphadenopathy. GROSS DESCRIPTION: Received in formalin in a single container with the patient's name, DONG TEIXEIRA labeled liver and contains to green brown cores of tissue measuring 1.2 cm and 1.6 cm. Due to the color and size of the specimen, eosin is used. The specimen is filtered and submitted entirely in cassette A1. [facility] MICROSCOPIC DESCRIPTION: Sections show cores of liver tissue with acute, canalicular cholestasis. Portal tracts show mild chronic inflammation. Microabscesses are not present nor is cholangitis. Scattered atypical glandular foci measuring less than 0.1cm to 0.2 cm and composed of haphazard, angulated glands with [id number] nuclear atypia, luminal mucin, and desmoplasia are present. Rare foci show singly dispersed, atypical epithelial cells in fibrous stroma. Although ductular reaction from obstruction is considered, the atypia, haphazard arrangement of the glands, and luminal mucin are most consistent with metastatic adenocarcinoma. Furthermore, rare foci suggestive of lymphovascular space invasion are noted. The trichrome stain highlights the portal areas and desmoplasia in the metastatic foci. The reticulin stain highlights the normal trabecular architecture. PAS-D is negative for globules. The iron stain shows scant, 1-2 +hepatocellular iron and sinusoidal lining cell iron. Clerical Data Follows A; [id number], [id number], [id number], [id number], [id number] REPORT IMAGES AND/OR SCANNED DOCUMENTS ONLY VIEWABLE IN PDF FORMAT The immunohistochemical test(s) cited in this report, if any, was developed and its performance characteristics determined by [facility] Pathology Department. It has not been cleared or approved by the U.S. Food and Drug Administration. The FDA has determined that such clearance or approval is not necessary. This test is used for clinical purposes. It should not be regarded as investigational or for research. [facility] is certified under the Clinical [...] part or completely in the following laboratories: [facility], [address] [place] [address], [address] [place] [address]. us Virgil Wynne MD LAB PATHOLOGY ORDERABLES Ashwini hung Result PATHOLOGY [facility] Laboratory Receiving [address] [place] [address] * POCT glucose (01/09/2025 11:41 AM CDT) Glucose, POC 132 70 - 199 mg/dL Comment: For Glucose values <35 mg/dl when Hematocrit is >60 mg/dl,the test may not accurately detect significant hypoglycemia,and testing in the Laboratory should be considered if clinically indicated. POC Performer [phone] [facility] Blood 01/09/2025 11:4 1 AM CDT 01/09/2025 11:41 AM CDT us Sweetie Pryor MD LAB POCT ORDERABLES - GORAN CE Final Result Performing Organization Address [facility] Co de Phone Number [facility] [address] [place] [address] * POCT glucose (01/09/2025 6:18 AM CDT) Glucose, POC 128 70 - 199 mg/dL Comment: For Glucose values <35 mg/dl when Hematocrit is >60 mg/dl,the test may not accurately detect significant hypoglycemia,and testing in the Laboratory should be considered if clinically indicated. POC Performer [id number] [facility] Blood 01/09/2025 6:18 AM CDT 01/09/2025 6:18 AM CDT us Pam Castro MD LAB POCT ORDERABLES - DEVICE F inal Result Performing Organization Address [facility] de Phone Number [facility] [address] [place] [address] * eGFR (01/09/2025 5:44 AM CDT) eGFR >90 >=60 mL/min/1. 73 [...] interpretive data was last reviewed 2021. Blood 01/09/2025 5:44 AM CDT 01/09/2025 7:00 AM CDT us Mildred GARCIA LAB BLOOD ORDERABLES Final Re sult [facility] [address] Department [place] [address] * (ABNORMAL) Differential, auto (01/09/2025 5:44 AM CDT) Neutrophil abs 5.73 1.50 - 6.50 K/cumm Imm gran abs 0.18(H) 0.00 - 0.10 K/cumm [facility] Lymphocyte abs 1.53 0.80 - 3.30 K/cumm [facility] Monocyte abs 0.94(H) 0.20 - 0.80 K/cumm [facility] Eosinophil abs 0.33 0.00 - 0.50 K/cumm [facility] Basophil abs 0.05 0.00 - 0.10 K/cumm [facility] Neutrophil pct 65.3 % [facility] Comment: Interpretive Data Percent cell count reference ranges are not reported, since discordance with absolute values may lead to misinterpretation of CBC data. Current Interpretive Data was last revised on 2018. Imm gran pct 2.1 % [facility] Comment: Interpretive Data Percent cell count reference ranges are not reported, since discordance with absolute values may lead to misinterpretation of CBC data. Current Interpretive Data was last revised on 2018. Lymphocyte pct 17.5 % [facility] Comment: Interpretive Data Percent cell count reference ranges are not reported, since discordance with absolute values may lead to misinterpretation of CBC data. Current Interpretive Data was last revised on 2018. Monocyte pct 10.7 % [facility] Comment: Interpretive Data Percent cell count reference ranges are not reported, since discordance with absolute values may lead to misinterpretation of CBC data. Current Interpretive Data was last revised on 2018. Eosinophil pct 3.8 % [facility] Comment: Interpretive Data Percent cell count reference ranges are not reported, since discordance with absolute values may lead to misinterpretation of CBC data. Current Interpretive Data was last revised on 2018. Basophil pct 0.6 % [facility] Comment: Interpretive Data Percent cell count reference ranges are not reported, since discordance with absolute values may lead to misinterpretation of CBC data. Current Interpretive Data was last revised on 2018. Blood 01/09/2025 5:44 AM CDT 01/09/2025 7:00 AM CDT us Pam Castro MD LAB BLOOD ORDERABLES Final Res ult [facility] [address] Department [place] [address] * TB test, quantiferon gold (01/09/2025 5:44 AM CDT) [facility] Quantiferon TB Gold Negative Negative [facility] Lab Comment: No interferon-gamma response to M. tuberculosis antigens was detected. Latent infection with M. tuberculosis is unlikely. A single negative result does not exclude infection with M. tuberculosis. In patients at high risk for M.tuberculosis infection, a second test should be considered in accordance with the 2017 ATS/IDSA/CDC Clinical Practice Guidelines for Diagnosis of Tuberculosis in Adults and Children [Lewinsohn DM et. al. Clin. Infect. Dis. 2017;64(2):111-115]. The reference range for the 'TB1 Ag minus Nil Result' and 'TB2 Ag minus Nil Result' is an Interferon-gamma level <0.35 IU/mL. TB-Nil 0.00 IUnits/mL [facility] TB2-Nil 0.00 IUnits/mL [facility] Mitogen-Nil 0.58 IUnits/mL [facility] NIL 0.00 IUnits/mL [facility] Comment: Test Performed by: [facility] - [facility] [address] [place] [address] Informaticist: Matheus Cleaning Ph.D.; CLIA# [id number] Blood 01/09/2025 5:44 AM CDT 01/09/2025 7:00 AM CDT us Virgil Wynne MD LAB BLOOD ORDERABLES Final Re sult Performing Organization Address [facility]/ZIP Co de Phone Number [facility] [address] [employer] [place] [address] [facility] * (ABNORMAL) CBC with auto differential (01/09/2025 5:44 AM CDT) WBC 8.76 3.80 - 9.90 K/cumm Hgb 11.9(L) 13.0 - 17.5 g/dL [facility] Hct 33.1(L) 38.9 - 50.3 % [facility] Plt 268 150 - 400 K/cumm [facility] MPV 10.1 9.1 - 12.3 fL [facility] RBC 3.86(L) 4.30 - 5.80 M/cumm [facility] MCV 85.8 81.3 - 96.4 fL [facility] MCH 30.8 27.1 - 33.3 pg [facility] MCHC 36.0(H) 32.3 - 35.7 g/dL [facility] RDW CV 22.4(H) 11.1 - 14.9 % [facility] RDW SD 68.6(H) 35.7 - 48.1 fL [facility] NRBC abs 0.00 0.00 - 0.01 K/cumm [facility] Blood 01/09/2025 5:44 AM CDT 01/09/2025 7:00 AM CDT us Pam Castro MD LAB BLOOD ORDERABLES Final Res ult [facility] [address] Department [place] [address] * Blood culture Blood (01/09/2025 5:44 AM CDT) Report Final Report: No growth Blood 01/09/2025 5:44 AM CDT 01/09/2025 6:59 AM CDT [facility] - 01/14/2025 7:01 AM CDT From a different site than #1. Interpretive Data 1. Blood cultures are incubated and monitored continuously for 5 days (120 hours). The first negative report is issued within 24 hours of receipt in the laboratory. 2. All positive cultures are resulted and called to physicians/care providers as soon as they are detected. 3. A rapid molecular test for organism identification may be performed using the [employer] Blood Culture Identification panel. This assay detects microbial DNA in a blood culture broth. This assay has been cleared by the [place] Food and Drug Administration and its performance characteristics have been verified by the [facility]. Interpretive data was last revised on November 05, 2022. Virgil Wynne MD LAB MICROBIOLOGY - GENERAL OR DERABLES Final Result [facility] [address] Department [place] [address] * Blood culture Blood (01/09/2025 5:44 AM CDT) Report Final Report: No growth Blood 01/09/2025 5:44 AM CDT 01/09/2025 6:59 AM CDT [facility] - 01/14/2025 7:01 AM CDT Interpretive Data 1. Blood cultures are incubated and monitored continuously for 5 days (120 hours). The first negative report is issued within 24 hours of receipt in the laboratory. 2. All positive cultures are resulted and called to physicians/care providers as soon as they are detected. 3. A rapid molecular test for organism identification may be performed using the [employer] Blood Culture Identification panel. This assay detects microbial DNA in a blood culture broth. This assay has been cleared by the [place] Food and Drug Administration and its performance characteristics have been verified by the [facility]. Interpretive data was last revised on November 05, 2022. us Virgil Wynne MD LAB MICROBIOLOGY - GENERAL OR DERABLES Final Result Performing Organization Address [facility] Co de Phone Number [facility] [address] [facility] [place] [address] * aPTT (01/09/2025 5:44 AM CDT) aPTT 33 28 - 38 sec Comment: Interpretive Data Heparin therapeutic range: 66.0 - 100.0 seconds. Range based on correlation with therapeutic heparin activity range of 0.3 - 0.7 Units/mL. Current interpretive data was last revised on 2023. Blood 01/09/2025 5:44 AM CDT 01/09/2025 7:01 AM CDT Result [facility] Virigl Wynne MD LAB BLOOD ORDERABLES Final Re sult Performing Organization Address [facility] Co de Phone Number [facility] [address] [facility] [place] [address] * (ABNORMAL) Protime-INR (01/09/2025 5:44 AM CDT) PT 13.1(H) 9.7 - 13.0 sec INR 1.21(H) 0.90 - 1.20 [facility] Comment: Interpretive data Oral anticoagulant therapeutic ranges: Venous thromboembolism prophylaxis or treatment: 2.0-3.0 CARDIOLOGY Standard range: 2.0-3.0 High-intensity range: 2.5-3.5 Refer to indication-specific guidelines for appropriate target ranges for prosthetic heart valve replacement. Current interpretive data was last revised on 2019. Blood 01/09/2025 5:44 AM CDT 01/09/2025 7:01 AM CDT Mildred GARCIA LAB BLOOD ORDERABLES Final Re sult [facility] [address] Department [place] [address] * (ABNORMAL) Comprehensive metabolic panel (01/09/2025 5:44 AM CDT) Sodium 137 135 - 145 mmol/L Potassium, pl 4.0 3.3 - 4.9 mmol/L [facility] Chloride 103 97 - 110 mmol/L [facility] CO2 23 22 - 32 mmol/L [facility] Anion gap 11 2 - 15 mmol/L [facility] BUN 10 6 - 25 mg/dL [facility] Creatinine 0.57(L) 0.80 - 1.30 mg/dL [facility] Glucose 131 70 - 199 mg/dL [facility] Comment: Interpretive Data Fasting glucose [...] interpretive data was last revised 2022. Calcium 8.0(L) 8.5 - 10.3 mg/dL [facility] Bilirubin, total 17.9(H) 0.1 - 1.2 mg/dL [facility] Protein, pl 5.1(L) 6.5 - 8.5 g/dL [facility] Albumin 2.4(L) 3.5 - 5.0 g/dL [facility] Alk phos 1,302(H) 40 - 130 Units/L [facility] ALT 202(H) 7 - 55 Units/L [facility] AST 119(H) 10 - 50 Units/L [facility] Blood 01/09/2025 5:44 AM CDT 01/09/2025 7:00 AM CDT us Mildred GARCIA LAB BLOOD ORDERABLES Final Re sult Performing Organization Address [facility]/ZIP Co de Phone Number [facility] [address] Department of Laboratories [place], [place] [id number] * (ABNORMAL) POCT glucose (01/08/2025 9:23 PM CDT) Glucose, POC 206(H) 70 - 199 mg/dL Comment: For Glucose values <35 mg/dl when Hematocrit is >60 mg/dl,the test may not accurately detect significant hypoglycemia,and testing in the Laboratory should be considered if clinically indicated. POC Performer [id number] [facility] Blood 01/08/2025 9:23 PM CDT 01/08/2025 9:23 PM CDT us Pam Castro MD LAB POCT ORDERABLES - DEVICE F inal Result Performing Organization Address [facility] Co de Phone Number [facility] [address] Department of Laboratories [place], [place] [id number] * POCT glucose (01/08/2025 4:43 PM CDT) [facility] Signature Glucose, POC 131 70 - 199 mg/dL Comment: For Glucose values <35 mg/dl when Hematocrit is >60 mg/dl,the test may not accurately detect significant hypoglycemia,and testing in the Laboratory should be considered if clinically indicated. POC Performer [phone] [facility] Blood 01/08/2025 4:43 PM CDT 01/08/2025 4:43 PM CDT us Pam Castro MD LAB POCT ORDERABLES - DEVICE F inal Result Performing Organization Address [facility] Co de Phone Number [facility] [address] Department of Laboratories [place], [place] [id number] * Direct bilirubin - Add on lab test (01/08/2025 1:34 PM CDT) Acceptable Yes Blood 01/08/2025 1:34 PM CDT 01/08/2025 1:35 PM CDT Narrative [facility] - 01/08/2025 1:36 PM CDT Name of Test->Direct bilirubin us Mildred GARCIA LAB BLOOD ORDERABLES Final Re sult Performing Organization Address [facility]/ZIP Co de Phone Number [facility] [address] Department of Laboratories [place], [place] [id number] * POCT glucose (01/08/2025 11:53 AM CDT) [facility] Glucose, POC 140 70 - 199 mg/dL Comment: For Glucose values <35 mg/dl when Hematocrit is >60 mg/dl,the test may not accurately detect significant hypoglycemia,and testing in the Laboratory should be considered if clinically indicated. POC Performer [id number] [facility] Blood 01/08/2025 11:5 3 AM CDT 01/08/2025 11:53 AM CDT Pam Castro MD LAB POCT ORDERABLES - DEVICE F inal Result Performing Organization Address [facility] Co de Phone Number [facility] [address] Department of Laboratories [place], [place] [id number] * CT abdomen pelvis with contrast (01/08/2025 9:20 AM CDT) Anatomical Region Laterality Modality Body N/A Computed Tomogra phy 01/08/2025 10:3 4 AM CDT Impressions 01/08/2025 11:51 AM CDT 1. Increasing pneumobilia and conspicuity of extensive hypoattenuating hepatic lesions throughout the liver, geno-biliary abscesses in the setting of cholangitis. The increase in conspicuity may be related to bolus timing. No definite new abscess. 2. 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 3. Findings of local metastatic disease as evidenced by the presence of a serosal implant and pathologic upper abdominal lymphadenopathy. Dictated by: Jack Benoit MD The radiology attending physician has personally reviewed this study, and had reviewed and/or edited this written report and agrees with it. Electronically signed by: Vero Menjivar M.D. Narrative 01/08/2025 11:51 AM CDT EXAMINATION: Computed tomography of the abdomen and pelvis with intravenous contrast HISTORY: Known pancreatic cancer, concern for acute cholangitis TECHNIQUE: Transaxial computed tomographic images of the abdomen and pelvis were obtained with intravenous contrast according to the standard protocol after the uneventful administration of 70 mL Opti-Ray 350 intravenous contrast. COMPARISON: 01/04/2025 FINDINGS: Bibasilar atelectasis. There is old granulomatous disease. Partially imaged calcified hilar lymphadenopathy. No pericardial effusion. Increased pneumobilia. There is increased conspicuity of extensive ill-defined hypoattenuating lesions throughout the hepatic parenchyma. The gallbladder is decompressed, with circumferential wall thickening and intraluminal gas. A metallic common bile duct stents traverses the site of an infiltrative pancreatic head lesion which appears to efface the posterior aspect of the superior mesenteric vein and the lateral margin of the superior mesenteric artery. There is abutment of the aorta extending from the approximately 8:00-11 o'clock position. There is effacement of the anterior margin of the inferior vena cava, unchanged. Dilatation of the main pancreatic duct is unchanged. The spleen and right adrenal gland are normal. A 2.1 cm left adrenal nodule is unchanged. The kidneys enhance symmetrically without hydronephrosis or nephrolithiasis. The urinary bladder is normal. Multiple loops of fluid-filled small bowel are present without dilatation, likely ileus. No bowel obstruction is noted. Diffuse anterior mesenteric fat stranding may represent vascular congestion and is unchanged. Previously described serosal implant is unchanged. Small volume ascites. No pneumoperitoneum. Unchanged upper abdominal lymphadenopathy. No acute fracture. 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 Procedure Note Vero Menjivar MD - 01/08/2025 EXAMINATION: Computed tomography of the abdomen and pelvis with intravenous contrast HISTORY: Known pancreatic cancer, concern for acute cholangitis TECHNIQUE: Transaxial computed tomographic images of the abdomen and pelvis were obtained with intravenous contrast according to the standard protocol after the uneventful administration of 70 mL Opti-Ray 350 intravenous contrast. COMPARISON: 01/04/2025 FINDINGS: Bibasilar atelectasis. There is old granulomatous disease. Partially imaged calcified hilar lymphadenopathy. No pericardial effusion. Increased pneumobilia. There is increased conspicuity of extensive ill-defined hypoattenuating lesions throughout the hepatic parenchyma. The gallbladder is decompressed, with circumferential wall thickening and intraluminal gas. A metallic common bile duct stents traverses the site of an infiltrative pancreatic head lesion which appears to efface the posterior aspect of the superior mesenteric vein and the lateral margin of the superior mesenteric artery. There is abutment of the aorta extending from the approximately 8:00-11 o'clock position. There is effacement of the anterior margin of the inferior vena cava, unchanged. Dilatation of the main pancreatic duct is unchanged. The spleen and right adrenal gland are normal. A 2.1 cm left adrenal nodule is unchanged. The kidneys enhance symmetrically without hydronephrosis or nephrolithiasis. The urinary bladder is normal. Multiple loops of fluid-filled small bowel are present without dilatation, likely ileus. No bowel obstruction is noted. Diffuse anterior mesenteric fat stranding may represent vascular congestion and is unchanged. Previously described serosal implant is unchanged. Small volume ascites. No pneumoperitoneum. Unchanged upper abdominal lymphadenopathy. No acute fracture. 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 IMPRESSION: 1. Increasing pneumobilia and conspicuity of extensive hypoattenuating hepatic lesions throughout the liver, geno-biliary abscesses in the setting of cholangitis. The increase in conspicuity may be related to bolus timing. No definite new abscess. 2. 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 3. Findings of local metastatic disease as evidenced by the presence of a serosal implant and pathologic upper abdominal lymphadenopathy. Dictated by: Jack Benoit MD The radiology attending physician has personally reviewed this study, and had reviewed and/or edited this written report and agrees with it. Electronically signed by: Vero Menjivar M.D. Mildred GARCIA IM CT PROCEDURES Final Resul t * POCT glucose (01/08/2025 6:58 AM CDT) Glucose, POC 92 70 - 199 mg/dL Comment: For Glucose values <35 mg/dl when Hematocrit is >60 mg/dl,the test may not accurately detect significant hypoglycemia,and testing in the Laboratory should be considered if clinically indicated. POC Performer [phone] [facility] Blood 01/08/2025 6:58 AM CDT 01/08/2025 6:58 AM CDT us Pam Castro MD LAB POCT ORDERABLES - DEVICE F inal Result Performing Organization Address [facility]/ZIP Co de Phone Number [facility] [address] Department [place] [address] * eGFR (01/08/2025 5:17 AM CDT) eGFR >90 >=60 mL/min/1. 73 [...] interpretive data was last reviewed 2021. Blood 01/08/2025 5:17 AM CDT 01/08/2025 6:29 AM CDT us Pam Catsro MD LAB BLOOD ORDERABLES Final Res ult Performing Organization Address [facility]/ZIP Co de Phone Number [facility] [address] Department [place] [address] * (ABNORMAL) Differential, auto (01/08/2025 5:17 AM CDT) Neutrophil abs 5.27 1.50 - 6.50 K/cumm Imm gran abs 0.18(H) 0.00 - 0.10 K/cumm [facility] Lymphocyte abs 1.79 0.80 - 3.30 K/cumm [facility] Monocyte abs 0.89(H) 0.20 - 0.80 K/cumm [facility] Eosinophil abs 0.42 0.00 - 0.50 K/cumm [facility] Basophil abs 0.05 0.00 - 0.10 K/cumm [facility] Neutrophil pct 61.3 % [facility] Comment: Interpretive Data Percent cell count reference ranges are not reported, since discordance with absolute values may lead to misinterpretation of CBC data. Current Interpretive Data was last revised on 2018. Imm gran pct 2.1 % [facility] Comment: Interpretive Data Percent cell count reference ranges are not reported, since discordance with absolute values may lead to misinterpretation of CBC data. Current Interpretive Data was last revised on 2018. Lymphocyte pct 20.8 % [facility] Comment: Interpretive Data Percent cell count reference ranges are not reported, since discordance with absolute values may lead to misinterpretation of CBC data. Current Interpretive Data was last revised on 2018. Monocyte pct 10.3 % [facility] Comment: Interpretive Data Percent cell count reference ranges are not reported, since discordance with absolute values may lead to misinterpretation of CBC data. Current Interpretive Data was last revised on 2018. Eosinophil pct 4.9 % [facility] Comment: Interpretive Data Percent cell count reference ranges are not reported, since discordance with absolute values may lead to misinterpretation of CBC data. Current Interpretive Data was last revised on 2018. Basophil pct 0.6 % [facility] Comment: Interpretive Data Percent cell count reference ranges are not reported, since discordance with absolute values may lead to misinterpretation of CBC data. Current Interpretive Data was last revised on 2018. Blood 01/08/2025 5:17 AM CDT 01/08/2025 6:30 AM CDT Pam Castro MD LAB BLOOD ORDERABLES Final Res ult Performing Organization Address [facility] Co de Phone Number [facility] [address] [place] [address] * (ABNORMAL) CBC with auto differential (01/08/2025 5:17 AM CDT) WBC 8.60 3.80 - 9.90 K/cumm Hgb 13.3 13.0 - 17.5 g/dL [facility] Hct 36.7(L) 38.9 - 50.3 % [facility] Plt 265 150 - 400 K/cumm [facility] MPV 9.7 9.1 - 12.3 fL [facility] RBC 4.27(L) 4.30 - 5.80 M/cumm [facility] MCV 85.9 81.3 - 96.4 fL [facility] MCH 31.1 27.1 - 33.3 pg [facility] MCHC 36.2(H) 32.3 - 35.7 g/dL [facility] RDW CV 22.5(H) 11.1 - 14.9 % [facility] RDW SD 69.0(H) 35.7 - 48.1 fL [facility] NRBC abs 0.00 0.00 - 0.01 K/cumm [facility] Blood 01/08/2025 5:17 AM CDT 01/08/2025 6:30 AM CDT us Pam Castro MD LAB BLOOD ORDERABLES Final Res ult Performing Organization Address [facility]/ZIP Co de Phone Number [facility] [address] [place] [address] * (ABNORMAL) Bilirubin, direct (01/08/2025 5:17 AM CDT) Pathologist [facility] Bilirubin, direct 14.9(H) 0.1 - 0.3 mg/dL Blood 01/08/2025 5:17 AM CDT 01/08/2025 6:29 AM CDT us Pam Castro MD LAB BLOOD ORDERABLES Final Res ult [facility] [address] Department [place] [address] * (ABNORMAL) Comprehensive metabolic panel (01/08/2025 5:17 AM CDT) [facility] Sodium 138 135 - 145 mmol/L Potassium, pl 3.8 3.3 - 4.9 mmol/L [facility] Chloride 103 97 - 110 mmol/L [facility] CO2 22 22 - 32 mmol/L [facility] Anion gap 13 2 - 15 mmol/L [facility] BUN 13 6 - 25 mg/dL [facility] Creatinine 0.59(L) 0.80 - 1.30 mg/dL [facility] Glucose 96 70 - 199 mg/dL [facility] Comment: Interpretive Data Fasting glucose [...] interpretive data was last revised 2022. Calcium 8.0(L) 8.5 - 10.3 mg/dL [facility] Bilirubin, total 20.6(H) 0.1 - 1.2 mg/dL [facility] Protein, pl 5.6(L) 6.5 - 8.5 g/dL [facility] Albumin 2.6(L) 3.5 - 5.0 g/dL [facility] Alk phos 1,552(H) 40 - 130 Units/L [facility] ALT 251(H) 7 - 55 Units/L [facility] AST 147(H) 10 - 50 Units/L [facility] Blood 01/08/2025 5:17 AM CDT 01/08/2025 6:29 AM CDT Pam Castro MD LAB BLOOD ORDERABLES Final Res ult Performing Organization Address [facility] Co de Phone Number [facility] [address] Department of Laboratories [place], [place] [id number] * POCT glucose (01/07/2025 9:26 PM CDT) Glucose, POC 109 70 - 199 mg/dL Comment: For Glucose values <35 mg/dl when Hematocrit is >60 mg/dl,the test may not accurately detect significant hypoglycemia,and testing in the Laboratory should be considered if clinically indicated. POC Performer [phone] [facility] Blood 01/07/2025 9:26 PM CDT 01/07/2025 9:26 PM CDT Pam Castro MD LAB POCT ORDERABLES - DEVICE F inal Result Performing Organization Address [facility] de Phone Number [facility] [address] [place] [address] * POCT glucose (01/07/2025 4:41 PM CDT) Glucose, POC 130 70 - 199 mg/dL Comment: For Glucose values <35 mg/dl when Hematocrit is >60 mg/dl,the test may not accurately detect significant hypoglycemia,and testing in the Laboratory should be considered if clinically indicated. POC Performer [id number] [facility] Blood 01/07/2025 4:41 PM CDT 01/07/2025 4:41 PM CDT us Pam Castro MD LAB POCT ORDERABLES - DEVICE F inal Result Performing Organization Address [facility] Co de Phone Number [facility] [address] [facility] [place], [place] [id number] * POCT glucose (01/07/2025 11:56 AM CDT) Glucose, POC 131 70 - 199 mg/dL Comment: For Glucose values <35 mg/dl when Hematocrit is >60 mg/dl,the test may not accurately detect significant hypoglycemia,and testing in the Laboratory should be considered if clinically indicated. POC Performer [phone] [facility] Blood 01/07/2025 11:5 6 AM CDT 01/07/2025 11:56 AM CDT us Pam Castro MD LAB POCT ORDERABLES - DEVICE F inal Result Performing Organization Address [facility] de Phone Number [facility] [address] [facility] [place] [address] * POCT glucose (01/07/2025 7:45 AM CDT) Glucose, POC 131 70 - 199 mg/dL Comment: For Glucose values <35 mg/dl when Hematocrit is >60 mg/dl,the test may not accurately detect significant hypoglycemia,and testing in the Laboratory should be considered if clinically indicated. POC Performer [phone] [facility] Blood 01/07/2025 7:45 AM CDT 01/07/2025 7:45 AM CDT us Pam Castro MD LAB POCT ORDERABLES - DEVICE F inal Result Performing Organization Address [facility] Co de Phone Number [facility] [address] [facility] [place], [place] [id number] * eGFR (01/07/2025 6:44 AM CDT) eGFR >90 >=60 mL/min/1. 73 [...] interpretive data was last reviewed 2021. Blood 01/07/2025 6:44 AM CDT 01/07/2025 6:54 AM CDT us Pam Castro MD LAB BLOOD ORDERABLES Final Res ult [facility] [address] Department [place] [address] * (ABNORMAL) Differential, auto (01/07/2025 6:44 AM CDT) Neutrophil abs 4.92 1.50 - 6.50 K/cumm Imm gran abs 0.13(H) 0.00 - 0.10 K/cumm [facility] Lymphocyte abs 1.41 0.80 - 3.30 K/cumm [facility] Monocyte abs 0.87(H) 0.20 - 0.80 K/cumm [facility] Eosinophil abs 0.34 0.00 - 0.50 K/cumm [facility] Basophil abs 0.04 0.00 - 0.10 K/cumm [facility] Neutrophil pct 63.8 % [facility] Comment: Interpretive Data Percent cell count reference ranges are not reported, since discordance with absolute values may lead to misinterpretation of CBC data. Current Interpretive Data was last revised on 2018. Imm gran pct 1.7 % [facility] Comment: Interpretive Data Percent cell count reference ranges are not reported, since discordance with absolute values may lead to misinterpretation of CBC data. Current Interpretive Data was last revised on 2018. Lymphocyte pct 18.3 % [facility] Comment: Interpretive Data Percent cell count reference ranges are not reported, since discordance with absolute values may lead to misinterpretation of CBC data. Current Interpretive Data was last revised on 2018. Monocyte pct 11.3 % [facility] Comment: Interpretive Data Percent cell count reference ranges are not reported, since discordance with absolute values may lead to misinterpretation of CBC data. Current Interpretive Data was last revised on 2018. Eosinophil pct 4.4 % [facility] Comment: Interpretive Data Percent cell count reference ranges are not reported, since discordance with absolute values may lead to misinterpretation of CBC data. Current Interpretive Data was last revised on 2018. Basophil pct 0.5 % [facility] Comment: Interpretive Data Percent cell count reference ranges are not reported, since discordance with absolute values may lead to misinterpretation of CBC data. Current Interpretive Data was last revised on 2018. Blood 01/07/2025 6:44 AM CDT 01/07/2025 6:55 AM CDT us Pam Castro MD LAB BLOOD ORDERABLES Final Res ult [facility] [address] Department [place] [address] * (ABNORMAL) CBC with auto differential (01/07/2025 6:44 AM CDT) WBC 7.71 3.80 - 9.90 K/cumm Hgb 12.0(L) 13.0 - 17.5 g/dL [facility] Hct 32.4(L) 38.9 - 50.3 % [facility] Plt 222 150 - 400 K/cumm [facility] MPV 10.0 9.1 - 12.3 fL [facility] RBC 3.82(L) 4.30 - 5.80 M/cumm [facility] MCV 84.8 81.3 - 96.4 fL [facility] MCH 31.4 27.1 - 33.3 pg [facility] MCHC 37.0(H) 32.3 - 35.7 g/dL [facility] RDW CV 21.7(H) 11.1 - 14.9 % [facility] RDW SD 66.2(H) 35.7 - 48.1 fL [facility] NRBC abs 0.00 0.00 - 0.01 K/cumm [facility] Blood 01/07/2025 6:44 AM CDT 01/07/2025 6:55 AM CDT us Pam Castro MD LAB BLOOD ORDERABLES Final Res ult [facility] [address] Department [place] [address] * (ABNORMAL) Comprehensive metabolic panel (01/07/2025 6:44 AM CDT) Sodium 138 135 - 145 mmol/L Potassium, pl 3.8 3.3 - 4.9 mmol/L [facility] Chloride 103 97 - 110 mmol/L [facility] CO2 24 22 - 32 mmol/L [facility] Anion gap 11 2 - 15 mmol/L [facility] BUN 14 6 - 25 mg/dL [facility] Creatinine 0.56(L) 0.80 - 1.30 mg/dL [facility] Glucose 138 70 - 199 mg/dL [facility] Comment: Interpretive Data Fasting glucose [...] interpretive data was last revised 2022. Calcium 7.4(L) 8.5 - 10.3 mg/dL [facility] Bilirubin, total 16.8(H) 0.1 - 1.2 mg/dL [facility] Protein, pl 5.0(L) 6.5 - 8.5 g/dL [facility] Albumin 2.5(L) 3.5 - 5.0 g/dL [facility] Alk phos 1,381(H) 40 - 130 Units/L [facility] ALT 246(H) 7 - 55 Units/L [facility] AST 149(H) 10 - 50 Units/L [facility] Blood 01/07/2025 6:44 AM CDT 01/07/2025 6:54 AM CDT Pam Castro MD LAB BLOOD ORDERABLES Final Res ult Performing Organization Address [facility]/ZIP Co de Phone Number [facility] [address] [employer] [place] [address] * POCT glucose (01/06/2025 8:26 PM CDT) Glucose, POC 162 70 - 199 mg/dL Comment: For Glucose values <35 mg/dl when Hematocrit is >60 mg/dl,the test may not accurately detect significant hypoglycemia,and testing in the Laboratory should be considered if clinically indicated. POC Performer [id number] [facility] Blood 01/06/2025 8:26 PM CDT 01/06/2025 8:26 PM CDT us Pam Castro MD LAB POCT ORDERABLES - DEVICE F inal Result Performing Organization Address [facility]/ZIP Co de Phone Number [facility] [address] [facility] [place] [address] * POCT glucose (01/06/2025 4:46 PM CDT) Glucose, POC 126 70 - 199 mg/dL Comment: For Glucose values <35 mg/dl when Hematocrit is >60 mg/dl,the test may not accurately detect significant hypoglycemia,and testing in the Laboratory should be considered if clinically indicated. POC Performer [phone] [facility] Blood 01/06/2025 4:46 PM CDT 01/06/2025 4:46 PM CDT Pam Castro MD LAB POCT ORDERABLES - DEVICE F inal Result Performing Organization Address [facility] Co de Phone Number [facility] [address] [facility] [place] [address] * POCT glucose (01/06/2025 11:49 AM CDT) Glucose, POC 182 70 - 199 mg/dL Comment: For Glucose values <35 mg/dl when Hematocrit is >60 mg/dl,the test may not accurately detect significant hypoglycemia,and testing in the Laboratory should be considered if clinically indicated. POC Performer [phone] [facility] Blood 01/06/2025 11:4 9 AM CDT 01/06/2025 11:49 AM CDT us Pam Castro MD LAB POCT ORDERABLES - DEVICE F inal Result Performing Organization Address [facility] de Phone Number [facility] [address] [facility] [place] [address] * POCT glucose (01/06/2025 7:53 AM CDT) Glucose, POC 136 70 - 199 mg/dL Comment: For Glucose values <35 mg/dl when Hematocrit is >60 mg/dl,the test may not accurately detect significant hypoglycemia,and testing in the Laboratory should be considered if clinically indicated. POC Performer [id number] [facility] Blood 01/06/2025 7:53 AM CDT 01/06/2025 7:53 AM CDT Pam Castro MD LAB POCT ORDERABLES - DEVICE F inal Result Performing Organization [facility] Co de Phone Number [facility] [address] Department [place] [address] * eGFR (01/06/2025 5:55 AM CDT) eGFR >90 >=60 mL/min/1. 73 [...] interpretive data was last reviewed 2021. Blood 01/06/2025 5:55 AM CDT 01/06/2025 7:11 AM CDT us Pam Castro MD LAB BLOOD ORDERABLES Final Res ult Performing Organization Address [facility] Co de Phone Number [facility] [address] Department [place] [address] * (ABNORMAL) Differential, auto (01/06/2025 5:55 AM CDT) Neutrophil abs 5.95 1.50 - 6.50 K/cumm Imm gran abs 0.11(H) 0.00 - 0.10 K/cumm [facility] Lymphocyte abs 1.48 0.80 - 3.30 K/cumm [facility] Monocyte abs 0.90(H) 0.20 - 0.80 K/cumm [facility] Eosinophil abs 0.20 0.00 - 0.50 K/cumm [facility] Basophil abs 0.05 0.00 - 0.10 K/cumm [facility] Neutrophil pct 68.4 % [facility] Comment: Interpretive Data Percent cell count reference ranges are not reported, since discordance with absolute values may lead to misinterpretation of CBC data. Current Interpretive Data was last revised on 2018. Imm gran pct 1.3 % [facility] Comment: Interpretive Data Percent cell count reference ranges are not reported, since discordance with absolute values may lead to misinterpretation of CBC data. Current Interpretive Data was last revised on 2018. Lymphocyte pct 17.0 % [facility] Comment: Interpretive Data Percent cell count reference ranges are not reported, since discordance with absolute values may lead to misinterpretation of CBC data. Current Interpretive Data was last revised on 2018. Monocyte pct 10.4 % [facility] Comment: Interpretive Data Percent cell count reference ranges are not reported, since discordance with absolute values may lead to misinterpretation of CBC data. Current Interpretive Data was last revised on 2018. Eosinophil pct 2.3 % [facility] Comment: Interpretive Data Percent cell count reference ranges are not reported, since discordance with absolute values may lead to misinterpretation of CBC data. Current Interpretive Data was last revised on 2018. Basophil pct 0.6 % [facility] Comment: Interpretive Data Percent cell count reference ranges are not reported, since discordance with absolute values may lead to misinterpretation of CBC data. Current Interpretive Data was last revised on 2018. Blood 01/06/2025 5:55 AM CDT 01/06/2025 7:12 AM CDT us Pam Castro MD LAB BLOOD ORDERABLES Final Res ult [facility] [address] Department [place] [address] * (ABNORMAL) CBC with auto differential (01/06/2025 5:55 AM CDT) WBC 8.69 3.80 - 9.90 K/cumm Hgb 13.7 13.0 - 17.5 g/dL [facility] Hct 37.3(L) 38.9 - 50.3 % [facility] Plt 268 150 - 400 K/cumm [facility] MPV 11.0 9.1 - 12.3 fL [facility] RBC 4.46 4.30 - 5.80 M/cumm [facility] MCV 83.6 81.3 - 96.4 fL [facility] MCH 30.7 27.1 - 33.3 pg [facility] MCHC 36.7(H) 32.3 - 35.7 g/dL [facility] RDW CV 21.7(H) 11.1 - 14.9 % [facility] RDW SD 62.8(H) 35.7 - 48.1 fL [facility] NRBC abs 0.00 0.00 - 0.01 K/cumm [facility] Blood 01/06/2025 5:55 AM CDT 01/06/2025 7:12 AM CDT us Pam Castro MD LAB BLOOD ORDERABLES Final Res ult [facility] [address] Department [place] [address] * (ABNORMAL) Comprehensive metabolic panel (01/06/2025 5:55 AM CDT) Sodium 135 135 - 145 mmol/L Potassium, pl 3.9 3.3 - 4.9 mmol/L [facility] Chloride 100 97 - 110 mmol/L [facility] CO2 23 22 - 32 mmol/L [facility] Anion gap 12 2 - 15 mmol/L [facility] BUN 12 6 - 25 mg/dL [facility] Creatinine 0.59(L) 0.80 - 1.30 mg/dL [facility] Glucose 163 70 - 199 mg/dL [facility] Comment: Interpretive Data Fasting glucose [...] interpretive data was last revised 2022. Calcium 7.9(L) 8.5 - 10.3 mg/dL [facility] Bilirubin, total 17.1(H) 0.1 - 1.2 mg/dL [facility] Protein, pl 5.5(L) 6.5 - 8.5 g/dL [facility] Albumin 2.6(L) 3.5 - 5.0 g/dL [facility] Alk phos 1,657(H) 40 - 130 Units/L [facility] ALT 303(H) 7 - 55 Units/L [facility] AST 212(H) 10 - 50 Units/L [facility] Comment:Slightly Hemolyzed S pecimen Blood 01/06/2025 5:55 AM CDT 01/06/2025 7:11 AM CDT us Pam Castro MD LAB BLOOD ORDERABLES Final Res ult Performing Organization Address City/State/[facility] Co de Phone Number [facility] [address] Department [place] [address] * POCT glucose (01/05/2025 7:57 PM CDT) [facility] Signature Glucose, POC 166 70 - 199 mg/dL Comment: For Glucose values <35 mg/dl when Hematocrit is >60 mg/dl,the test may not accurately detect significant hypoglycemia,and testing in the Laboratory should be considered if clinically indicated. POC Performer [phone] [facility] Blood 01/05/2025 7:57 PM CDT 01/05/2025 7:57 PM CDT Pam Castro MD LAB POCT ORDERABLES - DEVICE F inal Result Performing Organization Address [facility] Co de Phone Number [facility] [address] [facility] [place], [place] [id number] * POCT glucose (01/05/2025 4:44 PM CDT) Glucose, POC 114 70 - 199 mg/dL Comment: For Glucose values <35 mg/dl when Hematocrit is >60 mg/dl,the test may not accurately detect significant hypoglycemia,and testing in the Laboratory should be considered if clinically indicated. POC Performer [phone] [facility] Blood 01/05/2025 4:44 PM CDT 01/05/2025 4:44 PM CDT Pam Castro MD LAB POCT ORDERABLES - DEVICE F inal Result Performing Organization Address [facility] de Phone Number [facility] [address] [facility] [place] [address] * POCT glucose (01/05/2025 2:41 PM CDT) Glucose, POC 111 70 - 199 mg/dL Comment: For Glucose values <35 mg/dl when Hematocrit is >60 mg/dl,the test may not accurately detect significant hypoglycemia,and testing in the Laboratory should be considered if clinically indicated. POC Performer [phone] [facility] Blood 01/05/2025 2:41 PM CDT 01/05/2025 2:41 PM CDT us Pam Castro MD LAB POCT ORDERABLES - DEVICE F inal Result Performing Organization Address [facility] Co de Phone Number [facility] [address] [facility] [place], [place] [id number] * POCT glucose (01/05/2025 1:33 PM CDT) Glucose, POC 115 70 - 199 mg/dL Comment: For Glucose values <35 mg/dl when Hematocrit is >60 mg/dl,the test may not accurately detect significant hypoglycemia,and testing in the Laboratory should be considered if clinically indicated. POC Performer [id number] [facility] Blood 01/05/2025 1:33 PM CDT 01/05/2025 1:33 PM CDT Pam Castro MD LAB POCT ORDERABLES - DEVICE F inal Result Performing Organization Address [facility] de Phone Number [facility] [address] [facility] [place] [address] * POCT glucose (01/05/2025 1:07 PM CDT) Glucose, POC 90 70 - 199 mg/dL Comment: For Glucose values <35 mg/dl when Hematocrit is >60 mg/dl,the test may not accurately detect significant hypoglycemia,and testing in the Laboratory should be considered if clinically indicated. POC Performer [id number] [facility] Blood 01/05/2025 1:07 PM CDT 01/05/2025 1:07 PM CDT us Pam Castro MD LAB POCT ORDERABLES - DEVICE F inal Result Performing Organization Address [facility] de Phone Number [facility] [address] [facility] [place] [address] * POCT glucose (01/05/2025 12:47 PM CDT) Glucose, POC 78 70 - 199 mg/dL Comment: For Glucose values <35 mg/dl when Hematocrit is >60 mg/dl,the test may not accurately detect significant hypoglycemia,and testing in the Laboratory should be considered if clinically indicated. POC Performer [phone] [facility] Blood 01/05/2025 12:4 7 PM CDT 01/05/2025 12:47 PM CDT us Pam Castro MD LAB POCT ORDERABLES - DEVICE F inal Result Performing Organization Address [facility] Co de Phone Number [facility] [address] [facility] [place] [address] * POCT glucose (01/05/2025 12:23 PM CDT) Glucose, POC 75 70 - 199 mg/dL Comment: For Glucose values <35 mg/dl when Hematocrit is >60 mg/dl,the test may not accurately detect significant hypoglycemia,and testing in the Laboratory should be considered if clinically indicated. POC Performer [phone] [facility] Blood 01/05/2025 12:2 3 PM CDT 01/05/2025 12:23 PM CDT us Pam Castro MD LAB POCT ORDERABLES - DEVICE F inal Result Performing Organization Address [facility] de Phone Number [facility] [address] [facility] [place] [address] * POCT glucose (01/05/2025 11:56 AM CDT) Glucose, POC 76 70 - 199 mg/dL Comment: For Glucose values <35 mg/dl when Hematocrit is >60 mg/dl,the test may not accurately detect significant hypoglycemia,and testing in the Laboratory should be considered if clinically indicated. POC Performer [id number] [facility] Blood 01/05/2025 11:5 6 AM CDT 01/05/2025 11:56 AM CDT us Pam Castro MD LAB POCT ORDERABLES - DEVICE F inal Result Performing Organization Address [facility] Co de Phone Number [facility] [address] [facility] [place] [address] * (ABNORMAL) POCT glucose (01/05/2025 11:39 AM CDT) Glucose, POC 69(L) 70 - 199 mg/dL Comment: For Glucose values <35 mg/dl when Hematocrit is >60 mg/dl,the test may not accurately detect significant hypoglycemia,and testing in the Laboratory should be considered if clinically indicated. POC Performer [id number] [facility] Blood 01/05/2025 11:3 9 AM CDT 01/05/2025 11:39 AM CDT Pam Castro MD LAB POCT ORDERABLES - DEVICE F inal Result Performing Organization Address [facility] Co de Phone Number [facility] [address] [facility] [address] [place], [place] [id number] * POCT glucose (01/05/2025 7:50 AM CDT) Glucose, POC 155 70 - 199 mg/dL Comment: For Glucose values <35 mg/dl when Hematocrit is >60 mg/dl,the test may not accurately detect significant hypoglycemia,and testing in the Laboratory should be considered if clinically indicated. POC Performer [id number] [facility] Blood 01/05/2025 7:50 AM CDT 01/05/2025 7:50 AM CDT Pam Castro MD LAB POCT ORDERABLES - DEVICE F inal Result Performing Organization Address [facility] de Phone Number [facility] [address] [facility] [place] [address] * eGFR (01/05/2025 5:06 AM CDT) eGFR >90 >=60 mL/min/1. 73 [...] interpretive data was last reviewed 2021. Blood 01/05/2025 5:06 AM CDT 01/05/2025 5:16 AM CDT us Pam Castro MD LAB BLOOD ORDERABLES Final Res ult [facility] [address] Department [place] [address] * (ABNORMAL) Differential, auto (01/05/2025 5:06 AM CDT) Neutrophil abs 5.10 1.50 - 6.50 K/cumm Imm gran abs 0.11(H) 0.00 - 0.10 K/cumm [facility] Lymphocyte abs 1.59 0.80 - 3.30 K/cumm [facility] Monocyte abs 0.80 0.20 - 0.80 K/cumm [facility] Eosinophil abs 0.15 0.00 - 0.50 K/cumm [facility] Basophil abs 0.02 0.00 - 0.10 K/cumm [facility] Neutrophil pct 65.6 % [facility] Comment: Interpretive Data Percent cell count reference ranges are not reported, since discordance with absolute values may lead to misinterpretation of CBC data. Current Interpretive Data was last revised on 2018. Imm gran pct 1.4 % [facility] Comment: Interpretive Data Percent cell count reference ranges are not reported, since discordance with absolute values may lead to misinterpretation of CBC data. Current Interpretive Data was last revised on 2018. Lymphocyte pct 20.5 % [facility] Comment: Interpretive Data Percent cell count reference ranges are not reported, since discordance with absolute values may lead to misinterpretation of CBC data. Current Interpretive Data was last revised on 2018. Monocyte pct 10.3 % [facility] Comment: Interpretive Data Percent cell count reference ranges are not reported, since discordance with absolute values may lead to misinterpretation of CBC data. Current Interpretive Data was last revised on 2018. Eosinophil pct 1.9 % [facility] Comment: Interpretive Data Percent cell count reference ranges are not reported, since discordance with absolute values may lead to misinterpretation of CBC data. Current Interpretive Data was last revised on 2018. Basophil pct 0.3 % [facility] Comment: Interpretive Data Percent cell count reference ranges are not reported, since discordance with absolute values may lead to misinterpretation of CBC data. Current Interpretive Data was last revised on 2018. Blood 01/05/2025 5:06 AM CDT 01/05/2025 5:16 AM CDT us Pam Castro MD LAB BLOOD ORDERABLES Final Res ult [facility] [address] Department [place] [address] * (ABNORMAL) CBC with auto differential (01/05/2025 5:06 AM CDT) WBC 7.77 3.80 - 9.90 K/cumm Hgb 13.7 13.0 - 17.5 g/dL [facility] Hct 36.5(L) 38.9 - 50.3 % [facility] Plt 277 150 - 400 K/cumm [facility] MPV 9.8 9.1 - 12.3 fL [facility] RBC 4.45 4.30 - 5.80 M/cumm [facility] MCV 82.0 81.3 - 96.4 fL [facility] MCH 30.8 27.1 - 33.3 pg [facility] MCHC 37.5(H) 32.3 - 35.7 g/dL [facility] RDW CV 21.0(H) 11.1 - 14.9 % [facility] RDW SD 60.2(H) 35.7 - 48.1 fL [facility] NRBC abs 0.00 0.00 - 0.01 K/cumm [facility] Blood 01/05/2025 5:06 AM CDT 01/05/2025 5:16 AM CDT us Pam Castro MD LAB BLOOD ORDERABLES Final Res ult [facility] [address] Department [place] [address] * (ABNORMAL) Comprehensive metabolic panel (01/05/2025 5:06 AM CDT) Sodium 129(L) 135 - 145 mmol/L Potassium, pl 3.9 3.3 - 4.9 mmol/L [facility] Chloride 97 97 - 110 mmol/L [facility] CO2 22 22 - 32 mmol/L [facility] Anion gap 10 2 - 15 mmol/L [facility] BUN 13 6 - 25 mg/dL [facility] Creatinine 0.62(L) 0.80 - 1.30 mg/dL [facility] Glucose 144 70 - 199 mg/dL [facility] Comment: Interpretive Data Fasting glucose [...] interpretive data was last revised 2022. Calcium 7.7(L) 8.5 - 10.3 mg/dL [facility] Bilirubin, total 12.3(H) 0.1 - 1.2 mg/dL [facility] Protein, pl 5.0(L) 6.5 - 8.5 g/dL [facility] Albumin 2.5(L) 3.5 - 5.0 g/dL [facility] Alk phos 1,438(H) 40 - 130 Units/L [facility] ALT 272(H) 7 - 55 Units/L [facility] AST 157(H) 10 - 50 Units/L [facility] Blood 01/05/2025 5:06 AM CDT 01/05/2025 5:16 AM CDT us Pam Castro MD LAB BLOOD ORDERABLES Final Res ult Performing Organization Address [facility]/ZIP Co de Phone Number [facility] [address] [facility] [place] [address] * POCT glucose (01/04/2025 9:11 PM CDT) Glucose, POC 126 70 - 199 mg/dL Comment: For Glucose values <35 mg/dl when Hematocrit is >60 mg/dl,the test may not accurately detect significant hypoglycemia,and testing in the Laboratory should be considered if clinically indicated. POC Performer [phone] [facility] Blood 01/04/2025 9:11 PM CDT 01/04/2025 9:11 PM CDT us Pam Castro MD LAB POCT ORDERABLES - DEVICE F inal Result Performing Organization Address [facility] Co de Phone Number [facility] [address] [facility] [place] [address] * POCT glucose (01/04/2025 5:02 PM CDT) Glucose, POC 115 70 - 199 mg/dL Comment: For Glucose values <35 mg/dl when Hematocrit is >60 mg/dl,the test may not accurately detect significant hypoglycemia,and testing in the Laboratory should be considered if clinically indicated. POC Performer [id number] [facility] Blood 01/04/2025 5:02 PM CDT 01/04/2025 5:02 PM CDT Pam Castro MD LAB POCT ORDERABLES - DEVICE F inal Result Performing Organization Address [facility]/ZIP Co de Phone Number [facility] [address] Department [place] [address] * POCT glucose (01/04/2025 12:23 PM CDT) [facility] Signature Glucose, POC 124 70 - 199 mg/dL Comment: For Glucose values <35 mg/dl when Hematocrit is >60 mg/dl,the test may not accurately detect significant hypoglycemia,and testing in the Laboratory should be considered if clinically indicated. POC Performer [phone] [facility] Blood 01/04/2025 12:2 3 PM CDT 01/04/2025 12:23 PM CDT us Pam Castro MD LAB POCT ORDERABLES - DEVICE F inal Result [facility] [address] [place] [address] * CT Chest W and Abdomen Pelvis W WO Contrast (C) (01/04/2025 11:23 AM CDT) Anatomical Region Laterality Modality Body N/A Computed Tomogra phy 01/04/2025 12:0 5 PM CDT Impressions 01/04/2025 12:22 PM CDT 1. No evidence of metastatic disease in the chest. 2. Ill-defined pancreatic head/uncinate process mass, seen to better advantage on same day MRI dated 01/04/2025, not significantly changed compared to CT dated 12/19/2024. 3. Conventional hepatic arterial anatomy. Vascular involvement as described above. There is extension of the soft tissue into the aortocaval space, with loss of the fat plane between the mass and the inferior vena cava, and abutment of the infrarenal abdominal aorta. 4. Trace ascites, and mesenteric serosal deposits. 5. Unchanged appearance of the hepatic parenchyma, with likely microabscesses in the setting of biliary obstruction. Dictated by: Amari Mark MD The radiology attending physician has personally reviewed this study, and had reviewed and/or edited this written report and agrees with it. Electronically signed by: Ascencion Carrillo M.D. Narrative 01/04/2025 12:22 PM CDT EXAMINATION: 1. Computed tomography of the chest with intravenous contrast 2. Computed tomography of the abdomen and pelvis without and with intravenous contrast HISTORY: Pancreatic cancer after presenting with obstructive jaundice. Pathology demonstrated pancreatic adenocarcinoma. Endoscopic ultrasound measured the mass around 2.8 cm. TECHNIQUE: Transaxial computed tomographic images of the chest were obtained with intravenous contrast according to this pancrease protocol. Transaxial computed tomographic images of the abdomen and pelvis were obtained with and without intravenous contrast according to the pancreas protocol after the uneventful administration of 95 mL Opti-Ray 350 intravenous contrast. COMPARISON: MR 01/04/2025 FINDINGS: Chest: No axillary, supra clavicular mediastinal lymphadenopathy. The heart size is normal. No pericardial effusion. Coronary atherosclerotic calcifications are seen. There sequela of old granulomatous disease with calcified mediastinal and hilar lymph nodes. There is aortic atherosclerotic disease. The thoracic esophagus is nondistended. No pleural effusion. No pneumothorax. No suspicious pulmonary nodule. Mild emphysematous changes noted. Abdomen: There is mild intrahepatic biliary ductal dilation, with pneumobilia, and a common bile duct stent. No enhancing liver lesion is seen, however this is better evaluated on same-day MRI. The gallbladder is mildly distended, with small locule of gas secondary to stent. There is mild enhancement of the common bile duct. Pancreas: Tumor: Ill-defined area of relative hypoenhancement arterial phase in the pancreatic head measuring 3.2 x 3.3 cm in size corresponds with known pancreatic adenocarcinoma. There is atrophy of the distal pancreas, with mild prominence of the distal pancreatic duct. The lesion is better seen on same-day MRI. Notably, there is extension of this ill-defined soft tissue into the aortocaval space, as seen on series 7 image 123, with loss of fat plane with the inferior vena cava, and abutment of the aorta from the 8:00 to approximately 11:00 clock-face. Vascular anatomy: There is conventional hepatic arterial anatomy. Vascular encasement: Superior mesenteric artery: No involvement. Superior mesenteric vein: No involvement. Portal vein: No involvement. Celiac artery: No involvement. Hepatic arteries: No involvement. Splenic artery: No involvement. Splenic vein: No involvement. Lymphadenopathy: A serosal implant is seen in the mesenteric fat series 7 image 122, unchanged prior CT measuring approximately 1.2 cm, has mass effect upon the distal aspect of the superior mesenteric vein, and the right colic branches. This is likely the cause of the collateralization seen in the anterior mesentery. The proximal aspect of the superior mesenteric vein and portal veins appear intact, and are uninvolved. Liver lesions: Multiple tiny hypoattenuating liver lesions are similar to CT dated 12/19/2024, and seen to better advantage on MR dated 01/04/2025, and likely compatible with microabscesses in the setting of cholangitis. Ascites: No discrete fluid collection or drainable ascites. Non-pancreatic findings: Normal appearance of the spleen. Left adrenal lesion is better contrast prior MRI, and compatible with meningioma. The right adrenal gland is normal. The kidneys enhance symmetrically. No hydronephrosis. The urinary bladder is normal. The prostate is mildly enlarged. Normal bowel gas pattern. The stomach is normal in caliber. Normal configuration of the duodenum. Normal bowel gas pattern. Stool seen throughout the colon. The appendix is not well seen. Procedure Note Ascencion Carrillo MD - 01/04/2025 EXAMINATION: 1. Computed tomography of the chest with intravenous contrast 2. Computed tomography of the abdomen and pelvis without and with intravenous contrast HISTORY: Pancreatic cancer after presenting with obstructive jaundice. Pathology demonstrated pancreatic adenocarcinoma. Endoscopic ultrasound measured the mass around 2.8 cm. TECHNIQUE: Transaxial computed tomographic images of the chest were obtained with intravenous contrast according to this pancrease protocol. Transaxial computed tomographic images of the abdomen and pelvis were obtained with and without intravenous contrast according to the pancreas protocol after the uneventful administration of 95 mL Opti-Ray 350 intravenous contrast. COMPARISON: MR 01/04/2025 FINDINGS: Chest: No axillary, supra clavicular mediastinal lymphadenopathy. The heart size is normal. No pericardial effusion. Coronary atherosclerotic calcifications are seen. There sequela of old granulomatous disease with calcified mediastinal and hilar lymph nodes. There is aortic atherosclerotic disease. The thoracic esophagus is nondistended. No pleural effusion. No pneumothorax. No suspicious pulmonary nodule. Mild emphysematous changes noted. Abdomen: There is mild intrahepatic biliary ductal dilation, with pneumobilia, and a common bile duct stent. No enhancing liver lesion is seen, however this is better evaluated on same-day MRI. The gallbladder is mildly distended, with small locule of gas secondary to stent. There is mild enhancement of the common bile duct. Pancreas: Tumor: Ill-defined area of relative hypoenhancement arterial phase in the pancreatic head measuring 3.2 x 3.3 cm in size corresponds with known pancreatic adenocarcinoma. There is atrophy of the distal pancreas, with mild prominence of the distal pancreatic duct. The lesion is better seen on same-day MRI. Notably, there is extension of this ill-defined soft tissue into the aortocaval space, as seen on series 7 image 123, with loss of fat plane with the inferior vena cava, and abutment of the aorta from the 8:00 to approximately 11:00 clock-face. Vascular anatomy: There is conventional hepatic arterial anatomy. Vascular encasement: Superior mesenteric artery: No involvement. Superior mesenteric vein: No involvement. Portal vein: No involvement. Celiac artery: No involvement. Hepatic arteries: No involvement. Splenic artery: No involvement. Splenic vein: No involvement. Lymphadenopathy: A serosal implant is seen in the mesenteric fat series 7 image 122, unchanged prior CT measuring approximately 1.2 cm, has mass effect upon the distal aspect of the superior mesenteric vein, and the right colic branches. This is likely the cause of the collateralization seen in the anterior mesentery. The proximal aspect of the superior mesenteric vein and portal veins appear intact, and are uninvolved. Liver lesions: Multiple tiny hypoattenuating liver lesions are similar to CT dated 12/19/2024, and seen to better advantage on MR dated 01/04/2025, and likely compatible with microabscesses in the setting of cholangitis. Ascites: No discrete fluid collection or drainable ascites. Non-pancreatic findings: Normal appearance of the spleen. Left adrenal lesion is better contrast prior MRI, and compatible with meningioma. The right adrenal gland is normal. The kidneys enhance symmetrically. No hydronephrosis. The urinary bladder is normal. The prostate is mildly enlarged. Normal bowel gas pattern. The stomach is normal in caliber. Normal configuration of the duodenum. Normal bowel gas pattern. Stool seen throughout the colon. The appendix is not well seen. IMPRESSION: 1. No evidence of metastatic disease in the chest. 2. Ill-defined pancreatic head/uncinate process mass, seen to better advantage on same day MRI dated 01/04/2025, not significantly changed compared to CT dated 12/19/2024. 3. Conventional hepatic arterial anatomy. Vascular involvement as described above. There is extension of the soft tissue into the aortocaval space, with loss of the fat plane between the mass and the inferior vena cava, and abutment of the infrarenal abdominal aorta. 4. Trace ascites, and mesenteric serosal deposits. 5. Unchanged appearance of the hepatic parenchyma, with likely microabscesses in the setting of biliary obstruction. Dictated by: Amari Mark MD The radiology attending physician has personally reviewed this study, and had reviewed and/or edited this written report and agrees with it. Electronically signed by: Ascencion Carrillo M.D. Phil Guzman MD IMG CT PROCEDURES Final Result * POCT glucose (01/04/2025 6:10 AM CDT) [facility] Glucose, POC 139 70 - 199 mg/dL Comment: For Glucose values <35 mg/dl when Hematocrit is >60 mg/dl,the test may not accurately detect significant hypoglycemia,and testing in the Laboratory should be considered if clinically indicated. POC Performer [id number] [facility] Blood 01/04/2025 6:10 AM CDT 01/04/2025 6:10 AM CDT Charly Mooney MD LAB POCT ORDERABLES - DE VICE Final Result [facility] [address] Department [place] [address] * eGFR (01/04/2025 6:06 AM CDT) [facility] eGFR >90 >=60 mL/min/1. 73 m2 [...] interpretive data was last reviewed 2021. Blood 01/04/2025 6:06 AM CDT 01/04/2025 6:30 AM CDT us Charly Mooney MD LAB BLOOD ORDERABLES Fin al Result [facility] [address] Department [place] [address] * (ABNORMAL) Differential, auto (01/04/2025 6:06 AM CDT) Neutrophil abs 5.99 1.50 - 6.50 K/cumm Imm gran abs 0.13(H) 0.00 - 0.10 K/cumm [facility] Lymphocyte abs 1.17 0.80 - 3.30 K/cumm [facility] Monocyte abs 0.73 0.20 - 0.80 K/cumm [facility] Eosinophil abs 0.02 0.00 - 0.50 K/cumm [facility] Basophil abs 0.02 0.00 - 0.10 K/cumm [facility] Neutrophil pct 74.4 % [facility] Comment: Interpretive Data Percent cell count reference ranges are not reported, since discordance with absolute values may lead to misinterpretation of CBC data. Current Interpretive Data was last revised on 2018. Imm gran pct 1.6 % [facility] Comment: Interpretive Data Percent cell count reference ranges are not reported, since discordance with absolute values may lead to misinterpretation of CBC data. Current Interpretive Data was last revised on 2018. Lymphocyte pct 14.5 % [facility] Comment: Interpretive Data Percent cell count reference ranges are not reported, since discordance with absolute values may lead to misinterpretation of CBC data. Current Interpretive Data was last revised on 2018. Monocyte pct 9.1 % [facility] Comment: Interpretive Data Percent cell count reference ranges are not reported, since discordance with absolute values may lead to misinterpretation of CBC data. Current Interpretive Data was last revised on 2018. Eosinophil pct 0.2 % [facility] Comment: Interpretive Data Percent cell count reference ranges are not reported, since discordance with absolute values may lead to misinterpretation of CBC data. Current Interpretive Data was last revised on 2018. Basophil pct 0.2 % [facility] Comment: Interpretive Data Percent cell count reference ranges are not reported, since discordance with absolute values may lead to misinterpretation of CBC data. Current Interpretive Data was last revised on 2018. Blood 01/04/2025 6:06 AM CDT 01/04/2025 6:30 AM CDT us Davina Brand MD LAB BLOOD ORDERABLES Final Resul t [facility] [address] Department [place] [address] * (ABNORMAL) CBC with auto differential (01/04/2025 6:06 AM CDT) WBC 8.06 3.80 - 9.90 K/cumm Hgb 13.9 13.0 - 17.5 g/dL [facility] Hct 37.2(L) 38.9 - 50.3 % [facility] Plt 276 150 - 400 K/cumm [facility] MPV 10.6 9.1 - 12.3 fL [facility] RBC 4.52 4.30 - 5.80 M/cumm [facility] MCV 82.3 81.3 - 96.4 fL [facility] MCH 30.8 27.1 - 33.3 pg [facility] MCHC 37.4(H) 32.3 - 35.7 g/dL [facility] RDW CV 21.0(H) 11.1 - 14.9 % [facility] RDW SD 59.5(H) 35.7 - 48.1 fL [facility] NRBC abs 0.00 0.00 - 0.01 K/cumm [facility] Blood 01/04/2025 6:06 AM CDT 01/04/2025 6:30 AM CDT Davina Brand MD LAB BLOOD ORDERABLES Final Resul t Performing Organization Address [facility]/ZIP Co de Phone Number [facility] [address] [place] [address] * Phosphorus (01/04/2025 6:06 AM CDT) Pathologist [facility] Phosphorus, pl 2.6 2.3 - 4.5 mg/dL Blood 01/04/2025 6:06 AM CDT 01/04/2025 6:30 AM CDT Charly Mooney MD LAB BLOOD ORDERABLES Fin al Result Performing Organization Address [facility] Co de Phone Number [facility] [address] [place] [address] * Magnesium (01/04/2025 6:06 AM CDT) [facility] Magnesium 1.9 1.4 - 2.5 mg/dL Blood 01/04/2025 6:06 AM CDT 01/04/2025 6:30 AM CDT Charly Mooney MD LAB BLOOD ORDERABLES Fin al Result Performing Organization Address [facility] Co de Phone Number [facility] [address] [facility] [place] [address] * (ABNORMAL) Comprehensive metabolic panel (01/04/2025 6:06 AM CDT) Pathologist [facility] Sodium 133(L) 135 - 145 mmol/L Potassium, pl 4.2 3.3 - 4.9 mmol/L [facility] Chloride 99 97 - 110 mmol/L [facility] CO2 24 22 - 32 mmol/L [facility] Anion gap 10 2 - 15 mmol/L [facility] [facility] 14 6 - 25 mg/dL [facility] Creatinine 0.60(L) 0.80 - 1.30 mg/dL [facility] Glucose 135 70 - 199 mg/dL [facility] Comment: Interpretive Data Fasting glucose [...] interpretive data was last revised 2022. Calcium 8.1(L) 8.5 - 10.3 mg/dL [facility] Bilirubin, total 12.4(H) 0.1 - 1.2 mg/dL [facility] Protein, pl 5.2(L) 6.5 - 8.5 g/dL [facility] Albumin 2.3(L) 3.5 - 5.0 g/dL [facility] Alk phos 1,470(H) 40 - 130 Units/L [facility] ALT 329(H) 7 - 55 Units/L [facility] AST 164(H) 10 - 50 Units/L [facility] Blood 01/04/2025 6:06 AM CDT 01/04/2025 6:30 AM CDT us Charly Mooney MD LAB BLOOD ORDERABLES Fin al Result [facility] [address] Department [place] [address] * MRI Abdomen MRCP W WO Contrast Incl 3D (01/04/2025 1:54 AM CDT) Anatomical Region Laterality Modality Body N/A Magnetic Resonan ce 01/04/2025 11:2 5 AM CDT Impressions 01/05/2025 1:03 PM CDT 1. Interval placement of a common bile duct stent with moderate persistent intrahepatic biliary ductal dilatation with superimposed acute cholangitis. There are additional multiple hypoenhancing lesions predominantly within the left hemiliver measuring up to 1.2 cm in segment 4A which are favored to represent peribiliary abscesses in the setting of cholangitis, less likely metastases. Recommend attention on follow-up imaging. 2. Locally infiltrative pancreatic head mass in keeping with adenocarcinoma with involvement of the superior mesenteric artery and vein. 3. Multiple subcentimeter mesenteric with additional prominent periportal lymph nodes which are unchanged and may be reactive in the setting of cholangitis although recommend attention on follow-up imaging. Dictated by: Jamie Harden MD The radiology attending physician has personally reviewed this study, and had reviewed and/or edited this written report and agrees with it. Electronically signed by: Johnnie Harmon M.D. Narrative 01/05/2025 1:03 PM CDT EXAMINATION: 1. MAGNETIC RESONANCE IMAGING OF THE ABDOMEN WITH AND WITHOUT CONTRAST 2. THREE DIMENSIONAL RECONSTRUCTION OF THE BILIARY TREE AND PANCREATIC DUCT HISTORY: Pancreatic adenocarcinoma TECHNIQUE: Magnetic resonance imaging of the abdomen was performed prior to and following the uneventful administration of intravenous Gadolinium contrast. The raw data was processed on the scanner by the technologist for 3 dimensional reconstructions of the intrahepatic ducts, extrahepatics ducts, and pancreatic duct. Protocol: Liver MRCP Contrast: Gadoterate Meglumine 15 mL COMPARISON: CT 12/19/2024 FINDINGS: Liver: No fat or iron deposition. No surface nodularity. - Bile ducts: Common bile duct stent is in place. There is moderate intrahepatic biliary ductal dilatation with scattered areas of arterial peribiliary enhancement representing superimposed cholangitis. Additional evaluation of the common bile duct is limited due to stent. - Focal liver lesions: There are multiple T2 hyperintense lesions within the liver the largest which measures 1.2 cm within segment 4A (series 3 image 25, series 40 image 318). Additional lesions are much smaller and difficult to characterize given the limitations of motion artifact. These appear to be distributed in a branching. Biliary pattern with associated diffusion restriction and no significant internal contrast enhancement favored to represent peribiliary abscesses in the setting of cholangitis, less likely pancreatic metastases. - Vasculature: Main portal and splenic veins are patent. Gallbladder: Layering sludge and stones. No evidence of cholecystitis. Pancreas: There is a 3.7 x 3.4 cm T2 intermediate diffusion restricting mass within the pancreatic head with upstream pancreatic ductal dilatation compatible with the patient's known adenocarcinoma. There is extensive perineural and vascular involvement including the superior mesenteric vein, superior mesenteric artery, and gastroduodenal artery. There is also possible extension to involve the distal common bile duct although this is difficult to evaluate given the presence of a common bile duct stent. Spleen: Normal Adrenals: 2.3 cm left adrenal adenoma with microscopic fat. Normal right adrenal gland. Kidneys: Normal Other Findings: There are multiple subcentimeter mesenteric lymph nodes. Prominent periportal lymph nodes are also noted measuring up to 1 cm (series 3 image 34). No suspicious osseous lesions. Procedure Note Johnnie Harmon MD - 01/05/2025 EXAMINATION: 1. MAGNETIC RESONANCE IMAGING OF THE ABDOMEN WITH AND WITHOUT CONTRAST 2. THREE DIMENSIONAL RECONSTRUCTION OF THE BILIARY TREE AND PANCREATIC DUCT HISTORY: Pancreatic adenocarcinoma TECHNIQUE: Magnetic resonance imaging of the abdomen was performed prior to and following the uneventful administration of intravenous Gadolinium contrast. The raw data was processed on the scanner by the technologist for 3 dimensional reconstructions of the intrahepatic ducts, extrahepatics ducts, and pancreatic duct. Protocol: Liver MRCP Contrast: Gadoterate Meglumine 15 mL COMPARISON: CT 12/19/2024 FINDINGS: Liver: No fat or iron deposition. No surface nodularity. - Bile ducts: Common bile duct stent is in place. There is moderate intrahepatic biliary ductal dilatation with scattered areas of arterial peribiliary enhancement representing superimposed cholangitis. Additional evaluation of the common bile duct is limited due to stent. - Focal liver lesions: There are multiple T2 hyperintense lesions within the liver the largest which measures 1.2 cm within segment 4A (series 3 image 25, series 40 image 318). Additional lesions are much smaller and difficult to characterize given the limitations of motion artifact. These appear to be distributed in a branching. Biliary pattern with associated diffusion restriction and no significant internal contrast enhancement favored to represent peribiliary abscesses in the setting of cholangitis, less likely pancreatic metastases. - Vasculature: Main portal and splenic veins are patent. Gallbladder: Layering sludge and stones. No evidence of cholecystitis. Pancreas: There is a 3.7 x 3.4 cm T2 intermediate diffusion restricting mass within the pancreatic head with upstream pancreatic ductal dilatation compatible with the patient's known adenocarcinoma. There is extensive perineural and vascular involvement including the superior mesenteric vein, superior mesenteric artery, and gastroduodenal artery. There is also possible extension to involve the distal common bile duct although this is difficult to evaluate given the presence of a common bile duct stent. Spleen: Normal Adrenals: 2.3 cm left adrenal adenoma with microscopic fat. Normal right adrenal gland. Kidneys: Normal Other Findings: There are multiple subcentimeter mesenteric lymph nodes. Prominent periportal lymph nodes are also noted measuring up to 1 cm (series 3 image 34). No suspicious osseous lesions. IMPRESSION: 1. Interval placement of a common bile duct stent with moderate persistent intrahepatic biliary ductal dilatation with superimposed acute cholangitis. There are additional multiple hypoenhancing lesions predominantly within the left hemiliver measuring up to 1.2 cm in segment 4A which are favored to represent peribiliary abscesses in the setting of cholangitis, less likely metastases. Recommend attention on follow-up imaging. 2. Locally infiltrative pancreatic head mass in keeping with adenocarcinoma with involvement of the superior mesenteric artery and vein. 3. Multiple subcentimeter mesenteric with additional prominent periportal lymph nodes which are unchanged and may be reactive in the setting of cholangitis although recommend attention on follow-up imaging. Dictated by: Jamie Harden MD The radiology attending physician has personally reviewed this study, and had reviewed and/or edited this written report and agrees with it. Electronically signed by: Johnnie Harmon M.D. Charly Mooney MD IMG MRI PROCEDURES Final Result * POCT glucose (01/03/2025 9:27 PM CDT) Glucose, POC 172 70 - 199 mg/dL Comment: For Glucose values <35 mg/dl when Hematocrit is >60 mg/dl,the test may not accurately detect significant hypoglycemia,and testing in the Laboratory should be considered if clinically indicated. POC Performer [id number] [facility] Blood 01/03/2025 9:27 PM CDT 01/03/2025 9:27 PM CDT Charly Mooney MD LAB POCT ORDERABLES - DE VICE Final Result Performing Organization Address [facility] Co de Phone Number [facility] [address] [facility] [place] [address] * Blood culture Blood (01/03/2025 4:52 PM CDT) Report Final Report: No growth Blood 01/03/2025 4:52 PM CDT 01/03/2025 5:05 PM CDT Narrative [facility] - 01/09/2025 7:01 AM CDT Collection->Peripheral Interpretive Data 1. Blood cultures are incubated and monitored continuously for 5 days (120 hours). The first negative report is issued within 24 hours of receipt in the laboratory. 2. All positive cultures are resulted and called to physicians/care providers as soon as they are detected. 3. A rapid molecular test for organism identification may be performed using the [employer] Blood Culture Identification panel. This assay detects microbial DNA in a blood culture broth. This assay has been cleared by the [place] Food and Drug Administration and its performance characteristics have been verified by the [facility]. Interpretive data was last revised on November 05, 2022. us Tere Serrano NP LAB MICROBIOLOGY - GENERAL ORDERABLES Final Result Performing Organization Address [facility] de Phone Number [facility] [address] [facility] [place] [address] * Blood culture Blood (01/03/2025 4:52 PM CDT) Report Final Report: No growth Blood 01/03/2025 4:52 PM CDT 01/03/2025 5:05 PM CDT Narrative [facility] - 01/09/2025 7:01 AM CDT Collection->Peripheral Interpretive Data 1. Blood cultures are incubated and monitored continuously for 5 days (120 hours). The first negative report is issued within 24 hours of receipt in the laboratory. 2. All positive cultures are resulted and called to physicians/care providers as soon as they are detected. 3. A rapid molecular test for organism identification may be performed using the [employer] Blood Culture Identification panel. This assay detects microbial DNA in a blood culture broth. This assay has been cleared by the [place] Food and Drug Administration and its performance characteristics have been verified by the [facility]. Interpretive data was last revised on November 05, 2022. us Tere Serrano NP LAB MICROBIOLOGY - GENERAL ORDERABLES Final Result Performing Organization Address [facility] Co de Phone Number [facility] [address] Department [place] [address] * POCT glucose (01/03/2025 2:52 PM CDT) [facility] Glucose, POC 109 70 - 199 mg/dL Comment: For Glucose values <35 mg/dl when Hematocrit is >60 mg/dl,the test may not accurately detect significant hypoglycemia,and testing in the Laboratory should be considered if clinically indicated. POC Performer [id number] [facility] Blood 01/03/2025 2:52 PM CDT 01/03/2025 2:52 PM CDT Davina Brand MD LAB POCT ORDERABLES - DEVICE Fin al Result Performing Organization Address [facility] de Phone Number [facility] [address] Department [place] [address] * FL ERCP Biliary Duct (01/03/2025 2:29 PM CDT) Narrative [facility] - 01/03/2025 2:35 PM CDT The images from this study are not interpreted by Radiology. Please refer to the physician's procedure / OR operative note. Mushtaq Moeller MD IMG FLUOROSCOPY PROCEDURES Final Result Performing Organization Address [facility] Co de Phone Number [facility] * ERCP (01/03/2025 1:56 PM CDT) Anatomical Region Laterality Modality Other Narrative Procedure Note Mushtaq Moeller MD - 01/03/2025 1:56 PM CDT ENDOSCOPY LAB Patient Name: Dong Teixeira Procedure Date: 01/03/2025 1:56 PM Admit Type: Inpatient Room: 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 Referring MD: Saul Valverde M.D. Medicines: Monitored Anesthesia Care, IV Ceftriaxone Complications: No immediate complications. Estimated Blood Loss: Estimated blood loss: none. Procedure: Pre-Anesthesia Assessment: - The risks and benefits of the procedure and the sedation options and risks were discussed with the patient. All questions were answered and informed consent was obtained. - Immediately prior to administration ofmedications, the patient was re-assessed for adequacy to receive sedatives. The benefits, risks, and alternatives to theprocedure and sedation were discussed and informed consentwas obtained. The TJF-Q659 was introduced through the mouth, and used to inject contrast into and used to inject contrast into the bile duct. The ERCP was accomplished without difficulty. The patienttolerated the procedure well. Findings: A biliary stent was visible on the salvage diver film. The esophagus was successfully intubated under direct vision without detailedexamination of the pharynx, larynx, and associated structures, and upper GItract. The upper GI tract was grossly normal. One plastic stent originatingin the biliary tree was emerging from the major papilla. The stent was partially occluded. A biliary sphincterotomy had been performed. The sphincterotomy appeared open. One stent was removed from the biliary tree using a snare. A long 0.035 inch Soft Jagwire was passed intothe biliary tree. The 11.5 mm balloon was passed over the guidewire andthe bile duct was then deeply cannulated. Contrast was injected. I personally interpreted the bile duct images. Ductal flow of contrastwas adequate. Image quality was adequate. The lower third of the mainbile duct contained a single moderate stenosis 20 mm in length. Todiscover objects, the biliary tree was swept with an 11.5 mm balloon startingat the upper third of the main bile duct. Pus was swept from the duct. Sludge was swept from the duct. One 8 mm by 6 cm bare metal stent was placed into the common bile duct. Bile flowed through the stent. The stent was in good position. The endoscope was withdrawn from thepatient. Impression: - One partially occluded stent from the biliarytree was seen in the major papilla. Removed. - Prior biliary sphincterotomy appeared open. - A single moderate biliary stricture was found inthe lower third of the main bile duct. The stricturewas malignant appearing. - The biliary tree was swept and pus and sludgewere found. - One bare metal stent was placed into the commonbile duct. Recommendation: - Observe patient's clinical course. - Watch for pancreatitis, bleeding, perforation,and cholangitis. - Return patient to hospital [facility] for ongoingcare. - Check blood cultures. - Continue antibiotics x 7 days, or longer pending blood culture results. - Consult pain management. Attending Participation: I personally performed the entire procedure. Electronically signed by Mushtaq Moeller M.D. Mushtaq Moeller M.D. 01/03/2025 2:55:17 PM This document was signed electronically. Number of Addenda: 0 Note Initiated On: 01/03/2025 1:56 PM Scope In: Scope Out: Mushtaq Moeller MD ENDOSCOPY PROCEDURES Final Result * Direct bilirubin - Add on lab test (01/03/2025 11:08 AM CDT) Acceptable Yes Blood 01/03/2025 11:0 8 AM CDT 01/03/2025 11:08 AM CDT Narrative [facility] - 01/03/2025 11:09 AM CDT Name of Test->Direct bilirubin Darwin Sanchez MD LAB BLOOD ORDERABLES Final R esult [facility] [address] Department [place] [address] * eGFR (01/03/2025 10:39 AM CDT) eGFR >90 >=60 mL/min/1. 73 [...] interpretive data was last reviewed 2021. Blood 01/03/2025 10:3 9 AM CDT 01/03/2025 10:54 AM CDT us Darwin Sanchez MD LAB BLOOD ORDERABLES Final R esult [facility] [address] Department [place] [address] * (ABNORMAL) Differential, auto (01/03/2025 10:39 AM CDT) Neutrophil abs 10.16(H) 1.50 - 6.50 K/cumm Imm gran abs 0.17(H) 0.00 - 0.10 K/cumm [facility] Lymphocyte abs 0.84 0.80 - 3.30 K/cumm [facility] Monocyte abs 1.16(H) 0.20 - 0.80 K/cumm [facility] Eosinophil abs 0.27 0.00 - 0.50 K/cumm [facility] Basophil abs 0.08 0.00 - 0.10 K/cumm [facility] Neutrophil pct 80.3 % [facility] Comment: Interpretive Data Percent cell count reference ranges are not reported, since discordance with absolute values may lead to misinterpretation of CBC data. Current Interpretive Data was last revised on 2018. Imm gran pct 1.3 % [facility] Comment: Interpretive Data Percent cell count reference ranges are not reported, since discordance with absolute values may lead to misinterpretation of CBC data. Current Interpretive Data was last revised on 2018. Lymphocyte pct 6.6 % [facility] Comment: Interpretive Data Percent cell count reference ranges are not reported, since discordance with absolute values may lead to misinterpretation of CBC data. Current Interpretive Data was last revised on 2018. Monocyte pct 9.1 % [facility] Comment: Interpretive Data Percent cell count reference ranges are not reported, since discordance with absolute values may lead to misinterpretation of CBC data. Current Interpretive Data was last revised on 2018. Eosinophil pct 2.1 % [facility] Comment: Interpretive Data Percent cell count reference ranges are not reported, since discordance with absolute values may lead to misinterpretation of CBC data. Current Interpretive Data was last revised on 2018. Basophil pct 0.6 % [facility] Comment: Interpretive Data Percent cell count reference ranges are not reported, since discordance with absolute values may lead to misinterpretation of CBC data. Current Interpretive Data was last revised on 2018. Blood 01/03/2025 10:3 9 AM CDT 01/03/2025 10:54 AM CDT us Darwin Sanchez MD LAB BLOOD ORDERABLES Final R esult [facility] [address] Department [place] [address] * (ABNORMAL) Urinalysis reflex to microscopic and culture Urine, clean voided (01/03/2025 10:39 AM CDT) Color, ur Yellow Yellow Clarity, ur Turbid(A) Clear [facility] Specific gravity, ur 1.040(H) 1.003 - 1.030 [facility] pH, urine 6.0 [facility] Comment: Interpretive Data U rine pH is affected by diet, medications, systemic acid-base disturbances, and renal tubular function. pH may affect urinary stone formation. For example, urine pH below 6.0 may help reduce the tendency for calcium phosphate stones and pH greater than 6.0 may reduce the tendency for uric acid stone formation. Source: [facility] Current Interpretive Data was last revised on 2017 Protein, ur ql 1+(A) Negative [facility] Glucose, ur ql Negative Negative [facility] Ketones, ur Negative Negative [facility] Bilirubin, ur 3+(A) Negative [facility] Blood, ur Negative Negative [facility] Urobilinogen, ur 2.0(A) <2.0 mg/dL [facility] Nitrite, ur Negative Negative [facility] Leukocyte esterase, ur Negative Negative [facility] UA reflex comment Reflex to microscopic UA will be performed. [facility] Urine, clean voided 01/03/2025 10:39 AM CDT 01/03/2025 10:39 AM CDT Darwin Sanchez MD LAB MICROBIOLOGY - GENERAL O RDERABLES Final Result Performing Organization Address City/[facility]/ZIP Co de Phone Number [facility] [address] Department [place] [address] * (ABNORMAL) CBC with auto differential (01/03/2025 10:39 AM CDT) WBC 12.68(H) 3.80 - 9.90 K/cumm Hgb 16.0 13.0 - 17.5 g/dL [facility] Hct 43.1 38.9 - 50.3 % [facility] Plt 288 150 - 400 K/cumm [facility] Comment:Automated count conf irmed by smear review. MPV 10.6 9.1 - 12.3 fL [facility] RBC 5.23 4.30 - 5.80 M/cumm [facility] MCV 82.4 81.3 - 96.4 fL [facility] MCH 30.6 27.1 - 33.3 pg [facility] MCHC 37.1(H) 32.3 - 35.7 g/dL [facility] RDW CV 20.8(H) 11.1 - 14.9 % [facility] RDW SD 58.6(H) 35.7 - 48.1 fL [facility] NRBC abs 0.00 0.00 - 0.01 K/cumm [facility] Morphologic Screen Results confirmed by manual morphology review. [facility] Blood 01/03/2025 10:3 9 AM CDT 01/03/2025 10:54 AM CDT Darwin Sanchez MD LAB BLOOD ORDERABLES Final R esult Performing Organization Address City/[facility]/ZIP Co de Phone Number [facility] [address] Department [place] [address] * (ABNORMAL) Urinalysis, microscopic only (01/03/2025 10:39 AM CDT) WBC, ur 6-10(A) 0 - 5 /HPF RBC, ur 0-2 0 - 2 /HPF [facility] Epithelial cells, squamous, ur 1-5 0 - 5 /HPF [facility] Bacteria, ur 2+(A) [facility] Mucous, ur Present(A) [facility] Amorphous crystals, ur Trace(A) [facility] Culture Reflex Comment Reflex conditions for urine culture (WBC >10) not met. [facility] Urine, clean voided 01/03/2025 10:39 AM CDT 01/03/2025 10:54 AM CDT Darwin Sanchez MD LAB URINE ORDERABLES Final R esult Performing Organization Address [facility] Co de Phone Number [facility] [address] [place] [address] * Lipase (01/03/2025 10:39 AM CDT) Pathologist [facility] Lipase 11 10 - 99 Units/L Blood 01/03/2025 10:3 9 AM CDT 01/03/2025 10:54 AM CDT Darwin Sanchez MD LAB BLOOD ORDERABLES Final R esult Performing Organization Address [facility] Co de Phone Number [facility] [address] [place] [address] * (ABNORMAL) Bilirubin, direct (01/03/2025 10:39 AM CDT) Bilirubin, direct 14.5(H) 0.1 - 0.3 mg/dL Comment:Slightly Hemolyzed S pecimen Blood 01/03/2025 10:3 9 AM CDT 01/03/2025 10:54 AM CDT Darwin Sanchez MD LAB BLOOD ORDERABLES Final R esult Performing Organization Address [facility] Co de Phone Number [facility] [address] Department [place] [address] * (ABNORMAL) Comprehensive metabolic panel (01/03/2025 10:39 AM CDT) Sodium 135 135 - 145 mmol/L Potassium, pl 4.1 3.3 - 4.9 mmol/L [facility] Chloride 98 97 - 110 mmol/L [facility] CO2 22 22 - 32 mmol/L [facility] Anion gap 15 2 - 15 mmol/L [facility] BUN 17 6 - 25 mg/dL [facility] Creatinine 0.59(L) 0.80 - 1.30 mg/dL [facility] Glucose 160 70 - 199 mg/dL [facility] Comment: Interpretive Data Fasting glucose [...] interpretive data was last revised 2022. Calcium 9.1 8.5 - 10.3 mg/dL [facility] Bilirubin, total 20.9(H) 0.1 - 1.2 mg/dL [facility] Protein, pl 6.5 6.5 - 8.5 g/dL [facility] Albumin 3.0(L) 3.5 - 5.0 g/dL [facility] Alk phos 1,955(H) 40 - 130 Units/L [facility] ALT 484(H) 7 - 55 Units/L [facility] AST 356(H) 10 - 50 Units/L [facility] Comment:Slightly Hemolyzed S pecimen Blood 01/03/2025 10:3 9 AM CDT 01/03/2025 10:54 AM CDT Darwin Sanchez MD LAB BLOOD ORDERABLES Final R esult Performing Organization Address [facility] Co de Phone Number [facility] [address] [employer] [place], [place] [phone] * SCAN - LABS (01/02/2025) Provider Scanning Edited Result - Final * POCT glucose (12/21/2024 11:35 AM CDT) Glucose, POC 137 70 - 199 mg/dL Comment: For Glucose values <35 mg/dl when Hematocrit is >60 mg/dl,the test may not accurately detect significant hypoglycemia,and testing in the Laboratory should be considered if clinically indicated. POC Performer [phone] [facility] Blood 12/21/2024 11:3 5 AM CDT 12/21/2024 11:35 AM CDT Jose G Benitez MD LAB POCT ORDERABLES - DEVICE Fin al Result Performing Organization Address [facility] Co de Phone Number [facility] [address] [employer] [place], [place] [phone] * POCT glucose (12/21/2024 5:55 AM CDT) Glucose, POC 100 70 - 199 mg/dL Comment: For Glucose values <35 mg/dl when Hematocrit is >60 mg/dl,the test may not accurately detect significant hypoglycemia,and testing in the Laboratory should be considered if clinically indicated. POC Performer [phone] [facility] Blood 12/21/2024 5:55 AM CDT 12/21/2024 5:55 AM CDT Jose G Benitez MD LAB POCT ORDERABLES - DEVICE Fin al Result Performing Organization Address [facility]/ZIP Co de Phone Number [facility] [address] Department [employer] [place], [place] [phone] * eGFR (12/21/2024 1:41 AM CDT) eGFR [...] MD LAB BLOOD ORDERABLES Final Resul t [facility] [address] Department [place] [address] * (ABNORMAL) Comprehensive metabolic panel (12/21/2024 1:41 AM CDT) Pathologist [facility] Sodium 138 135 - 145 mmol/L Potassium, pl 3.6 3.3 - 4.9 mmol/L [facility] Chloride 102 97 - 110 mmol/L [facility] CO2 22 22 - 32 mmol/L [facility] Anion gap 14 2 - 15 mmol/L [facility] BUN 22 6 - 25 mg/dL [facility] Creatinine 0.75(L) 0.80 - 1.30 mg/dL [facility] Glucose 131 70 - 199 mg/dL [facility] Comment: Interpretive Data Fasting glucose [...] 2022. Calcium 8.4(L) 8.5 - 10.3 mg/dL [facility] Bilirubin, total 6.4(H) 0.1 - 1.2 mg/dL [facility] Protein, pl 5.8(L) 6.5 - 8.5 g/dL [facility] Albumin 3.5 3.5 - 5.0 g/dL [facility] Alk phos 756(H) 40 - 130 Units/L [facility] ALT 338(H) 7 - 55 Units/L [facility] AST 205(H) 10 - 50 Units/L [facility] Blood 12/21/2024 1:41 AM CDT 12/21/2024 2:05 AM CDT us Adeel Ryan MD LAB BLOOD ORDERABLES Final Result Performing Organization Address [facility]/ZIP Co de Phone Number [facility] [address] Department [place] [address] * POCT glucose (12/20/2024 8:50 PM CDT) [facility] Signature Glucose, POC 137 70 - 199 mg/dL Comment: For Glucose values <35 mg/dl when Hematocrit is >60 mg/dl,the test may not accurately detect significant hypoglycemia,and testing in the Laboratory should be considered if clinically indicated. POC Performer [id number] [facility] Blood 12/20/2024 8:50 PM CDT 12/20/2024 8:50 PM CDT us Jose G Benitez MD LAB POCT ORDERABLES - DEVICE Fin al Result [facility] [address] Department [place] [address] * POCT glucose (12/20/2024 6:16 PM CDT) Glucose, POC 124 70 - 199 mg/dL Comment: For Glucose values <35 mg/dl when Hematocrit is >60 mg/dl,the test may not accurately detect significant hypoglycemia,and testing in the Laboratory should be considered if clinically indicated. POC Performer [phone] [facility] Blood 12/20/2024 6:16 PM CDT 12/20/2024 6:16 PM CDT us Jose G Benitez MD LAB POCT ORDERABLES - DEVICE Fin al Result [facility] [address] Department [place] [address] * Cytology (12/20/2024 3:34 PM CDT) Fluid, NOS 12/20/2024 3:34 PM CDT 12/21/2024 8:07 AM CDT Narrative 12/22/2024 11:10 AM CDT [address] [address] Tele: Mariam Abel MD - Snack Stewardess Note to Patients: This report may contain [...] explain the details. CYTOLOGY REPORT Patient Name: DONG TEIXEIRA Address: [address] [place] [id number] Gender: M : 1960 (Age: 64) Service: Medical Location: [place] [address] Hospital #: [id number] Patient Type [facility] Taken: 12/20/2024 Reported: 12/22/2024 Physician(s): Adeel Ryan M.D. Dr. Saul Valverde M.D. FINAL DIAGNOSIS: Bile duct, brushing (two cytospins and one cell block slide): - Rare atypical cells smo/12/22/2024 11:10 Report Reviewed and Electronically Signed By Sam Crisostomo M.D. SPECIMEN TYPE: A: COMMON BILE DUCT STRICTURE CLINICAL DIAGNOSIS AND HISTORY: Irregular mass in pancreatic head, bile duct stricture GROSS DESCRIPTION: Received in a container of CytoRich Red labeled Dong Teixeira/common bile duct stricture is one wire [...] correlation is needed. Clerical Data Follows A; 52834, 99270` REPORT IMAGES AND/OR SCANNED DOCUMENTS ONLY VIEWABLE IN PDF FORMAT The immunohistochemical test(s) cited in this report, if any, was developed and its performance characteristics determined by [facility] Pathology Department. It has not been cleared or approved by the U.S. Food and Drug Administration. The FDA has determined that such clearance or approval is not necessary. This test is used for clinical purposes. It should not be regarded as investigational or for research. [facility] is certified under the Clinical Laboratory Improvement Amendments of 1988 (CLIA) as qualified to perform high complexity testing. Immunostains were performed on formalin-fixed paraffin embedded tissue using a polymer diaminobenzidine chromogen detection system. Antibodies used may include clone 1D5 (mouse monoclonal, estrogen receptor), clone [id number] (mouse monoclonal progesterone receptor), MIB-1 (mouse monoclonal, Ki- 67), and [id number] (rabbit polyclonal, c-kit). In the event that immunohistochemistry or special stains have been performed, attending physician has confirmed appropriateness of controls. Frozen section, operating room consultation, gross examination and dissection, and case sign out may have been performed in part or completely in the following laboratories: [facility], [address] [place] [address], [facility], [place] [address]. us Adeel Ryan MD LAB CYTOLOGY ORDERABLES Fin al Result * FL ERCP Biliary Duct (12/20/2024 3:29 PM CDT) Narrative [facility] - 12/20/2024 3:45 PM CDT The images from this study are not interpreted by Radiology. Please refer to the physician's procedure / OR operative note. us Charly Mooney MD IMG FLUOROSCOPY PROCEDUR ES Final Result [facility] * Surgical pathology (12/20/2024 3:06 PM CDT) Pancreas, Biopsy 12/20/2024 3:06 PM CDT 12/21/2024 7:12 AM CDT Narrative 12/25/2024 3:[address] PM [address]T [address] [address] Tele: Mariam Abel MD - Snack Stewardess Note to Patients: This report may contain [...] the details. SURGICAL PATHOLOGY REPORT Patient Name: DONG TEIXEIRAMario Address: [address] [place], [place] [id number] Gender: M : 1960 (Age: 64) Service: Medical Location: [place] [address], Hospital #: [id number] Patient Type: [facility]IENT Taken: 12/20/2024 Received 12/21/2024 Reported: 12/25/2024 Physician(s): Adeel Ryan M.D. Dr. Saul Valverde M.D. DIAGNOSIS: Pancreas, head mass, fine needle biopsy: - Invasive adenocarcinoma [facility]12/25/2024 15:10 Examining Pathologist: Sam Crisostomo M.D. Report Reviewed and Electronically Signed By Sam Crisostomo M.D. SPECIMEN TYPE: A: PANCREATIC HEAD MASS CLINICAL IMPRESSION AND HISTORY: Pancreatic mass GROSS DESCRIPTION: Received in formalin labeled DONG TEIXEIRA and pancreatic head mass are multiple red-brown tissue fragments, 1 x 0.3 x 0.2 cm in aggregate. The specimen is filtered and entirely submitted in A1. jxi/12/21/2024 08:13 [facility],J[facility] MICROSCOPIC DESCRIPTION: Microscopic examination shows irregular glandular structures with enlarged nuclei and prominent nucleoli. An immunostain p53 is completely negative (null phenotype) in these glands. The findings are consistent with invasive adenocarcinoma. Three deeper levels were examined. Clerical Data Follows A; 18145, 65972 REPORT IMAGES AND/OR SCANNED DOCUMENTS ONLY VIEWABLE IN PDF FORMAT The immunohistochemical test(s) cited in this report, if any, was developed and its performance characteristics determined by [facility] Pathology Department. It has not been cleared or approved by the U.S. Food and Drug Administration. The FDA has determined that such clearance or approval is not necessary. This test is used for clinical purposes. It should not be regarded as investigational or for research. [facility] is certified under the Clinical [...] part or completely in the following laboratories: [facility], [address] [place], [place] [address], [address] [place] [id number]. us Adeel Ryan MD LAB PATHOLOGY ORDERABLES Fi nal Result * Upper EUS (12/20/2024 2:38 PM CDT) Anatomical Region Laterality Modality Other Narrative Procedure Note Adeel Ryan MD - 12/20/2024 2:38 PM CDT ENDOSCOPY LAB Patient Name: Dong Teixeira Procedure Date: 12/20/2024 2:38 PM Admit Type: Inpatient Room: [facility] Date of : 1960 Instrument Name: [id number] [...] 2:36 PM CDT ENDOSCOPY LAB Patient Name: Dong Teixeira Procedure Date: 12/20/2024 2:36 PM Admit Type: Inpatient Room: [facility] Date of : 1960 Instrument Name: [id number] [...] The patienttolerated the procedure well. Findings: The salvage diver film was normal. The esophagus was successfully [...] passed into the biliary tree. The Clever[employer] [id number] was passed over the guidewire and the [...] the days following this procedure please call [phone] ask for my nurse, Azul Jaime. After hours and evenings please call [phone] and speak to theGI fellow business solutions architect. Please tell the fellow that Dr. Ryan did your procedure and that you were instructed to have the fellow call me or thephysician covering for me to discuss the management of your condition. If you have an urgent problem, please goto the nearest emergency room and have the ER doctorcall my office during the day or [facility] transfer ([phone]) center after hours and weekends to arrange admission or transfer to our facility. Attending Participation: I personally performed the entire procedure. Electronically signed by Adeel Ryan MD Adeel Ryan M.D. 12/20/2024 3:45:03 PM This document was signed electronically. Number of Addenda: 0 Note Initiated On: 12/20/2024 2:36 PM Scope In: Scope Out: us Adeel Ryan MD ENDOSCOPY PROCEDURES Final Result * POCT glucose (12/20/2024 12:30 PM CDT) Glucose, POC 192 70 - 199 mg/dL Comment: For Glucose values <35 mg/dl when Hematocrit is >60 mg/dl,the test may not accurately detect significant hypoglycemia,and testing in the Laboratory should be considered if clinically indicated. POC Performer [id number] [facility] Blood 12/20/2024 12:3 0 PM CDT 12/20/2024 12:30 PM CDT Jose G Benitez MD LAB POCT ORDERABLES - DEVICE Fin al Result Performing Organization Address [facility]/ZIP Co de Phone Number [facility] [address] [facility] [employer] [place], [place] [phone] * POCT glucose (12/20/2024 6:16 AM CDT) Glucose, POC 159 70 - 199 mg/dL Comment: For Glucose values <35 mg/dl when Hematocrit is >60 mg/dl,the test may not accurately detect significant hypoglycemia,and testing in the Laboratory should be considered if clinically indicated. POC Performer [phone] [facility] Blood 12/20/2024 6:16 AM CDT 12/20/2024 6:16 AM CDT Charly Mooney MD LAB POCT ORDERABLES - DE VICE Final Result Performing Organization Address [facility] Co de Phone Number [facility] [address] [facility] [place] [address] * (ABNORMAL) Cancer antigen 19-9 (12/20/2024 1:03 AM CDT) CA 19-9 ag 5,079.0(H ) 0.0 - 35.0 units/mL Comment: Interpretive Data The [employer] CA 19-9 assay procedure was used. Results from different manufacturers or methods may not be comparable. Serial testing should be performed using the same method. Blood 12/20/2024 1:03 AM CDT 12/20/2024 1:16 AM CDT Charly Mooney MD LAB BLOOD ORDERABLES Fin al Result Performing Organization Address [facility] Co de Phone Number [facility] [address] [place] [address] * (ABNORMAL) CBC without differential (12/20/2024 1:03 AM CDT) Pathologist [facility] WBC 8.3 3.8 - 9.9 K/cumm Hgb 16.9 13.0 - 17.5 g/dL [facility] Hct 46.9 38.9 - 50.3 % [facility] Plt 187 150 - 400 K/cumm [facility] MPV 10.4 9.1 - 12.3 fL [facility] RBC 5.39 4.30 - 5.80 M/cumm [facility] MCV 87.0 81.3 - 96.4 fL [facility] MCH 31.4 27.1 - 33.3 pg [facility] MCHC 36.0(H) 32.3 - 35.7 g/dL [facility] RDW CV 14.8 11.1 - 14.9 % [facility] RDW SD 46.4 35.7 - 48.1 fL [facility] NRBC abs 0.00 0.00 - 0.01 K/cumm [facility] Blood 12/20/2024 1:03 AM CDT 12/20/2024 1:16 AM CDT Timmy Braxton MD LAB BLOOD ORDERABLES Final Result Performing Organization Address [facility]/ZIP Co de Phone Number [facility] [address] [place] [address] * (ABNORMAL) CEA (12/20/2024 1:03 AM CDT) [...] ORDERABLES Fin al Result Performing Organization Address [facility] Co de Phone Number [facility] [address] Department [place] [address] * POCT glucose (12/19/2024 8:51 PM CDT) Glucose, POC 105 70 - 199 mg/dL Comment: For Glucose values <35 mg/dl when Hematocrit is >60 mg/dl,the test may not accurately detect significant hypoglycemia,and testing in the Laboratory should be considered if clinically indicated. POC Performer [phone] [facility] Blood 12/19/2024 8:5 1 PM CDT 12/19/2024 8:51 PM CDT Charly Mooney MD LAB POCT ORDERABLES - DE VICE Final Result Performing Organization Address [facility] Co de Phone Number [facility] [address] Department [place] [address] * POCT glucose (12/19/2024 4:23 PM CDT) Glucose, POC 173 70 - 199 mg/dL Comment: For Glucose values <35 mg/dl when Hematocrit is >60 mg/dl,the test may not accurately detect significant hypoglycemia,and testing in the Laboratory should be considered if clinically indicated. POC Performer [phone] [facility] Blood 12/19/2024 4:23 PM CDT 12/19/2024 4:23 PM CDT Charly Mooney MD LAB POCT ORDERABLES - DE VICE Final Result Performing Organization Address [facility]/ZIP Co de Phone Number [facility] [address] Department of [employer] [place], [place] [phone] * Troponin T high-sensitivity 4-hour (12/19/2024 11:50 AM CDT) Trop T hs 15 <=22 ng/L Comment: Interpretive Data For further hscTnT resources including the diagnostic algorithm and an aid in interpretation, copy and paste this link: https://nrl.testcatalog.org/show/hsTrop Current Interpretive Data last revised 2020. Trop T hs delta -3 ng/L [facility] Trop T hs interp Insignificant [facility] Blood 12/19/2024 11:5 0 AM CDT 12/19/2024 12:04 PM CDT Timmy Braxton MD LAB BLOOD ORDERABLES Final Result Performing Organization Address [facility] Co de Phone Number [facility] [address] Department of [employer] [place], [place] [phone] * POCT glucose (12/19/2024 10:40 AM CDT) Pathologist [facility] Glucose, POC 112 70 - 199 mg/dL Comment: For Glucose values <35 mg/dl when Hematocrit is >60 mg/dl,the test may not accurately detect significant hypoglycemia,and testing in the Laboratory should be considered if clinically indicated. Blood 12/19/2024 10:4 0 AM CDT 12/19/2024 10:40 AM CDT Timmy Braxton MD LAB POCT ORDERABLES - DEVIC E Final Result Performing Organization Address [facility]/ZIP Co de Phone Number [facility] [address] Department of [employer] [place], [place] [phone] * Lipase - Add on lab test (12/19/2024 9:20 AM CDT) Acceptable Yes Blood 12/19/2024 9:20 AM CDT 12/19/2024 9:20 AM CDT Narrative [facility] - 12/19/2024 9:20 AM CDT Name of Test->Lipase us Erika Razo BOTTOM LINER LAB BLOOD ORDERABLES Fi nal Result [facility] [address] Department [place] [address] * CT Abdomen Pelvis W Contrast (12/19/2024 [...] signed by: Jazmin Parmar M.D. Erika Razo BOTTOM LINER IMG CT PROCEDURES Final Result * Troponin T high-sensitivity series (baseline, 2hr, 4hr, 6hr) (12/19/2024 6:53 AM CDT) [facility] Trop T hs 18 <=22 ng/L Comment: Interpretive Data For further hscTnT resources including the diagnostic algorithm and an aid in interpretation, copy and paste this link: https://nrl.testcatalog.org/show/hsTrop Current Interpretive Data last revised 2020. Blood 12/19/2024 6:53 AM CDT 12/19/2024 7:09 AM CDT Timmy Braxton MD LAB BLOOD ORDERABLES Final Result [facility] [address] Department [place] [address] * eGFR (12/19/2024 6:53 AM CDT) [facility] eGFR >90 >=60 mL/min/1. 73 m2 [...] Duke DO LAB BLOOD ORDERABLES Final Result [facility] [address] Department [place] [address] * Differential, auto (12/19/2024 6:53 AM CDT) Neutrophil abs 5.0 1.5 - 6.5 K/cumm Imm gran abs 0.0 0.0 - 0.1 K/cumm [facility] Lymphocyte abs 1.7 0.8 - 3.3 K/cumm [facility] Monocyte abs 0.8 0.2 - 0.8 K/cumm [facility] Eosinophil abs 0.2 0.0 - 0.5 K/cumm [facility] Basophil abs 0.1 0.0 - 0.1 K/cumm [facility] Neutrophil pct 64.7 % [facility] Comment: Interpretive Data Percent cell count reference ranges are not reported, since discordance with absolute values may lead to misinterpretation of CBC data. Current Interpretive Data was last revised on 2018. Imm gran pct 0.5 % [facility] Comment: Interpretive Data Percent cell count reference ranges are not reported, since discordance with absolute values may lead to misinterpretation of CBC data. Current Interpretive Data was last revised on 2018. Lymphocyte pct 21.5 % [facility] Comment: Interpretive Data Percent cell count reference ranges are not reported, since discordance with absolute values may lead to misinterpretation of CBC data. Current Interpretive Data was last revised on 2018. Monocyte pct 10.5 % [facility] Comment: Interpretive Data Percent cell count reference ranges are not reported, since discordance with absolute values may lead to misinterpretation of CBC data. Current Interpretive Data was last revised on 2018. Eosinophil pct 2.1 % [facility] Comment: Interpretive Data Percent cell count reference ranges are not reported, since discordance with absolute values may lead to misinterpretation of CBC data. Current Interpretive Data was last revised on 2018. Basophil pct 0.7 % [facility] Comment: Interpretive Data Percent cell count reference ranges are not reported, since discordance with absolute values may lead to misinterpretation of CBC data. Current Interpretive Data was last revised on 2018. Blood 12/19/2024 6:53 AM CDT 12/19/2024 7:09 AM CDT us Timmy Braxton MD LAB BLOOD ORDERABLES Final Result [facility] [address] Department [place] [address] * (ABNORMAL) CBC with auto differential (12/19/2024 6:53 AM CDT) WBC 7.7 3.8 - 9.9 K/cumm Hgb 18.3(H) 13.0 - 17.5 g/dL [facility] Hct 50.1 38.9 - 50.3 % [facility] Plt 200 150 - 400 K/cumm [facility] MPV 10.6 9.1 - 12.3 fL [facility] RBC 5.67 4.30 - 5.80 M/cumm [facility] MCV 88.4 81.3 - 96.4 fL [facility] MCH 32.3 27.1 - 33.3 pg [facility] MCHC 36.5(H) 32.3 - 35.7 g/dL [facility] RDW CV 15.3(H) 11.1 - 14.9 % [facility] RDW SD 48.2(H) 35.7 - 48.1 fL [facility] [facility] NRBC abs 0.00 0.00 - 0.01 K/cumm [facility] Blood 12/19/2024 6:53 AM CDT 12/19/2024 7:09 AM CDT Timmy Braxton MD LAB BLOOD ORDERABLES Final Result [facility] [address] [employer] [place] [address] * Lipase (12/19/2024 6:53 AM CDT) [facility] Lipase 16 10 - 99 Units/L Blood 12/19/2024 6:53 AM CDT 12/19/2024 7:09 AM CDT Timmy Braxton MD LAB BLOOD ORDERABLES Final Result Performing Organization Address City/[facility]/ZIP Co de Phone Number [facility] [address] [employer] [place] [address] * (ABNORMAL) Comprehensive metabolic panel (12/19/2024 6:53 AM CDT) [facility] Sodium 138 135 - 145 mmol/L Potassium, pl 3.9 3.3 - 4.9 mmol/L [facility] Chloride 100 97 - 110 mmol/L [facility] CO2 24 22 - 32 mmol/L [facility] Anion gap 14 2 - 15 mmol/L [facility] BUN 19 6 - 25 mg/dL [facility] Creatinine 0.77(L) 0.80 - 1.30 mg/dL [facility] Glucose 160 70 - 199 mg/dL [facility] Comment: Interpretive Data Fasting glucose [...] 2022. Calcium 9.2 8.5 - 10.3 mg/dL [facility] Bilirubin, total 10.2(H) 0.1 - 1.2 mg/dL [facility] Protein, pl 6.7 6.5 - 8.5 g/dL [facility] Albumin 3.6 3.5 - 5.0 g/dL [facility] Alk phos 887(H) 40 - 130 Units/L [facility] ALT 426(H) 7 - 55 Units/L [facility] AST 232(H) 10 - 50 Units/L [facility] Comment:Slightly Hemolyzed S pecimen Blood 12/19/2024 6:53 AM CDT 12/19/2024 6:53 AM CDT Timmy Braxton MD LAB BLOOD ORDERABLES Final Result Performing Organization Address [facility]/ZIP Co de Phone Number [facility] [address] Department [place] [address] * C-peptide (11/08/2024) SCRIBED C-Peptide 1.26 0.80 - 3.85 ng/mL EXTER[facility] LAB Blood 11/08/2024 Holly Henson NP LAB BLOOD ORDERABLES Final Resu lt EXTERNAL LAB * (ABNORMAL) Hemoglobin A1c (11/08/2024) SCRIBED Hemoglobin A1c 7.0(A) 0 - 5.7 % EXTERNAL LAB Blood 11/08/2024 Historical Provider MD LAB BLOOD ORDERABLES Ashwini l Result EXTERNAL LAB * POCT glucose (10/20/2024 10:42 AM SPREADER) Glucose Blood, POC 154 mg/dL Blood 10/20/2024 10:4 2 AM SPREADER Holly Henson NP POINT OF CARE TEST ORDERABLES F inal Result * POCT hemoglobin A1c (10/20/2024 10:41 AM SPREADER) Hemoglobin A1C, POC 7.6 4.0 - 5.6 % Blood 10/20/2024 10:4 1 AM SPREADER Holly Henson NP POINT OF CARE TEST [...] CDT 03/01/2024 5:18 PM CDT Holly Henson BOTTOM LINER LAB URINE ORDERABLES Final Resu lt [facility] [address] Department [place] [address] * (ABNORMAL) Lipid panel (03/01/2024 2:07 PM [...] NP LAB BLOOD ORDERABLES Final Resu lt [facility] [address] Department [place] [address] * Diabetic Eye Exam (11/25/2023) us Historical Provider HEALTH MAINTENANCE Final Result from Last 3 Months or Most Recently Relevant to Health Maintenance Insurance MEDICARE [employer] [place] [employer] [employer] [place] Sub[place] Plan / Payer (Ef fective 2024-Present) Name:Dong Teixeira Relation to Subscriber:Self Name:Dong Teixeira Payer ID:[id number] Group ID:[id number] Type:COMMERCIAL Address: [facility] [address] [place] [address] Advance Directives For more information, please contact: [phone] * Full Code (Latest Code Status on File) Date Activated Date Inactivated Comments 01/03/2025 5:28 PM 01/11/2025 3:27 PM * Full Code Date Activated Date Inactivated Comments 12/19/2024 12:51 PM 12/21/2024 5:16 PM Care Teams Gm Relationship Specialty Start Date End Date Saul Valverde MD [address] [address] PCP - General 01/16/21 Muriel Reece MD [address] [facility] [phone] [place] [address] General Surgery 12/25/24 Adeel Ryan MD [address] [place] [address] Consulting Physician Internal Medicine 12/25/24 Tasneem Henderson MD [address] [facility] [address] [place] [address] Medical Oncologist/Employee Placement Specialist Medical Oncology 12/25/24
--- OUTSIDE RECORDS SUMMARY | 2025-01-16 16:29 | XMS_ITS | Encounter Summary ---
Author Organization [facility] Address [address] [place] [address] Phone Care Team Providers Care Health Occupations Instructor Name Role Phone Saul Valverde MD Primary Care Provider [phone] Ramon Paredes MD Unavailable Reason for Visit * Reason Comments Medication Refill Encounter Details Date Type Department Care Team (Late st Contact Info) Description 03/24/2021 Refill [facility] - Family Medicine [facility] [address] [place] [address] Emmett Mo MD [address]1 [place] [address] Medication Refill Social History Tobacco Use Types [...] Visit [facility] - Family Medicine [facility] [address]2 [place] [address] Saul Valverde MD #[address] [address] documented as of this encounter Visit Diagnoses Not on filedocumented in this encounter Additional Health Concerns Assessment Noted Time PHQ-9 Depression Total Score: 0 02/13/20 21 12:00 PM CDT documented as of this encounter Care Teams Health Occupations Instructor Relationship Specialty Start Date End Date Saul Valverde MD #[address] [address] PCP - General Family Medicine 11/17/17 Ramon Paredes MD #[address] [address] Consulting Physician Colon and Rectal Surgery 10/11/23 documented as of this encounter
--- OUTSIDE RECORDS SUMMARY | 2025-01-16 16:29 | XMS_ITS | Encounter Summary ---
Author Organization [facility] Address [address] [facility] [place] [address] Phone Care Team Providers Care Flaker Tender Name Role Phone Saul Valverde MD Primary Care Provider [phone] Ramon Paredes MD Unavailable Reason for Visit * Reason Onset Date Comments Advice Only 01/08/2025 Encounter Details Date Type Department Care Team (Late st Contact Info) Description 01/08/2025 Telephone [facility] [address] [place] [address] Saul Valverde MD #[address] [address] Advice Only Social History Tobacco Use Types Packs/Day Years Used Date Smoking Tobacco: Every Day Cigarettes 0.5 50.3 Started: 1974 Smokeless Tobacco: Never Alcohol Use [...] encounter Miscellaneous Notes * Telephone Encounter - Luiza Espinoza RN - 01/08/2025 2:16 PM CDT Situation: MD call Background: Dr. Castro with [facility] contacting PCP office. Assessment: Dr. Castro was wanting to speak with patient's provider Dr. Valverde. She was not returning a call from PCP and just wanted to speak with patient's PCP due to patient currently being inpatient at their facility. Recommendation: Dr. Castro was transferred to the Physician line and the number was also given to Dr. Castro. Encounter routed to provider to notify. documented in this encounter Plan of Treatment Upcoming Encounters Date Type Department Care Team (Late st Contact Info) Description 03/15/2025 11:00 AM CDT Office Visit [facility] Medical Group - Family [facility] #2 [place] [address] Saul Valverde MD #2 [facility] [address] [place] [address] documented as of this encounter Visit Diagnoses Not on filedocumented in this encounter Additional Health Concerns Assessment Noted Time PHQ-9 Depression Total Score: 0 03/07/20 24 10:10 AM CDT documented as of this encounter Care Teams Flaker Tender Relationship Specialty Start Date End Date Saul Valverde MD #2 [facility] [address] [place] [address] PCP - General Family Medicine 11/17/17 Ramon Paredes MD #2 [facility] [address] [place] [address] Consulting Physician Colon and Rectal Surgery 10/11/23 documented as of this encounter
--- OUTSIDE RECORDS SUMMARY | 2025-01-16 16:29 | XMS_ITS | Encounter Summary ---
Author Organization [facility] Address [address] [facility] [place] [address] Phone Care Team Providers Care Juvenile Court Judge Name Role Phone Saul Valverde MD Primary Care Provider [phone] Ramon Paredes MD Unavailable Reason for Visit * Reason Comments Medication Refill Encounter Details Date Type Department Care Team (Late st Contact Info) Description 04/12/2021 Refill [facility] Medical Group - Family Medicine [facility] #[address] [place] [address] Saul Valverde MD #[address] [address] Medication Refill Social History Tobacco Use Types [...] Dept 02/12/21 Office Visit Saul Valverde MD [facility] Showing recent visits within past 182 days and meeting all other requirements Future Appointments No visits were found meeting these conditions. Showing future appointments within next 90 days and meeting all other requirements documented in this encounter Plan of Treatment Upcoming Encounters Date Type Department Care Team (Late st Contact Info) Description 03/15/2025 11:00 AM CDT Office Visit [facility] Medical Group - Family Medicine [facility] [address] [place] [address] Saul Valverde MD #[address] [address] documented as of this encounter Visit Diagnoses Not on filedocumented in this encounter Additional Health Concerns Assessment Noted Time PHQ-9 Depression Total Score: 0 02/13/20 12:00 PM CDT documented as of this encounter Care Teams Juvenile Court Judge Relationship Specialty Start Date End Date Saul Valverde MD #[address] [address] PCP - General Family Medicine 11/17/17 Ramon Paredes MD [address]2 [place] [address] Consulting Physician Colon and Rectal Surgery 10/11/23 documented as of this encounter
--- OUTSIDE RECORDS SUMMARY | 2025-01-16 16:30 | XMS_ITS | Encounter Summary ---
Author Organization [facility] Address [address] [place] [address] Phone Care Team Providers Care Corn Shucker Name Role Phone Saul Valverde MD Primary Care Provider [phone] Ramon Paredes MD Unavailable Reason for Visit * Reason Comments Medication Refill Encounter Details Date Type Department Care Team (Late st Contact Info) Description 03/22/2023 Refill [facility] Medical Group - Family Medicine [facility] [address]2 [place] [address] Saul Valverde MD #[address] [address] Medication Refill Social History Tobacco Use Types [...] Witt 08/31/22 Office Visit Saul Valverde MD [facility] Showing recent visits within past 365 days and meeting all other requirements Future Appointments No visits were found meeting these conditions. Showing future appointments within next 90 days and meeting all other requirements documented in this encounter Plan of Treatment Upcoming Encounters Date Type Department Care Team (Late st Contact Info) Description 03/15/2025 11:00 AM CDT Office Visit [facility] Medical Group - Family Medicine - [facility] [address] [place] [address] Saul Valverde MD #[address] [address] documented as of this encounter Visit Diagnoses Diagnosis Pain Generalized pain documented in this encounter Additional Health Concerns Assessment Noted Time PHQ-9 Depression Total Score: 0 02/13/20 21 12:00 PM CDT documented as of this encounter Care Teams Corn Shucker Relationship Specialty Start Date End Date Saul Valverde MD #[address] [address] PCP - General Family Medicine 11/17/17 Ramon Paredes MD #[address] [address] Consulting Physician Colon and Rectal Surgery 10/11/23 documented as of this encounter
--- OUTSIDE RECORDS SUMMARY | 2025-01-16 16:30 | XMS_ITS | Encounter Summary ---
Author Organization [facility] Address [address] [place] [address] Phone Care Team Providers Care Manager Regulatory Name Role Phone Saul Valverde MD Primary Care Provider [phone] Ramon Paredes MD Unavailable Reason for Visit * Reason Comments Medication Refill Encounter Details Date Type Department Care Team (Late Contact Info) Description 06/09/2022 Refill [facility] #2 [place] [address] Saul Valverde MD #[address] [address] Medication Refill Social History Tobacco Use Types [...] Description 03/15/2025 11:00 AM CDT Office Visit [facility] #2 [place] [address] Saul Valverde MD #2 [facility] [address] [place] [address] documented as of this encounter Visit Diagnoses Diagnosis Pain Generalized pain documented in this encounter Additional Health Concerns Assessment Noted Time PHQ-9 Depression Total Score: 0 02/13/20 21 12:00 PM CDT documented as of this encounter Care Teams Manager Regulatory Relationship Specialty Start Date End Date Saul Valverde MD #[address] [address] PCP - General Family Medicine 11/17/17 Ramon Paredes MD #2 [facility] [address] [place] [address] Consulting Physician Colon and Rectal Surgery 10/11/23 documented as of this encounter
--- OUTSIDE RECORDS SUMMARY | 2025-01-16 16:30 | XMS_ITS | Encounter Summary ---
Author Organization [facility] Address [address] [place] [address] Phone Care Team Providers Care Outpatient Scheduler Name Role Phone Saul Valverde MD Primary Care Provider [phone] Muriel Reece MD Unavailable [phone] Adeel Ryan MD Unavailable [phone] Tasneem Henderson MD Unavailable [phone] Reason for Referral * Consultation (Routine) - Authorized Specialty Diagnoses / Procedures Referred By Roxi mckeon Referred To Contact Oncology Diagnoses Pancreatic mass Pancreatic adenocarcinoma (HCC) Adeel Ryan MD [address] [place] [address] Phone: tel:[phone] fax: [facility] Floor 5 [place] [address] Phone: tel: fax: Referral ID Status Reason Start Date Expiration Date Visits Requested Visits Authorized [id number] Authorized Specialty Services Required 12/25/2024 01/24/2026 1 1 Question Answer Please select the performing region: [facility] (All Locations) [[id number]] Please select the performing department: [facility] ONC [id number] [[id number]] Is this referral for Breast Health Multi-Disciplinary Clinic? No Does the patient have a diagnosis of a Head and Neck cancer? No # of visits: 1 Reason for Visit * Reason Onset Date Comments Test Results 12/25/2024 Encounter Details Date Type Department Care Team (Latest Contact Info) Description 12/25/2024 Results Follow-Up [facility] [address] [place] [address] Adeel Ryan MD [address] [place] [address] Pancreatic mass (Primary Dx); Pancreatic adenocarcinoma (HCC) Social History Tobacco Use Types Packs/Day Years Used Date Smoking Tobacco: Every Day Cigarettes 0.8 35 [facility] Utilities Answer Date Recorded In the [...] often do you attend chur ch or orthodoxy services? 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 Gender Identity Not on file Sexual Orientation Not on file documented as of this encounter Plan of Treatment Upcoming Encounters Date Type Department Care Team (Late st Contact Info) Description 01/24/2025 12:30 PM CDT Office Visit [facility] Medical Group Diabetes Endocrine Care at [address] [place] [address] Holly Henson, YULY [address] [facility] [address] [place] [address] Scheduled Referrals Name Type Priority Associated Diagnoses Orde r Schedule Ambulatory referral to Oncology Outpatient Referral Routine Pancreatic mass Pancreatic adenocarcinoma (HCC) 1 Occurrences starting 12/25/2024 until 12/25/2025 documented as of this encounter Visit Diagnoses Diagnosis Pancreatic mass- Primary Unspecified disease of pancreas Pancreatic adenocarcinoma (HCC) Malignant neoplasm of pancreas, part unspecified documented in this encounter Care Teams Outpatient Scheduler Relationship Specialty Start Date End Date Saul Valverde MD [address] [address] PCP - General 01/16/21 Muriel Reece MD [address] [facility] [phone] [place] [address] General Surgery 12/25/24 Adeel Ryan MD [address] [place] [address] Consulting Physician Internal Medicine 12/25/24 Tasneem Henderson MD [address] [facility] [address] [place], [place] [id number] Medical Oncologist/Design Director Medical Oncology 12/25/24 documented as of this encounter
--- OUTSIDE RECORDS SUMMARY | 2025-01-16 16:30 | XMS_ITS | Encounter Summary ---
Author Organization [facility] Address [address] [place] [address] Phone Care Team Providers Care Water Filtration Technician Name Role Phone Saul Valverde MD Primary Care Provider [phone] Ramon Paredes MD Unavailable Reason for Visit * Reason Comments Medication Refill Encounter Details Date Type Department Care Team (Late st Contact Info) Description 05/05/2023 Refill [facility] Medical Group - Family Medicine [facility] #2 [place] [address] Saul Valverde MD #[address] [address] Medication Refill Social History Tobacco Use Types [...] Witt 08/31/22 Office Visit Saul Valverde MD [facility] Showing recent visits within past 365 days and meeting all other requirements Future Appointments No visits were found meeting these conditions. Showing future appointments within next 90 days and meeting all other requirements documented in this encounter Plan of Treatment Upcoming Encounters Date Type Department Care Team (Late st Contact Info) Description 03/15/2025 11:00 AM CDT [facility] Visit [facility] Family [facility] #2 [place] [address] Saul Valverde MD #[address] [address] documented as of this encounter Visit Diagnoses Diagnosis Anxiety Anxiety state, unspecified documented in this encounter Additional Health Concerns Assessment Noted Time PHQ-9 Depression Total Score: 0 02/13/20 21 12:00 PM CDT documented as of this encounter Care Teams Water Filtration Technician Relationship Specialty Start Date End Date Saul Valverde MD #[address] [address] PCP - General Family Medicine 11/17/17 Ramon Paredes MD #[address] [address] Consulting Physician Colon and Rectal Surgery 10/11/23 documented as of this encounter
--- OUTSIDE RECORDS SUMMARY | 2025-01-16 16:30 | XMS_ITS | Encounter Summary ---
Author Organization [facility] Address [address] [place] [place] [address] Phone Care Team Providers Care Property Management Supervisor Name Role Phone Saul Valverde MD Primary Care Provider [phone] Ramon Paredes MD Unavailable Reason for Visit * Reason Comments Medication Refill Encounter Details Date Type Department Care Team (Late st Contact Info) Description 10/27/2022 Refill [facility] Medical Group - Family Medicine [facility] #2 [place] [address] Saul Valverde MD #[address] [address] Medication Refill Social History Tobacco Use Types [...] Dept 08/31/22 Office Visit Saul Valverde MD [facility] 03/10/22 Office Visit Saul Valverde MD [facility] Showing recent visits within past 365 days and meeting all other requirements Future Appointments No visits were found meeting these conditions. Showing future appointments within next 90 days and meeting all other requirements MACEUTICAL SALES SPECIALIST documented in this encounter Plan of Treatment Upcoming Encounters Date Type Department Care Team (Late st Contact Info) Description 03/15/2025 11:00 AM CDT [facility] Visit [facility] #2 [place] [address] Saul Valverde MD #[address] [address] documented as of this encounter Visit Diagnoses Diagnosis Anxiety Anxiety state, unspecified documented in this encounter Additional Health Concerns Assessment Noted Time PHQ-9 Depression Total Score: 0 02/13/20 21 12:00 PM CDT documented as of this encounter Care Teams Property Management Supervisor Relationship Specialty Start Date End Date Saul Valverde MD #[address] [address] PCP - General Family Medicine 11/17/17 Ramon Paredes MD #[address] [address] Consulting Physician Colon and Rectal Surgery 10/11/23 documented as of this encounter
--- OUTSIDE RECORDS SUMMARY | 2025-01-16 16:30 | XMS_ITS | Clinical Summary ---
Author Organization [facility] Address [address] [facility] [address] [place] [address] Phone Care Team Providers Care Parachute Taper Name Role Phone Saul Valverde MD Primary Care Provider [phone] Ramon Paredes MD Unavailable Allergies Active Allergy Reactions Criticality Noted Date Comments Codeine Rash 08/12/2015 Empagliflozin Nausea Low 11/02/2023 Tirzepatide Other (see Comments) Low 01/11/2024 Sore nipples Medications Aspirin 81 MG Tablet Take 81 mg by mouth daily. Active TRUEplus Insulin Syringe 31G X 5/16 1 ML Misc 11/24/19 23 Active sildenafil (REVATIO) 20 MG TabletIndicati ons:Type 2 diabetes mellitus without complication, without long-term current use of insulin Take 1 Tablet by mouth daily as needed for Other. 50 Tablet 2 03/02/20 23 Active metFORMIN (GLUCOPHAGE) 1000 MG Tablet Take 1 Tablet by mouth 2 times daily. 200 Tablet 2 07/27/20 23 Active insulin glargine (Lantus) 100 UNIT/ML Solution 22 Units by Subcutaneous route every evening. Active simvastatin (ZOCOR) 20 MG Tablet 10/06/19 24 Active Insulin Lispro, 1 Unit Dial, 100 UNIT/ML Solution Pen-injector 7 Units by Subcutaneous route 3 times daily (before meals). 03/01/20 24 Active testosterone cypionate (DEPO-TESTOSTE JOSHUA) 200 MG/ML Solution INJECT 1ML INTRAMUSCULARLY EVERY WEEK. PLEASE DISCARD 28 DAYS AFTER FIRST PUNCTURE. CAUTION HAZARDOUS DRUG-DISPOSE OF PROPERLY- OBSERVE SPECIAL HANDLING AND ADMINISTRATION REQUIREMENTS. 03/01/20 24 Active naproxen (NAPROSYN) 500 MG Tablet TAKE 1 TABLET BY MOUTH NEEDED FOR MODERATE OR MORE SEVERE PAIN. 60 Tablet 6 06/08/20 24 Active albuterol 108 (90 Base) MCG/ACT Aerosol Solution take 2 Puffs by inhalation every 4 hours as needed for Wheezing. 6.7 g 3 09/13/20 24 Active losartan potassium-hydr ochlorothiazid e (HYZAAR) 100-25 MG Tablet Take 1 Tablet by mouth daily. 90 Tablet 3 09/13/20 24 Active acetaminophen (TYLENOL) 325 MG Tablet Take 1 Tablet by mouth every 6 hours as needed for Fever (for temperature greater than 100.4 F.). Do not exceed 4000 mg of acetaminophen in 24 hour from all sources. 10/02/20 24 Active omeprazole (PriLOSEC) 40 MG CAPSULE DELAYED RELEASE TAKE 1 CAPSULE BY MOUTH DAILY 100 Capsule 2 11/02/19 25 Active traMADol (ULTRAM) 50 MG TabletIndicati ons:Pain TAKE 1 OR 2 TABLETS BY MOUTH EVERY 6 HOURS NEEDED FOR MODERATE OR MORE SEVERE PAIN. 540 Tablet 12/08/19 25 Active ALPRAZolam (XANAX) 0.5 MG TabletIndicati ons:Anxiety TAKE 1 TABLET BY MOUTH 2 TIMES DAILY. 60 Tablet 12/08/19 25 Active Active Problems Problem Noted Date Diagnosed Date Umbilical hernia without obstruction and without gangrene 10/02/2024 Screening for colon cancer 11/18/2018 Pure hypercholesterolemia 11/17/2017 Vasculogenic erectile dysfunction 11/17/2017 Chronic midline low back pain without sciatica 0 11/17/2017 Gastroesophageal reflux disease without esophagi tis 11/17/2017 Type 2 diabetes mellitus without complication Encounters Date Type Department Care Team Description 01/08/2025 Telephone [facility] [address] [place] [address] Saul Valverde MD Advice Only 12/26/2024 Telephone [facility] #[address] [place] [address] Saul Valverde MD 12/12/2024 [facility] [place] [address] Saul Valverde MD Medication Management 12/07/2024 [facility] [place] [address] Saul Valverde MD Medication Refill 11/02/2024 [facility] [place] [address] Saul Valverde MD Medication Refill 10/24/2024 1:15 PM IMMIGRATION MANAGER [facility] #[address] [address] Ramno Paredes MD S/P hernia surgery (Primary Dx) Discharge Disposition: Discharged to home or Selfcare 10/23/2024 Travel from Last 3 Months Immunizations Immunization Administration [...] Comments Blood Pressure 162/84 10/24/2024 1:06 PM IMMIGRATION MANAGER Pulse 103 10/24/2024 1:06 PM IMMIGRATION MANAGER Temperature 37 C (98.6 F) 10/24/2024 1:06 PM IMMIGRATION MANAGER Respiratory Rate 18 10/02/2024 3:02 PM IMMIGRATION MANAGER Oxygen Saturation 98% 10/24/2024 1:06 PM IMMIGRATION MANAGER Inhaled Oxygen Concentration - - Weight 67.6 kg (149 lb) 10/24/2024 1:06 PM IMMIGRATION MANAGER Height 182.9 cm (6') 10/24/2024 1:06 PM IMMIGRATION MANAGER Body Mass Index 20.21 10/24/2024 1:06 PM IMMIGRATION MANAGER Plan of Treatment Upcoming Encounters Date Type Department Care Team (Late st Contact Info) Description 03/15/2025 11:00 AM CDT [facility] [address] [place] [address] Saul Valverde MD [address] [address] Health Maintenance Due Date Last Done Comments [...] this topic Medical Devices Implanted Type Area Harvest Manager Device Identifier Shelf Expiration Date Model / Serial / Lot Impl Msh Harini Ventralex St Strap Cir Sm 1.7x1.7in - [id number] Implanted:Qty : 1 on 10/02/2024 by Ramon Paredes MD at [facility] IMPLANT N/A: Abdomen [employer] 02/28/2025 [id number] / [id number] / [id number] Procedures Procedure Name Priority Date/Time Associated Diagnosis Comments PATHOLOGY CYTOLOGY NON-CHIEF SCIENTIFIC OFFICER 01/09/2025 12:00 AM CDT PATHOLOGY SURGICAL 01/09/2025 12:00 AM CDT GASTRO PROCEDURE 01/03/2025 12:00 AM CDT GASTRO PROCEDURE 01/03/2025 12:00 AM CDT EGD 12/20/2024 12:00 AM CDT PATHOLOGY SURGICAL 12/20/2024 12:00 AM CDT GASTRO PROCEDURE 12/20/2024 12:00 AM CDT EXTERNAL GASTROENTEROLOGY REFERRAL Less Than 4 weeks 12/06/2024 12:00 AM IMMIGRATION MANAGER Gastroesophageal reflux disease without esophagitis HEMOGLOBIN A1C W/ ESTIMATED GLUCOSE Routine 11/08/2024 CMP (COMPREHENSIVE METABOLIC PANEL) 09/11/2024 12:00 AM IMMIGRATION MANAGER PSA SCREEN 09/11/2024 12:00 AM IMMIGRATION MANAGER HM DILATED EYE EXAM 11/25/2023 12:00 AM IMMIGRATION MANAGER from Last 3 Months or Most Recently Relevant to Health Maintenance Results * PATHOLOGY SURGICAL (01/09/2025 12:00 AM CDT) Only the most recent of2 resultswithin the time period is included. 01/09/2025 Result Sai Valverde MD PATHOLOGY/CYTOLOGY ORDERABLES Final Result Performing Organization Address City/[facility] Co de Phone Number SCAN * PATHOLOGY CYTOLOGY NON-CHIEF SCIENTIFIC OFFICER (01/09/2025 12:00 AM CDT) 01/09/2025 Result Sai Valverde MD PATHOLOGY/CYTOLOGY ORDERABLES Final Result Performing Organization Address City/[facility]/ZIP Co de Phone Number SCAN * GASTRO PROCEDURE (01/03/2025 12:00 AM CDT) 01/03/2025 Result Sai Valverde MD GEN ORDERS Final Result Performing Organization Address City/[facility] Co de Phone Number SCAN * GASTRO PROCEDURE (01/03/2025 12:00 AM CDT) 01/03/2025 us Saul Valverde MD GEN ORDERS Final Result Performing Organization Address City/[facility] de Phone Number SCAN * GASTRO PROCEDURE (12/20/2024 12:00 AM CDT) 12/20/2024 Result [facility] Saul Valverde MD GEN ORDERS Final Result Performing Organization Address [facility] de Phone Number SCAN * EGD (12/20/2024 12:00 AM CDT) Anatomical Region Laterality Modality Endoscopy 12/20/2024 Result [facility] Saul Valverde MD GI PROCEDURE ORDERABLES Final Result * EXTERNAL GASTROENTEROLOGY REFERRAL (12/06/2024 12:00 AM IMMIGRATION MANAGER) 12/06/2024 Result [facility] Saul Valverde MD OUTPT REFERRALS EXT/INT Final Result Performing Organization Address [facility] de Phone Number SCAN * HEMOGLOBIN A1C W/ ESTIMATED GLUCOSE (11/08/2024) HEMOGLOBIN A1C 7 % Blood 11/08/2024 Result [facility] Mathew ARAUJO CHEMISTRY ORDERABLES Ashwini l Result * PSA SCREEN (09/11/2024 12:00 AM IMMIGRATION MANAGER) PSA SCREEN, TOTAL 0.9 SCAN 09/11/2024 Provider Scan CHEMISTRY ORDERABLES Final Resul t Performing Organization Address City/[facility] de Phone Number SCAN * CMP (COMPREHENSIVE METABOLIC PANEL) (09/11/2024 12:00 AM IMMIGRATION MANAGER) 09/11/2024 Provider Scan CHEMISTRY ORDERABLES Final Resul t SCAN * DILATED EYE EXAM (11/25/2023 12:00 AM IMMIGRATION MANAGER) 11/25/2023 Saul Valverde MD PROCEDURE/MINOR SURGICAL NATALIA DEL RIO Final Result SCAN from Last 3 Months or Most Recently Relevant to Health Maintenance Insurance MEDICARE COMMERCIAL GENERIC Member Subscriber Plan / Payer (Ef fective 2019-Present) Name:Jesika Teixeira Relation to Subscriber:Self Name:Jesika Teixeira Payer ID:[id number] Group ID:[id number] Type:Not on file Address: [address] [address] [place] [address] Care Teams Parachute Taper Relationship Specialty Start Date End Date Saul Valverde MD #2 [facility] [address] [place] [address] PCP - General Family Medicine 11/17/17 Ramon Paredes MD #2 [facility] [address] [place] [address] Consulting Physician Colon and Rectal Surgery 10/11/23
--- OUTSIDE RECORDS SUMMARY | 2025-01-16 16:30 | XMS_ITS | Encounter Summary ---
Author Organization [facility] Address [address] [place] [address] Phone Care Team Providers Care Wound Care Physician Name Role Phone Saul Valverde MD Primary Care Provider [phone] Muriel Reece MD Unavailable [phone] Adeel Ryan MD Unavailable [phone] Tasneem Henderson MD Unavailable [phone] Reason for Visit * Reason Onset Date Comments Test Results 12/25/2024 Encounter Details Date Type Department Care Team (Late st Contact Info) Description 12/25/2024 Results Follow-Up [facility] Gastroenterology [address] [facility] 2[address] [place] [address] Adeel Ryan MD [address] [place] [address] Social History Tobacco Use Types Packs/Day Years Used Date Smoking Tobacco: Every Day Cigarettes 0.8 35 [facility] Utilities Answer Date Recorded In the past 12 months has [employer], gas, oil, or water company threatened to [...] often do you attend chur ch or presybeterian services? 1 to 4 times per year 12/19/2024 Do you belong to any clubs o r organizations such as temple groups, unions, fraternal or athletic groups, or [...] any time in the past 12 m [facility], were you homeless or living in a group home (including now)? No 12/19/2024 Personal Safety Answer Date Recorded Have you ever been in or are you currently in a harmful physical or emotional relationship or is someone making you feel afraid or unsafe? Denies 12/20/2024 Sex and Gender Information Value Date Recorded Sex Assigned at Not on file Legal Sex Male 11:03 AM RN INFUSION Gender Identity Not on file Sexual Orientation Not on file documented as of this encounter Plan of Treatment Upcoming Encounters Date Type Department Care Team (Late st Contact Info) Description 01/24/2025 12:30 PM CDT Office Visit [facility] Medical [facility] Diabetes Endocrine Care at [address] [place] [id number] Holly Henson, TOOL AND DIE ENGINEER [address] [facility] [address] [place] [address] documented as of this encounter Visit Diagnoses Not on filedocumented in this encounter Care Teams Wound Care Physician Relationship Specialty Start Date End Date Saul Valverde MD 2 [facility] [address] [place] [address] PCP - General 01/16/21 Muriel Reece MD [address] [facility] [phone] [place] [address] General Surgery 12/25/24 Adeel Ryan MD [address] [place] [address] Consulting Physician Internal Medicine 12/25/24 Tasneem Henderson MD [address] [facility] [address] [place] [address] Medical Oncologist/Tubular Products Fabricator Medical Oncology 12/25/24 documented as of this encounter
--- OUTSIDE RECORDS SUMMARY | 2025-01-16 16:30 | XMS_ITS | Encounter Summary ---
Author Organization [facility] Address [address] [place] [address] Phone Care Team Providers Care Sweater Operator Name Role Phone Saul Valverde MD Primary Care Provider [phone] Ramon Paredes MD Unavailable Reason for Visit * Reason Comments Medication Refill Encounter Details Date Type Department Care Team (Late st Contact Info) Description 12/14/2022 Refill [facility] Medical Group - Family Medicine [facility] #2 [place] [address] Saul Valverde MD #[address] [address] Medication Refill Social History Tobacco Use Types [...] Description 03/15/2025 11:00 AM CDT Office Visit [facility] Medical Group - Family Medicine - [facility] #[address] [place] [address] Saul Valverde MD #2 [facility] [address] [place] [address] documented as of this encounter Visit Diagnoses Diagnosis Pain Generalized pain Anxiety Anxiety state, unspecified documented in this encounter Additional Health Concerns Assessment Noted Time PHQ-9 Depression Total Score: 0 02/13/20 21 12:00 PM CDT documented as of this encounter Care Teams Sweater Operator Relationship Specialty Start Date End Date Saul Valverde MD #[address] [address] PCP - General Family Medicine 11/17/17 Ramon Paredes MD #2 [facility] [address] [place] [address] Consulting Physician Colon and Rectal Surgery 10/11/23 documented as of this encounter
--- OUTSIDE RECORDS SUMMARY | 2025-01-16 16:30 | XMS_ITS ---
Author Organization [facility] Address [address] [place] [address] Care Team Providers Care Laborer [employer] Bakery Name Role Phone Saul Valverde MD Primary Care Provider [phone] Muriel Reece MD Unavailable [phone] Adeel Ryan MD Unavailable [phone] Tasneem Henderson MD Unavailable [phone] Active Problems Problem Noted Date Diagnosed Date Malignant neoplasm of head of pancreas Pancreatic adenocarcinoma 01/04/2025 Jaundice 01/04/2025 Severe protein-calorie malnutrition 01/04/2025 Acute cholangitis 01/03/2025 Moderate malnutrition 12/20/2024 Biliary sepsis 12/20/2024 Obstructive jaundice 12/19/2024 Pancreatic mass 12/19/2024 Tobacco use disorder, moderate, in early remissi on 12/19/2024 Mixed diabetic hyperlipidemi a associated with type 2 diabetes mellitus 03/03/2024 Assessment & Plan (10/20/2024 1:13 PM INDUSTRIAL SALES REPRESENTATIVE): This is a chronic condition which isAt [...] prescribed. Freestyle Richie continuous glucose monitoring de vice 11/29/2023 Assessment & Plan (10/20/2024 1:14 PM INDUSTRIAL SALES REPRESENTATIVE): Continuous glucose monitor (cgm) applied from 10/07/2024 [...] hyperglycemia Assessment & Plan (11/29/2023 2:58 PM INDUSTRIAL SALES REPRESENTATIVE): Continuous glucose monitor (cgm) applied from 11/16/2023 to 11/29/2023 This device was placed for monitor and treatment of blood sugar. Interpretation of data- average glucose 160, glucose management indicator 7.1%. In target range 65. Hypoglycemia between 54 and 69 1%. 0 hypoglycemia less than 54. 34% hyperglycemia Hypertension associated with type 2 diabetes linda litus 11/29/2023 Assessment & Plan (10/20/2024 1:13 PM INDUSTRIAL SALES REPRESENTATIVE): This is a chronic condition which is [...] prescribed. Assessment & Plan (11/29/2023 2:58 PM INDUSTRIAL SALES REPRESENTATIVE): This is a chronic condition which is [...] 08/12/2015 Assessment & Plan (10/20/2024 1:12 PM INDUSTRIAL SALES REPRESENTATIVE): This is a chronic condition which is [...] in agreement. Monitor blood sugar continuously with SpectraSensors Richie cgm. Encouraged annual eye exam. Monofilament [...] last dilated eye exam was done in [place]. Monofilament foot exam completed. protective senses intact Personally reviewed CMP eGFR- 110 Kidney function- normal Urine microalbumin/creatinine ratio - goal <30 treated with losartan B/P today- at goal of <140/90. continue losartan Personally reviewed lipid panel. Not at Goal of less than 70. Continue atovastatin Current Treatment and Therapy Plans No current plan information found. Past Treatment and Therapy Plans No past plan information found. Lifetime Dose Tracking * Chemical Lifetime Dose Automatic Entry Manual Entr y Fluoro Time 3.9 minutes 3.9 minutes 0 minutes Air kerma at the reference point (Ka,r) 59 mGy 5 9 mGy 0 mGy Resolved Problems Problem Noted Date Diagnosed Date Resolved Date Mixed hyperlipidemia 11/17/2017 024 Assessment & Plan (11/29/2023 2:56 PM INDUSTRIAL SALES REPRESENTATIVE): This is a chronic condition which is [...]
--- OUTSIDE RECORDS SUMMARY | 2025-01-16 16:30 | XMS_ITS | Encounter Summary ---
Author Organization [facility] Address [address] [place] [address] Phone Care Team Providers Care Home Health Scheduler Name Role Phone Saul Valverde MD Primary Care Provider [phone] Ramon Paredes MD Unavailable Reason for Visit * Reason Comments Medication Refill Encounter Details Date Type Department Care Team (Late st Contact Info) Description [facility] [address] [place] [address] Saul Valverde MD #[address] [address] Medication Refill Social History Tobacco [...] 08/21/2020 9:59 AM CST Prescription pending signature OR FIRE PROTECTION ENGINEER * Telephone Encounter - Emi Mcarthur RN [...] 2 diabetes mellitus without complication, unspecified whether clinical education academic coordinator insulin use (HCC) [facility] Saul Munoz MD 9 months ago Chronic midline low back pain without sciatica [facility] Saul Munoz MD 1 year ago Chronic midline low back pain without sciatica [facility] Saul Munoz MD 1 year ago Pure hypercholesterolemia [facility] Saul Munoz MD 2 years ago Type 2 diabetes mellitus without complication, without long-term current use of insulin(HCC) [facility] Saul Munoz MD Upcoming Appointments STATE FARM AGENT - Recent and Past Visits Recent Visits Date Type Provider Dept 05/20/20 Telemedicine Saul Valverde MD [facility] 11/20/19 Office Visit [facility] Showing recent visits within past 460 days with a meds authorizing provider and meeting all other requirements Future Appointments No visits were found meeting these conditions. Showing future appointments within next 90 days with a meds authorizing provider and meeting all other requirements OR FIRE PROTECTION ENGINEER documented in this encounter Plan of Treatment Upcoming Encounters Date Type Department Care Team (Late st Contact Info) Description 03/15/2025 11:00 AM CDT Office Visit [facility] #[address] [place] [address] Saul Valverde MD #2 [facility] [address] [place] [address] documented as of this encounter Visit Diagnoses Diagnosis Pain Generalized pain documented in this encounter Additional Health Concerns Assessment Noted Time PHQ-9 Depression Total Score: 0 11/20/19 20 12:18 PM SENIOR FIRE PROTECTION ENGINEER documented as of this encounter Care Teams Home Health Scheduler Relationship Specialty Start Date End Date Saul Valverde MD #2 [facility] [address] [place] [address] PCP - General Family Medicine 11/17/17 Ramon Paredes MD #[address] [address] Consulting Physician Colon and Rectal Surgery 10/11/23 documented as of this encounter
--- OUTSIDE RECORDS SUMMARY | 2025-01-16 16:30 | XMS_ITS | Encounter Summary ---
Author Organization [facility] Address [address] [place] [address] Phone Care Team Providers Care Crt Name Role Phone Saul Valverde MD Primary Care Provider [phone] Ramon Paredes MD Unavailable Reason for Visit * Reason Comments Medication Refill Encounter Details Date Type Department Care Team (Late st Contact Info) Description 11/29/2023 Refill [facility] Medical Group - Family Medicine [facility] #[address] [place] [address] Saul Valverde MD #[address] [address] Medication Refill Social History Tobacco Use Types [...] Miscellaneous Notes * Telephone Encounter - Neida Snatana RN - 11/30/2023 8:24 AM CST Images from the original note were not included. Losartan Potassium Dispensed Days Supply Quantity Provider Pharmacy LOSARTAN POTASSIUM 100 MG TABS 11/29/2023 90 90 Tablet Saul Valverde MD [facility] mike Leavitt... LOSARTAN POTASSIUM 100 MG TABS 08/16/2023 90 90 Tablet Saul Valverde MD [facility]... ORATION SECRETARY documented in this encounter Plan of Treatment Upcoming Encounters Date Type Department Care Team (Late st Contact Info) Description 03/15/2025 11:00 AM CDT [facility] Visit [facility] #2 [place] [address] Saul Valverde MD #[address] [address] documented as of this encounter Visit Diagnoses Not on filedocumented in this encounter Additional Health Concerns Assessment Noted Time PHQ-9 Depression Total Score: 0 02/13/20 21 12:00 PM CDT documented as of this encounter Care Teams Crt Relationship Specialty Start Date End Date Saul Valverde MD #[address] [address] PCP - General Family Medicine 11/17/17 Ramon Paredes MD #[address] [address] Consulting Physician Colon and Rectal Surgery 10/11/23 documented as of this encounter
--- OUTSIDE RECORDS SUMMARY | 2025-01-16 16:30 | XMS_ITS | Encounter Summary ---
Author Organization [facility] Address [address] [place] [address] Phone Care Team Providers Care Environmental Health Officer Name Role Phone Saul Valverde MD Primary Care Provider [phone] Ramon Paredes MD Unavailable Reason for Visit * Reason Comments Medication Refill Encounter Details Date Type Department Care Team (Late st Contact Info) Description 01/13/2024 Refill [facility] Medical Group - Family Medicine [facility] #2 [place] [address] Saul Valverde MD #[address] [address] Medication Refill Social History Tobacco Use Types [...] PM CDT Medication(s) [facility] and [facility] Medication Refill Standing Order for Pediatricand [...] [place] 03/02/23 Office Visit Saul [facility] Showing recent visits within past 365 days and meeting all other requirements Future Appointments Date Type Provider Dept 03/07/24 Appointment Saul Valverde MD [facility] Showing future appointments within next 90 days and meeting all other requirements documented in this encounter Plan of Treatment Upcoming Encounters Date Type Department Care Team (Late st Contact Info) Description 03/15/2025 11:00 AM CDT [facility] Visit [facility] #[address] [place] [address] Saul Valverde MD #[address] [address] documented as of this encounter Visit Diagnoses Not on filedocumented in this encounter Additional Health Concerns Assessment Noted Time PHQ-9 Depression Total Score: 0 02/13/20 21 12:00 PM CDT documented as of this encounter Care Teams Environmental Health Officer Relationship Specialty Start Date End Date Saul Valverde MD #[address] [address] PCP - General Family Medicine 11/17/17 Ramon Paredes MD #2 [facility] [address] [place] [address] Consulting Physician Colon and Rectal Surgery 10/11/23 documented as of this encounter
--- OUTSIDE RECORDS SUMMARY | 2025-01-16 16:30 | XMS_ITS | Referral Summary ---
Author Organization [facility] Address [address] [place] [address] Care Team Providers Care Video Recorder Mechanic Name Role Phone Saul Valverde MD Primary Care Provider + [phone] Muriel Reece MD Unavailable [phone] Adeel Ryan MD Unavailable [phone] Tasneem Henderson MD Unavailable [phone]- [phone] Encounters Date Type Department Care Team Description 01/12/20 12:00 PM CDT Office Visit [facility] Oncology [address] [place] [phone] Tasneem Henderson MD Malignant neoplasm of head of pancreas (HCC) (Primary Dx); Pancreatic mass 01/04/20 10:24 AM CDT - 01/12/20 10:20 AM CDT Hospital Encounter [address] [phone] Darwin Sanchez MD Baig, Sophia, MD Dehaan, MD Matthew Arita Thishara, MD Smelser, Katelyn P., MD Pancreatic adenocarcinoma (HCC) [C25.9] (Primary Dx); Jaundice; Obstructive jaundice (HCC); Abdominal pain; Pancreatic mass; Biliary sepsis (HCC) [K83.09]; Biliary sepsis (HCC); Pancreatic adenocarcinoma (HCC); Malignant neoplasm of head of pancreas (HCC); Severe protein-calorie malnutrition; Acute cholangitis (HCC) Discharge Disposition: Discharge to home or self care 01/11/20 Telephone [facility] Physicians [facility] Oncology [address] [facility] [address] [place] [address] Trina Escoto, [facility] 01/11/20 25 Orders Only [facility] [address] [place] [address] Tasneem Henderson MD Pancreatic mass 01/10/20 25 Orders Only [facility] - Interventional Radiology [address] [place] [phone] Julianna Vizcaino RN 01/04/20 25 2:13 PM CDT Anesthesia Event [facility] GI Center [address] [place] [phone] Bessy Sanchez DO Winfrey, Tonya M., RANCH SUPERVISOR 01/04/20 25 2:00 PM CDT - 01/04/20 25 2:45 PM CDT Surgery [facility] GI Center [address] [place] [phone] Mushtaq Moeller MD ENDO ENDOSCOPIC RETROGRADE CHOLANGIOPANCREATOGRAPHY REMOVE/CHANGE STENT [GI513] 01/04/20 25 Telephone [facility] Gastroenterology [address] [place] [address] Medical Office Building [address], [address] [place] [address] Azul Jaime RN MD recommendations 01/03/20 25 Orders Only [facility] Scanning, Provider 01/03/20 25 Telephone [facility] Gastroenterology [address] [place] [address] Medical Office Building [address], [address] [place] [address] Alma López RN Follow-up 01/02/[address] [facility] Oncology [address] [facility] [address] [place] [address] Tasneem Henderson MD Pancreatic mass (Primary Dx) 12/28/19 25 Telephone [facility] Surgery [address] [place] [address] Floor 8 [place] [phone] Muriel Reece MD Scheduling Appointments 12/26/19 Results Follow-Up [facility] Gastroenterology [address] [facility] 2nd Floor [address] [place] [address] Adeel Ryan MD Pancreatic mass (Primary Dx); Pancreatic adenocarcinoma (HCC) 12/26/19 Results Follow-Up [facility] Gastroenterology [address] [facility] 2nd [address] [place] [address] Adeel Ryan MD 12/24/19 25 Documentation [facility] Gastroenterology [address] [facility] Medical Office Building 4 [address] [place] [phone] Perez Yu MD 12/22/19 Orders Only [facility] Department of Hepatobiliary, Pancreatic, & Gastrointestinal Surgery [address] [facility] 12th Floor, [place] [phone] Magda Sexton PA Pancreatic mass (Primary Dx) 12/20/19 6:30 AM CDT - 12/22/19 1:16 PM CDT Hospital Encounter [address] [address] Timmy Braxton MD Dehaan, Kevin Patrick, MD Li, Alex, MD Pancreatic mass (Primary Dx); Jaundice; Nausea; Obstructive jaundice (HCC) [K83.1]; Tobacco use disorder [F17.200] Discharge Disposition: Discharge to home or self care 12/21/19 25 Orders Only [address] [phone] Adeel Ryan MD 12/21/19 25 Orders Only [address] [address] Adeel Ryan MD 12/21/19 2:39 PM CDT Anesthesia Event [facility] GI Center [address] [place] [phone] Criselda Abbott MD Zubiri, Elvit Tiu, MELVA 12/21/19 1:45 PM CDT - 12/21/19 2:30 PM CDT Surgery [facility] GI Center [address] [place] [phone] Adeel Ryan MD ESOPHAGOGASTRODUODENOSCOPY ULTRASOUND GUIDE LIMITED 11/08/19 25 Telephone [facility] Diabetes Endocrine Care at [address] [phone] Holly Henson, YULY 11/07/19 25 Telephone [facility] Diabetes Endocrine Care at [address] [phone] Cheryl Rosario MA 11/07/19 25 Orders Only [facility] Diabetes Endocrine Care at [address] [phone] Holly Henson NP Type 2 diabetes mellitus with hyperglycemia, with long-term current use of insulin (HCC) (Primary Dx) 11/03/19 25 Telephone [facility] Diabetes Endocrine Care at [address] [phone] Holly Henson NP 11/02/19 25 Telephone [facility] Diabetes Endocrine Care at [address] [phone] Cheryl Rosario MA 10/30/19 25 Telephone [facility] Diabetes Endocrine Care at [address] [phone] Holly Henson NP 10/20/19 25 10:30 AM TRANSPORTATION REFRIGERATION TECHNICIAN Office Visit [facility] Diabetes Endocrine Care at [address] [phone] Holly Henson NP Type 2 diabetes mellitus [...] by mouth daily as needed (erectile dysfunction) 021 Active omeprazole (PriLOSEC) 40 mg capsule Take 1 capsule (40 mg total) by mouth daily Active ALPRAZolam (XANAX) 0.5 mg tablet Take 1 tablet (0.5 mg total) by mouth 2 (two) times a day as needed for anxiety Takes one after dinner and another at bedtime as needed Active pen needle, diabetic 32 gauge x 32 needle Use to inject insulin 4x daily. E11.65. 300 each 4 Active albuterol HFA (PROVENTIL HFA,VENTOLIN HFA,PROAIR HFA) 90 mcg/actuation inhaler Inhale 2 puffs every 4 (four) hours as needed for wheezing or shortness of breath 024 Active famotidine (PEPCID) 20 mg tablet Take 1 tablet (20 mg total) by mouth daily 025 Active losartan-hydroc hlorothiazide (HYZAAR) 100-25 mg per tablet Take 1 tablet by mouth daily with lunch 024 Active testosterone cypionate (DEPO-TESTOTERO NE) 200 mg/mL injection Inject 1 mL (200 mg total) into the muscle as instructed every 7 days 024 Active insulin optical advisor cart,aut,G6/7,c ntr (Omnipod 5 G6-G7 Intro Kt,Gen5,) cartridge Inject 1 Device under the skin continuously E11.65 45 each 4 025 Active Omnipod 5 G6-G7 Intro Kt,Gen5, cartridge Inject 1 Device under the skin continuously E11.65 1 each 1 025 Active dicyclomine (BENTYL) 10 mg capsule Take [...] hours as needed for pain 40 tablet Active hydrOXYzine (ATARAX) 25 mg tablet Take [...] times a day as needed for pain 2024 Discontinued simvastatin (ZOCOR) 20 mg tablet TAKE 1 TABLET BY MOUTH EVERY NIGHT 90 tablet 3 025 2024 Discontinued(S top Taking at Discharge) morphine ER (MS CONTIN) 30 mg 12 hr tablet Take 1 tablet (30 mg total) by mouth 2 (two) times a day for 7 days 14 tablet 2024 Discontinued HYDROmorphone (DILAUDID) 4 mg tabletIndicatio [...] 03/03/2024 Assessment & Plan (10/20/2024 1:13 PM TRANSPORTATION REFRIGERATION TECHNICIAN): This is a chronic condition which isAt [...] 11/29/2023 Assessment & Plan (10/20/2024 1:14 PM TRANSPORTATION REFRIGERATION TECHNICIAN): Continuous glucose monitor (cgm) applied from 10/07/2024 [...] hyperglycemia Assessment & Plan (11/29/2023 2:58 PM TRANSPORTATION REFRIGERATION TECHNICIAN): Continuous glucose monitor (cgm) applied from 11/16/2023 to 11/29/2023 This device was placed for monitor and treatment of blood sugar. Interpretation of data- average glucose 160, glucose management indicator 7.1%. In target range 65. Hypoglycemia between 54 and 69 1%. 0 hypoglycemia less than 54. 34% hyperglycemia Hypertension associated with type 2 diabetes linda litus 11/29/2023 Assessment & Plan (10/20/2024 1:13 PM TRANSPORTATION REFRIGERATION TECHNICIAN): This is a chronic condition which is [...] prescribed. Assessment & Plan (11/29/2023 2:58 PM TRANSPORTATION REFRIGERATION TECHNICIAN): This is a chronic condition which is [...] 08/12/2015 Assessment & Plan (10/20/2024 1:12 PM TRANSPORTATION REFRIGERATION TECHNICIAN): This is a chronic condition which is [...] in agreement. Monitor blood sugar continuously with [employer] Rich[employer] cgm. Encouraged annual eye exam. Monofilament [...] last dilated eye exam was done in [place]. Monofilament foot exam completed. protective senses intact [...] 024 Assessment & Plan (11/29/2023 2:56 PM TRANSPORTATION REFRIGERATION TECHNICIAN): This is a chronic condition which is [...] uit: Not Asked; Counseling Given: Not Answered [facility] Utilities Answer Date Recorded In the past [...] often do you attend chur ch or quaker services? 1 to 4 times per year 01/04/2025 Do you belong to any clubs o r organizations such as oriental orthodox groups, unions, fraternal or athletic groups, or [...] any time in the past 12 m [facility], were you homeless or living in a custodial (including now)? No 01/04/2025 Personal Safety Answer Date Recorded Have you ever been in or are you currently in a harmful physical or emotional relationship or is someone making you feel afraid or unsafe? Denies 01/03/2025 Sex and Gender Information Value Date Recorded Sex Assigned at Not on file Legal Sex Male 11:03 AM TRANSPORTATION REFRIGERATION TECHNICIAN Gender Identity Not on file Sexual [...] Description 01/24/2025 12:30 PM CDT Office Visit [facility] Diabetes Endocrine Care at [address] [place] [address] Holly Henson, CLERICAL WAREHOUSE WORKER [address] [facility] [address] [place] [address] Medical Devices Implanted Type Area Quarrying Manager Device Identifier Shelf Expiration Date Model / Serial / Lot [employer] Bia Wallflex 8mm 8fr 60mm Rapid Exchange Delivery System Stent [id number] - [id number] Implanted:Qty: 1 on 01/03/2025 by Mushtaq Moeller MD at [facility] N/A: Bile Duct [employer] 10/26/2026 [id number] / / [id number] Explanted Type Area Quarrying Manager Device Identifier Shelf Expiration Date Model / Serial / Lot [employer] B[employer] 10fr 9cm Biliary Stent [id number] - [id number] Implanted:Qty: 1 on 12/20/2024 by Adeel Ryan MD at [facility] Explanted:Qty: 1 on 01/03/2025 by Mushtaq Moeller MD at [facility] Stent N/A: Bile Duct [employer] 08/30/2025 [id number] / / [id number] Procedures Procedure Name Priority Date/Time Associated Diagnosis [...] (HCC) POCT GLUCOSE Routine 10/20/2024 10:42 AM TRANSPORTATION REFRIGERATION TECHNICIAN Type 2 diabetes mellitus with hyperglycemia, with long-term current use of insulin (HCC) POCT HEMOGLOBIN A1C Routine 10/20/2024 10:41 AM TRANSPORTATION REFRIGERATION TECHNICIAN Type 2 diabetes mellitus with hyperglycemia, with long-term current use of insulin (HCC) LIPID PANEL Routine 03/01/2024 2:07 PM CDT Type 2 diabetes mellitus with hyperglycemia, with long-term current use of insulin (HCC) ALBUMIN CREATININE RATIO, URINE Routine 03/01/2024 2:07 PM CDT Type 2 diabetes mellitus with hyperglycemia, with long-term current use of insulin ([facility]) DIABETIC EYE EXAM Routine 11/25/2023 from Last 3 Months or Most Recently Relevant to Health Maintenance Results * POCT glucose (01/11/2025 6:19 AM CDT) [facility] Glucose, POC 138 70 - 199 mg/dL Comment: For Glucose values <35 mg/dl when Hematocrit is >60 mg/dl,the test may not accurately detect significant hypoglycemia,and testing in the Laboratory should be considered if clinically indicated. POC Performer [id number] [facility] Blood 01/11/2025 6:19 AM CDT 01/11/2025 6:19 AM CDT us Sweetie Pryor MD LAB POCT ORDERABLES - GORAN CE Final Result [facility] [address] Department [place] [address] * eGFR (01/11/2025 4:20 AM CDT) [facility] eGFR >90 >=60 mL/min/1. 73 m2 Comment: [...] GARCIA LAB BLOOD ORDERABLES Final Re sult [facility] [address] Department [place] [address] * (ABNORMAL) Comprehensive metabolic panel (01/11/2025 4:20 AM CDT) [facility] Sodium 139 135 - 145 mmol/L Potassium, pl 4.0 3.3 - 4.9 mmol/L [facility] Chloride 102 97 - 110 mmol/L [facility] CO2 24 22 - 32 mmol/L [facility] Anion gap 13 2 - 15 mmol/L [facility] BUN 14 6 - 25 mg/dL [facility] Creatinine 0.60(L) 0.80 - 1.30 mg/dL [facility] Glucose 160 70 - 199 mg/dL [facility] Comment: Interpretive Data Fasting glucose [...] 2022. Calcium 8.2(L) 8.5 - 10.3 mg/dL [facility] Bilirubin, total 18.7(H) 0.1 - 1.2 mg/dL [facility] Protein, pl 5.5(L) 6.5 - 8.5 g/dL [facility] Albumin 2.6(L) 3.5 - 5.0 g/dL [facility] Alk phos 1,235(H) 40 - 130 Units/L [facility] ALT 185(H) 7 - 55 Units/L [facility] AST 118(H) 10 - 50 Units/L [facility] Blood 01/11/2025 4:20 AM CDT 01/11/2025 5:30 AM CDT us Mildred GARCIA LAB BLOOD ORDERABLES Final Re sult Performing Organization Address City/[facility]/ZIP Co de Phone Number [facility] [address] Department [place] [address] * POCT glucose (01/10/2025 7:53 PM CDT) [facility] Glucose, POC 171 70 - 199 mg/dL Comment: For Glucose values <35 mg/dl when Hematocrit is >60 mg/dl,the test may not accurately detect significant hypoglycemia,and testing in the Laboratory should be considered if clinically indicated. POC Performer [id number] [facility] Blood 01/10/2025 7:53 PM CDT 01/10/2025 7:53 PM CDT us Sweetie Pryor MD LAB POCT ORDERABLES - GORAN CE Final Result [facility] [address] [facility] [email or web address] [address] * POCT glucose (01/10/2025 4:58 PM CDT) Glucose, POC 161 70 - 199 mg/dL Comment: For Glucose values <35 mg/dl when Hematocrit is >60 mg/dl,the test may not accurately detect significant hypoglycemia,and testing in the Laboratory should be considered if clinically indicated. POC Performer [id number] [facility] Blood 01/10/2025 4:58 PM CDT 01/10/2025 4:58 PM CDT us Sweetie Pryor MD LAB POCT ORDERABLES - GORAN CE Final Result Performing Organization Address [facility] Co de Phone Number [facility] [address] [facility] [email or web address] [address] * (ABNORMAL) POCT glucose (01/10/2025 11:56 AM CDT) Glucose, POC 211(H) 70 - 199 mg/dL Comment: For Glucose values <35 mg/dl when Hematocrit is >60 mg/dl,the test may not accurately detect significant hypoglycemia,and testing in the Laboratory should be considered if clinically indicated. POC Performer [id number] [facility] Blood 01/10/2025 11:5 6 AM CDT 01/10/2025 11:56 AM CDT us Sweetie Pryor MD LAB POCT ORDERABLES - GORAN CE Final Result Performing Organization Address [facility] Co de Phone Number [facility] [address] [facility] [email or web address] [address] * POCT glucose (01/10/2025 7:58 AM CDT) Glucose, POC 143 70 - 199 mg/dL Comment: For Glucose values <35 mg/dl when Hematocrit is >60 mg/dl,the test may not accurately detect significant hypoglycemia,and testing in the Laboratory should be considered if clinically indicated. POC Performer [id number] [facility] Blood 01/10/2025 7:58 AM CDT 01/10/2025 7:58 AM CDT Sweetie Pryor MD LAB POCT ORDERABLES - GORAN CE Final Result Performing Organization Address [facility] Co de Phone Number [facility] [address] [facility] [email or web address] [address] * POCT glucose (01/10/2025 6:09 AM CDT) Glucose, POC 193 70 - 199 mg/dL Comment: For Glucose values <35 mg/dl when Hematocrit is >60 mg/dl,the test may not accurately detect significant hypoglycemia,and testing in the Laboratory should be considered if clinically indicated. POC Performer [id number] [facility] Blood 01/10/2025 6:09 AM CDT 01/10/2025 6:09 AM CDT us Sweetie Pryor MD LAB POCT ORDERABLES - GORAN CE Final Result Performing Organization Address [facility] de Phone Number [facility] [address] [facility] [email or web address] [address] * eGFR (01/10/2025 5:08 AM CDT) eGFR [...] ORDERABLES Final Re sult Performing Organization Address [facility]/ZIP Co de Phone Number [facility] Maria Del Rosario[address] [place] [address] * Blood culture Blood (01/10/2025 5:08 AM CDT) Report Final Report: No growth Blood 01/10/2025 5:08 AM CDT 01/10/2025 6:27 AM CDT Narrative [facility] - 01/15/2025 7:00 AM CDT From a [...] organism identification may be performed using the Divide Blood Culture Identification panel. This assay detects microbial DNA in a blood culture broth. This assay has been cleared by the [place] Food and Drug Administration and its performance characteristics have been verified by the [facility] Microbiology Laboratory. Interpretive data was last revised on November 05, 2022. Virgil Wynne MD LAB MICROBIOLOGY - GENERAL OR DERABLES Final Result Performing Organization Address City/[facility]/ZIP Co de Phone Number [facility] [address] Department [place] [address] * Blood culture Blood (01/10/2025 5:08 AM CDT) Report Final Report: No growth Blood 01/10/2025 5:08 AM CDT 01/10/2025 6:27 AM CDT Narrative [facility] - 01/15/2025 7:00 AM CDT Interpretive [...] organism identification may be performed using the Divide Blood Culture Identification panel. This assay detects microbial DNA in a blood culture broth. This assay has been cleared by the [place] Food and Drug Administration and its performance characteristics have been verified by the [facility] Microbiology Laboratory. Interpretive data was last revised on November 05, 2022. Virgil Wynne MD LAB MICROBIOLOGY - GENERAL OR DERABLES Final Result [facility] [address] Department [place] [address] * (ABNORMAL) Comprehensive metabolic panel (01/10/2025 5:08 AM CDT) Pathologist [facility] Sodium 141 135 - 145 mmol/L Potassium, pl 4.1 3.3 - 4.9 mmol/L [facility] Chloride 107 97 - 110 mmol/L [facility] CO2 22 22 - 32 mmol/L [facility] Anion gap 12 2 - 15 mmol/L [facility] BUN 12 6 - 25 mg/dL [facility] Creatinine 0.55(L) 0.80 - 1.30 mg/dL [facility] Glucose 215(H) 70 - 199 mg/dL [facility] Comment: Interpretive Data Fasting glucose [...] 2022. Calcium 7.9(L) 8.5 - 10.3 mg/dL [facility] Bilirubin, total 17.4(H) 0.1 - 1.2 mg/dL [facility] Protein, pl 5.0(L) 6.5 - 8.5 g/dL [facility] Albumin 2.4(L) 3.5 - 5.0 g/dL [facility] Alk phos 1,151(H) 40 - 130 Units/L [facility] ALT 184(H) 7 - 55 Units/L [facility] AST 115(H) 10 - 50 Units/L [facility] Blood 01/10/2025 5:08 AM CDT 01/10/2025 6:10 AM CDT us Mildred GARCIA LAB BLOOD ORDERABLES Final Re sult Performing Organization Address City/[facility]/ZIP Co de Phone Number [facility] [address] Department [place] [address] * POCT glucose (01/09/2025 7:58 PM CDT) [facility] Glucose, POC 170 70 - 199 mg/dL Comment: For Glucose values <35 mg/dl when Hematocrit is >60 mg/dl,the test may not accurately detect significant hypoglycemia,and testing in the Laboratory should be considered if clinically indicated. POC Performer [id number] [facility] Blood 01/09/2025 7:58 PM CDT 01/09/2025 7:58 PM CDT Sweetie Pryor MD LAB POCT ORDERABLES - GORAN CE Final Result Performing Organization Address [facility]/ZIP Co de Phone Number [facility] [address] Department of [email or web address] [address] * POCT glucose (01/09/2025 4:47 PM CDT) Glucose, POC 79 70 - 199 mg/dL Comment: For Glucose values <35 mg/dl when Hematocrit is >60 mg/dl,the test may not accurately detect significant hypoglycemia,and testing in the Laboratory should be considered if clinically indicated. POC Performer [id number] [facility] Blood 01/09/2025 4:47 PM CDT 01/09/2025 4:47 PM CDT Sweetie Pryor MD LAB POCT ORDERABLES - GORAN CE Final Result Performing Organization Address City/[facility]/ZIP Co de Phone Number [facility] [address] Department [email or web address] [place], [place] [id number] * Tissue aerobic and anaerobic culture and gram stain Biopsy Liver (01/09/2025 1:40 PM CDT) Pathologist [facility] Direct Specimen Exam Stain: No polymorphonuclear leukocytes seen. No organisms seen. Report Final Report: No growth [facility] Biopsy (Liver) 01/09/2025 1: 40 PM CDT 01/09/2025 2:42 PM CDT Virgil Wynne MD LAB MICROBIOLOGY - GENERAL OR DERABLES Final Result Performing Organization Address City/[facility] Co de Phone Number [facility] [address] Department [email or web address] [address] * IR Biopsy Liver (01/09/2025 1:37 PM [...] of concern in the right hepatic lobe. General Operations Agent ultrasound images were obtained for documentation. Gelfoam [...] of concern in the right hepatic lobe. General Operations Agent ultrasound images were obtained for documentation. Gelfoam [...] Surgical Pathology report. Comment:Testing performed by : [facility], [address] [place]., [address] Tissue 01/09/2025 1:29 PM CDT 01/09/2025 7:27 PM CDT us Sweetie Pryor MD LAB PATHOLOGY ORDERABLES F inal Result [facility] [address] Department [place] [address] * Surgical pathology (01/09/2025 1:29 PM CDT) Soft Tissue (flow cytometry) 01/09/2025 1:29 PM CDT 01/09/2025 1:50 PM CDT Narrative 01/11/2025 12:18 PM CDT [place] [address] [place], [place] [address] Tele: Mariam Abel MD - Shingle [employer] FLOW CYTOMETRY REPORT Note to Patients: This [...] the details. Patient Name: DONG TEIXEIRA Address: [address] [place] [address] Gender: M : 1960 (Age: 64) Service: Medical Location: [place] [address] Hospital #: [id number] Patient Type: [facility] IN[facility]IENT Taken: 01/09/2025 Received: 01/09/2025 Reported: 01/11/2025 Physician(s): Watson Love M.D. Virgil Wynne M.D. Dr. Saul Valverde M.D. DIAGNOSIS: Liver, mass, flow cytometric immunophenotypic analysis: - Technically inadequate specimen for interpretation due to nonspecific antibody binding and low overall lymphoid cellularity, see comment [facility]/01/11/2025 12:18 Examining Pathologist: Ian Soto MD, PhD [...] of RPMI media labeled with patient name Dong Teixeira date of 1960. , MICROSCOPIC DESCRIPTION: Flow cytometric analysis of the liver mass is technically inadequate for interpretation due to nonspecific antibody binding and low overall lymphoid cellularity. REPORT IMAGES AND/OR SCANNED DOCUMENTS ONLY VIEWABLE IN PDF FORMAT The flow cytometry study included in this report is developed and its performance characteristics determined by [facility] Pathology Department and/or [facility]. It has not been cleared or approved by the U.S Food and Drug Administration (FDA) and FDA has determined that such clearance or approval is not necessary. This test is used for clinical purpose and it should not be regarded as investigational or for research. [facility] and/or [facility] is certified under the Clinical Laboratory Amendment of 1988 (CLIA) as qualified to perform high complex testing Watson Santoro MD LAB PATHOLOGY ORDERABLES Final Result * Surgical pathology (01/09/2025 1:26 PM CDT) Tissue (Liver, Biopsy, Needle Medical) 01/09/2025 1:26 PM CDT Tissue specimen (specimen) (Liver, Biopsy, Needle Medical) 01/09/2025 1:29 PM CDT Narrative PATHOLOGY [facility] - 01/10/2025 3:16 PM CDT [address] [address] Tele: Mariam Abel MD - Shingle Trimmer Note to Patients: This report may contain [...] REPORT Patient Name: DONG TEIXEIRA Address: [address] [place] [address] Gender: M : 1960 (Age: 64) Service: Medical Location: [place] [address], Hospital #: [id number] Patient Type: [facility] INPATIENT Taken: 01/09/2025 Received 01/09/2025 Reported: 01/10/2025 [...] filtered and submitted entirely in cassette A1. [facility] MICROSCOPIC DESCRIPTION: Sections show cores of liver tissue with acute, canalicular cholestasis. Portal tracts show mild chronic inflammation. Microabscesses are not present nor is cholangitis. Scattered atypical glandular foci measuring less than 0.1cm to 0.2 cm and composed of haphazard, angulated glands with [id number] nuclear atypia, luminal mucin, and desmoplasia are [...] lining cell iron. Clerical Data Follows A; 05997, 38522, 53187, 38517, 37498 REPORT IMAGES AND/OR SCANNED DOCUMENTS ONLY VIEWABLE IN PDF FORMAT The immunohistochemical test(s) cited in this report, if any, was developed and its performance characteristics determined by [facility] [place] [facility] Pathology Department. It has not been cleared or approved by the U.S. Food and Drug Administration. The FDA has determined that such clearance or approval is not necessary. This test is used for clinical purposes. It should not be regarded as investigational or for research. [facility] [place] [facility] Laboratory is certified under the Clinical Laboratory [...] part or completely in the following laboratories: [facility] [place] [facility], [facility]5 [facility], [place] [address] [facility], [address] [place] [address], [place] [address]. Virgil Wynne MD LAB PATHOLOGY ORDERABLES Ashwini hung Result PATHOLOGY [facility] Laboratory Receiving [address] [place] [address]. [place] [address] * POCT glucose (01/09/2025 11:41 AM CDT) Glucose, POC 132 70 - 199 mg/dL Comment: For Glucose values <35 mg/dl when Hematocrit is >60 mg/dl,the test may not accurately detect significant hypoglycemia,and testing in the Laboratory should be considered if clinically indicated. POC Performer [id number] [facility] Blood 01/09/2025 11:4 1 AM CDT 01/09/2025 11:41 AM CDT us Sweetie Pryor MD LAB POCT ORDERABLES - GORAN CE Final Result Performing Organization Address [facility] Co de Phone Number [facility] [address] Department [email or web address] [address] * POCT glucose (01/09/2025 6:18 AM CDT) Glucose, POC 128 70 - 199 mg/dL Comment: For Glucose values <35 mg/dl when Hematocrit is >60 mg/dl,the test may not accurately detect significant hypoglycemia,and testing in the Laboratory should be considered if clinically indicated. POC Performer [id number] [facility] Blood 01/09/2025 6:18 AM CDT 01/09/2025 6:18 AM CDT us Pam Castro MD LAB POCT ORDERABLES - DEVICE F inal Result Performing Organization Address City/[facility]/ZIP Co de Phone Number [facility] [address] Department [email or web address] [address] * eGFR (01/09/2025 5:44 AM CDT) Pathologist [facility] eGFR >90 [...] GARCIA LAB BLOOD ORDERABLES Final Re sult [facility] [address] Department [place] [address] * (ABNORMAL) Differential, auto (01/09/2025 5:44 AM CDT) Neutrophil abs 5.73 1.50 - 6.50 K/cumm Imm gran abs 0.18(H) 0.00 - 0.10 K/cumm [facility] Lymphocyte abs 1.53 0.80 - 3.30 K/cumm [facility] Monocyte abs 0.94(H) 0.20 - 0.80 K/cumm [facility] Eosinophil abs 0.33 0.00 - 0.50 K/cumm [facility] Basophil abs 0.05 0.00 - 0.10 K/cumm [facility] Neutrophil pct 65.3 % [facility] Comment: Interpretive Data Percent cell count reference ranges are not reported, since discordance with absolute values may lead to misinterpretation of CBC data. Current Interpretive Data was last revised on 2018. Imm gran pct 2.1 % [facility] Comment: Interpretive Data Percent cell count reference ranges are not reported, since discordance with absolute values may lead to misinterpretation of CBC data. Current Interpretive Data was last revised on 2018. Lymphocyte pct 17.5 % [facility] Comment: Interpretive Data Percent cell count reference ranges are not reported, since discordance with absolute values may lead to misinterpretation of CBC data. Current Interpretive Data was last revised on 2018. Monocyte pct 10.7 % [facility] Comment: Interpretive Data Percent cell count reference ranges are not reported, since discordance with absolute values may lead to misinterpretation of CBC data. Current Interpretive Data was last revised on 2018. Eosinophil pct 3.8 % [facility] Comment: Interpretive Data Percent cell count reference ranges are not reported, since discordance with absolute values may lead to misinterpretation of CBC data. Current Interpretive Data was last revised on 2018. Basophil pct 0.6 % [facility] Comment: Interpretive Data Percent cell count reference ranges are not reported, since discordance with absolute values may lead to misinterpretation of CBC data. Current Interpretive Data was last revised on 2018. Blood 01/09/2025 5:44 AM CDT 01/09/2025 7:00 AM CDT us Pam Castro MD LAB BLOOD ORDERABLES Final Res ult [facility] [address] Department [place] [address] * TB test, quantiferon gold (01/09/2025 5:44 AM CDT) [facility] Quantiferon TB Gold Negative Negative [place] [facility] Comment: No interferon-gamma response to M. tuberculosis antigens was detected. Latent infection with M. tuberculosis is unlikely. A single negative result does not exclude infection with M. tuberculosis. In patients at high risk for M.tuberculosis infection, a second test should be considered in accordance with the 2017 ATS/IDSA/CDC Clinical Practice Guidelines for Diagnosis of Tuberculosis in Adults and Children [Richinsohn DM et. al. Clin. Infect. Dis. 2017;64(2):111-115]. The reference range for the 'TB1 Ag minus Nil Result' and 'TB2 Ag minus Nil Result' is an Interferon-gamma level <0.35 IU/mL. TB-Nil 0.00 IUnits/mL [facility] TB2-Nil 0.00 IUnits/mL [facility] Mitogen-Nil 0.58 IUnits/mL [facility] NIL 0.00 IUnits/mL [facility] Comment: Test Performed by: [facility] [address] [place] [id number] Library Clerk: Matheus Cleaning Ph.D.; CLIA# [id number] Blood 01/09/2025 5:44 AM CDT 01/09/2025 7:00 AM CDT us Virgil Wynne MD LAB BLOOD ORDERABLES Final Re sult [facility] [address] Department [place] [address] [place] [facility] * (ABNORMAL) CBC with auto differential (01/09/2025 5:44 AM CDT) WBC 8.76 3.80 - 9.90 K/cumm Hgb 11.9(L) 13.0 - 17.5 g/dL [facility] Hct 33.1(L) 38.9 - 50.3 % [facility] Plt 268 150 - 400 K/cumm [facility] MPV 10.1 9.1 - 12.3 fL [facility] RBC 3.86(L) 4.30 - 5.80 M/cumm [facility] MCV 85.8 81.3 - 96.4 fL [facility] MCH 30.8 27.1 - 33.3 pg [facility] MCHC 36.0(H) 32.3 - 35.7 g/dL [facility] RDW CV 22.4(H) 11.1 - 14.9 % [facility] RDW SD 68.6(H) 35.7 - 48.1 fL [facility] NRBC abs 0.00 0.00 - 0.01 K/cumm [facility] Blood 01/09/2025 5:44 AM CDT 01/09/2025 7:00 AM CDT Pam Castro MD LAB BLOOD ORDERABLES Final Res ult Performing Organization Address [facility] Co de Phone Number [facility] [address] Department [place] [email or web address] [address] * Blood culture Blood (01/09/2025 5:44 AM CDT) Report Final Report: No growth Blood 01/09/2025 5:44 AM CDT 01/09/2025 6:59 AM CDT Narrative [facility] - 01/14/2025 7:01 AM CDT From [...] organism identification may be performed using the Divide Blood Culture Identification panel. This assay detects microbial DNA in a blood culture broth. This assay has been cleared by the [place] Food and Drug Administration and its performance characteristics have been verified by the [facility] Microbiology Laboratory. Interpretive data was last revised on November 05, 2022. Virgil Wynne MD LAB MICROBIOLOGY - GENERAL OR DERABLES Final Result Performing Organization Address [facility] Co de Phone Number [facility] [address] Department [place] [email or web address] [address] * Blood culture Blood (01/09/2025 5:44 AM CDT) Report Final Report: No growth Blood 01/09/2025 5:44 AM CDT 01/09/2025 6:59 AM CDT Narrative [facility] - 01/14/2025 7:01 AM CDT Interpretive [...] organism identification may be performed using the Divide Blood Culture Identification panel. This assay detects microbial DNA in a blood culture broth. This assay has been cleared by the [place] Food and Drug Administration and its performance characteristics have been verified by the [facility] Microbiology Laboratory. Interpretive data was last revised on November 05, 2022. us Virgil Wynne MD LAB MICROBIOLOGY - GENERAL OR DERABLES Final Result Performing Organization Address [facility] Co de Phone Number [facility] [address] [employer] [place], [place] [id number] * aPTT (01/09/2025 5:44 AM CDT) aPTT 33 28 - 38 sec Comment: Interpretive Data Heparin therapeutic range: 66.0 - 100.0 seconds. Range based on correlation with therapeutic heparin activity range of 0.3 - 0.7 Units/mL. Current interpretive data was last revised on 2023. Blood 01/09/2025 5:44 AM CDT 01/09/2025 7:01 AM CDT us Virgil Wynne MD LAB BLOOD ORDERABLES Final Re sult Performing Organization Address [facility] Co de Phone Number [facility] [address] Department [place] [address] * (ABNORMAL) Protime-INR (01/09/2025 5:44 AM CDT) PT 13.1(H) 9.7 - 13.0 sec INR 1.21(H) 0.90 - 1.20 [place] [facility] Comment: Interpretive data Oral anticoagulant therapeutic ranges: Venous thromboembolism prophylaxis or treatment: 2.0-3.0 CARDIOLOGY Standard range: 2.0-3.0 High-intensity range: 2.5-3.5 Refer to indication-specific guidelines for appropriate target ranges for prosthetic heart valve replacement. Current interpretive data was last revised on 2019. Blood 01/09/2025 5:44 AM CDT 01/09/2025 7:01 AM CDT us Mildred GARCIA LAB BLOOD ORDERABLES Final Re sult [facility] [address] Department [place] [address] * (ABNORMAL) Comprehensive metabolic panel (01/09/2025 5:44 AM CDT) Sodium 137 135 - 145 mmol/L Potassium, pl 4.0 3.3 - 4.9 mmol/L [facility] Chloride 103 97 - 110 mmol/L [facility] CO2 23 22 - 32 mmol/L [facility] Anion gap 11 2 - 15 mmol/L [facility] BUN 10 6 - 25 mg/dL [facility] Creatinine 0.57(L) 0.80 - 1.30 mg/dL [facility] Glucose 131 70 - 199 mg/dL [facility] Comment: Interpretive Data Fasting glucose [...] classification and Diagnosis of Diabetes Diabetes Care 2022; 46: S19-S40. Current interpretive data was last revised 2022. Calcium 8.0(L) 8.5 - 10.3 mg/dL [facility] Bilirubin, total 17.9(H) 0.1 - 1.2 mg/dL [facility] Protein, pl 5.1(L) 6.5 - 8.5 g/dL [facility] Albumin 2.4(L) 3.5 - 5.0 g/dL [facility] Alk phos 1,302(H) 40 - 130 Units/L [facility] ALT 202(H) 7 - 55 Units/L [facility] AST 119(H) 10 - 50 Units/L [facility] Blood 01/09/2025 5:44 AM CDT 01/09/2025 7:00 AM CDT us Mildred GARCIA LAB BLOOD ORDERABLES Final Re sult Performing Organization Address [facility] Co de Phone Number [place] [phone] Department [place] [address] * (ABNORMAL) POCT glucose (01/08/2025 9:23 PM CDT) Glucose, POC 206(H) 70 - 199 mg/dL Comment: For Glucose values <35 mg/dl when Hematocrit is >60 mg/dl,the test may not accurately detect significant hypoglycemia,and testing in the Laboratory should be considered if clinically indicated. POC Performer [id number] [facility] Blood 01/08/2025 9:23 PM CDT 01/08/2025 9:23 PM CDT Pam Castro MD LAB POCT ORDERABLES - DEVICE F inal Result Performing Organization Address [facility] de Phone Number [place] [address] Department [place] [address] * POCT glucose (01/08/2025 4:43 PM CDT) Glucose, POC 131 70 - 199 mg/dL Comment: For Glucose values <35 mg/dl when Hematocrit is >60 mg/dl,the test may not accurately detect significant hypoglycemia,and testing in the Laboratory should be considered if clinically indicated. POC Performer [id number] [facility] Blood 01/08/2025 4:43 PM CDT 01/08/2025 4:43 PM CDT Pam Castro MD LAB POCT ORDERABLES - DEVICE F inal Result Performing Organization Address [facility] Co de Phone Number [facility] [address] Department [place] [email or web address] [address] * Direct bilirubin - Add on lab test (01/08/2025 1:34 PM CDT) Acceptable Yes Blood 01/08/2025 1:34 PM CDT 01/08/2025 1:35 PM CDT Narrative [facility] - 01/08/2025 1:36 PM CDT Name of Test->Direct bilirubin Mildred GARCIA LAB BLOOD ORDERABLES Final Re sult Performing Organization Address [facility] Co de Phone Number [facility] [address] Department of [email or web address] [place], [place] [id number] * POCT glucose (01/08/2025 11:53 AM CDT) Pathologist [facility] Glucose, POC 140 70 - 199 mg/dL Comment: For Glucose values <35 mg/dl when Hematocrit is >60 mg/dl,the test may not accurately detect significant hypoglycemia,and testing in the Laboratory should be considered if clinically indicated. POC Performer [id number] [facility] Blood 01/08/2025 11:5 3 AM CDT 01/08/2025 11:53 AM CDT Pam Castro MD LAB POCT ORDERABLES - DEVICE F inal Result Performing Organization Address [facility] Co de Phone Number [facility] [address] Department [email or web address] [address] * CT abdomen pelvis with contrast (01/08/2025 [...] it. Electronically signed by: Vero Menjivar M.D. us Mildred GARCIA IMG CT PROCEDURES Final Resul t * POCT glucose (01/08/2025 6:58 AM CDT) Pathologist [facility] Glucose, POC 92 70 - 199 mg/dL Comment: For Glucose values <35 mg/dl when Hematocrit is >60 mg/dl,the test may not accurately detect significant hypoglycemia,and testing in the Laboratory should be considered if clinically indicated. POC Performer [id number] [facility] Blood 01/08/2025 6:58 AM CDT 01/08/2025 6:58 AM CDT us Pam Castro MD LAB POCT ORDERABLES - DEVICE F inal Result [facility] [address] Department [place] [address] * eGFR (01/08/2025 5:17 AM CDT) [facility] eGFR >90 >=60 mL/min/1. 73 m2 Comment: [...] MD LAB BLOOD ORDERABLES Final Res ult [facility] [address] Department [place] [address] * (ABNORMAL) Differential, auto (01/08/2025 5:17 AM CDT) Neutrophil abs 5.27 1.50 - 6.50 K/cumm Imm gran abs 0.18(H) 0.00 - 0.10 K/cumm [facility] Lymphocyte abs 1.79 0.80 - 3.30 K/cumm [facility] Monocyte abs 0.89(H) 0.20 - 0.80 K/cumm [facility] Eosinophil abs 0.42 0.00 - 0.50 K/cumm [facility] Basophil abs 0.05 0.00 - 0.10 K/cumm [facility] Neutrophil pct 61.3 % [facility] Comment: Interpretive Data Percent cell count reference ranges are not reported, since discordance with absolute values may lead to misinterpretation of CBC data. Current Interpretive Data was last revised on 2018. Imm gran pct 2.1 % [facility] Comment: Interpretive Data Percent cell count reference ranges are not reported, since discordance with absolute values may lead to misinterpretation of CBC data. Current Interpretive Data was last revised on 2018. Lymphocyte pct 20.8 % [facility] Comment: Interpretive Data Percent cell count reference ranges are not reported, since discordance with absolute values may lead to misinterpretation of CBC data. Current Interpretive Data was last revised on 2018. Monocyte pct 10.3 % [facility] Comment: Interpretive Data Percent cell count reference ranges are not reported, since discordance with absolute values may lead to misinterpretation of CBC data. Current Interpretive Data was last revised on 2018. Eosinophil pct 4.9 % [facility] Comment: Interpretive Data Percent cell count reference ranges are not reported, since discordance with absolute values may lead to misinterpretation of CBC data. Current Interpretive Data was last revised on 2018. Basophil pct 0.6 % [facility] Comment: Interpretive Data Percent cell count reference ranges are not reported, since discordance with absolute values may lead to misinterpretation of CBC data. Current Interpretive Data was last revised on 2018. Blood 01/08/2025 5:17 AM CDT 01/08/2025 6:30 AM CDT us Pam Castro MD LAB BLOOD ORDERABLES Final Res ult [facility] [address] Department [place] [address] * (ABNORMAL) CBC with auto differential (01/08/2025 5:17 AM CDT) WBC 8.60 3.80 - 9.90 K/cumm Hgb 13.3 13.0 - 17.5 g/dL [facility] Hct 36.7(L) 38.9 - 50.3 % [facility] Plt 265 150 - 400 K/cumm [facility] MPV 9.7 9.1 - 12.3 fL [facility] RBC 4.27(L) 4.30 - 5.80 M/cumm [facility] MCV 85.9 81.3 - 96.4 fL [facility] MCH 31.1 27.1 - 33.3 pg [facility] MCHC 36.2(H) 32.3 - 35.7 g/dL [facility] RDW CV 22.5(H) 11.1 - 14.9 % [facility] RDW SD 69.0(H) 35.7 - 48.1 fL [facility] NRBC abs 0.00 0.00 - 0.01 K/cumm [facility] Blood 01/08/2025 5:17 AM CDT 01/08/2025 6:30 AM CDT us Pam Castro MD LAB BLOOD ORDERABLES Final Res ult [facility] [address] Department [place] [address] * (ABNORMAL) Bilirubin, direct (01/08/2025 5:17 AM CDT) Pathologist [facility] Bilirubin, direct 14.9(H) 0.1 - 0.3 mg/dL Blood 01/08/2025 5:17 AM CDT 01/08/2025 6:29 AM CDT us Pam Castro MD LAB BLOOD ORDERABLES Final Res ult Performing Organization Address [facility] Co de Phone Number [facility] [address] Department [place] [address] * (ABNORMAL) Comprehensive metabolic panel (01/08/2025 5:17 AM CDT) [facility] Sodium 138 135 - 145 mmol/L Potassium, pl 3.8 3.3 - 4.9 mmol/L [facility] Chloride 103 97 - 110 mmol/L [facility] CO2 22 22 - 32 mmol/L [facility] Anion gap 13 2 - 15 mmol/L [facility] BUN 13 6 - 25 mg/dL [facility] Creatinine 0.59(L) 0.80 - 1.30 mg/dL [facility] Glucose 96 70 - 199 mg/dL [facility] Comment: Interpretive Data Fasting glucose [...] 2022. Calcium 8.0(L) 8.5 - 10.3 mg/dL [facility] Bilirubin, total 20.6(H) 0.1 - 1.2 mg/dL [facility] Protein, pl 5.6(L) 6.5 - 8.5 g/dL [facility] Albumin 2.6(L) 3.5 - 5.0 g/dL [facility] Alk phos 1,552(H) 40 - 130 Units/L [facility] ALT 251(H) 7 - 55 Units/L [facility] AST 147(H) 10 - 50 Units/L [facility] Blood 01/08/2025 5:17 AM CDT 01/08/2025 6:29 AM CDT Pam Castro MD LAB BLOOD ORDERABLES Final Res ult Performing Organization Address [facility] Co de Phone Number [facility] [address] [employer] [place], [place] [id number] * POCT glucose (01/07/2025 9:26 PM CDT) Glucose, POC 109 70 - 199 mg/dL Comment: For Glucose values <35 mg/dl when Hematocrit is >60 mg/dl,the test may not accurately detect significant hypoglycemia,and testing in the Laboratory should be considered if clinically indicated. POC Performer [phone] [facility] Blood 01/07/2025 9:26 PM CDT 01/07/2025 9:26 PM CDT us Pam Castro MD LAB POCT ORDERABLES - DEVICE F inal Result Performing Organization Address [facility]/ZIP Co de Phone Number [facility] [address] [facility] [place] [address] * POCT glucose (01/07/2025 4:41 PM CDT) Glucose, POC 130 70 - 199 mg/dL Comment: For Glucose values <35 mg/dl when Hematocrit is >60 mg/dl,the test may not accurately detect significant hypoglycemia,and testing in the Laboratory should be considered if clinically indicated. POC Performer [phone] [facility] Blood 01/07/2025 4:41 PM CDT 01/07/2025 4:41 PM CDT Pam Castro MD LAB POCT ORDERABLES - DEVICE F inal Result Performing Organization Address [facility] Co de Phone Number [facility] [address] [facility] [place] [address] * POCT glucose (01/07/2025 11:56 AM CDT) Glucose, POC 131 70 - 199 mg/dL Comment: For Glucose values <35 mg/dl when Hematocrit is >60 mg/dl,the test may not accurately detect significant hypoglycemia,and testing in the Laboratory should be considered if clinically indicated. POC Performer [phone] [facility] Blood 01/07/2025 11:5 6 AM CDT 01/07/2025 11:56 AM CDT us Pam Castro MD LAB POCT ORDERABLES - DEVICE F inal Result Performing Organization Address [facility] Co de Phone Number [facility] [address] [facility] [place] [address] * POCT glucose (01/07/2025 7:45 AM CDT) Glucose, POC 131 70 - 199 mg/dL Comment: For Glucose values <35 mg/dl when Hematocrit is >60 mg/dl,the test may not accurately detect significant hypoglycemia,and testing in the Laboratory should be considered if clinically indicated. POC Performer [id number] [facility] Blood 01/07/2025 7:45 AM CDT 01/07/2025 7:45 AM CDT us Pam Castro MD LAB POCT ORDERABLES - DEVICE F inal Result Performing Organization Address [facility]/ZIP Co de Phone Number [facility] [address] Department [place] [address] * eGFR (01/07/2025 6:44 AM CDT) eGFR [...] ORDERABLES Final Res ult Performing Organization Address [facility]/ZIP Co de Phone Number [facility] [address] Department [place] [address] * (ABNORMAL) Differential, auto (01/07/2025 6:44 AM CDT) Pathologist [facility] Neutrophil abs 4.92 1.50 - 6.50 K/cumm Imm gran abs 0.13(H) 0.00 - 0.10 K/cumm [facility] Lymphocyte abs 1.41 0.80 - 3.30 K/cumm [facility] Monocyte abs 0.87(H) 0.20 - 0.80 K/cumm [facility] Eosinophil abs 0.34 0.00 - 0.50 K/cumm [facility] Basophil abs 0.04 0.00 - 0.10 K/cumm [facility] Neutrophil pct 63.8 % [facility] Comment: Interpretive Data Percent cell count reference ranges are not reported, since discordance with absolute values may lead to misinterpretation of CBC data. Current Interpretive Data was last revised on 2018. Imm gran pct 1.7 % [facility] Comment: Interpretive Data Percent cell count reference ranges are not reported, since discordance with absolute values may lead to misinterpretation of CBC data. Current Interpretive Data was last revised on 2018. Lymphocyte pct 18.3 % [facility] Comment: Interpretive Data Percent cell count reference ranges are not reported, since discordance with absolute values may lead to misinterpretation of CBC data. Current Interpretive Data was last revised on 2018. Monocyte pct 11.3 % [facility] Comment: Interpretive Data Percent cell count reference ranges are not reported, since discordance with absolute values may lead to misinterpretation of CBC data. Current Interpretive Data was last revised on 2018. Eosinophil pct 4.4 % [facility] Comment: Interpretive Data Percent cell count reference ranges are not reported, since discordance with absolute values may lead to misinterpretation of CBC data. Current Interpretive Data was last revised on 2018. Basophil pct 0.5 % [facility] Comment: Interpretive Data Percent cell count reference ranges are not reported, since discordance with absolute values may lead to misinterpretation of CBC data. Current Interpretive Data was last revised on 2018. Blood 01/07/2025 6:44 AM CDT 01/07/2025 6:55 AM CDT us Pam Castro MD LAB BLOOD ORDERABLES Final Res ult [facility] [address] Department [place] [address] * (ABNORMAL) CBC with auto differential (01/07/2025 6:44 AM CDT) WBC 7.71 3.80 - 9.90 K/cumm Hgb 12.0(L) 13.0 - 17.5 g/dL [facility] Hct 32.4(L) 38.9 - 50.3 % [facility] Plt 222 150 - 400 K/cumm [facility] MPV 10.0 9.1 - 12.3 fL [facility] RBC 3.82(L) 4.30 - 5.80 M/cumm [facility] MCV 84.8 81.3 - 96.4 fL [facility] MCH 31.4 27.1 - 33.3 pg [facility] MCHC 37.0(H) 32.3 - 35.7 g/dL [facility] RDW CV 21.7(H) 11.1 - 14.9 % [facility] RDW SD 66.2(H) 35.7 - 48.1 fL [facility] NRBC abs 0.00 0.00 - 0.01 K/cumm [facility] Blood 01/07/2025 6:44 AM CDT 01/07/2025 6:55 AM CDT us Pam Castro MD LAB BLOOD ORDERABLES Final Res ult [facility] [address] Department [place] [address] * (ABNORMAL) Comprehensive metabolic panel (01/07/2025 6:44 AM CDT) Sodium 138 135 - 145 mmol/L Potassium, pl 3.8 3.3 - 4.9 mmol/L [facility] Chloride 103 97 - 110 mmol/L [facility] CO2 24 22 - 32 mmol/L [facility] Anion gap 11 2 - 15 mmol/L [facility] BUN 14 6 - 25 mg/dL [facility] Creatinine 0.56(L) 0.80 - 1.30 mg/dL [facility] Glucose 138 70 - 199 mg/dL [facility] Comment: Interpretive Data Fasting glucose [...] 2022. Calcium 7.4(L) 8.5 - 10.3 mg/dL [facility] Bilirubin, total 16.8(H) 0.1 - 1.2 mg/dL [facility] Protein, pl 5.0(L) 6.5 - 8.5 g/dL [facility] Albumin 2.5(L) 3.5 - 5.0 g/dL [facility] Alk phos 1,381(H) 40 - 130 Units/L [facility] ALT 246(H) 7 - 55 Units/L [facility] AST 149(H) 10 - 50 Units/L [facility] Blood 01/07/2025 6:44 AM CDT 01/07/2025 6:54 AM CDT us Pam Castro MD LAB BLOOD ORDERABLES Final Res ult Performing Organization Address City/[facility]/ZIP Co de Phone Number [facility] [address] Department [place] [address] * POCT glucose (01/06/2025 8:26 PM CDT) [facility] Signature Glucose, POC 162 70 - 199 mg/dL Comment: For Glucose values <35 mg/dl when Hematocrit is >60 mg/dl,the test may not accurately detect significant hypoglycemia,and testing in the Laboratory should be considered if clinically indicated. POC Performer [id number] [facility] Blood 01/06/2025 8:26 PM CDT 01/06/2025 8:26 PM CDT Pam Castro MD LAB POCT ORDERABLES - DEVICE F inal Result Performing Organization Address City/[facility]/ZIP Co de Phone Number [facility] [address] Department [email or web address] [address] * POCT glucose (01/06/2025 4:46 PM CDT) Glucose, POC 126 70 - 199 mg/dL Comment: For Glucose values <35 mg/dl when Hematocrit is >60 mg/dl,the test may not accurately detect significant hypoglycemia,and testing in the Laboratory should be considered if clinically indicated. POC Performer [id number] [facility] Blood 01/06/2025 4:46 PM CDT 01/06/2025 4:46 PM CDT Pam Castro MD LAB POCT ORDERABLES - DEVICE F inal Result Performing Organization Address [facility] Co de Phone Number [facility] [address] [facility] [email or web address] [address] * POCT glucose (01/06/2025 11:49 AM CDT) Glucose, POC 182 70 - 199 mg/dL Comment: For Glucose values <35 mg/dl when Hematocrit is >60 mg/dl,the test may not accurately detect significant hypoglycemia,and testing in the Laboratory should be considered if clinically indicated. POC Performer [id number] [facility] Blood 01/06/2025 11:4 9 AM CDT 01/06/2025 11:49 AM CDT us Pam Castro MD LAB POCT ORDERABLES - DEVICE F inal Result Performing Organization Address City/[facility]/ZIP Co de Phone Number [facility] [address] [facility] [email or web address] [address] * POCT glucose (01/06/2025 7:53 AM CDT) Glucose, POC 136 70 - 199 mg/dL Comment: For Glucose values <35 mg/dl when Hematocrit is >60 mg/dl,the test may not accurately detect significant hypoglycemia,and testing in the Laboratory should be considered if clinically indicated. POC Performer [id number] [facility] Blood 01/06/2025 7:53 AM CDT 01/06/2025 7:53 AM CDT Pam Castro MD LAB POCT ORDERABLES - DEVICE F inal Result Performing Organization Address [facility]/ZIP Co de Phone Number [facility] [address] Department of [email or web address] [place], [place] [id number] * eGFR (01/06/2025 5:55 AM CDT) eGFR [...] ORDERABLES Final Res ult Performing Organization Address City/[facility]/ZIP Co de Phone Number [facility] [address] Department of [email or web address] [place], [place] [id number] * (ABNORMAL) Differential, auto (01/06/2025 5:55 AM CDT) Neutrophil abs 5.95 1.50 - 6.50 K/cumm Imm gran abs 0.11(H) 0.00 - 0.10 K/cumm [facility] Lymphocyte abs 1.48 0.80 - 3.30 K/cumm [facility] Monocyte abs 0.90(H) 0.20 - 0.80 K/cumm [facility] Eosinophil abs 0.20 0.00 - 0.50 K/cumm [facility] Basophil abs 0.05 0.00 - 0.10 K/cumm [facility] Neutrophil pct 68.4 % [facility] Comment: Interpretive Data Percent cell count reference ranges are not reported, since discordance with absolute values may lead to misinterpretation of CBC data. Current Interpretive Data was last revised on 2018. Imm gran pct 1.3 % [facility] Comment: Interpretive Data Percent cell count reference ranges are not reported, since discordance with absolute values may lead to misinterpretation of CBC data. Current Interpretive Data was last revised on 2018. Lymphocyte pct 17.0 % [facility] Comment: Interpretive Data Percent cell count reference ranges are not reported, since discordance with absolute values may lead to misinterpretation of CBC data. Current Interpretive Data was last revised on 2018. Monocyte pct 10.4 % [facility] Comment: Interpretive Data Percent cell count reference ranges are not reported, since discordance with absolute values may lead to misinterpretation of CBC data. Current Interpretive Data was last revised on 2018. Eosinophil pct 2.3 % [facility] Comment: Interpretive Data Percent cell count reference ranges are not reported, since discordance with absolute values may lead to misinterpretation of CBC data. Current Interpretive Data was last revised on 2018. Basophil pct 0.6 % [facility] Comment: Interpretive Data Percent cell count reference ranges are not reported, since discordance with absolute values may lead to misinterpretation of CBC data. Current Interpretive Data was last revised on 2018. Blood 01/06/2025 5:55 AM CDT 01/06/2025 7:12 AM CDT us Pam Castro MD LAB BLOOD ORDERABLES Final Res ult Performing Organization Address [facility] de Phone Number [facility] [address] Department of [email or web address] [address] * (ABNORMAL) CBC with auto differential (01/06/2025 5:55 AM CDT) [facility] WBC 8.69 3.80 - 9.90 K/cumm Hgb 13.7 13.0 - 17.5 g/dL [facility] Hct 37.3(L) 38.9 - 50.3 % [facility] Plt 268 150 - 400 K/cumm [facility] MPV 11.0 9.1 - 12.3 fL [facility] RBC 4.46 4.30 - 5.80 M/cumm [facility] MCV 83.6 81.3 - 96.4 fL [facility] MCH 30.7 27.1 - 33.3 pg [facility] MCHC 36.7(H) 32.3 - 35.7 g/dL [facility] RDW CV 21.7(H) 11.1 - 14.9 % [facility] RDW SD 62.8(H) 35.7 - 48.1 fL [facility] NRBC abs 0.00 0.00 - 0.01 K/cumm [facility] Blood 01/06/2025 5:55 AM CDT 01/06/2025 7:12 AM CDT Pam Castro MD LAB BLOOD ORDERABLES Final Res ult Performing Organization Address [facility] Co de Phone Number [facility] [address] Department [place] [address] * (ABNORMAL) Comprehensive metabolic panel (01/06/2025 5:55 AM CDT) [facility] Sodium 135 135 - 145 mmol/L Potassium, pl 3.9 3.3 - 4.9 mmol/L [facility] Chloride 100 97 - 110 mmol/L [facility] CO2 23 22 - 32 mmol/L [facility] Anion gap 12 2 - 15 mmol/L [facility] BUN 12 6 - 25 mg/dL [facility] Creatinine 0.59(L) 0.80 - 1.30 mg/dL [facility] Glucose 163 70 - 199 mg/dL [facility] Comment: Interpretive Data Fasting glucose [...] 2022. Calcium 7.9(L) 8.5 - 10.3 mg/dL [facility] Bilirubin, total 17.1(H) 0.1 - 1.2 mg/dL [facility] Protein, pl 5.5(L) 6.5 - 8.5 g/dL [facility] Albumin 2.6(L) 3.5 - 5.0 g/dL [facility] Alk phos 1,657(H) 40 - 130 Units/L [facility] ALT 303(H) 7 - 55 Units/L [facility] AST 212(H) 10 - 50 Units/L [facility] Comment:Slightly Hemolyzed S pecimen Blood 01/06/2025 5:55 AM CDT 01/06/2025 7:11 AM CDT us Pam Castro MD LAB BLOOD ORDERABLES Final Res ult [facility] [address] Department [place] [address] * POCT glucose (01/05/2025 7:57 PM CDT) [facility] Glucose, POC 166 70 - 199 mg/dL Comment: For Glucose values <35 mg/dl when Hematocrit is >60 mg/dl,the test may not accurately detect significant hypoglycemia,and testing in the Laboratory should be considered if clinically indicated. POC Performer [id number] [facility] Blood 01/05/2025 7:57 PM CDT 01/05/2025 7:57 PM CDT Pam Castro MD LAB POCT ORDERABLES - DEVICE F inal Result Performing Organization Address City/[facility]/ZIP Co de Phone Number [facility] [address] Department [email or web address] [address] * POCT glucose (01/05/2025 4:44 PM CDT) Glucose, POC 114 70 - 199 mg/dL Comment: For Glucose values <35 mg/dl when Hematocrit is >60 mg/dl,the test may not accurately detect significant hypoglycemia,and testing in the Laboratory should be considered if clinically indicated. POC Performer [id number] [facility] Blood 01/05/2025 4:44 PM CDT 01/05/2025 4:44 PM CDT Pam Castro MD LAB POCT ORDERABLES - DEVICE F inal Result Performing Organization Address [facility] Co de Phone Number [facility] [address] [facility] [email or web address] [address] * POCT glucose (01/05/2025 2:41 PM CDT) Glucose, POC 111 70 - 199 mg/dL Comment: For Glucose values <35 mg/dl when Hematocrit is >60 mg/dl,the test may not accurately detect significant hypoglycemia,and testing in the Laboratory should be considered if clinically indicated. POC Performer [id number] [facility] Blood 01/05/2025 2:41 PM CDT 01/05/2025 2:41 PM CDT Pam Castro MD LAB POCT ORDERABLES - DEVICE F inal Result Performing Organization Address City/[facility] Co de Phone Number [facility] [address] [facility] [email or web address] [address] * POCT glucose (01/05/2025 1:33 PM CDT) Glucose, POC 115 70 - 199 mg/dL Comment: For Glucose values <35 mg/dl when Hematocrit is >60 mg/dl,the test may not accurately detect significant hypoglycemia,and testing in the Laboratory should be considered if clinically indicated. POC Performer [id number] [facility] Blood 01/05/2025 1:33 PM CDT 01/05/2025 1:33 PM CDT Pam Castro MD LAB POCT ORDERABLES - DEVICE F inal Result Performing Organization Address [facility] Co de Phone Number [facility] [address] [facility] [email or web address] [address] * POCT glucose (01/05/2025 1:07 PM CDT) Glucose, POC 90 70 - 199 mg/dL Comment: For Glucose values <35 mg/dl when Hematocrit is >60 mg/dl,the test may not accurately detect significant hypoglycemia,and testing in the Laboratory should be considered if clinically indicated. POC Performer [id number] [facility] Blood 01/05/2025 1:07 PM CDT 01/05/2025 1:07 PM CDT us Pam Castro MD LAB POCT ORDERABLES - DEVICE F inal Result Performing Organization Address [facility]/ZIP Co de Phone Number [facility] [address] [facility] [email or web address] [address] * POCT glucose (01/05/2025 12:47 PM CDT) Glucose, POC 78 70 - 199 mg/dL Comment: For Glucose values <35 mg/dl when Hematocrit is >60 mg/dl,the test may not accurately detect significant hypoglycemia,and testing in the Laboratory should be considered if clinically indicated. POC Performer [id number] [facility] Blood 01/05/2025 12:4 7 PM CDT 01/05/2025 12:47 PM CDT Pam Castro MD LAB POCT ORDERABLES - DEVICE F inal Result Performing Organization Address [facility]/ZIP Co de Phone Number [facility] [address] [facility] [email or web address] [address] * POCT glucose (01/05/2025 12:23 PM CDT) Glucose, POC 75 70 - 199 mg/dL Comment: For Glucose values <35 mg/dl when Hematocrit is >60 mg/dl,the test may not accurately detect significant hypoglycemia,and testing in the Laboratory should be considered if clinically indicated. POC Performer [id number] [facility] Blood 01/05/2025 12:2 3 PM CDT 01/05/2025 12:23 PM CDT us Pam Castro MD LAB POCT ORDERABLES - DEVICE F inal Result Performing Organization Address [facility] Co de Phone Number [facility] [address] [facility] [email or web address] [address] * POCT glucose (01/05/2025 11:56 AM CDT) Glucose, POC 76 70 - 199 mg/dL Comment: For Glucose values <35 mg/dl when Hematocrit is >60 mg/dl,the test may not accurately detect significant hypoglycemia,and testing in the Laboratory should be considered if clinically indicated. POC Performer [id number] [facility] Blood 01/05/2025 11:5 6 AM CDT 01/05/2025 11:56 AM CDT Pam Castro MD LAB POCT ORDERABLES - DEVICE F inal Result Performing Organization Address City/[facility]/ZIP Co de Phone Number [facility] [address] Department [email or web address] [address] * (ABNORMAL) POCT glucose (01/05/2025 11:39 AM CDT) Glucose, POC 69(L) 70 - 199 mg/dL Comment: For Glucose values <35 mg/dl when Hematocrit is >60 mg/dl,the test may not accurately detect significant hypoglycemia,and testing in the Laboratory should be considered if clinically indicated. POC Performer [id number] [facility] Blood 01/05/2025 11:3 9 AM CDT 01/05/2025 11:39 AM CDT Pam Castro MD LAB POCT ORDERABLES - DEVICE F inal Result Performing Organization Address [facility] Co de Phone Number [facility] [address] [facility] [email or web address] [address] * POCT glucose (01/05/2025 7:50 AM CDT) Glucose, POC 155 70 - 199 mg/dL Comment: For Glucose values <35 mg/dl when Hematocrit is >60 mg/dl,the test may not accurately detect significant hypoglycemia,and testing in the Laboratory should be considered if clinically indicated. POC Performer [id number] [facility] Blood 01/05/2025 7:50 AM CDT 01/05/2025 7:50 AM CDT us Pam Castro MD LAB POCT ORDERABLES - DEVICE F inal Result Performing Organization Address City/[facility]/ZIP Co de Phone Number [facility] [address] [facility] [email or web address] [address] * eGFR (01/05/2025 5:06 AM CDT) Pathologist [facility] eGFR >90 [...] MD LAB BLOOD ORDERABLES Final Res ult [facility] [address] Department [place] [address] * (ABNORMAL) Differential, auto (01/05/2025 5:06 AM CDT) Neutrophil abs 5.10 1.50 - 6.50 K/cumm Imm gran abs 0.11(H) 0.00 - 0.10 K/cumm [facility] Lymphocyte abs 1.59 0.80 - 3.30 K/cumm [facility] Monocyte abs 0.80 0.20 - 0.80 K/cumm [facility] Eosinophil abs 0.15 0.00 - 0.50 K/cumm [facility] Basophil abs 0.02 0.00 - 0.10 K/cumm [facility] Neutrophil pct 65.6 % [facility] Comment: Interpretive Data Percent cell count reference ranges are not reported, since discordance with absolute values may lead to misinterpretation of CBC data. Current Interpretive Data was last revised on 2018. Imm gran pct 1.4 % [facility] Comment: Interpretive Data Percent cell count reference ranges are not reported, since discordance with absolute values may lead to misinterpretation of CBC data. Current Interpretive Data was last revised on 2018. Lymphocyte pct 20.5 % [facility] Comment: Interpretive Data Percent cell count reference ranges are not reported, since discordance with absolute values may lead to misinterpretation of CBC data. Current Interpretive Data was last revised on 2018. Monocyte pct 10.3 % [facility] Comment: Interpretive Data Percent cell count reference ranges are not reported, since discordance with absolute values may lead to misinterpretation of CBC data. Current Interpretive Data was last revised on 2018. Eosinophil pct 1.9 % [facility] Comment: Interpretive Data Percent cell count reference ranges are not reported, since discordance with absolute values may lead to misinterpretation of CBC data. Current Interpretive Data was last revised on 2018. Basophil pct 0.3 % [facility] Comment: Interpretive Data Percent cell count reference ranges are not reported, since discordance with absolute values may lead to misinterpretation of CBC data. Current Interpretive Data was last revised on 2018. Blood 01/05/2025 5:06 AM CDT 01/05/2025 5:16 AM CDT us Pam Castro MD LAB BLOOD ORDERABLES Final Res ult [facility] [address] Department [place] [address] * (ABNORMAL) CBC with auto differential (01/05/2025 5:06 AM CDT) WBC 7.77 3.80 - 9.90 K/cumm Hgb 13.7 13.0 - 17.5 g/dL [facility] Hct 36.5(L) 38.9 - 50.3 % [facility] Plt 277 150 - 400 K/cumm [facility] MPV 9.8 9.1 - 12.3 fL [facility] RBC 4.45 4.30 - 5.80 M/cumm [facility] MCV 82.0 81.3 - 96.4 fL [facility] MCH 30.8 27.1 - 33.3 pg [facility] MCHC 37.5(H) 32.3 - 35.7 g/dL [facility] RDW CV 21.0(H) 11.1 - 14.9 % [facility] RDW SD 60.2(H) 35.7 - 48.1 fL [facility] [facility] NRBC abs 0.00 0.00 - 0.01 K/cumm [facility] Blood 01/05/2025 5:06 AM CDT 01/05/2025 5:16 AM CDT us Pam Castro MD LAB BLOOD ORDERABLES Final Res ult [facility] [address] Department [place] [address] * (ABNORMAL) Comprehensive metabolic panel (01/05/2025 5:06 AM CDT) Sodium 129(L) 135 - 145 mmol/L Potassium, pl 3.9 3.3 - 4.9 mmol/L [facility] Chloride 97 97 - 110 mmol/L [facility] CO2 22 22 - 32 mmol/L [facility] Anion gap 10 2 - 15 mmol/L [facility] BUN 13 6 - 25 mg/dL [facility] Creatinine 0.62(L) 0.80 - 1.30 mg/dL [facility] Glucose 144 70 - 199 mg/dL [facility] Comment: Interpretive Data Fasting glucose [...] 2022. Calcium 7.7(L) 8.5 - 10.3 mg/dL [facility] Bilirubin, total 12.3(H) 0.1 - 1.2 mg/dL [facility] Protein, pl 5.0(L) 6.5 - 8.5 g/dL [facility] Albumin 2.5(L) 3.5 - 5.0 g/dL [facility] Alk phos 1,438(H) 40 - 130 Units/L [facility] ALT 272(H) 7 - 55 Units/L [facility] AST 157(H) 10 - 50 Units/L [facility] Blood 01/05/2025 5:06 AM CDT 01/05/2025 5:16 AM CDT us Pam Castro MD LAB BLOOD ORDERABLES Final Res ult Performing Organization Address [facility] Co de Phone Number [facility] [address] Department of [email or web address] [address] * POCT glucose (01/04/2025 9:11 PM CDT) Glucose, POC 126 70 - 199 mg/dL Comment: For Glucose values <35 mg/dl when Hematocrit is >60 mg/dl,the test may not accurately detect significant hypoglycemia,and testing in the Laboratory should be considered if clinically indicated. POC Performer [phone] [facility] Blood 01/04/2025 9:11 PM CDT 01/04/2025 9:11 PM CDT us Pam Castro MD LAB POCT ORDERABLES - DEVICE F inal Result Performing Organization Address [facility]/ZIP Co de Phone Number [facility] [address] Department of [email or web address] [place], [place] [id number] * POCT glucose (01/04/2025 5:02 PM CDT) Glucose, POC 115 70 - 199 mg/dL Comment: For Glucose values <35 mg/dl when Hematocrit is >60 mg/dl,the test may not accurately detect significant hypoglycemia,and testing in the Laboratory should be considered if clinically indicated. POC Performer [id number] [facility] Blood 01/04/2025 5:02 PM CDT 01/04/2025 5:02 PM CDT Pam Castro MD LAB POCT ORDERABLES - DEVICE F inal Result Performing Organization Address [facility] Co de Phone Number [facility] [address] Department [place] [email or web address] [address] * POCT glucose (01/04/2025 12:23 PM CDT) Glucose, POC 124 70 - 199 mg/dL Comment: For Glucose values <35 mg/dl when Hematocrit is >60 mg/dl,the test may not accurately detect significant hypoglycemia,and testing in the Laboratory should be considered if clinically indicated. POC Performer [phone] [facility] Blood 01/04/2025 12:2 3 PM CDT 01/04/2025 12:23 PM CDT us Pam Castro MD LAB POCT ORDERABLES - DEVICE F inal Result Performing Organization Address [facility] Co de Phone Number [facility] [address] Department [email or web address] [address] * CT Chest W and Abdomen Pelvis [...] the setting of biliary obstruction. Dictated by: Amair Mark MD The radiology attending physician has [...] * POCT glucose (01/04/2025 6:10 AM CDT) Glucose, POC 139 70 - 199 mg/dL Comment: For Glucose values <35 mg/dl when Hematocrit is >60 mg/dl,the test may not accurately detect significant hypoglycemia,and testing in the Laboratory should be considered if clinically indicated. POC Performer [phone] [facility] Blood 01/04/2025 6:10 AM CDT 01/04/2025 6:10 AM CDT Charly Mooney MD LAB POCT ORDERABLES - DE VICE Final Result [facility] [address] Department [place] [address] * eGFR (01/04/2025 6:06 AM CDT) Pathologist [facility] eGFR >90 [...] MD LAB BLOOD ORDERABLES Fin al Result [facility] [address] Department [place] [address] * (ABNORMAL) Differential, auto (01/04/2025 6:06 AM CDT) Neutrophil abs 5.99 1.50 - 6.50 K/cumm Imm gran abs 0.13(H) 0.00 - 0.10 K/cumm [facility] Lymphocyte abs 1.17 0.80 - 3.30 K/cumm [facility] Monocyte abs 0.73 0.20 - 0.80 K/cumm [facility] Eosinophil abs 0.02 0.00 - 0.50 K/cumm [facility] Basophil abs 0.02 0.00 - 0.10 K/cumm [facility] Neutrophil pct 74.4 % [facility] Comment: Interpretive Data Percent cell count reference ranges are not reported, since discordance with absolute values may lead to misinterpretation of CBC data. Current Interpretive Data was last revised on 2018. Imm gran pct 1.6 % [facility] Comment: Interpretive Data Percent cell count reference ranges are not reported, since discordance with absolute values may lead to misinterpretation of CBC data. Current Interpretive Data was last revised on 2018. Lymphocyte pct 14.5 % [facility] Comment: Interpretive Data Percent cell count reference ranges are not reported, since discordance with absolute values may lead to misinterpretation of CBC data. Current Interpretive Data was last revised on 2018. Monocyte pct 9.1 % [facility] Comment: Interpretive Data Percent cell count reference ranges are not reported, since discordance with absolute values may lead to misinterpretation of CBC data. Current Interpretive Data was last revised on 2018. Eosinophil pct 0.2 % [facility] Comment: Interpretive Data Percent cell count reference ranges are not reported, since discordance with absolute values may lead to misinterpretation of CBC data. Current Interpretive Data was last revised on 2018. Basophil pct 0.2 % [facility] Comment: Interpretive Data Percent cell count reference ranges are not reported, since discordance with absolute values may lead to misinterpretation of CBC data. Current Interpretive Data was last revised on 2018. Blood 01/04/2025 6:06 AM CDT 01/04/2025 6:30 AM CDT us Davina Brand MD LAB BLOOD ORDERABLES Final Resul t [facility] [address] Department [place] [address] * (ABNORMAL) CBC with auto differential (01/04/2025 6:06 AM CDT) WBC 8.06 3.80 - 9.90 K/cumm Hgb 13.9 13.0 - 17.5 g/dL [facility] Hct 37.2(L) 38.9 - 50.3 % [facility] Plt 276 150 - 400 K/cumm [facility] MPV 10.6 9.1 - 12.3 fL [facility] RBC 4.52 4.30 - 5.80 M/cumm [facility] MCV 82.3 81.3 - 96.4 fL [facility] MCH 30.8 27.1 - 33.3 pg [facility] MCHC 37.4(H) 32.3 - 35.7 g/dL [facility] RDW CV 21.0(H) 11.1 - 14.9 % [facility] RDW SD 59.5(H) 35.7 - 48.1 fL [facility] NRBC abs 0.00 0.00 - 0.01 K/cumm [facility] Blood 01/04/2025 6:06 AM CDT 01/04/2025 6:30 AM CDT Davina Brand MD LAB BLOOD ORDERABLES Final Resul t Performing Organization Address City/[facility] Co de Phone Number [facility] [address] [facility] [email or web address] [address] * Phosphorus (01/04/2025 6:06 AM CDT) Phosphorus, pl 2.6 2.3 - 4.5 mg/dL Blood 01/04/2025 6:06 AM CDT 01/04/2025 6:30 AM CDT Charly Mooney MD LAB BLOOD ORDERABLES Fin al Result Performing Organization Address [facility] Co de Phone Number [facility] [address] Department [email or web address] [address] * Magnesium (01/04/2025 6:06 AM CDT) Magnesium 1.9 1.4 - 2.5 mg/dL Blood 01/04/2025 6:06 AM CDT 01/04/2025 6:30 AM CDT Charly Mooney MD LAB BLOOD ORDERABLES Fin al Result Performing Organization Address City/[facility]/ZIP Co de Phone Number [facility] [address] Department [email or web address] [address] * (ABNORMAL) Comprehensive metabolic panel (01/04/2025 6:06 AM CDT) Sodium 133(L) 135 - 145 mmol/L Potassium, pl 4.2 3.3 - 4.9 mmol/L [facility] Chloride 99 97 - 110 mmol/L [facility] CO2 24 22 - 32 mmol/L [facility] Anion gap 10 2 - 15 mmol/L [facility] BUN 14 6 - 25 mg/dL [facility] Creatinine 0.60(L) 0.80 - 1.30 mg/dL [facility] Glucose 135 70 - 199 mg/dL [facility] Comment: Interpretive Data Fasting glucose [...] 2022. Calcium 8.1(L) 8.5 - 10.3 mg/dL [facility] Bilirubin, total 12.4(H) 0.1 - 1.2 mg/dL [facility] Protein, pl 5.2(L) 6.5 - 8.5 g/dL [facility] Albumin 2.3(L) 3.5 - 5.0 g/dL [facility] Alk phos 1,470(H) 40 - 130 Units/L [facility] ALT 329(H) 7 - 55 Units/L [facility] AST 164(H) 10 - 50 Units/L [facility] Blood 01/04/2025 6:06 AM CDT 01/04/2025 6:30 AM CDT Charly Mooney MD LAB BLOOD ORDERABLES Fin al Result [facility] [address] Department [place] [address] * MRI Abdomen MRCP W WO Contrast [...] by: Johnnie Harmon M.D. Charly Mooney MD [facility] [place]ED[place] Final Result * POCT glucose (01/03/2025 9:27 PM CDT) Glucose, POC 172 70 - 199 mg/dL Comment: For Glucose values <35 mg/dl when Hematocrit is >60 mg/dl,the test may not accurately detect significant hypoglycemia,and testing in the Laboratory should be considered if clinically indicated. POC Performer [id number] [facility] Blood 01/03/2025 9:27 PM CDT 01/03/2025 9:27 PM CDT Charly Mooney MD LAB POCT ORDERABLES - DE VICE Final Result Performing Organization Address [facility]/ZIP Co de Phone Number [facility] [address] Department [email or web address] [address] * Blood culture Blood (01/03/2025 4:52 PM CDT) Report Final Report: No growth Blood 01/03/2025 4:52 PM CDT 01/03/2025 5:05 PM CDT Narrative [facility] - 01/09/2025 7:01 AM CDT Collection->Peripheral [...] organism identification may be performed using the Divide Blood Culture Identification panel. This assay detects microbial DNA in a blood culture broth. This assay has been cleared by the [place] Food and Drug Administration and its performance characteristics have been verified by the [facility]. Interpretive data was last revised on November 05, 2022. us Tere Serrano NP LAB MICROBIOLOGY - GENERAL ORDERABLES Final Result Performing Organization Address City/[facility]/ZIP Co de Phone Number [facility] [address] Department [place] [email or web address] [address] * Blood culture Blood (01/03/2025 4:52 PM CDT) Report Final Report: No growth Blood 01/03/2025 4:52 PM CDT 01/03/2025 5:05 PM CDT Narrative [facility] - 01/09/2025 7:01 AM CDT Collection->Peripheral Interpretive [...] organism identification may be performed using the Divide Blood Culture Identification panel. This assay detects microbial DNA in a blood culture broth. This assay has been cleared by the [place] Food and Drug Administration and its performance characteristics have been verified by the [facility]. Interpretive data was last revised on November 05, 2022. us Tere Serrano NP LAB MICROBIOLOGY - GENERAL ORDERABLES Final Result Performing Organization Address [facility]/ZIP Co de Phone Number [facility] [address] Department [place] [email or web address] [address] * POCT glucose (01/03/2025 2:52 PM CDT) [facility] Signature Glucose, POC 109 70 - 199 mg/dL Comment: For Glucose values <35 mg/dl when Hematocrit is >60 mg/dl,the test may not accurately detect significant hypoglycemia,and testing in the Laboratory should be considered if clinically indicated. POC Performer [id number] [facility] Blood 01/03/2025 2:52 PM CDT 01/03/2025 2:52 PM CDT us Davina Brand MD LAB POCT ORDERABLES - DEVICE Fin al Result Performing Organization Address [facility]/ZIP Co de Phone Number [facility] [address] Department [place] [email or web address] [address] * FL ERCP Biliary Duct (01/03/2025 2:29 PM CDT) Narrative [facility] - 01/03/2025 2:35 PM CDT The images from this study are not interpreted by Radiology. Please refer to the physician's procedure / OR operative note. us Mushtaq Moeller MD IMG FLUOROSCOPY PROCEDURES Final Result RAD_PACS_[facility] * ERCP (01/03/2025 1:56 PM CDT) Anatomical Region Laterality Modality Other Narrative Procedure Note Mushtaq Moeller MD - 01/03/2025 1:56 PM CDT ENDOSCOPY LAB Patient Name: Dong Teixeira Procedure Date: 01/03/2025 1:56 PM Admit Type: Inpatient Room: [facility] Date of : 1960 Instrument Name: [id number] [...] A biliary stent was visible on the sandblaster stone film. The esophagus was successfully intubated under [...] 01/03/2025 1:56 PM Scope In: Scope Out: us Mushtaq Moeller MD ENDOSCOPY PROCEDURES Final Result * Direct bilirubin - Add on lab test (01/03/2025 11:08 AM CDT) Acceptable Yes Blood 01/03/2025 11:0 8 AM CDT 01/03/2025 11:08 AM CDT Narrative [facility] - 01/03/2025 11:09 AM CDT Name of Test->Direct bilirubin us Darwin Sanchez MD LAB BLOOD ORDERABLES Final R esult [facility] [address] Department [place] [address] * eGFR (01/03/2025 10:39 AM CDT) eGFR [...] MD LAB BLOOD ORDERABLES Final R esult [facility] [address] Department [place] [address] * (ABNORMAL) Differential, auto (01/03/2025 10:39 AM CDT) Neutrophil abs 10.16(H) 1.50 - 6.50 K/cumm Imm gran abs 0.17(H) 0.00 - 0.10 K/cumm [facility] Lymphocyte abs 0.84 0.80 - 3.30 K/cumm [facility] Monocyte abs 1.16(H) 0.20 - 0.80 K/cumm [facility] Eosinophil abs 0.27 0.00 - 0.50 K/cumm [facility] Basophil abs 0.08 0.00 - 0.10 K/cumm [facility] Neutrophil pct 80.3 % [facility] Comment: Interpretive Data Percent cell count reference ranges are not reported, since discordance with absolute values may lead to misinterpretation of CBC data. Current Interpretive Data was last revised on 2018. Imm gran pct 1.3 % [facility] Comment: Interpretive Data Percent cell count reference ranges are not reported, since discordance with absolute values may lead to misinterpretation of CBC data. Current Interpretive Data was last revised on 2018. Lymphocyte pct 6.6 % [facility] Comment: Interpretive Data Percent cell count reference ranges are not reported, since discordance with absolute values may lead to misinterpretation of CBC data. Current Interpretive Data was last revised on 2018. Monocyte pct 9.1 % [facility] Comment: Interpretive Data Percent cell count reference ranges are not reported, since discordance with absolute values may lead to misinterpretation of CBC data. Current Interpretive Data was last revised on 2018. Eosinophil pct 2.1 % [facility] Comment: Interpretive Data Percent cell count reference ranges are not reported, since discordance with absolute values may lead to misinterpretation of CBC data. Current Interpretive Data was last revised on 2018. Basophil pct 0.6 % [facility] Comment: Interpretive Data Percent cell count reference ranges are not reported, since discordance with absolute values may lead to misinterpretation of CBC data. Current Interpretive Data was last revised on 2018. Blood 01/03/2025 10:3 9 AM CDT 01/03/2025 10:54 AM CDT us Darwin Sanchez MD LAB BLOOD ORDERABLES Final R esult [facility] [address] Department [place] [address] * (ABNORMAL) Urinalysis reflex to microscopic and culture Urine, clean voided (01/03/2025 10:39 AM CDT) Color, ur Yellow Yellow Clarity, ur Turbid(A) Clear [facility] Specific gravity, ur 1.040(H) 1.003 - 1.030 [facility] pH, urine 6.0 [facility] Comment: Interpretive Data U rine pH is affected by diet, medications, systemic acid-base disturbances, and renal tubular function. pH may affect urinary stone formation. For example, urine pH below 6.0 may help reduce the tendency for calcium phosphate stones and pH greater than 6.0 may reduce the tendency for uric acid stone formation. Source: [facility] [email or web address] Current Interpretive Data was last revised on 2017 Protein, ur ql 1+(A) Negative [facility] Glucose, ur ql Negative Negative [facility] Ketones, ur Negative Negative [facility] Bilirubin, ur 3+(A) Negative [facility] Blood, ur Negative Negative [facility] Urobilinogen, ur 2.0(A) <2.0 mg/dL [facility] Nitrite, ur Negative Negative [facility] Leukocyte esterase, ur Negative Negative [facility] UA reflex comment Reflex to microscopic UA will be performed. [facility] Urine, clean voided 01/03/2025 10:39 AM CDT 01/03/2025 10:39 AM CDT Darwin Sanchez MD LAB MICROBIOLOGY - GENERAL O RDERABLES Final Result [facility] [address] Department [place] [address] * (ABNORMAL) CBC with auto differential (01/03/2025 10:39 AM CDT) WBC 12.68(H) 3.80 - 9.90 K/cumm Hgb 16.0 13.0 - 17.5 g/dL [facility] Hct 43.1 38.9 - 50.3 % [facility] Plt 288 150 - 400 K/cumm [facility] Comment:Automated count conf irmed by smear review. MPV 10.6 9.1 - 12.3 fL [facility] RBC 5.23 4.30 - 5.80 M/cumm [facility] MCV 82.4 81.3 - 96.4 fL [facility] MCH 30.6 27.1 - 33.3 pg [facility] MCHC 37.1(H) 32.3 - 35.7 g/dL [facility] RDW CV 20.8(H) 11.1 - 14.9 % [facility] RDW SD 58.6(H) 35.7 - 48.1 fL [facility] NRBC abs 0.00 0.00 - 0.01 K/cumm [facility] Morphologic Screen Results confirmed by manual morphology review. [facility] Blood 01/03/2025 10:3 9 AM CDT 01/03/2025 10:54 AM CDT Darwin Sanchez MD LAB BLOOD ORDERABLES Final R esult Performing Organization Address City/[facility]/ZIP Co de Phone Number [facility] [address] [facility] [email or web address] [address] * (ABNORMAL) Urinalysis, microscopic only (01/03/2025 10:39 AM CDT) WBC, ur 6-10(A) 0 - 5 /HPF RBC, ur 0-2 0 - 2 /HPF [facility] Epithelial cells, squamous, ur 1-5 0 - 5 /HPF [facility] Bacteria, ur 2+(A) [facility] Mucous, ur Present(A) [facility] Amorphous crystals, ur Trace(A) [facility] Culture Reflex Comment Reflex conditions for urine culture (WBC >10) not met. [facility] Urine, clean voided 01/03/2025 10:39 AM CDT 01/03/2025 10:54 AM CDT Darwin Sanchez MD LAB URINE ORDERABLES Final R esult Performing Organization Address [facility]/ZIP Co de Phone Number [facility] [address] [facility] [email or web address] [address] * Lipase (01/03/2025 10:39 AM CDT) Pathologist [facility] Lipase 11 10 - 99 Units/L Blood 01/03/2025 10:3 9 AM CDT 01/03/2025 10:54 AM CDT Darwin Sanchez MD LAB BLOOD ORDERABLES Final R esult Performing Organization Address City/[facility]/ZIP Co de Phone Number [facility] [address] [facility] [email or web address] [address] * (ABNORMAL) Bilirubin, direct (01/03/2025 10:39 AM CDT) Pathologist [facility] Bilirubin, direct 14.5(H) 0.1 - 0.3 mg/dL Comment:Slightly Hemolyzed S pecimen Blood 01/03/2025 10:3 9 AM CDT 01/03/2025 10:54 AM CDT us Darwin Sanchez MD LAB BLOOD ORDERABLES Final R esult [facility] [address] Department [place] [address] * (ABNORMAL) Comprehensive metabolic panel (01/03/2025 10:39 AM CDT) Sodium 135 135 - 145 mmol/L Potassium, pl 4.1 3.3 - 4.9 mmol/L [facility] Chloride 98 97 - 110 mmol/L [facility] CO2 22 22 - 32 mmol/L [facility] Anion gap 15 2 - 15 mmol/L [facility] BUN 17 6 - 25 mg/dL [facility] Creatinine 0.59(L) 0.80 - 1.30 mg/dL [facility] Glucose 160 70 - 199 mg/dL [facility] Comment: Interpretive Data Fasting glucose [...] 2022. Calcium 9.1 8.5 - 10.3 mg/dL [facility] Bilirubin, total 20.9(H) 0.1 - 1.2 mg/dL [facility] Protein, pl 6.5 6.5 - 8.5 g/dL [facility] Albumin 3.0(L) 3.5 - 5.0 g/dL [facility] Alk phos 1,955(H) 40 - 130 Units/L [facility] ALT 484(H) 7 - 55 Units/L [facility] AST 356(H) 10 - 50 Units/L [facility] Comment:Slightly Hemolyzed S pecimen Blood 01/03/2025 10:3 9 AM CDT 01/03/2025 10:54 AM CDT Darwin Sanchez MD LAB BLOOD ORDERABLES Final R esult Performing Organization Address [facility]/ZIP Co de Phone Number [facility] [address] Department [email or web address] [address] * SCAN - LABS (01/02/2025) Provider Scanning Edited Result - Final * POCT glucose (12/21/2024 11:35 AM CDT) Glucose, POC 137 70 - 199 mg/dL Comment: For Glucose values <35 mg/dl when Hematocrit is >60 mg/dl,the test may not accurately detect significant hypoglycemia,and testing in the Laboratory should be considered if clinically indicated. POC Performer [id number] [facility] Blood 12/21/2024 11:3 5 AM CDT 12/21/2024 11:35 AM CDT Jose G Benitez MD LAB POCT ORDERABLES - DEVICE Fin al Result Performing Organization Address [facility] Co de Phone Number [facility] [address] [place] [employer] [address] * POCT glucose (12/21/2024 5:55 AM CDT) Glucose, POC 100 70 - 199 mg/dL Comment: For Glucose values <35 mg/dl when Hematocrit is >60 mg/dl,the test may not accurately detect significant hypoglycemia,and testing in the Laboratory should be considered if clinically indicated. POC Performer [id number] [facility] Blood 12/21/2024 5:55 AM CDT 12/21/2024 5:55 AM CDT Jose G Benitez MD LAB POCT ORDERABLES - DEVICE Fin al Result Performing Organization Address [facility] de Phone Number [facility] [facility] [address] Department [email or web address] [address] * eGFR (12/21/2024 1:41 AM CDT) eGFR [...] 1:41 AM CDT 12/21/2024 2:05 AM CDT Jose G Benitez MD LAB BLOOD ORDERABLES Final Resul t Performing Organization Address [facility] Co de Phone Number [facility] [address] Department of [email or web address] [place], [place] [id number] * (ABNORMAL) Comprehensive metabolic panel (12/21/2024 1:41 AM CDT) Sodium 138 135 - 145 mmol/L Potassium, pl 3.6 3.3 - 4.9 mmol/L [facility] Chloride 102 97 - 110 mmol/L [facility] CO2 22 22 - 32 mmol/L [facility] Anion gap 14 2 - 15 mmol/L [facility] BUN 22 6 - 25 mg/dL [facility] Creatinine 0.75(L) 0.80 - 1.30 mg/dL [facility] Glucose 131 70 - 199 mg/dL [facility] Comment: Interpretive Data Fasting glucose [...] 2022. Calcium 8.4(L) 8.5 - 10.3 mg/dL [facility] Bilirubin, total 6.4(H) 0.1 - 1.2 mg/dL [facility] Protein, pl 5.8(L) 6.5 - 8.5 g/dL [facility] Albumin 3.5 3.5 - 5.0 g/dL [facility] Alk phos 756(H) 40 - 130 Units/L [facility] ALT 338(H) 7 - 55 Units/L [facility] AST 205(H) 10 - 50 Units/L [facility] Blood 12/21/2024 1:41 AM CDT 12/21/2024 2:05 AM CDT us Adeel Ryan MD LAB BLOOD ORDERABLES Final Result [facility] [address] Department [place] [address] * POCT glucose (12/20/2024 8:50 PM CDT) [facility] Glucose, POC 137 70 - 199 mg/dL Comment: For Glucose values <35 mg/dl when Hematocrit is >60 mg/dl,the test may not accurately detect significant hypoglycemia,and testing in the Laboratory should be considered if clinically indicated. POC Performer [phone] [facility] Blood 12/20/2024 8:50 PM CDT 12/20/2024 8:50 PM CDT Jose G Benitez MD LAB POCT ORDERABLES - DEVICE Fin al Result Performing Organization Address [facility] Co de Phone Number [facility] [address] Department [place] [address] * POCT glucose (12/20/2024 6:16 PM CDT) Glucose, POC 124 70 - 199 mg/dL Comment: For Glucose values <35 mg/dl when Hematocrit is >60 mg/dl,the test may not accurately detect significant hypoglycemia,and testing in the Laboratory should be considered if clinically indicated. POC Performer [phone] [facility] Blood 12/20/2024 6:16 PM CDT 12/20/2024 6:16 PM CDT Jose G Benitez MD LAB POCT ORDERABLES - DEVICE Fin al Result Performing Organization Address [facility] Co de Phone Number [facility] [address] Department [place] [address] * Cytology (12/20/2024 3:34 PM CDT) Fluid, NOS 12/20/2024 3:34 PM CDT 12/21/2024 8:07 AM CDT Narrative 12/22/2024 11:10 AM CDT [place] [address] [facility], [place], [place] [address] Tele: Mariam Abel MD - Shingle Trimmer Note to Patients: This report may contain [...] the details. CYTOLOGY REPORT Patient Name: DONG TEIXEIRA. Address: [address] [place], [place] [id number] Gender: M : 1960 (Age: 64) Service: Medical Location: [place] [address] Hospital #: [id number] Patient Type [facility] IN[facility]IENT Taken: 12/20/2024 Reported: 12/22/2024 Physician(s): Jayshree Geiger Dr., M.D. FINAL DIAGNOSIS: Bile duct, brushing (two cytospins and one cell block slide): - Rare atypical cells smo12/22/2024 11:10 Report Reviewed and Electronically Signed By Sam Crisostomo M.D. SPECIMEN TYPE: A: COMMON BILE DUCT STRICTURE CLINICAL DIAGNOSIS AND HISTORY: Irregular mass in pancreatic head, bile duct stricture GROSS DESCRIPTION: Received in a container of CytoRich Red labeled Puneet Dong Re/common bile duct stricture is one wire brush. [...] correlation is needed. Clerical Data Follows A; 72019, [id number]` REPORT IMAGES AND/OR SCANNED DOCUMENTS ONLY VIEWABLE IN PDF FORMAT The immunohistochemical test(s) cited in this report, if any, was developed and its performance characteristics determined by [facility] Pathology Department. It has not been cleared or approved by the U.S. Food and Drug Administration. The FDA has determined that such clearance or approval is not necessary. This test is used for clinical purposes. It should not be regarded as investigational or for research. [facility] Laboratory is certified under the Clinical Laboratory Improvement Amendments of 1988 (CLIA) as qualified to perform high complexity testing. Immunostains were performed on formalin-fixed paraffin embedded tissue using a polymer diaminobenzidine chromogen detection system. Antibodies used may include clone [id number] (mouse monoclonal, estrogen receptor), clone [id number] (mouse monoclonal progesterone receptor), MIB-1 (mouse monoclonal, Ki- 67), and [id number] (rabbit polyclonal, c-kit). In the event that immunohistochemistry or special stains have been performed, attending physician has confirmed appropriateness of controls. Frozen section, operating room consultation, gross examination and dissection, and case sign out may have been performed in part or completely in the following laboratories: [facility], [address] [place] [id number] [place] [address], [address] [place] [address]. Adeel Ryan MD LAB CYTOLOGY ORDERABLES Fin al Result * [place] ERCP Biliary Duct (12/20/2024 3:29 PM CDT) Narrative [facility] - 12/20/2024 3:45 PM CDT The images from this study are not interpreted by Radiology. Please refer to the physician's procedure / OR operative note. Charly Mooney MD IMG FLUOROSCOPY PROCEDUR ES Final Result [facility] * Surgical pathology (12/20/2024 3:06 PM CDT) Pancreas, Biopsy 12/20/2024 3:06 PM CDT 12/21/2024 7:12 AM CDT Narrative 12/25/2024 3:10 PM CDT [address] [address] Tele: Mariam Abel MD - Shingle Trimmer Note to Patients: This report may contain [...] PATHOLOGY REPORT Patient Name: DONG TEIXEIRA Address: [address] [place], [place] [id number] Gender: Farshad : 1960 (Age: 64) Service: Medical Location: [place] [address], Hospital #: [id number] Patient Type: [facility] IN[facility] Taken: 12/20/2024 Received 12/21/2024 Reported: 12/25/2024 Physician(s): Jayshree Geiger Dr., M.D. DIAGNOSIS: Pancreas, head mass, fine needle biopsy: - Invasive adenocarcinoma [facility]/12/25/2024 15:10 Examining Pathologist: Sam Crisostomo M.D. Report Reviewed and Electronically Signed By Sam Crisostomo M.D. SPECIMEN TYPE: A: PANCREATIC HEAD MASS CLINICAL IMPRESSION AND HISTORY: Pancreatic mass GROSS DESCRIPTION: Received in formalin labeled DONG TEIXEIRA and pancreatic head mass are multiple red-brown tissue fragments, 1 x 0.3 x 0.2 cm in aggregate. The specimen is filtered and entirely submitted in A1. jxi/12/21/2024 08:13 [facility],JXI MICROSCOPIC DESCRIPTION: Microscopic examination shows irregular glandular structures with enlarged nuclei and prominent nucleoli. An immunostain p53 is completely negative (null phenotype) in these glands. The findings are consistent with invasive adenocarcinoma. Three deeper levels were examined. Clerical Data Follows A; 11032, 22522 REPORT IMAGES AND/OR SCANNED DOCUMENTS ONLY VIEWABLE IN PDF FORMAT The immunohistochemical test(s) cited in this report, if any, was developed and its performance characteristics determined by [facility] Pathology Department. It has not been cleared or approved by the U.S. Food and Drug Administration. The FDA has determined that such clearance or approval is not necessary. This test is used for clinical purposes. It should not be regarded as investigational or for research. [facility] Laboratory is certified under the Clinical Laboratory [...] part or completely in the following laboratories: [facility], [facility]5 [facility], [address], [address] [place] [address]. us Adeel Ryan MD LAB PATHOLOGY ORDERABLES Fi nal Result * Upper EUS (12/20/2024 2:38 PM CDT) Anatomical Region Laterality Modality Other Narrative Procedure Note Adeel Ryan MD - 12/20/2024 2:38 PM CDT ENDOSCOPY LAB Patient Name: Dong Teixeira Procedure Date: 12/20/2024 2:38 PM Admit Type: Inpatient Room: [facility] Date of : 1960 Instrument Name: [id number] [...] 12/20/2024 2:36 PM Admit Type: Inpatient Room: [facility] Date of : 1960 Instrument Name: [...] The patienttolerated the procedure well. Findings: The sandblaster stone film was normal. The esophagus was successfully [...] passed into the biliary tree. The CleverCut alld-ket-cdtnevvrnbjjlceadr was passed over the guidewire and the [...] the days following this procedure please call [phone] ask for my nurse, Azul Jaime. After hours and evenings please call [phone] and speak to theGI fellow math and science division chair. Please tell the fellow that Dr. Ryan did your procedure and that you were instructed to have the fellow call me or thephysician covering for me to discuss the management of your condition. If you have an urgent problem, please goto the nearest emergency room and have the ER doctorcall my office during the day or [facility] transfer ([phone]) center after hours and weekends to arrange [...] be considered if clinically indicated. POC Performer [id number] [facility] Blood 12/20/2024 12:3 0 PM CDT 12/20/2024 12:30 PM CDT Jose G Benitez MD LAB POCT ORDERABLES - DEVICE Fin al Result Performing Organization Address City/[facility]/ZIP Co de Phone Number [facility] [address] [place] [address] * POCT glucose (12/20/2024 6:16 AM CDT) Glucose, POC 159 70 - 199 mg/dL Comment: For Glucose values <35 mg/dl when Hematocrit is >60 mg/dl,the test may not accurately detect significant hypoglycemia,and testing in the Laboratory should be considered if clinically indicated. POC Performer [id number] [facility] Blood 12/20/2024 6:16 AM CDT 12/20/2024 6:16 AM CDT us Charly Mooney MD LAB POCT ORDERABLES - DE VICE Final Result Performing Organization Address City/[facility]/ZIP Co de Phone Number [facility] [address] Department [place] [email or web address] [address] * (ABNORMAL) Cancer antigen 19-9 (12/20/2024 1:03 [...] ORDERABLES Fin al Result Performing Organization Address City/[facility]/ZIP Co de Phone Number [facility] [address] Department [place] [email or web address] [address] * (ABNORMAL) CBC without differential (12/20/2024 1:03 AM CDT) [facility] WBC 8.3 3.8 - 9.9 K/cumm Hgb 16.9 13.0 - 17.5 g/dL [facility] Hct 46.9 38.9 - 50.3 % [facility] Plt 187 150 - 400 K/cumm [facility] MPV 10.4 9.1 - 12.3 fL [facility] RBC 5.39 4.30 - 5.80 M/cumm [facility] MCV 87.0 81.3 - 96.4 fL [facility] MCH 31.4 27.1 - 33.3 pg [facility] MCHC 36.0(H) 32.3 - 35.7 g/dL [facility] RDW CV 14.8 11.1 - 14.9 % [facility] RDW SD 46.4 35.7 - 48.1 fL [facility] NRBC abs 0.00 0.00 - 0.01 K/cumm [facility] Blood 12/20/2024 1:03 AM CDT 12/20/2024 1:16 AM CDT Timmy Braxton MD LAB BLOOD ORDERABLES Final Result Performing Organization Address City/[facility]/ZIP Co de Phone Number [facility] [address] [facility] [email or web address] [address] * (ABNORMAL) CEA (12/20/2024 1:03 AM CDT) [...] ORDERABLES Fin al Result Performing Organization Address [facility] Co de Phone Number [facility] [address] [facility] [email or web address] [address] * POCT glucose (12/19/2024 8:51 PM CDT) Glucose, POC 105 70 - 199 mg/dL Comment: For Glucose values <35 mg/dl when Hematocrit is >60 mg/dl,the test may not accurately detect significant hypoglycemia,and testing in the Laboratory should be considered if clinically indicated. POC Performer [id number] [facility] Blood 12/19/2024 8:51 PM CDT 12/19/2024 8:51 PM CDT Charly Mooney MD LAB POCT ORDERABLES - DE VICE Final Result Performing Organization Address City/[facility]/ZIP Co de Phone Number [facility] [address] [facility] [email or web address] [address] * POCT glucose (12/19/2024 4:23 PM CDT) Glucose, POC 173 70 - 199 mg/dL Comment: For Glucose values <35 mg/dl when Hematocrit is >60 mg/dl,the test may not accurately detect significant hypoglycemia,and testing in the Laboratory should be considered if clinically indicated. POC Performer [id number] [facility] Blood 12/19/2024 4:23 PM CDT 12/19/2024 4:23 PM CDT Charly Mooney MD LAB POCT ORDERABLES - DE VICE Final Result Performing Organization Address [facility]/ZIP Co de Phone Number [facility] [address] Department [email or web address] [address] * Troponin T high-sensitivity 4-hour (12/19/2024 11:50 AM CDT) Trop T hs 15 <=22 ng/L Comment: Interpretive Data For further hscTnT resources including the diagnostic algorithm and an aid in interpretation, copy and paste this link: https://nrl.testcatalog.org/show/hsTrop Current Interpretive Data last revised 2020. Trop T hs delta -3 ng/L [facility] Trop T hs interp Insignificant [facility] Blood 12/19/2024 11:5 0 AM CDT 12/19/2024 12:04 PM CDT Result [facility] Timmy Braxton MD LAB BLOOD ORDERABLES Final Result Performing Organization Address [facility] Co de Phone Number [facility] [address] Department [email or web address] [address] * POCT glucose (12/19/2024 10:40 AM CDT) Glucose, POC 112 70 - 199 mg/dL Comment: For Glucose values <35 mg/dl when Hematocrit is >60 mg/dl,the test may not accurately detect significant hypoglycemia,and testing in the Laboratory should be considered if clinically indicated. Blood 12/19/2024 10:4 0 AM CDT 12/19/2024 10:40 AM CDT Result [facility] Timmy Braxton MD LAB POCT ORDERABLES - DEVIC E Final Result [facility] [address] Department [place] [email or web address] [address] * Lipase - Add on lab test (12/19/2024 9:20 AM CDT) Acceptable Yes Blood 12/19/2024 9:20 AM CDT 12/19/2024 9:20 AM CDT Narrative [facility] - 12/19/2024 9:20 AM CDT Name of Test->Lipase Erika Smith Razo CLERICAL WAREHOUSE WORKER LAB BLOOD ORDERABLES Fi nal Result Performing Organization Address City/[facility]/ZIP Co de Phone Number [facility] [address] Department [place] [address] * CT Abdomen Pelvis W Contrast (12/19/2024 [...] by: Jazmin Parmar M.D. us Erika Razo CLERICAL WAREHOUSE WORKER IMG CT PROCEDURES Final Result * Troponin [...] MD LAB BLOOD ORDERABLES Final Result [facility] [address] Department [place] [email or web address] [address] * eGFR (12/19/2024 6:53 AM CDT) [facility] eGFR >90 >=60 mL/min/1. 73 m2 Comment: [...] Duke DO LAB BLOOD ORDERABLES Final Result [facility] [address] Department [place] [address] * Differential, auto (12/19/2024 6:53 AM CDT) [facility] Neutrophil abs 5.0 1.5 - 6.5 K/cumm Imm gran abs 0.0 0.0 - 0.1 K/cumm [facility] Lymphocyte abs 1.7 0.8 - 3.3 K/cumm [facility] Monocyte abs 0.8 0.2 - 0.8 K/cumm [facility] Eosinophil abs 0.2 0.0 - 0.5 K/cumm [facility] Basophil abs 0.1 0.0 - 0.1 K/cumm [facility] Neutrophil pct 64.7 % [facility] Comment: Interpretive Data Percent cell count reference ranges are not reported, since discordance with absolute values may lead to misinterpretation of CBC data. Current Interpretive Data was last revised on 2018. Imm gran pct 0.5 % [facility] Comment: Interpretive Data Percent cell count reference ranges are not reported, since discordance with absolute values may lead to misinterpretation of CBC data. Current Interpretive Data was last revised on 2018. Lymphocyte pct 21.5 % [facility] Comment: Interpretive Data Percent cell count reference ranges are not reported, since discordance with absolute values may lead to misinterpretation of CBC data. Current Interpretive Data was last revised on 2018. Monocyte pct 10.5 % [facility] Comment: Interpretive Data Percent cell count reference ranges are not reported, since discordance with absolute values may lead to misinterpretation of CBC data. Current Interpretive Data was last revised on 2018. Eosinophil pct 2.1 % [facility] Comment: Interpretive Data Percent cell count reference ranges are not reported, since discordance with absolute values may lead to misinterpretation of CBC data. Current Interpretive Data was last revised on 2018. Basophil pct 0.7 % [facility] Comment: Interpretive Data Percent cell count reference ranges are not reported, since discordance with absolute values may lead to misinterpretation of CBC data. Current Interpretive Data was last revised on 2018. Blood 12/19/2024 6:53 AM CDT 12/19/2024 7:09 AM CDT Timmy Braxton MD LAB BLOOD ORDERABLES Final Result [facility] [address] Department of Laboratories [place], [place] [id number] * (ABNORMAL) CBC with auto differential (12/19/2024 6:53 AM CDT) WBC 7.7 3.8 - 9.9 K/cumm Hgb 18.3(H) 13.0 - 17.5 g/dL [facility] Hct 50.1 38.9 - 50.3 % [facility] Plt 200 150 - 400 K/cumm [facility] MPV 10.6 9.1 - 12.3 fL [facility] RBC 5.67 4.30 - 5.80 M/cumm [facility] MCV 88.4 81.3 - 96.4 fL [facility] MCH 32.3 27.1 - 33.3 pg [facility] MCHC 36.5(H) 32.3 - 35.7 g/dL [facility] RDW CV 15.3(H) 11.1 - 14.9 % [facility] RDW SD 48.2(H) 35.7 - 48.1 fL [facility] NRBC abs 0.00 0.00 - 0.01 K/cumm [facility] Blood 12/19/2024 6:53 AM CDT 12/19/2024 7:09 AM CDT Timmy Braxton MD LAB BLOOD ORDERABLES Final Result Performing Organization Address [facility] Co de Phone Number [facility] [address] [place] [address] * Lipase (12/19/2024 6:53 AM CDT) [facility] Lipase 16 10 - 99 Units/L Blood 12/19/2024 6:53 AM CDT 12/19/2024 7:09 AM CDT Timmy Braxton MD LAB BLOOD ORDERABLES Final Result Performing Organization Address [facility] Co de Phone Number [facility] [address] Department [place] [email or web address] [address] * (ABNORMAL) Comprehensive metabolic panel (12/19/2024 6:53 AM CDT) [facility] Sodium 138 135 - 145 mmol/L Potassium, pl 3.9 3.3 - 4.9 mmol/L [facility] Chloride 100 97 - 110 mmol/L [facility] CO2 24 22 - 32 mmol/L [facility] Anion gap 14 2 - 15 mmol/L [facility] BUN 19 6 - 25 mg/dL [facility] Creatinine 0.77(L) 0.80 - 1.30 mg/dL [facility] Glucose 160 70 - 199 mg/dL [facility] Comment: Interpretive Data Fasting glucose [...] 2022. Calcium 9.2 8.5 - 10.3 mg/dL [facility] Bilirubin, total 10.2(H) 0.1 - 1.2 mg/dL [facility] Protein, pl 6.7 6.5 - 8.5 g/dL [facility] Albumin 3.6 3.5 - 5.0 g/dL [facility] Alk phos 887(H) 40 - 130 Units/L [facility] ALT 426(H) 7 - 55 Units/L [facility] AST 232(H) 10 - 50 Units/L [facility] Comment:Slightly Hemolyzed S pecimen Blood 12/19/2024 6:53 AM CDT 12/19/2024 6:53 AM CDT us Timmy Braxton MD LAB BLOOD ORDERABLES Final Result [facility] [address] Department [place] [address] * C-peptide (11/08/2024) SCRIBED C-Peptide 1.26 0.80 - 3.85 ng/mL EXTERNAL LAB Blood 11/08/2024 Holly Henson NP LAB BLOOD ORDERABLES Final Resu lt EXTERNAL LAB * (ABNORMAL) Hemoglobin A1c (11/08/2024) SCRIBED Hemoglobin A1c 7.0(A) 0 - 5.7 % [facility] Blood 11/08/2024 Historical Provider MD LAB BLOOD ORDERABLES Ashwini l Result EXTERNAL LAB * POCT glucose (10/20/2024 10:42 AM TRANSPORTATION REFRIGERATION TECHNICIAN) Glucose Blood, POC 154 mg/dL Blood 10/20/2024 10:4 2 AM TRANSPORTATION REFRIGERATION TECHNICIAN Result [facility] Holly Henson NP POINT OF CARE TEST ORDERABLES F inal Result * POCT hemoglobin A1c (10/20/2024 10:41 AM TRANSPORTATION REFRIGERATION TECHNICIAN) Hemoglobin A1C, POC 7.6 4.0 - 5.6 % Blood 10/20/2024 10:4 1 AM TRANSPORTATION REFRIGERATION TECHNICIAN Result [facility] Holly Henson NP POINT OF CARE TEST ORDERABLES F inal Result * Albumin Creatinine Ratio, Urine (03/01/2024 2:07 PM CDT) Albumin Ur 20.9 mg/L Comment: Interpretive Data No reference range established. Current interpretive data was last revised 2019. Creatinine Ur 84.2 mg/dL [facility] Comment: Interpretive Data No reference range established. Current interpretive data was last revised 2019. Albumin Creatinine Ratio, Ur 25 1 - 29 mg/g [facility] Urine 03/01/2024 2:07 PM CDT 03/01/2024 5:18 PM CDT Holly Henson CLERICAL WAREHOUSE WORKER LAB URINE ORDERABLES Final Resu lt [place] [address] [facility] Department [place] [address] * (ABNORMAL) Lipid panel (03/01/2024 2:07 PM [...] LAB BLOOD ORDERABLES Final Resu lt [facility] [place] [address] Department [place] [address] * Diabetic Eye Exam (11/25/2023) Historical Provider HEALTH MAINTENANCE Final Result from Last 3 Months or Most Recently Relevant to Health Maintenance Insurance MEDICARE MEDICARE [employer] [place] MED[employer] [employer] [place] Member Subscriber Plan / Payer (Ef fective 2024-Present) Name:Dong Teixeira Relation to Subscriber:Self Name:Dong Teixeira Payer ID:[id number] Group ID:[id number] Type:COMMERCIAL Address: [address] [address] [place] [address] Advance Directives For more information, please contact: [phone] * Full Code (Latest Code Status on File) Date Activated Date Inactivated Comments 01/03/2025 5:28 PM 01/11/2025 3:27 PM * Full Code Date Activated Date Inactivated Comments 12/19/2024 12:51 PM 12/21/2024 5:16 PM Care Teams Video Recorder Mechanic Relationship Specialty Start Date End Date Saul Valverde MD [address] [address] PCP - General 01/16/21 Muriel Reece MD [address] [facility] [phone] [place] [address] General Surgery 12/25/24 Adeel Ryan MD [address] [place] [address] Consulting Physician Internal Medicine 12/25/24 Tasenem Henderson MD [address] [facility] [address] [place], [place] [id number] Medical Oncologist/Usability Strategist Medical Oncology 12/25/24
--- OUTSIDE RECORDS SUMMARY | 2025-01-16 16:30 | XMS_ITS | Encounter Summary ---
Author Organization [facility] Address [address] [place] [address] Phone Care Team Providers Care Armature Bander Name Role Phone Saul Valverde MD Primary Care Provider [phone] Ramon Paredes MD Unavailable Reason for Visit * Reason Comments Medication Refill Encounter Details Date Type Department Care Team (Late st Contact Info) Description 02/25/2024 Refill [facility] - Family Medicine [facility] #2 [place] [address] Saul Valverde MD #[address] [address] Medication Refill Social History Tobacco Use Types [...] Visit [facility] - Family Medicine [facility]2 [place] [address] Saul Valverde MD #2 [facility] [address] [place] [address] documented as of this encounter Visit Diagnoses Diagnosis Anxiety Anxiety state, unspecified documented in this encounter Additional Health Concerns Assessment Noted Time PHQ-9 Depression Total Score: 0 02/13/20 21 12:00 PM CDT documented as of this encounter Care Teams Armature Bander Relationship Specialty Start Date End Date Saul Valverde MD #[address] [address] PCP - General Family Medicine 11/17/17 Ramon Paredes MD #[address] [address] Consulting Physician Colon and Rectal Surgery 10/11/23 documented as of this encounter
--- OUTSIDE RECORDS SUMMARY | 2025-01-16 16:30 | XMS_ITS | Encounter Summary ---
Author Organization [facility] Address [address] [place] [address] Phone Care Team Providers Care Centrifugal Machine Tender Name Role Phone Saul Valverde MD Primary Care Provider [phone] Ramon Paredes MD Unavailable Reason for Visit * Reason Comments Medication Refill Encounter Details Date Type Department Care Team (Late st Contact Info) Description 07/22/2020 [facility] [address] [place] [address] Saul Valverde MD #[address] [address] Medication Refill Social History Tobacco [...] 2 diabetes mellitus without complication, unspecified whether exterminator termite insulin use (HCC) [facility] Saul Munoz MD 8 months ago Chronic midline low back pain without sciatica [facility] Saul Munoz MD 1 year ago Chronic midline low back pain without sciatica [facility] Saul Munoz MD 1 year ago Pure hypercholesterolemia [facility] Saul Munoz MD 2 years ago Type 2 diabetes mellitus without complication, without long-term current use of insulin(HCC) [facility] Saul Munoz MD Upcoming Appointments HOLTER TECHNICIAN - Recent and Past Visits Recent Visits Date Type Provider Dept 05/20/20 Telemedicine Saul Valverde MD [facility] 11/20/19 Office Visit Saul Valverde MD [facility] 05/18/19 Office Visit Saul Valverde MD [facility] Showing recent visits within past 460 days [...] Description 03/15/2025 11:00 AM CDT Office Visit [facility] #2 [place] [address] Saul Valverde MD #2 [facility] [address] [place] [address] documented as of this encounter Visit Diagnoses Not on filedocumented in this encounter Additional Health Concerns Assessment Noted Time PHQ-9 Depression Total Score: 0 11/20/19 20 12:18 PM HEEL GUMMER documented as of this encounter Care Teams Centrifugal Machine Tender Relationship Specialty Start Date End Date Saul Valverde MD #[address] [address] PCP - General Family Medicine 11/17/17 Ramon Praedes MD #2 [facility] [address] [place] [address] Consulting Physician Colon and Rectal Surgery 10/11/23 documented as of this encounter
--- OUTSIDE RECORDS SUMMARY | 2025-01-16 16:30 | XMS_ITS | Encounter Summary ---
Author Organization [facility] Address [address] [place] [address] Phone Care Team Providers Care Cigar Tobacco Processing Supervisor Name Role Phone Saul Valverde MD Primary Care Provider [phone] Ramon Paredes MD Unavailable Reason for Visit * Reason Comments Medication Refill Encounter Details Date Type Department Care Team (Late st Contact Info) Description 08/21/2020 Refill [facility] Medical Group - Family Medicine [facility] #2 [place] [address] Emmett Mo MD #1 [place] [address] Medication Refill Social History Tobacco Use Types [...] 08/21/2020 11:21 AM CST Prescription pending signature ORT SPECIALIST * Telephone Encounter - Neida Santana RN [...] 2 diabetes mellitus without complication, unspecified whether roasterman insulin use (HCC) [facility] Saul Wong MD 9 months ago Chronic midline low back pain without sciatica [facility] Saul Munoz MD 1 year ago Chronic midline low back pain without sciatica [facility] Saul Munoz MD 1 year ago Pure hypercholesterolemia [facility] Saul Munoz MD 2 years ago Type 2 diabetes mellitus without complication, without long-term current use of insulin(HCC) [facility] Saul Munoz MD Upcoming Appointments XRAY TECH - Recent and Past Visits Recent Visits Date Type Provider Dept 05/20/20 Telemedicine Saul Valverde MD [facility] 11/20/19 Office Visit Saul Valverde MD [facility] Showing recent visits within past 460 days with a meds authorizing provider and meeting all other requirements Future Appointments No visits were found meeting these conditions. Showing future appointments within next 90 days with a meds authorizing provider and meeting all other requirements ORT SPECIALIST documented in this encounter Plan of Treatment Upcoming Encounters Date Type Department Care Team (Late st Contact Info) Description 03/15/2025 11:00 AM CDT Office Visit [facility] [address]2 [place] [address] Saul Valverde MD #2 [facility] [address] [place] [address] documented as of this encounter Visit Diagnoses Not on filedocumented in this encounter Additional Health Concerns Assessment Noted Time PHQ-9 Depression Total Score: 0 11/20/19 20 12:18 PM SUPPORT SPECIALIST documented as of this encounter Care Teams Cigar Tobacco Processing Supervisor Relationship Specialty Start Date End Date Saul Valverde MD #[address] [address] PCP - General Family Medicine 11/17/17 Ramon Paredes MD #2 [facility] [address] [place] [address] Consulting Physician Colon and Rectal Surgery 10/11/23 documented as of this encounter
--- OUTSIDE RECORDS SUMMARY | 2025-01-16 16:30 | XMS_ITS | Encounter Summary ---
Author Organization [facility] Address [address] [place] [address] Phone Care Team Providers Care Surveying Technician Name Role Phone Saul Valverde MD Primary Care Provider [phone] Ramon Paredes MD Unavailable Reason for Visit * Reason Comments Medication Refill Encounter Details Date Type Department Care Team (Late st Contact Info) Description 12/13/2022 Refill [facility] Medical Group - Family Medicine [facility] #2 [place] [address] Saul Valverde MD #[address] [address] Medication Refill Social History Tobacco Use Types [...] Dept 08/31/22 Office Visit Saul Valverde MD [facility] Showing recent visits within past 182 [...] 11:00 AM CDT Office Visit [facility] Medical Group - Family Medicine [facility] #2 [place] [address] Saul Valverde MD #[address] [address] documented as of this encounter Visit Diagnoses Not on filedocumented in this encounter Additional Health Concerns Assessment Noted Time PHQ-9 Depression Total Score: 0 02/13/20 21 12:00 PM CDT documented as of this encounter Care Teams Surveying Technician Relationship Specialty Start Date End Date Saul Valverde MD #[address] [address] PCP - General Family Medicine 11/17/17 Ramon Paredes MD #2 [place] [address] Consulting Physician Colon and Rectal Surgery 10/11/23 documented as of this encounter
--- OUTSIDE RECORDS SUMMARY | 2025-01-16 16:30 | XMS_ITS | Encounter Summary ---
Author Organization [facility] Address [address] [place] [address] Phone Care Team Providers Care Communications Engineer Name Role Phone Saul Valverde MD Primary Care Provider [phone] Ramon Paredes MD Unavailable Reason for Visit * Reason Comments Medication Refill Encounter Details Date Type Department Care Team (Late st Contact Info) Description 06/22/2023 Refill [facility] - Family Medicine [facility] #2 [place] [address] Saul Valverde MD #[address] [address] Medication Refill Social History Tobacco Use Types [...] Description 03/15/2025 11:00 AM CDT Office Visit [facility] - Family Medicine - [facility] #2 [place] [address] Saul Valverde MD #[address] [address] documented as of this encounter Visit Diagnoses Diagnosis Pain Generalized pain Anxiety Anxiety state, unspecified documented in this encounter Additional Health Concerns Assessment Noted Time PHQ-9 Depression Total Score: 0 02/13/20 21 12:00 PM CDT documented as of this encounter Care Teams Communications Engineer Relationship Specialty Start Date End Date Saul Valverde MD #[address] [address] PCP - General Family Medicine 11/17/17 Raomn Paredes MD #[address] [address] Consulting Physician Colon and Rectal Surgery 10/11/23 documented as of this encounter
--- OUTSIDE RECORDS SUMMARY | 2025-01-16 16:30 | XMS_ITS | Encounter Summary ---
Author Organization [facility] Address [address] [place] [address] Phone Care Team Providers Care Histology Supervisor Name Role Phone Saul Valverde MD Primary Care Provider [phone] Ramon Paredes MD Unavailable Reason for Visit * Reason Comments Medication Refill Encounter Details Date Type Department Care Team (Late st Contact Info) Description 11/04/2023 Refill [facility] - Family Medicine [facility] #2 [place] [address] Saul Valverde MD #[address] [address] Medication Refill Social History Tobacco Use Types [...] Witt 03/02/23 Office Visit Saul Valverde MD [facility] Showing recent visits within past 365 days and meeting all other requirements Future Appointments No visits were found meeting these conditions. Showing future appointments within next 90 days and meeting all other requirements RENAL documented in this encounter Plan of Treatment Upcoming Encounters Date Type Department Care Team (Late st Contact Info) Description 03/15/2025 11:00 AM CDT [facility] #2 [place] [address] Saul Valverde MD #[address] [address] documented as of this encounter Visit Diagnoses Diagnosis Anxiety Anxiety state, unspecified documented in this encounter Additional Health Concerns Assessment Noted Time PHQ-9 Depression Total Score: 0 02/13/20 21 12:00 PM CDT documented as of this encounter Care Teams Histology Supervisor Relationship Specialty Start Date End Date Saul Valverde MD #[address] [address] PCP - General Family Medicine 11/17/17 Ramon Paredes MD #[address] [address] Consulting Physician Colon and Rectal Surgery 10/11/23 documented as of this encounter
--- OUTSIDE RECORDS SUMMARY | 2025-01-16 16:30 | XMS_ITS | Encounter Summary ---
Author Organization [facility] Address [address] [place] [address] Phone Care Team Providers Care Enrobing Machine Operator Name Role Phone Saul Valverde MD Primary Care Provider [phone] Ramon Paredes MD Unavailable Reason for Visit * Reason Comments Medication Refill Encounter Details Date Type Department Care Team (Late st Contact Info) Description 09/02/2024 Refill [facility] #2 [place] [address] Saul Valverde MD #[address] [address] Medication Refill Social History Tobacco Use Types [...] Dept 09/13/24 Appointment Saul Valverde MD [facility] Showing future appointments within next 90 days and meeting all other requirements LANCE DRIVER PARAMEDIC documented in this encounter Plan of Treatment Upcoming Encounters Date Type Department Care Team (Late st Contact Info) Description 03/15/2025 11:00 AM CDT Office Visit [facility] Medical Group - Family Medicine - [place] #2 [place] [address] Saul Valverde MD #[address] [address] documented as of this encounter Visit Diagnoses Diagnosis Pain Generalized pain documented in this encounter Additional Health Concerns Assessment Noted Time PHQ-9 Depression Total Score: 0 03/07/20 10:10 AM CDT documented as of this encounter Care Teams Enrobing Machine Operator Relationship Specialty Start Date End Date Saul Valverde MD #[address] [address] PCP - General Family Medicine 11/17/17 Ramon Paredes MD #[address] [place] [address] [place] [address] Consulting Physician Colon and Rectal Surgery 10/11/23 documented as of this encounter
--- OUTSIDE RECORDS SUMMARY | 2025-01-16 16:30 | XMS_ITS | Clinical Summary ---
Author Organization [facility] Address [address] [place] [address] Care Team Providers Care Jewel Bearing Broacher Name Role Phone Unavailable Primary Care Provider Unavailabl e Social History Tobacco Use Types Packs/Day Years Used Date Smoking Tobacco: Never Assessed Sex and Gender Information Value Date Recorded Sex Assigned at Not on file Legal Sex Male 5:48 PM SPACE PLANNER Gender Identity Not on file Sexual Orientation [...] 5 Years) and At-Risk Patients (6 to 49 Years) Aged Out No longer eligible b ased on patient's age to complete this topic RSV Immunizations Under 20 Months Aged Out No longer eligible based on patient's age to complete this topic
--- OUTSIDE RECORDS SUMMARY | 2025-01-16 16:30 | XMS_ITS | Encounter Summary ---
Author Organization [facility] Address [address] [place] [address] Phone Care Team Providers Care Freight Flagman Name Role Phone Saul Valverde MD Primary Care Provider [phone] Ramon Paredes MD Unavailable Reason for Visit * Reason Comments Medication Refill Encounter Details Date Type Department Care Team (Late st Contact Info) Description 12/14/2023 Refill [facility] Medical [facility] - Family Medicine [facility] #2 [place] [address] Saul Valverde MD #[address] [address] Medication Refill Social History Tobacco Use Types [...] 11:00 AM CDT Office Visit [facility] Medical Group - Family Medicine - [facility] #2 [place] [address] Saul Valverde MD #2 [facility] [address] [place] [address] documented as of this encounter Visit Diagnoses Diagnosis Pain Generalized pain Anxiety Anxiety state, unspecified documented in this encounter Additional Health Concerns Assessment Noted Time PHQ-9 Depression Total Score: 0 02/13/20 21 12:00 PM CDT documented as of this encounter Care Teams Freight Flagman Relationship Specialty Start Date End Date Saul Valverde MD #2 [facility] [address] [place] [address] PCP - General Family Medicine 11/17/17 Ramon Paredes MD #2 [facility] [address] [place] [address] Consulting Physician Colon and Rectal Surgery 10/11/23 documented as of this encounter
--- OUTSIDE RECORDS SUMMARY | 2025-01-16 16:30 | XMS_ITS | Encounter Summary ---
Author Organization [facility] Address [address] [place] [address] Phone Care Team Providers Care Cw Operator Name Role Phone Saul Valverde MD Primary Care Provider [phone] Ramon Paredes MD Unavailable Reason for Visit * Reason Comments Medication Refill Encounter Details Date Type Department Care Team (Late st Contact Info) Description 01/06/2022 Refill [facility] Medical Group - Family Medicine [facility] #2 [place] [address] Saul Valverde MD #[address] [address] Medication Refill Social History Tobacco Use Types [...] Witt 02/12/21 Office Visit Saul Valverde MD [facility] Showing recent visits within past 365 days and meeting all other requirements Future Appointments No visits were found meeting these conditions. Showing future appointments within next 90 days and meeting all other requirements documented in this encounter Plan of Treatment Upcoming Encounters Date Type Department Care Team (Late st Contact Info) Description 03/15/2025 11:00 AM CDT Office Visit [facility] Medical Group - Family Medicine [facility] #2 [place] [address] Saul Valvedre MD #[address] [address] documented as of this encounter Visit Diagnoses Diagnosis Anxiety Anxiety state, unspecified documented in this encounter Additional Health Concerns Assessment Noted Time PHQ-9 Depression Total Score: 0 02/13/20 21 12:00 PM CDT documented as of this encounter Care Teams Cw Operator Relationship Specialty Start Date End Date Saul Valverde MD #[address] [address] PCP - General Family Medicine 11/17/17 Ramon Paredes MD #2 [place] [address] Consulting Physician Colon and Rectal Surgery 10/11/23 documented as of this encounter
--- OUTSIDE RECORDS SUMMARY | 2025-01-16 16:30 | XMS_ITS | Encounter Summary ---
Author Organization [facility] Address [address] [place] [address] Phone Care Team Providers Care Dock Coordinator Name Role Phone Saul Valverde MD Primary Care Provider [phone] Muriel Reece MD Unavailable [phone] Adeel Ryan MD Unavailable [phone] Tasneem Henderson MD Unavailable [phone] Reason for Visit * Reason Onset Date Comments Scheduling Appointments 12/27/2024 Encounter Details Date Type Department Care Team (Late st Contact Info) Description 12/27/2024 Telephone [facility] Surgery [facility] Floor [address] [place] [address] Muriel Reece MD [address] [facility] [phone] [place] [address] Scheduling Appointments Social History Tobacco Use Types Packs/Day Years Used Date Smoking Tobacco: Every Day Cigarettes 0.8 35 [facility] Utilities Answer Date Recorded In the past 12 months has [employer], gas, oil, or water [employer] threatened to shut off services in your [...] often do you attend chur ch or methodist services? 1 to 4 times per year 12/19/2024 Do you belong to any clubs o r organizations such as mandaeism groups, unions, fraternal or athletic groups, or [...] any time in the past 12 m [facility], were you homeless or living in a snf (including now)? No 12/19/2024 Personal Safety Answer Date Recorded Have you ever been in or are you currently in a harmful physical or emotional relationship or is someone making you feel afraid or unsafe? Denies 12/20/2024 Sex and Gender Information Value Date Recorded Sex Assigned at Not on file Legal Sex Male 11:03 AM BLENDING LINE ATTENDANT Gender Identity Not on file Sexual Orientation [...] them to contact for a call back: [phone] Last office visit: Visit date not found Date of Surgery: 12/20/2024 documented in this encounter Plan of Treatment Upcoming Encounters Date Type Department Care Team (Late st Contact Info) Description 01/24/2025 12:30 PM CDT Office Visit [facility] Medical Group Diabetes Endocrine Care at [address] [address] Holly Henson, MANAGEMENT CONSULTANT [address] [place] [address] [address] [place] [address] documented as of this encounter Visit Diagnoses Not on filedocumented in this encounter Care Teams Dock Coordinator Relationship Specialty Start Date End Date Saul Valverde MD [address] [place] [address] PCP - General 01/16/21 Muriel Reece MD [address] [facility] [phone] [place] [address] General Surgery 12/25/24 Adeel Ryan MD [address] [place] [address] Consulting Physician Internal Medicine 12/25/24 Tasneem Henderson MD [address] [facility] [address] [place] [address] Medical Oncologist/Chef Teacher Medical Oncology 12/25/24 documented as of this encounter
[2025-01-16 16:54] LABS: Alanine Aminotransferase 180 U/L (16-63); Anion Gap 9 mmol/L (4-12); Aspartate Amino Transferase 150 U/L (15-37); Blood Urea Nitrogen 15 mg/dL (7-18); Calcium 9.1 mg/dL (8.5-10.1); Carbon Dioxide 31 mmol/L (21-32); Chloride 102 mmol/L (98-108); Estimated Glomerular Filt Rate > 60; Glucose 111 mg/dL (70-99); Osmolality Calculated 295 mOsm/kg (285-295); Potassium 3.6 mmol/L (3.5-5.1); Sodium 142 mmol/L (136-145); Total Protein 5.7 g/dL (6.4-8.2)
[2025-01-16 16:57] LABS: Alkaline Phosphatase > 1000 U/L (46-116); Bilirubin Direct > 16.0 mg/dL (0-0.2)
== END 2025-01-16 15:26 | disposition home or self-care (01) ==
PROVIDERS: PCP Internal Medicine
DX: C25.0 Malignant neoplasm of head of pancreas (principal)
CPT/HCPCS: 36415; 80053; 82248